=== PATIENT | male | born 1960 | race Caucasian/White ===

== ENCOUNTER 2016-10-24 11:49 | Emergency (ER) | payer BC ==
--- NOTE | 2016-10-24 12:53 | ED ---
Extremity Problem HPI - General Chief complaint: Extremity Problem,Nontraumatic Stated complaint: foot pain Time Seen by Provider: 10/24/16 12:41 Source: patient, RN notes reviewed Mode of arrival: wheelchair Limitations: no limitations - History of Present Illness Initial comments: 56-year-old male presents to the emergency Department chief complaint of bruising to the left foot. Patient states that he noticed this over the last few days. Patient states that he has pain to touch and pain with walking and mild swelling. Patient states he does have poor circulation the foot suite that was just discoloration from his circulation. Patient does not remember falling or injuring the foot but he states that he is having some discomfort. Patient denies any open wounds. Patient denies any recent fever, chills, shortness of breath, chest pain, back pain, abdominal pain, nausea vomiting, numbness or tingling, dysuria or hematuria, constipation or diarrhea, headaches or visual changes, or any other current symptoms. - Related Data Home Medications Medication Instructions Recorded Confirmed Gabapentin [Neurontin] 600 mg PO TID 04/24/14 10/24/16 Insulin Glargine [Lantus] 25 units SQ DAILY 04/24/14 10/24/16 Aspirin EC [Ecotrin Low Dose] 81 mg PO DAILY 10/24/16 10/24/16 Previous Rx's Medication Instructions Recorded Hydrocodone/Acetaminophen [[place] 1 each PO Q6HR PRN #20 tab 10/24/16 5-325] Allergies Allergy/AdvReac Type Severity Reaction Status Date / Time No Known Allergies Allergy Verified 10/24/16 12:44 Review of Systems ROS Statement: Those systems with pertinent positive or pertinent negative responses have been documented in the HPI. ROS Other: All systems not noted in ROS Statement are negative. Past Medical History Past Medical History: Diabetes Mellitus History of Any Multi-Drug Resistant Organisms: None Reported Past Surgical History: Hernia Repair Past Psychological History: No Psychological Hx Reported Smoking Status: Current every day smoker Past Alcohol Use History: Daily Past Drug Use History: None Reported General Exam - General Exam Comments Initial Comments: General: The patient is awake and alert, in no distress, and does not appear acutely ill. Neck: The neck is supple, there is no tenderness. Cardiovascular: There is a regular rate and rhythm. No murmur, rub or gallop is appreciated. Respiratory: Lungs are clear to auscultation, respirations are non-labored, breath sounds are equal. No wheezes, stridor, rales, or rhonchi. Musculoskeletal: Sensation intact with 2+ pulses. Left lower extremity. Full range of motion of left knee and left ankle left foot there is mild swelling and noted ecchymosis throughout the ankle as well as to the for foot. It is tender to touch. No open areas of drainage or infection noted. Neurological: CN II-XII intact, There are no obvious motor or sensory deficits. Coordination appears grossly intact. Speech is normal. Skin: Skin is warm and dry and no rashes or lesions are noted. Psychiatric: Normal mood and affect. Limitations: no limitations Course Vital Signs 10/24/16 11:58 Temperature 98.3 F Pulse Rate 90 Respiratory 20 Rate Blood Pressure 133/76 O2 Sat by Pulse 95 Oximetry Procedures - Orthopedic Splinting/Casting Injury #1 Side: left Lower Extremity Injury Location: ankle Lower Extremity Immobilizer: stirrup splint Medical Decision Making - Medical Decision Making 56-year-old male presents for bruising to the left foot. This time patient appears to have an ankle fracture. This time patient was placed in splint. We discussed follow-up with or so and return parameters and care. We discussed all the patient's questions. He stated he understood and is in agreement with plan. This and will be discharged home. - Radiology Data Radiology results: report reviewed, image reviewed Disposition Clinical Impression: Closed left ankle fracture Disposition: HOME SELF-CARE Condition: Stable Instructions: Ankle Fracture (ED) Additional Instructions: Please use medication as discussed. Please follow up with family doctor if symptoms have not improved over the next two days. Please return to the emergency room if your symptoms increase or worsen or for any other concerns. Prescriptions: Hydrocodone/Acetaminophen [[place] 5-325] 1 each PO Q6HR PRN #20 tab PRN Reason: Pain Referrals: Len Dutton MD [Primary Care Provider] - 1-2 days Gurmeet Sheehan DO [Doctor of Osteopathic Medicine] - 1-2 days Time of Disposition: 14:13
[2016-10-24] MEDS ORDERED: HYDROcodone/APAP 5-325MG 1 EACH TAB PO STA (14:04)
--- NOTE | 2016-10-24 14:08 | XR ---
EXAMINATION TYPE: XR ankle complete LT DATE OF EXAM: 10/24/2016 COMPARISON: NONE HISTORY: Pain swelling TECHNIQUE: 3 view left ankle FINDINGS: There is an oblique fracture of the distal metadiaphyseal fibula. Overlying soft tissue swe lling is present. Ankle mortise appears intact. No additional fractures are evident. Plantar calcanea l heel spur is present. IMPRESSION: 1. Oblique fracture distal metadiaphyseal fibula.
--- NOTE | 2016-10-24 14:09 | XR ---
EXAMINATION TYPE: XR foot complete LT DATE OF EXAM: 10/24/2016 COMPARISON: NONE HISTORY: Pain and swelling TECHNIQUE: 3 view left foot FINDINGS: No acute fractures evident. Soft tissues are normal. The patient's fibular fracture is bare ly within the [id number]. Plantar calcaneal heel spur is present. IMPRESSION: 1. No acute osseous abnormality left foot. 2. Partial visualization of the left distal fibular fracture.
[2016-10-24 14:27] VITALS: BP 176/90; PULSE 91; RESP 18; TEMP 98.6
== END 2016-10-24 14:34 | disposition home or self-care (01) ==
LOC: EC 11:49
DX: S89.302A Unspecified physeal fracture of lower end of left fibula, initial encounter for closed fracture (principal); E11.9 Type 2 diabetes mellitus without complications; F17.200 Nicotine dependence, unspecified, uncomplicated; Z79.4 Long term (current) use of insulin; Z79.82 Long term (current) use of aspirin; Z79.899 Other long term (current) drug therapy; X58.XXXA Exposure to other specified factors, initial encounter
CPT/HCPCS: 99283

== ENCOUNTER 2017-05-31 05:55 | Emergency (ER) | payer SELFPAY ==
[2017-05-31 06:11] VITALS: RESP 20
[2017-05-31] MEDS ORDERED: IPRATROPIUM-ALBUTEROL 3 ML NEB INHALATION STA ×2 (06:15→07:39)
--- NOTE | 2017-05-31 06:32 | XR ---
EXAM: XR Chest, 2 Views CLINICAL HISTORY: Reason: difficulty breathing TECHNIQUE: Frontal and lateral views of the chest. COMPARISON: No relevant prior studies available. FINDINGS: Lungs: Unremarkable. No consolidation. Pleural space: Unremarkable. No pneumothorax. Heart: Unremarkable. No cardiomegaly. Mediastinum: Unremarkable. Bones/joints: Unremarkable. Upper abdomen: Elevated left hemidiaphragm. IMPRESSION: No acute findings.
[2017-05-31] MEDS ORDERED: SODIUM CHLORIDE 0.9% 1,000 ML IV STA (07:38)
[2017-05-31] MEDS ORDERED: cefTRIAXone IN SWFI 1,000 MG/10 ML SYRINGE IVP STA (07:38)
[2017-05-31] MEDS ORDERED: methylPREDNISolone SOD SUCCI 125 MG/2 ML VIAL IV STA (07:39)
--- NOTE | 2017-05-31 07:42 | ED ---
SOB HPI - General Chief Complaint: Shortness of Breath Stated Complaint: SOB Time Seen by Provider: 05/31/17 07:20 Source: patient, RN notes reviewed Mode of arrival: wheelchair Limitations: no limitations - History of Present Illness Initial Comments: This is a 56-year-old male who states he is to be a 3 pack a day smoker and is down now to less 1 pack a day who states he's had some illness over last 1-1/2 weeks. He has had body aches cough difficulty breathing that was getting progressively worse last night he had orthopnea. He also had watery eyes runny nose some of the symptoms have improved. He came in this morning for evaluation. Short of breath. Prior to my arrival here he did receive a updraft which did help somewhat. He states he has had some sweats no recent fevers or chills. He did get a flu shot this year he states. No chest pain no abdominal pain no nausea vomiting diarrhea. He states he did see his doctor 4 days ago but apparently the prescription was "messed up" at the pharmacy and he did not receive the prescription. MD Complaint: shortness of breath - Related Data Home Medications Medication Instructions Recorded Confirmed Gabapentin [Neurontin] 600 mg PO TID 04/24/14 05/31/17 Insulin Glargine [Lantus] 20 units SQ DAILY 04/24/14 05/31/17 Albuterol Inhaler [Ventolin Hfa 1 - 2 puff INHALATION RT-Q6H PRN 05/31/17 Inhaler] Budesonide-Formot 160-4.5 Mcg 2 puff INHALATION RT-DAILY 05/31/17 05/31/17 [Symbicort 160-4.5 Mcg Inhaler] Hydrocodone/Acetaminophen [[place] 1 tab PO Q6HR PRN 05/31/17 05/31/17 5-325] Ibuprofen [Ibuprofen] 600 mg PO TID 05/31/17 05/31/17 Previous Rx's Medication Instructions Recorded Amoxicillin 500 mg PO Q8H #30 capsule 05/31/17 predniSONE 20 mg PO BID #10 tab 05/31/17 Allergies Allergy/AdvReac Type Severity Reaction Status Date / Time No Known Allergies Allergy Verified 05/31/17 07:45 Review of Systems ROS Statement: Those systems with pertinent positive or pertinent negative responses have been documented in the HPI. ROS Other: All systems not noted in ROS Statement are negative. Past Medical History Past Medical History: Diabetes Mellitus History of Any Multi-Drug Resistant Organisms: None Reported Past Surgical History: Hernia Repair Past Psychological History: No Psychological Hx Reported Smoking Status: Current every day smoker Past Alcohol Use History: Daily Past Drug Use History: None Reported General Exam - General Exam Comments Initial Comments: This is a well-developed well-nourished awake alert oriented 3 male Limitations: no limitations General appearance: alert, in no apparent distress Head exam: Present: atraumatic, normocephalic, normal inspection Eye exam: Present: normal appearance, PERRL, EOMI. Absent: scleral icterus, conjunctival injection, periorbital swelling ENT exam: Present: mucous membranes dry, TM's normal bilaterally, other (Marked hyperemia to the posterior pharynx no exudate seen. No edema.) Neck exam: Present: normal inspection, full ROM, other (No stridor JVD or bruits ). Absent: tenderness, meningismus, lymphadenopathy Respiratory exam: Present: wheezes, decreased breath sounds, other (Diffuse wheezing more so on the right than the left this is after the first nebulizer treatment). Absent: respiratory distress, rales, rhonchi, stridor Cardiovascular Exam: Present: normal rhythm, tachycardia, normal heart sounds. Absent: systolic murmur, diastolic murmur, rubs, gallop, clicks GI/Abdominal exam: Present: soft, normal bowel sounds. Absent: distended, tenderness, guarding, rebound, rigid Extremities exam: Present: normal inspection, full ROM, normal capillary refill. Absent: tenderness, pedal edema, joint swelling, calf tenderness Back exam: Present: normal inspection Neurological exam: Present: alert, oriented X3, CN II-XII intact Psychiatric exam: Present: normal affect, normal mood Skin exam: Present: warm, dry, intact, normal color. Absent: rash Course Vital Signs 05/31/17 05/31/17 05/31/17 06:06 06:10 06:31 Temperature 98.7 F Pulse Rate 109 H 105 H Respiratory 20 20 Rate Blood Pressure 190/91 O2 Sat by Pulse 94 L Oximetry 05/31/17 05/31/17 05/31/17 06:43 07:56 08:06 Temperature Pulse Rate 108 H 94 92 Respiratory Rate Blood Pressure 189/80 O2 Sat by Pulse 98 Oximetry 05/31/17 05/31/17 05/31/17 08:16 08:56 09:56 Temperature Pulse Rate 90 100 96 Respiratory Rate Blood Pressure 181/79 158/68 O2 Sat by Pulse 97 95 Oximetry - Reevaluation(s) Reevaluation #1: 05/31/17 10:17 Reevaluation patient reveals increased aeration and he is feeling much improved. Reevaluation #2: 05/31/17 10:18 I did discuss the risks of smoking and the benefits and cessation with the patient. The entire conversation lasting 3.1 minutes. Medical Decision Making - Medical Decision Making Patient showing much improved this time he has increased aeration no wheezing. We a long talk discussing smoking cessation. Patient does have an rescue inhaler at home that is up-to-date. He will be discharged on [place] medication including oral steroids. The presentation is consistent with asthmatic bronchitis. - Lab Data Result diagrams: 05/31/17 08:04 05/31/17 08:04 Lab Results 05/31/17 05/31/17 05/31/17 Range/Units 08:04 08:04 08:04 WBC 6.0 (3.8-10.6) k/uL RBC 4.37 (4.30-5.90) m/uL Hgb 14.3 (13.0-17.5) gm/dL Hct 42.4 (39.0-53.0) % MCV 97.0 (80.0-100.0) fL MCH 32.7 (25.0-35.0) pg MCHC 33.7 (31.0-37.0) g/dL RDW 15.9 H (11.5-15.5) % Plt Count 66 L (150-450) k/uL Neutrophils % 60 % Lymphocytes % 23 % Monocytes % 10 % Eosinophils % 3 % Basophils % 1 % Neutrophils # 3.6 (1.3-7.7) k/uL Lymphocytes # 1.4 (1.0-4.8) k/uL Monocytes # 0.6 (0-1.0) k/uL Eosinophils # 0.2 (0-0.7) k/uL Basophils # 0.1 (0-0.2) k/uL Manual Slide Review Performed RBC Morphology Normal PT (9.0-12.0) sec INR (<1.2) APTT (22.0-30.0) sec Sodium 142 (137-145) mmol/L Potassium 4.2 (3.5-5.1) mmol/L Chloride 104 (98-107) mmol/L Carbon Dioxide 26 (22-30) mmol/L Anion Gap 12 mmol/L BUN 7 L (9-20) mg/dL Creatinine 0.74 (0.66-1.25) mg/dL Est GFR (MDRD) Af Amer >60 (>60 ml/min/1.73 sqM) Est GFR (MDRD) Non-Af >60 (>60 ml/min/1.73 sqM) Glucose 167 H (74-99) mg/dL Calcium 9.4 (8.4-10.2) mg/dL Magnesium 1.8 (1.6-2.3) mg/dL Total Bilirubin 2.4 H (0.2-1.3) mg/dL AST 57 (17-59) U/L ALT 37 (21-72) U/L Alkaline Phosphatase 117 (38-126) U/L Total Creatine Kinase 160 (55-170) U/L CK-MB (CK-2) 3.0 H* (0.0-2.4) ng/mL CK-MB (CK-2) Rel Index 1.9 Troponin I 0.020 (0.000-0.034) ng/mL NT-Pro-B Natriuret Pep pg/mL Total Protein 8.2 (6.3-8.2) g/dL Albumin 4.1 (3.5-5.0) g/dL Influenza Type A RNA (Not Detectd) Influenza Type B (PCR) (Not Detectd) 05/31/17 05/31/17 05/31/17 Range/Units 08:04 08:04 08:04 WBC (3.8-10.6) k/uL RBC (4.30-5.90) m/uL Hgb (13.0-17.5) gm/dL Hct (39.0-53.0) % MCV (80.0-100.0) fL MCH (25.0-35.0) pg MCHC (31.0-37.0) g/dL RDW (11.5-15.5) % Plt Count (150-450) k/uL Neutrophils % % Lymphocytes % % Monocytes % % Eosinophils % % Basophils % % Neutrophils # (1.3-7.7) k/uL Lymphocytes # (1.0-4.8) k/uL Monocytes # (0-1.0) k/uL Eosinophils # (0-0.7) k/uL Basophils # (0-0.2) k/uL Manual Slide Review RBC Morphology PT 13.1 H (9.0-12.0) sec INR 1.4 H (<1.2) APTT 26.6 (22.0-30.0) sec Sodium (137-145) mmol/L Potassium (3.5-5.1) mmol/L Chloride (98-107) mmol/L Carbon Dioxide (22-30) mmol/L Anion Gap mmol/L BUN (9-20) mg/dL Creatinine (0.66-1.25) mg/dL Est GFR (MDRD) Af Amer (>60 ml/min/1.73 sqM) Est GFR (MDRD) Non-Af (>60 ml/min/1.73 sqM) Glucose (74-99) mg/dL Calcium (8.4-10.2) mg/dL Magnesium (1.6-2.3) mg/dL Total Bilirubin (0.2-1.3) mg/dL AST (17-59) U/L ALT (21-72) U/L Alkaline Phosphatase (38-126) U/L Total Creatine Kinase (55-170) U/L CK-MB (CK-2) (0.0-2.4) ng/mL CK-MB (CK-2) Rel Index Troponin I (0.000-0.034) ng/mL NT-Pro-B Natriuret Pep 88 pg/mL Total Protein (6.3-8.2) g/dL Albumin (3.5-5.0) g/dL Influenza Type A RNA Not Detected (Not Detectd) Influenza Type B (PCR) Not Detected (Not Detectd) - EKG Data -: EKG Interpreted by Ms EKG shows normal: sinus rhythm (Sinus rhythm rate of 92 WA interval 182 QRS duration 104 daily since QTC of 400/494 nonspecific septal changes seen this time. No acute ST elevation or depressions.) - Radiology Data Radiology results: report reviewed (I did review the imaging and reports no acute findings.), image reviewed Disposition Clinical Impression: Asthmatic bronchitis, Smoking Disposition: HOME SELF-CARE Condition: Good Instructions: Wheezing (ED), COPD (Chronic Obstructive Pulmonary Disease) (ED) , Bronchospasm (ED), How to Stop Smoking (ED) Prescriptions: Amoxicillin 500 mg PO Q8H #30 capsule predniSONE 20 mg PO BID #10 tab Referrals: Len Dutton MD [Primary Care Provider] - 1-2 days
[2017-05-31 08:34] LABS: ALT 37 U/L (21-72); AST 57 U/L (17-59); Albumin 4.1 g/dL (3.5-5.0); Alkaline Phosphatase 117 U/L (38-126); Anion Gap 12 mmol/L; Blood Urea Nitrogen 7 mg/dL (9-20); Calcium 9.4 mg/dL (8.4-10.2); Carbon Dioxide 26 mmol/L (22-30); Chloride 104 mmol/L (98-107); Glucose 167 mg/dL (74-99); Magnesium 1.8 mg/dL (1.6-2.3); Potassium 4.2 mmol/L (3.5-5.1); Sodium 142 mmol/L (137-145); Total Bilirubin 2.4 mg/dL (0.2-1.3); Total Protein 8.2 g/dL (6.3-8.2)
[2017-05-31 08:43] LABS: Basophils # (A) 0.1 k/uL (0-0.2); Basophils % (A) 1 %; Eosinophils # (A) 0.2 k/uL (0-0.7); Eosinophils % (A) 3 %; HCT 42.4 % (39.0-53.0); HGB 14.3 gm/dL (13.0-17.5); Lymphocytes # (A) 1.4 k/uL (1.0-4.8); Lymphocytes % (A) 23 %; MCH 32.7 pg (25.0-35.0); MCHC 33.7 g/dL (31.0-37.0); Mean Platelet Volume 9.6; Monocytes # (A) 0.6 k/uL (0-1.0); Monocytes % (A) 10 %; Neutrophils # (A) 3.6 k/uL (1.3-7.7); Neutrophils % (A) 60 %; RBC 4.37 m/uL (4.30-5.90); RDW 15.9 % (11.5-15.5)
[2017-05-31 09:00] LABS: Troponin I 0.02 ng/mL (0.000-0.034)
[2017-05-31 09:01] LABS: INR 1.4 (<1.2); Partial Thromboplastin Time 26.6 sec (22.0-30.0); Prothrombin Time 13.1 sec (9.0-12.0)
[2017-05-31 09:29] LABS: Platelet Count 66 k/uL (150-450)
[2017-05-31 10:28] VITALS: BP 162/70; PULSE 99; TEMP 99.5
== END 2017-05-31 10:28 | disposition home or self-care (01) ==
LOC: EC 05:55
DX: J45.909 Unspecified asthma, uncomplicated (principal); F17.210 Nicotine dependence, cigarettes, uncomplicated; R00.0 Tachycardia, unspecified; E11.9 Type 2 diabetes mellitus without complications; Z79.1 Long term (current) use of non-steroidal anti-inflammatories (NSAID); Z79.4 Long term (current) use of insulin; Z79.51 Long term (current) use of inhaled steroids; Z79.899 Other long term (current) drug therapy
CPT/HCPCS: 36415; 94640 ×2; 93005; 83880; 80053; 82550; 82553; 83735; 84484; 85025; 85610; 85730; 87040; 87502; 71046; 99285; 96374; 96375; 96361 ×2; J2930; J0696

== ENCOUNTER 2017-06-29 07:42 | Inpatient (IN) | payer BC, OTHER ==
[2017-06-29] MEDS ORDERED: IPRATROPIUM-ALBUTEROL 3 ML NEB INHALATION STA ×2 (08:25→10:13)
[2017-06-29] MEDS ORDERED: SODIUM CHLORIDE 0.9% 1,000 ML IV STA ×2 (08:25)
[2017-06-29] MEDS ORDERED: methylPREDNISolone SOD SUCCI 125 MG/2 ML VIAL IV STA (08:25)
--- NOTE | 2017-06-29 08:28 | ED ---
SOB HPI - General Chief Complaint: Shortness of Breath Stated Complaint: chaka Time Seen by Provider: 06/29/17 07:57 Source: patient, RN notes reviewed, old records reviewed Mode of arrival: ambulatory Limitations: no limitations - History of Present Illness Initial Comments: This patient is a 56-year-old male presents right arm and states she'll complain of worsening shortness of breath. He has a history of COPD and is a heavy smoker. He reports that since his last ER visit he has been decreasing her smoking because he is not able to catch his breath to even do so. He reports that he's had a nonproductive cough. He reports that he has had chills no specific fever. Denies any abdominal pain, nausea or vomiting. Patient reports that he otherwise has no chest pain at this time. He states that his throat is sore due to the amount of coughing that he's had. He reports his been using his Symbicort inhaler. Patient's previous visits emergency department was approximately one month ago patient was discharged with antibiotics and steroids. He has been taking them in his condition continuing them. 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 - Related Data Home Medications Medication Instructions Recorded Confirmed Gabapentin [Neurontin] 600 mg PO TID 04/24/14 06/29/17 Insulin Glargine [Lantus] 20 units SQ DAILY 04/24/14 06/29/17 Albuterol Inhaler [Ventolin Hfa 1 - 2 puff INHALATION RT-Q6H PRN 05/31/17 Inhaler] Budesonide-Formot 160-4.5 Mcg 2 puff INHALATION RT-DAILY 05/31/17 06/29/17 [Symbicort 160-4.5 Mcg Inhaler] Hydrocodone/Acetaminophen [[place] 1 tab PO Q6HR PRN 05/31/17 06/29/17 5-325] Ibuprofen [Ibuprofen] 600 mg PO TID 05/31/17 06/29/17 Allergies Allergy/AdvReac Type Severity Reaction Status Date / Time No Known Allergies Allergy Verified 06/29/17 09:19 Review of Systems ROS Statement: Those systems with pertinent positive or pertinent negative responses have been documented in the HPI. ROS Other: All systems not noted in ROS Statement are negative. Past Medical History Past Medical History: Asthma, Diabetes Mellitus Additional Past Medical History / Comment(s): fractured ankle History of Any Multi-Drug Resistant Organisms: None Reported Past Surgical History: Hernia Repair Past Psychological History: No Psychological Hx Reported Smoking Status: Current every day smoker Past Alcohol Use History: Daily Past Drug Use History: None Reported General Exam - General Exam Comments Initial Comments: This patient is a 36-year-old male. No acute distress. Patient does appear to be somewhat short of breath. Limitations: no limitations General appearance: alert, in no apparent distress Head exam: Present: atraumatic, normocephalic, normal inspection Eye exam: Present: normal appearance, PERRL, EOMI. Absent: scleral icterus, conjunctival injection, periorbital swelling ENT exam: Present: normal oropharynx (Patient has erythematous oropharynx.), mucous membranes moist. Absent: normal exam Neck exam: Present: normal inspection. Absent: tenderness, meningismus, lymphadenopathy Respiratory exam: Present: wheezes (Patient has significant wheezing and rhonchi noted in bilateral lung beatty.), rhonchi, accessory muscle use. Absent : normal lung sounds bilaterally, respiratory distress, rales, stridor Extremities exam: Present: normal inspection, full ROM, normal capillary refill , other (Clubbing noted of fingertips.). Absent: tenderness, pedal edema, joint swelling, calf tenderness Back exam: Present: normal inspection Neurological exam: Present: alert, oriented X3, CN II-XII intact Psychiatric exam: Present: normal affect, normal mood Skin exam: Present: warm, dry, intact, normal color. Absent: rash Course Vital Signs 06/29/17 06/29/17 06/29/17 07:49 08:28 08:42 Temperature 98.0 F Pulse Rate 113 H 88 96 Respiratory 18 Rate Blood Pressure 136/76 O2 Sat by Pulse 95 Oximetry 06/29/17 06/29/17 06/29/17 09:14 10:21 10:31 Temperature Pulse Rate 103 H 98 96 Respiratory 18 Rate Blood Pressure 159/87 O2 Sat by Pulse 93 L Oximetry - Reevaluation(s) Reevaluation #1: 06/29/17 10:14 is reevaluated this time continue to have some wheezing and rhonchi noted. A third DuoNeb treatment will be ordered. Medical Decision Making - Medical Decision Making This patient is 56-year-old male with history of COPD presents emergency department today with worsening shortness of breath. Patient completed a round of antibiotics and steroids approximately one month ago. He states is been worse after he was in an elevator yesterday while at work. Patient received 3 DuoNeb treatments with very little improvement at this time of his wheezing and shortness of breath. Ambulatory oxygen test was completed and patient dipped to 91% on room air after approximately 200 yards up walking. Patient reports that he feels mildly better but is still having some shortness of breath. He did receive IV Solu-Medrol. At this time I discussed case with Dr. Gomes. His chest x-rays negative for any acute process including pneumonias at this time. However is continued low oxygenation and shortness of breath and wheezing we will keep the patient for IV steroids for COPD exacerbation. I discussed everything with Dr. Gomes who discussed with patient's PCP Dr. Dutton. Request a consult to pulmonology for Dr. Suarez. - Lab Data Result diagrams: 06/29/17 08:34 06/29/17 08:30 Lab Results 06/29/17 06/29/17 06/29/17 Range/Units 08:30 08:30 08:30 WBC (3.8-10.6) k/uL RBC (4.30-5.90) m/uL Hgb (13.0-17.5) gm/dL Hct (39.0-53.0) % MCV (80.0-100.0) fL MCH (25.0-35.0) pg MCHC (31.0-37.0) g/dL RDW (11.5-15.5) % Plt Count (150-450) k/uL Neutrophils % % Lymphocytes % % Monocytes % % Eosinophils % % Basophils % % Neutrophils # (1.3-7.7) k/uL Lymphocytes # (1.0-4.8) k/uL Monocytes # (0-1.0) k/uL Eosinophils # (0-0.7) k/uL Basophils # (0-0.2) k/uL Macrocytosis PT (9.0-12.0) sec INR (<1.2) APTT (22.0-30.0) sec Sodium 142 (137-145) mmol/L Potassium 3.7 (3.5-5.1) mmol/L Chloride 105 (98-107) mmol/L Carbon Dioxide 24 (22-30) mmol/L Anion Gap 13 mmol/L BUN 6 L (9-20) mg/dL Creatinine 0.71 (0.66-1.25) mg/dL Est GFR (MDRD) Af Amer >60 (>60 ml/min/1.73 sqM) Est GFR (MDRD) Non-Af >60 (>60 ml/min/1.73 sqM) Glucose 324 H (74-99) mg/dL Calcium 8.3 L (8.4-10.2) mg/dL Magnesium 1.9 (1.6-2.3) mg/dL Total Bilirubin 2.3 H (0.2-1.3) mg/dL AST 66 H (17-59) U/L ALT 40 (21-72) U/L Alkaline Phosphatase 114 (38-126) U/L Total Creatine Kinase 220 H (55-170) U/L CK-MB (CK-2) 2.6 H* (0.0-2.4) ng/mL CK-MB (CK-2) Rel Index 1.2 Troponin I 0.017 (0.000-0.034) ng/mL Total Protein 6.8 (6.3-8.2) g/dL Albumin 3.4 L (3.5-5.0) g/dL Influenza Type A RNA Not Detected (Not Detectd) Influenza Type B (PCR) Not Detected (Not Detectd) 06/29/17 06/29/17 Range/Units 08:30 08:34 WBC 5.3 (3.8-10.6) k/uL RBC 3.82 L (4.30-5.90) m/uL Hgb 12.3 L (13.0-17.5) gm/dL Hct 38.0 L (39.0-53.0) % MCV 99.6 (80.0-100.0) fL MCH 32.3 (25.0-35.0) pg MCHC 32.5 (31.0-37.0) g/dL RDW 14.9 (11.5-15.5) % Plt Count 58 L (150-450) k/uL Neutrophils % 62 % Lymphocytes % 23 % Monocytes % 8 % Eosinophils % 4 % Basophils % 1 % Neutrophils # 3.3 (1.3-7.7) k/uL Lymphocytes # 1.3 (1.0-4.8) k/uL Monocytes # 0.4 (0-1.0) k/uL Eosinophils # 0.2 (0-0.7) k/uL Basophils # 0.0 (0-0.2) k/uL Macrocytosis Slight PT 12.5 H (9.0-12.0) sec INR 1.3 H (<1.2) APTT 25.5 (22.0-30.0) sec Sodium (137-145) mmol/L Potassium (3.5-5.1) mmol/L Chloride (98-107) mmol/L Carbon Dioxide (22-30) mmol/L Anion Gap mmol/L BUN (9-20) mg/dL Creatinine (0.66-1.25) mg/dL Est GFR (MDRD) Af Amer (>60 ml/min/1.73 sqM) Est GFR (MDRD) Non-Af (>60 ml/min/1.73 sqM) Glucose (74-99) mg/dL Calcium (8.4-10.2) mg/dL Magnesium (1.6-2.3) mg/dL Total Bilirubin (0.2-1.3) mg/dL AST (17-59) U/L ALT (21-72) U/L Alkaline Phosphatase (38-126) U/L Total Creatine Kinase (55-170) U/L CK-MB (CK-2) (0.0-2.4) ng/mL CK-MB (CK-2) Rel Index Troponin I (0.000-0.034) ng/mL Total Protein (6.3-8.2) g/dL Albumin (3.5-5.0) g/dL Influenza Type A RNA (Not Detectd) Influenza Type B (PCR) (Not Detectd) 06/29/17 10:50 EKG shows sinus tachycardia cannot rule out anterior infarct. Age- indeterminate. Ventricular rate of 102 beats were minute. MD interval was 186 most seconds. QRS duration 90 ms. QT QTc is 378/4 92 ms. - Radiology Data Radiology results: report reviewed No acute cardio [place]. No significant change from prior chest x-ray. Disposition Clinical Impression: COPD (chronic obstructive pulmonary disease), Smoking Disposition: ADMITTED IP TO THIS HOSP Condition: Good Referrals: Len Dutton MD [Primary Care Provider] - 1-2 days Time of Disposition: 11:27
[2017-06-29 08:49] LABS: Basophils % (A) 1 %; Eosinophils # (A) 0.2 k/uL (0-0.7); Eosinophils % (A) 4 %; HGB 12.3 gm/dL (13.0-17.5); Lymphocytes # (A) 1.3 k/uL (1.0-4.8); Lymphocytes % (A) 23 %; MCH 32.3 pg (25.0-35.0); MCHC 32.5 g/dL (31.0-37.0); MCV 99.6 fL (80.0-100.0); Macrocytosis Slight; Mean Platelet Volume 8.7; Monocytes # (A) 0.4 k/uL (0-1.0); Monocytes % (A) 8 %; Neutrophils # (A) 3.3 k/uL (1.3-7.7); Neutrophils % (A) 62 %; RBC 3.82 m/uL (4.30-5.90); RDW 14.9 % (11.5-15.5); WBC 5.3 k/uL (3.8-10.6)
[2017-06-29 08:50] LABS: Platelet Count 58 k/uL (150-450)
[2017-06-29 08:53] LABS: Partial Thromboplastin Time 25.5 sec (22.0-30.0)
[2017-06-29 08:55] LABS: INR 1.3 (<1.2); Prothrombin Time 12.5 sec (9.0-12.0)
[2017-06-29 08:57] LABS: ALT 40 U/L (21-72); AST 66 U/L (17-59); Albumin 3.4 g/dL (3.5-5.0); Alkaline Phosphatase 114 U/L (38-126); Anion Gap 13 mmol/L; Blood Urea Nitrogen 6 mg/dL (9-20); Calcium 8.3 mg/dL (8.4-10.2); Carbon Dioxide 24 mmol/L (22-30); Chloride 105 mmol/L (98-107); Glucose 324 mg/dL (74-99); Magnesium 1.9 mg/dL (1.6-2.3); Potassium 3.7 mmol/L (3.5-5.1); Sodium 142 mmol/L (137-145); Total Bilirubin 2.3 mg/dL (0.2-1.3); Total Protein 6.8 g/dL (6.3-8.2)
--- NOTE | 2017-06-29 09:02 | XR ---
EXAMINATION TYPE: XR chest 2V DATE OF EXAM: 06/29/2017 COMPARISON: Chest x-ray May 31, 2017. HISTORY: Shortness of breath. TECHNIQUE: Frontal and lateral views of the chest are obtained. FINDINGS: Overlying EKG wires are noted. Elevated left hemidiaphragm is redemonstrated. There is no focal air space opacity, pleural effusion, or pneumothorax seen. The cardiac silhouette size is with in normal limits. The osseous structures are intact. IMPRESSION: No acute cardiopulmonary process. No significant change from prior chest x-ray.
[2017-06-29 09:26] LABS: Troponin I 0.017 ng/mL (0.000-0.034)
[2017-06-29 09:29] LABS: Creatine Kinase MB 2.6 ng/mL (0.0-2.4)
[2017-06-29] MEDS ORDERED: ONDANSETRON 4 MG/2 ML VIAL IVP PRN (11:28)
[2017-06-29] MEDS ORDERED: ACETAMINOPHEN TAB 325 MG TAB PO PRN (11:28)
[2017-06-29] MEDS ORDERED: NALOXONE 0.4 MG/ML 1 ML VIAL IV PRN (11:28)
[2017-06-29] MEDS ORDERED: INSULIN ASPART 100 UNIT/ML 1 ML 10 ML VIAL SQ ONE ×2 (11:59→21:23)
[2017-06-29] MEDS: SODIUM CHLORIDE 0.9% 1,000 ML IV SCH ×2 (12:08→20:29)
[2017-06-29 12:09] LABS: Glucose,Whole Blood 273 mg/dL (75-99)
[2017-06-29] MEDS: INSULIN ASPART 100 UNIT/ML 1 ML 10 ML VIAL SQ SCH ×3 (12:23→22:23)
[2017-06-29] MEDS: methylPREDNISolone SOD SUCCI 125 MG/2 ML VIAL IV SCH ×3 (13:29→23:48)
[2017-06-29] MEDS ORDERED: NICOTINE 21MG/24HR PATCH TRANSDERM STA (13:35)
--- NOTE | 2017-06-29 13:39 | P.CNPUL ---
History of Present Illness Consult date: 06/29/17 Reason for consult: dyspnea, cough, asthma, COPD Chief complaint: Cough shortness of breath and wheezing started 1-2 days ago with worsening History of present illness: 56-year-old male with history of COPD he has been using his bronchodilator as were has been a very heavy smoker lately have been down smoking significantly patient had a similar episode about a month ago however improved and recovered but lately has been experiencing cough congestion shortness was started 3 or 4 days ago got worse one day prior to coming hospital presented emergency department was seen eval reexamined and admitted into the hospital He reports that since his last ER visit he has been decreasing her smoking because he is not able to catch his breath to even do so. He reports that he's had a nonproductive cough. He reports that he has had chills no specific fever. Denies any abdominal pain, nausea or vomiting. Patient reports that he otherwise has no chest pain at this time. He states that his throat is sore due to the amount of coughing that he's had. He reports his been using his Symbicort inhaler. Patient's previous visits emergency department was approximately one month ago patient was discharged with antibiotics and steroids. He has been taking them in his condition continuing them. 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 Review of Systems All systems: negative Past Medical History Past Medical History: Asthma, COPD, Diabetes Mellitus Additional Past Medical History / Comment(s): IDDM type II, neuropathy bilateral hands and feet, L fractured ankle spring 2016-placed in boot and pt states needs surgical intervention, chronic L ankle pain, occasional back pain History of Any Multi-Drug Resistant Organisms: None Reported Past Surgical History: Hernia Repair Additional Past Surgical History / Comment(s): Bilateral inguinal hernia repairs , colonoscopy-normal. Past Anesthesia/Blood Transfusion Reactions: No Reported Reaction Smoking Status: Current every day smoker - Past Family History Father Family Medical History: No Reported History Additional Family Medical History / Comment(s): Father is healthy Mother Family Medical History: No Reported History Additional Family Medical History / Comment(s): Mother is healthy. Medications and Allergies Home Medications Medication Instructions Recorded Confirmed Type Gabapentin [Neurontin] 600 mg PO TID 04/24/14 06/29/17 History Insulin Glargine [Lantus] 20 units SQ DAILY 04/24/14 06/29/17 History Albuterol Inhaler [Ventolin Hfa 1 - 2 puff INHALATION RT-Q6H PRN 05/31/17 History Inhaler] Budesonide-Formot 160-4.5 Mcg 2 puff INHALATION RT-DAILY 05/31/17 06/29/17 History [Symbicort 160-4.5 Mcg Inhaler] Hydrocodone/Acetaminophen [[place] 1 tab PO Q6HR PRN 05/31/17 06/29/17 History 5-325] Ibuprofen [Ibuprofen] 600 mg PO TID 05/31/17 06/29/17 History Allergies Allergy/AdvReac Type Severity Reaction Status Date / Time No Known Allergies Allergy Verified 06/29/17 09:19 Physical Exam Vitals: Vital Signs Temp Pulse Resp BP Pulse Ox 06/29/17 11:50 97.9 F 87 18 159/87 97 06/29/17 10:31 96 06/29/17 10:21 98 06/29/17 09:14 103 H 18 159/87 93 L 06/29/17 08:42 96 06/29/17 08:28 88 06/29/17 07:49 98.0 F 113 H 18 136/76 95 Intake and Output 06/28/17 06/29/17 06/29/17 22:59 06:59 14:59 Other: Weight 104.326 kg Patient Weight 06/30/17 06:59 Weight 104.326 kg Limitations: no limitations General appearance: alert, in no apparent distress Head exam: Present: atraumatic, normocephalic, normal inspection Eye exam: Present: normal appearance, PERRL, EOMI. Absent: scleral icterus, conjunctival injection, periorbital swelling ENT exam: Present: normal oropharynx (Patient has erythematous oropharynx.), mucous membranes moist. Absent: normal exam Neck exam: Present: normal inspection. Absent: tenderness, meningismus, lymphadenopathy Respiratory exam: Present: wheezes (Patient has significant wheezing and rhonchi noted in bilateral lung beatty.), rhonchi, accessory muscle use. Severity however has improved since earlier this morning Extremities exam: Present: normal inspection, full ROM, normal capillary refill , other (Clubbing noted of fingertips.). Absent: tenderness, pedal edema, joint swelling, calf tenderness Back exam: Present: normal inspection Neurological exam: Present: alert, oriented X3, CN II-XII intact, normal neuro exam Psychiatric exam:normal affect, normal mood Skin exam: Present: warm, dry, intact, normal color. Results - Laboratory Findings CBC and BMP: 06/29/17 08:34 06/29/17 08:30 PT/INR, D-dimer PT 12.5 sec (9.0-12.0) H 06/29/17 08:30 INR 1.3 (<1.2) H 06/29/17 08:30 Abnormal lab findings: Abnormal Labs 06/29/17 06/29/17 06/29/17 08:30 08:30 08:30 RBC Hgb Hct Plt Count PT 12.5 H INR 1.3 H BUN 6 L Glucose 324 H POC Glucose (mg/dL) Calcium 8.3 L Total Bilirubin 2.3 H AST 66 H Total Creatine Kinase 220 H CK-MB (CK-2) 2.6 H* Albumin 3.4 L 06/29/17 06/29/17 08:34 12:04 RBC 3.82 L Hgb 12.3 L Hct 38.0 L Plt Count 58 L PT INR BUN Glucose POC Glucose (mg/dL) 273 H Calcium Total Bilirubin AST Total Creatine Kinase CK-MB (CK-2) Albumin - Diagnostic Findings Chest x-ray: report reviewed, image reviewed (COPD-like changes) Assessment and Plan Assessment: Acute COPD exacerbation Tracheobronchitis Suspect baseline severe COPD and emphysema Uncontrolled hyperglycemia and possibly type 2 diabetes mellitus Chest tightness and pain nonspecific in nature we'll check a d-dimer though, if found to be elevated we'll do a computed tomography scan of the chest with IV dye to evaluate for pulmonary embolism Plan: Gentle rehydration Bronchodilators in the form of nebulizer treatment IV steroids Sliding scale insulin for hyperglycemia Antibiotics Smoking cessation advice along with the nicotine patch Check d-dimer if elevated obtain a spiral CT scan of the chest Maintain Peptic ulcer ulcer disease prophylaxis DVT prophylaxis by increasing activity as tolerated Time with Patient: Greater than 30
[2017-06-29] MEDS: KETOROLAC 30 MG/ML 1 ML VIAL IVP PRN ×2 (13:53→22:27)
[2017-06-29] MEDS: IPRATROPIUM-ALBUTEROL 3 ML NEB INHALATION PRN ×2 (15:35→19:36)
[2017-06-29] MEDS: GABAPENTIN 300 MG CAP PO SCH ×2 (16:00→22:23)
[2017-06-29 17:29] LABS: Glucose,Whole Blood 334 mg/dL (75-99)
[2017-06-29] MEDS ORDERED: RX INFO: IV CONTRAST WAS GIVEN 1 EACH MISC MISCELLANE PRN (17:46)
[2017-06-29] MEDS: HYDROcodone/APAP 5-325MG 1 EACH TAB PO PRN (18:41)
--- NOTE | 2017-06-29 19:12 | CT ---
EXAMINATION TYPE: CT angio chest DATE OF EXAM: 06/29/2017 COMPARISON: NONE HISTORY: Elevated d-dimer, shortness of breath and cough. CT DLP: 446.2 mGycm CONTRAST: CT chest with contrast and 3D reconstruction with MIP imaging is performed with IV Contrast, patient injected with 100 mL of Omnipaque 350. Contrast-enhanced CT of the chest was performed through the course of the pulmonary arteries with joey g and mediastinal window settings submitted. 3D reconstruction with MIP imaging was also performed. PULMONARY ARTERIES: The pulmonary arteries and their major tributaries are patent. I do not see milagros dence for sizable filling defect to suggest pulmonary embolic process. LUNGS: Patchy infiltrate left lower lobe and lingula. Correlate for pneumonia. MEDIASTINUM: Thoracic aorta is of normal caliber,however, evaluation is limited given timing of the contrast bolus. If there is concern for thoracic aortic pathology consider GEO. Correlate clinicall y . The heart is not enlarged. No evidence for mediastinal mass. No mediastinal lymph nodes greater than 1cm. HILAR STRUCTURES: No evidence for mass. No hilar lymph nodes greater than 1 cm. UPPER ABDOMEN: No significant abnormality is seen. IMPRESSION: 1. No evidence for Pulmonary embolism at this time. 2. Patchy infiltrate left lower lobe and lingula. Correlate for pneumonia.
[2017-06-29] MEDS ORDERED: PNEUMOCOCCAL VACC-PNEUMOVAX 23 25 MCG/0.5 ML VIAL IM ONE (19:54)
[2017-06-29 20:12] VITALS: BMI 32.1
[2017-06-29 20:45] LABS: Glucose,Whole Blood 344 mg/dL (75-99)
[2017-06-30] MEDS: HYDROcodone/APAP 5-325MG 1 EACH TAB PO PRN ×2 (03:55→10:28)
[2017-06-30] MEDS: SODIUM CHLORIDE 0.9% 1,000 ML IV SCH (05:46)
[2017-06-30] MEDS: methylPREDNISolone SOD SUCCI 125 MG/2 ML VIAL IV SCH ×4 (05:48→23:39)
[2017-06-30] MEDS: IPRATROPIUM-ALBUTEROL 3 ML NEB INHALATION PRN ×2 (07:45→11:41)
--- NOTE | 2017-06-30 07:52 | P.HPIM ---
History of Present Illness H&P Date: 06/30/17 Chief Complaint: Shortness of breath. This is a 56-year-old white male with known history of COPD and diabetes who states for the last several days she's been having worsening shortness of breath. ER evaluation tried to triage improperly below were unable to discharge him secondary to multiple breathing treatments which weren't still not helping him get back to normal baseline which is without oxygen. He is actually an elevator repairman. Over [id number] history unfortunately. He does have a history of ethanol abuse in the past also. Otherwise no significant chest pain. Dyspnea on exertion is otherwise noted. Review of Systems Constitutional: Denies chills, Denies fever Eyes: denies blurred vision, denies pain Ears, nose, mouth and throat: Denies headache, Denies sore throat Cardiovascular: Denies chest pain, Denies shortness of breath Respiratory: Reports as per HPI, Reports cough with sputum, Reports dyspnea, Reports pleurisy Gastrointestinal: Denies abdominal pain, Denies diarrhea, Denies nausea, Denies vomiting Past Medical History Past Medical History: Asthma, COPD, Diabetes Mellitus Additional Past Medical History / Comment(s): IDDM type II, neuropathy bilateral hands and feet, L fractured ankle spring 2016-placed in boot and pt states needs surgical intervention, chronic L ankle pain, occasional back pain History of Any Multi-Drug Resistant Organisms: None Reported Past Surgical History: Hernia Repair Additional Past Surgical History / Comment(s): Bilateral inguinal hernia repairs , colonoscopy-normal. Past Anesthesia/Blood Transfusion Reactions: No Reported Reaction Smoking Status: Current every day smoker - Past Family History Father Family Medical History: No Reported History Additional Family Medical History / Comment(s): Father is healthy Mother Family Medical History: No Reported History Additional Family Medical History / Comment(s): Mother is healthy. Medications and Allergies Home Medications Medication Instructions Recorded Confirmed Type Gabapentin [Neurontin] 600 mg PO TID 04/24/14 06/29/17 History Insulin Glargine [Lantus] 20 units SQ DAILY 04/24/14 06/29/17 History Albuterol Inhaler [Ventolin Hfa 1 - 2 puff INHALATION RT-Q6H PRN 05/31/17 History Inhaler] Budesonide-Formot 160-4.5 Mcg 2 puff INHALATION RT-DAILY 05/31/17 06/29/17 History [Symbicort 160-4.5 Mcg Inhaler] Hydrocodone/Acetaminophen [[place] 1 tab PO Q6HR PRN 05/31/17 06/29/17 History 5-325] Ibuprofen [Ibuprofen] 600 mg PO TID 05/31/17 06/29/17 History Allergies Allergy/AdvReac Type Severity Reaction Status Date / Time No Known Allergies Allergy Verified 06/29/17 09:19 Physical Exam Vitals: Vital Signs Temp Pulse Pulse Resp BP BP Pulse Ox 06/30/17 07:45 100 06/30/17 06:16 97.2 F L 107 H 18 188/87 94 L 06/29/17 23:00 98.4 F 111 H 18 153/92 96 06/29/17 19:49 98 06/29/17 19:36 100 06/29/17 16:00 8 L 18 06/29/17 15:48 100 06/29/17 15:35 98 95 06/29/17 15:00 97.5 F L 101 H 18 172/85 95 06/29/17 11:50 97.9 F 87 18 159/87 97 06/29/17 10:31 96 06/29/17 10:21 98 06/29/17 09:14 103 H 18 159/87 93 L 06/29/17 08:42 96 06/29/17 08:28 88 06/29/17 07:49 98.0 F 113 H 18 136/76 95 Intake and Output 06/29/17 06/30/17 06/30/17 22:59 06:59 14:59 Intake Total 800 Balance 800 Intake: Intake, IV Titration 800 Amount Sodium Chloride 0.9% 1, 800 000 ml @ 100 mls/hr IV . Q10H STA Rx#:[id number] Other: Voiding Method Toilet # Voids 1 1 - Constitutional General appearance: no acute distress - EENT Eyes: EOMI - Neck Neck: no lymphadenopathy - Respiratory Respiratory: bilateral: diminished, rhonchi - Cardiovascular Rhythm: regular Heart sounds: normal: S1, S2 Abnormal Heart Sounds: no S3 Gallop - Gastrointestinal General gastrointestinal: soft, no tenderness - Psychiatric Psychiatric: A&O x's 3 Results CBC & Chem 7: 06/29/17 08:34 06/29/17 08:30 Labs: Abnormal Lab Results - Last 24 Hours (Table) 06/29/17 06/29/17 06/29/17 Range/Units 08:30 08:30 08:30 RBC (4.30-5.90) m/uL Hgb (13.0-17.5) gm/dL Hct (39.0-53.0) % Plt Count (150-450) k/uL PT 12.5 H (9.0-12.0) sec INR 1.3 H (<1.2) D-Dimer (<0.60) mg/L FEU BUN 6 L (9-20) mg/dL Glucose 324 H (74-99) mg/dL POC Glucose (mg/dL) (75-99) mg/dL Calcium 8.3 L (8.4-10.2) mg/dL Total Bilirubin 2.3 H (0.2-1.3) mg/dL AST 66 H (17-59) U/L Total Creatine Kinase 220 H (55-170) U/L CK-MB (CK-2) 2.6 H* (0.0-2.4) ng/mL Albumin 3.4 L (3.5-5.0) g/dL 06/29/17 06/29/17 06/29/17 Range/Units 08:34 12:04 14:04 RBC 3.82 L (4.30-5.90) m/uL Hgb 12.3 L (13.0-17.5) gm/dL Hct 38.0 L (39.0-53.0) % Plt Count 58 L (150-450) k/uL PT (9.0-12.0) sec INR (<1.2) D-Dimer 3.42 H (<0.60) mg/L FEU BUN (9-20) mg/dL Glucose (74-99) mg/dL POC Glucose (mg/dL) 273 H (75-99) mg/dL Calcium (8.4-10.2) mg/dL Total Bilirubin (0.2-1.3) mg/dL AST (17-59) U/L Total Creatine Kinase (55-170) U/L CK-MB (CK-2) (0.0-2.4) ng/mL Albumin (3.5-5.0) g/dL 06/29/17 06/29/17 Range/Units 17:26 20:37 RBC (4.30-5.90) m/uL Hgb (13.0-17.5) gm/dL Hct (39.0-53.0) % Plt Count (150-450) k/uL PT (9.0-12.0) sec INR (<1.2) D-Dimer (<0.60) mg/L FEU BUN (9-20) mg/dL Glucose (74-99) mg/dL POC Glucose (mg/dL) 334 H 344 H (75-99) mg/dL Calcium (8.4-10.2) mg/dL Total Bilirubin (0.2-1.3) mg/dL AST (17-59) U/L Total Creatine Kinase (55-170) U/L CK-MB (CK-2) (0.0-2.4) ng/mL Albumin (3.5-5.0) g/dL Thrombosis Risk Factor Assmnt - Choose All That Apply Any of the Below Risk Factors Present?: Yes Each Factor Represents 1 point: Abnormal pulmonary function (COPD), Heart failure (<1month), Obesity (BMI >25) Other Risk Factors: No Other congenital or acquired thrombophilia - If yes, enter type in comment: No Thrombosis Risk Factor Assessment Total Risk Factor Score: 3 Thrombosis Risk Factor Assessment Level: Moderate Risk Assessment and Plan (1) Diabetes Current Visit: Yes Status: Acute Code(s): E11.9 - TYPE 2 DIABETES MELLITUS WITHOUT COMPLICATIONS SNOMED Code(s): 68549171 (2) COPD (chronic obstructive pulmonary disease) Current Visit: Yes Status: Acute Code(s): J44.9 - CHRONIC OBSTRUCTIVE PULMONARY DISEASE, UNSPECIFIED SNOMED Code(s): 51349346 (3) Asthmatic bronchitis Current Visit: No Status: Acute Code(s): J45.909 - UNSPECIFIED ASTHMA, UNCOMPLICATED SNOMED Code(s): 990976546 Plan: Go ahead and place on appropriate steroid protocol with mucoid pneumonia protocol and COPD element. Reconcile home medications. Place on sliding scale. The patient does not take mealtime insulin at home. But we'll go ahead and place on scale secondary to solid Medrol usage. Otherwise, hopefully we can discharge the patient within the next 24-48 hours if he continues to stabilize. Smoking cessation was again discussed with patient.
[2017-06-30] MEDS: LEVOFLOXACIN 500 MG TAB PO SCH (08:03)
[2017-06-30] MEDS: GABAPENTIN 300 MG CAP PO SCH ×3 (08:03→20:48)
[2017-06-30] MEDS: INSULIN ASPART 100 UNIT/ML 1 ML 10 ML VIAL SQ SCH ×6 (08:03→20:50)
[2017-06-30] MEDS: NICOTINE 21MG/24HR PATCH TRANSDERM SCH (08:04)
[2017-06-30 08:10] LABS: Glucose,Whole Blood 285 mg/dL (75-99)
[2017-06-30] MEDS ORDERED: PANTOPRAZOLE 40 MG/10 ML VIAL IV SCH (09:00)
[2017-06-30] MEDS: INSULIN DETEMIR 100 UNIT/ML 10 ML VIAL SQ SCH (10:23)
[2017-06-30 12:36] LABS: Glucose,Whole Blood 295 mg/dL (75-99)
[2017-06-30] MEDS: LISINOPRIL 10 MG TAB PO SCH (15:33)
[2017-06-30] MEDS: amLODIPine 5 MG TAB PO SCH (15:33)
--- NOTE | 2017-06-30 15:56 | P.PN ---
Subjective Progress Note Date: 06/30/17 Principal diagnosis: Acute COPD exacerbation, acute purulent tracheobronchitis, baseline COPD emphysema, uncontrolled hyperglycemia and type 2 diabetes mellitus, chest pain atypical in nature 06/30/2017, patient seen eval reexamined during the rounds patient seems to be responding well with breathing treatments and steroids severity or shortness of breath cough congestion is improved, vision was found to have elevated d-dimer a spiral computed tomography scan of the chest was performed which failed to reveal any sizable filling defects suggestive of pulmonary embolism patient does noted to have infiltrate in left lower lobe and the left lingular lobe suggestive of pneumonia, blood cultures no growth so far 56-year-old male with history of COPD he has been using his bronchodilator as were has been a very heavy smoker lately have been down smoking significantly patient had a similar episode about a month ago however improved and recovered but lately has been experiencing cough congestion shortness was started 3 or 4 days ago got worse one day prior to coming hospital presented emergency department was seen eval reexamined and admitted into the hospital He reports that since his last ER visit he has been decreasing her smoking because he is not able to catch his breath to even do so. He reports that he's had a nonproductive cough. He reports that he has had chills no specific fever. Denies any abdominal pain, nausea or vomiting. Patient reports that he otherwise has no chest pain at this time. He states that his throat is sore due to the amount of coughing that he's had. He reports his been using his Symbicort inhaler. Patient's previous visits emergency department was approximately one month ago patient was discharged with antibiotics and steroids. He has been taking them in his condition continuing them. 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 Objective - Vital Signs Vital signs: Vital Signs Temp 97.1 F L 06/30/17 14:04 Pulse 109 H 06/30/17 14:04 Resp 18 06/30/17 14:04 BP 174/83 06/30/17 14:04 Pulse Ox 97 06/30/17 14:04 Intake & Output 06/29/17 06/30/17 06/30/17 18:59 06:59 18:59 Intake Total 800 Balance 800 Weight 104.326 kg Intake: Intake, IV Titration 800 Amount Sodium Chloride 0.9% 1, 800 000 ml @ 100 mls/hr IV . Q10H STA Rx#:[id number] Other: Voiding Method Toilet # Voids 1 1 3 - Exam Limitations: no limitations General appearance: alert, in no apparent distress Head exam: Present: atraumatic, normocephalic, normal inspection Eye exam: Present: normal appearance, PERRL, EOMI. Absent: scleral icterus, conjunctival injection, periorbital swelling ENT exam: Present: normal oropharynx (Patient has erythematous oropharynx.), mucous membranes moist. Absent: normal exam Neck exam: Present: normal inspection. Absent: tenderness, meningismus, lymphadenopathy Respiratory exam: Present: wheezes (Patient has significant wheezing and rhonchi noted in bilateral lung beatty.), rhonchi, accessory muscle use. Severity however has improved since earlier exam yesterday Extremities exam: Present: normal inspection, full ROM, normal capillary refill , other (Clubbing noted of fingertips.). Absent: tenderness, pedal edema, joint swelling, calf tenderness Back exam: Present: normal inspection Neurological exam: Present: alert, oriented X3, CN II-XII intact, normal neuro exam Psychiatric exam:normal affect, normal mood Skin exam: Present: warm, dry, intact, normal color. - Labs CBC & Chem 7: 06/29/17 08:34 06/29/17 08:30 Labs: Abnormal Lab Results - Last 24 Hours (Table) 06/29/17 06/29/17 06/30/17 Range/Units 17:26 20:37 07:24 POC Glucose (mg/dL) 334 H 344 H 285 H (75-99) mg/dL 06/30/17 Range/Units 12:34 POC Glucose (mg/dL) 295 H (75-99) mg/dL Microbiology - Last 24 Hours (Table) 06/29/17 08:30 Blood Culture - Preliminary Blood No Growth after 24 hours Assessment and Plan Assessment: Left lower lobe and left lingular lobe community-acquired pneumonia Acute COPD exacerbation Tracheobronchitis Suspect baseline severe COPD and emphysema Uncontrolled hyperglycemia and possibly type 2 diabetes mellitus Chest tightness and pain nonspecific in nature likely related left-sided pneumonia, CT scan finding reviewed and compared, we'll continue Levaquin however we will add IV Rocephin starting today Plan: Gentle rehydration Bronchodilators in the form of nebulizer treatment IV steroids Sliding scale insulin for hyperglycemia Antibiotics Smoking cessation advice along with the nicotine patch Check d-dimer if elevated obtain a spiral CT scan of the chest Maintain Peptic ulcer ulcer disease prophylaxis DVT prophylaxis by increasing activity as tolerated Time with Patient: Greater than 30
[2017-06-30] MEDS: cefTRIAXone IN SWFI 1,000 MG/10 ML SYRINGE IVP SCH (16:39)
[2017-06-30 17:22] LABS: Glucose,Whole Blood 346 mg/dL (75-99)
[2017-06-30] MEDS: ZOLPIDEM 5 MG TAB PO SCH (20:49)
[2017-06-30 20:57] LABS: Glucose,Whole Blood 374 mg/dL (75-99)
[2017-06-30 23:27] LABS: Glucose,Whole Blood 322 mg/dL (75-99)
[2017-07-01] MEDS: methylPREDNISolone SOD SUCCI 125 MG/2 ML VIAL IV SCH ×2 (06:12→12:50)
[2017-07-01 07:24] LABS: Glucose,Whole Blood 314 mg/dL (75-99)
[2017-07-01] MEDS: IPRATROPIUM-ALBUTEROL 3 ML NEB INHALATION PRN (07:39)
--- NOTE | 2017-07-01 07:49 | P.PN ---
Subjective Progress Note Date: 07/01/17 Principal diagnosis: Exacerbation of COPD and pneumonia This is a continue progress on a 56-year-old white male essentially admitted for pneumonia and exacerbation of COPD. Significant improvement has been happening with the treatment. CT of the chest does not show pulmonary embolus. No voiding difficulties. No significant nausea, vomiting or diarrhea is noted. The patient does not describe any chills or sweats. Objective - Vital Signs Vital signs: Vital Signs Temp 98.5 F 07/01/17 07:00 Pulse 88 07/01/17 07:41 Resp 20 07/01/17 07:00 BP 152/90 07/01/17 07:00 Pulse Ox 96 07/01/17 07:00 Intake & Output 06/30/17 07/01/17 07/01/17 18:59 06:59 18:59 Intake Total 1280 Balance 1280 Intake: Oral 1280 Other: Voiding Method Toilet Toilet # Voids 3 2 - Constitutional General appearance: Present: obese - Respiratory Respiratory: bilateral: wheezing - Cardiovascular Rhythm: regular Heart sounds: normal: S1, S2 - Gastrointestinal General gastrointestinal: Present: soft. Absent: tenderness - Integumentary Integumentary: Present: normal - Musculoskeletal Musculoskeletal: Present: gait normal - Psychiatric Psychiatric: Present: A&O x's 3, appropriate affect - Labs CBC & Chem 7: 06/29/17 08:34 06/29/17 08:30 Labs: Abnormal Lab Results - Last 24 Hours (Table) 06/30/17 06/30/17 06/30/17 Range/Units 07:24 12:34 17:17 POC Glucose (mg/dL) 285 H 295 H 346 H (75-99) mg/dL 06/30/17 06/30/17 07/01/17 Range/Units 20:33 23:06 07:23 POC Glucose (mg/dL) 374 H 322 H 314 H (75-99) mg/dL Microbiology - Last 24 Hours (Table) 06/29/17 08:30 Blood Culture - Preliminary Blood No Growth after 24 hours Assessment and Plan (1) Diabetes Current Visit: Yes Status: Acute Code(s): E11.9 - TYPE 2 DIABETES MELLITUS WITHOUT COMPLICATIONS SNOMED Code(s): 97631097 (2) COPD (chronic obstructive pulmonary disease) Current Visit: Yes Status: Acute Code(s): J44.9 - CHRONIC OBSTRUCTIVE PULMONARY DISEASE, UNSPECIFIED SNOMED Code(s): 24972715 (3) Asthmatic bronchitis Current Visit: No Status: Inactive Code(s): J45.909 - UNSPECIFIED ASTHMA, UNCOMPLICATED SNOMED Code(s): 102445262 Plan: Continue current regimen of treatment. CT angiogram of the chest does not show any type of pulmonary embolus-it does show pneumonia area Anticipate discharge in next 24-48 hours. The patient has been ambulating more without difficulty. Check pulse oximetry on room air. She orders otherwise.
[2017-07-01] MEDS: INSULIN ASPART 100 UNIT/ML 1 ML 10 ML VIAL SQ SCH ×7 (08:01→21:47)
[2017-07-01] MEDS: PANTOPRAZOLE 40 MG TABLET PO SCH (08:01)
[2017-07-01] MEDS: amLODIPine 5 MG TAB PO SCH (08:02)
[2017-07-01] MEDS: GABAPENTIN 300 MG CAP PO SCH ×3 (08:02→21:47)
[2017-07-01] MEDS: NICOTINE 21MG/24HR PATCH TRANSDERM SCH (08:02)
[2017-07-01] MEDS: LISINOPRIL 10 MG TAB PO SCH (08:02)
[2017-07-01] MEDS: LEVOFLOXACIN 500 MG TAB PO SCH (08:02)
[2017-07-01 08:34] LABS: HCT 40.4 % (39.0-53.0); HGB 12.5 gm/dL (13.0-17.5); MCH 31.3 pg (25.0-35.0); Macrocytosis Slight; Mean Platelet Volume 8.8; RDW 15.2 % (11.5-15.5)
[2017-07-01 08:41] LABS: Platelet Count 76 k/uL (150-450)
[2017-07-01 08:47] LABS: ALT 34 U/L (21-72); AST 42 U/L (17-59); Albumin 3.5 g/dL (3.5-5.0); Alkaline Phosphatase 125 U/L (38-126); Anion Gap 13 mmol/L; Blood Urea Nitrogen 22 mg/dL (9-20); Calcium 9.3 mg/dL (8.4-10.2); Carbon Dioxide 25 mmol/L (22-30); Chloride 102 mmol/L (98-107); Glucose 286 mg/dL (74-99); Potassium 3.8 mmol/L (3.5-5.1); Sodium 140 mmol/L (137-145); Total Bilirubin 2.4 mg/dL (0.2-1.3); Total Protein 7.2 g/dL (6.3-8.2)
[2017-07-01] MEDS: INSULIN DETEMIR 100 UNIT/ML 10 ML VIAL SQ SCH (09:16)
[2017-07-01 12:19] LABS: Glucose,Whole Blood 307 mg/dL (75-99)
--- NOTE | 2017-07-01 15:09 | P.PN ---
Subjective Progress Note Date: 07/01/17 Principal diagnosis: Left lower lobe and left lingular lobe pneumonia, Acute COPD exacerbation, acute purulent tracheobronchitis, baseline COPD emphysema, uncontrolled hyperglycemia and type 2 diabetes mellitus, chest pain atypical in nature 07/01/2017, patient seen eval reexamined during the rounds patient is doing slightly better from [employer] standpoint remains on supplemental oxygen IV steroids antibiotics cough and congestion is improved patient does have a nebulizer machine but does not have oxygen he feels oxygen has been helping will check home O2 evaluation with oxygen saturation at rest off of oxygen and with activity and exertion, CT scan finding reviewed with the patient 06/30/2017, patient seen eval reexamined during the rounds patient seems to be responding well with breathing treatments and steroids severity or shortness of breath cough congestion is improved, vision was found to have elevated d-dimer a spiral computed tomography scan of the chest was performed which failed to reveal any sizable filling defects suggestive of pulmonary embolism patient does noted to have infiltrate in left lower lobe and the left lingular lobe suggestive of pneumonia, blood cultures no growth so far 56-year-old male with history of COPD he has been using his bronchodilator as were has been a very heavy smoker lately have been down smoking significantly patient had a similar episode about a month ago however improved and recovered but lately has been experiencing cough congestion shortness was started 3 or 4 days ago got worse one day prior to coming hospital presented emergency department was seen eval reexamined and admitted into the hospital He reports that since his last ER visit he has been decreasing her smoking because he is not able to catch his breath to even do so. He reports that he's had a nonproductive cough. He reports that he has had chills no specific fever. Denies any abdominal pain, nausea or vomiting. Patient reports that he otherwise has no chest pain at this time. He states that his throat is sore due to the amount of coughing that he's had. He reports his been using his Symbicort inhaler. Patient's previous visits emergency department was approximately one month ago patient was discharged with antibiotics and steroids. He has been taking them in his condition continuing them. 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 Objective - Vital Signs Vital signs: Vital Signs Temp 98.3 F 07/01/17 14:40 Pulse 103 H 07/01/17 14:40 Resp 18 07/01/17 14:40 BP 142/88 07/01/17 14:40 Pulse Ox 97 07/01/17 14:40 Intake & Output 06/30/17 07/01/17 07/01/17 18:59 06:59 18:59 Intake Total 1280 Balance 1280 Intake: Oral 1280 Other: Voiding Method Toilet Toilet # Voids 3 2 2 - Exam Limitations: no limitations General appearance: alert, in no apparent distress Head exam: Present: atraumatic, normocephalic, normal inspection Eye exam: Present: normal appearance, PERRL, EOMI. Absent: scleral icterus, conjunctival injection, periorbital swelling ENT exam: Present: normal oropharynx (Patient has erythematous oropharynx.), mucous membranes moist. Absent: normal exam Neck exam: Present: normal inspection. Absent: tenderness, meningismus, lymphadenopathy Respiratory exam: Present: wheezes (Patient has significant wheezing and rhonchi noted in bilateral lung beatty.), rhonchi, no more accessory muscle use. Severity however has improved since earlier exam yesterday Extremities exam: Present: normal inspection, full ROM, normal capillary refill , other (Clubbing noted of fingertips.). Absent: tenderness, pedal edema, joint swelling, calf tenderness Back exam: Present: normal inspection Neurological exam: Present: alert, oriented X3, CN II-XII intact, normal neuro exam Psychiatric exam:normal affect, normal mood Skin exam: Present: warm, dry, intact, normal color. - Labs CBC & Chem 7: 07/01/17 07:52 07/01/17 07:52 Labs: Abnormal Lab Results - Last 24 Hours (Table) 06/30/17 06/30/17 06/30/17 Range/Units 17:17 20:33 23:06 WBC (3.8-10.6) k/uL RBC (4.30-5.90) m/uL Hgb (13.0-17.5) gm/dL MCV (80.0-100.0) fL Plt Count (150-450) k/uL BUN (9-20) mg/dL Glucose (74-99) mg/dL POC Glucose (mg/dL) 346 H 374 H 322 H (75-99) mg/dL Total Bilirubin (0.2-1.3) mg/dL 07/01/17 07/01/17 07/01/17 Range/Units 07:23 07:52 07:52 WBC 11.0 H (3.8-10.6) k/uL RBC 4.00 L (4.30-5.90) m/uL Hgb 12.5 L (13.0-17.5) gm/dL MCV 101.0 H (80.0-100.0) fL Plt Count 76 L (150-450) k/uL BUN 22 H (9-20) mg/dL Glucose 286 H (74-99) mg/dL POC Glucose (mg/dL) 314 H (75-99) mg/dL Total Bilirubin 2.4 H (0.2-1.3) mg/dL 07/01/17 Range/Units 12:07 WBC (3.8-10.6) k/uL RBC (4.30-5.90) m/uL Hgb (13.0-17.5) gm/dL MCV (80.0-100.0) fL Plt Count (150-450) k/uL BUN (9-20) mg/dL Glucose (74-99) mg/dL POC Glucose (mg/dL) 307 H (75-99) mg/dL Total Bilirubin (0.2-1.3) mg/dL Microbiology - Last 24 Hours (Table) 06/29/17 08:30 Blood Culture - Preliminary Blood No Growth after 48 hours Assessment and Plan Assessment: Left lower lobe and left lingular lobe community-acquired pneumonia Acute COPD exacerbation Tracheobronchitis Suspect baseline severe COPD and emphysema Uncontrolled hyperglycemia and possibly type 2 diabetes mellitus Chest tightness and pain nonspecific in nature likely related left-sided pneumonia, CT scan finding reviewed and compared, we'll continue Levaquin and IV Rocephin for now and start tapering down the steroids Plan: Gentle rehydration Bronchodilators in the form of nebulizer treatment IV steroids Sliding scale insulin for hyperglycemia Antibiotics Smoking cessation advice along with the nicotine patch Reviewed findings on spiral CT scan of the chest with patient at length Maintain Peptic ulcer ulcer disease prophylaxis DVT prophylaxis by increasing activity as tolerated Time with Patient: Greater than 30
[2017-07-01] MEDS: cefTRIAXone IN SWFI 1,000 MG/10 ML SYRINGE IVP SCH (15:53)
[2017-07-01] MEDS: HYDROcodone/APAP 5-325MG 1 EACH TAB PO PRN (16:58)
[2017-07-01 17:26] LABS: Glucose,Whole Blood 264 mg/dL (75-99)
[2017-07-01 21:16] LABS: Glucose,Whole Blood 290 mg/dL (75-99)
[2017-07-01] MEDS: methylPREDNISolone SOD SUCCI 40 MG/ML 1 ML VIAL IV SCH (21:46)
[2017-07-01] MEDS: ZOLPIDEM 5 MG TAB PO SCH (21:47)
[2017-07-02] MEDS: HYDROcodone/APAP 5-325MG 1 EACH TAB PO PRN (02:30)
[2017-07-02] MEDS: methylPREDNISolone SOD SUCCI 40 MG/ML 1 ML VIAL IV SCH ×2 (04:35→12:26)
[2017-07-02 07:35] LABS: Glucose,Whole Blood 271 mg/dL (75-99)
[2017-07-02] MEDS: amLODIPine 5 MG TAB PO SCH (07:49)
[2017-07-02] MEDS: GABAPENTIN 300 MG CAP PO SCH ×2 (07:49→15:05)
[2017-07-02] MEDS: LISINOPRIL 10 MG TAB PO SCH (07:49)
[2017-07-02] MEDS: LEVOFLOXACIN 500 MG TAB PO SCH (07:49)
[2017-07-02] MEDS: PANTOPRAZOLE 40 MG TABLET PO SCH (07:49)
[2017-07-02] MEDS: INSULIN ASPART 100 UNIT/ML 1 ML 10 ML VIAL SQ SCH ×4 (07:49→12:29)
[2017-07-02] MEDS: NICOTINE 21MG/24HR PATCH TRANSDERM SCH (07:50)
[2017-07-02 07:55] LABS: HCT 43.3 % (39.0-53.0); HGB 13.6 gm/dL (13.0-17.5); MCH 32.2 pg (25.0-35.0); MCHC 31.5 g/dL (31.0-37.0); MCV 102.1 fL (80.0-100.0); Macrocytosis Slight; Mean Platelet Volume 8.8; RBC 4.24 m/uL (4.30-5.90); RDW 15.1 % (11.5-15.5); WBC 13.6 k/uL (3.8-10.6)
[2017-07-02] MEDS: INSULIN DETEMIR 100 UNIT/ML 10 ML VIAL SQ SCH (07:58)
[2017-07-02 08:17] LABS: Platelet Count 81 k/uL (150-450)
[2017-07-02 08:26] LABS: ALT 35 U/L (21-72); AST 41 U/L (17-59); Albumin 3.8 g/dL (3.5-5.0); Alkaline Phosphatase 137 U/L (38-126); Anion Gap 15 mmol/L; Blood Urea Nitrogen 24 mg/dL (9-20); Calcium 9.2 mg/dL (8.4-10.2); Carbon Dioxide 23 mmol/L (22-30); Chloride 100 mmol/L (98-107); Glucose 298 mg/dL (74-99); Potassium 3.9 mmol/L (3.5-5.1); Sodium 138 mmol/L (137-145); Total Bilirubin 2.9 mg/dL (0.2-1.3); Total Protein 7.8 g/dL (6.3-8.2)
[2017-07-02 11:59] LABS: Glucose,Whole Blood 329 mg/dL (75-99)
--- NOTE | 2017-07-02 14:10 | P.PN ---
Subjective Progress Note Date: 07/02/17 Principal diagnosis: Left lower lobe and left lingular lobe pneumonia, Acute COPD exacerbation, acute purulent tracheobronchitis, baseline COPD emphysema, uncontrolled hyperglycemia and type 2 diabetes mellitus, chest pain atypical in nature 07/02/2017, patient seen eval reexamined during the rounds clinically has improved able to ambulate patient has a home O2 need an evaluation done off of oxygen with activity and address sats remains over 94% patient is still have some wheezing but however feel comfortable in going home he would like to continue his oral antibiotics and steroids at home, I have offered him a nebulizer treatment as the feeling is there that the MDI may not be that much effective but he has declined would like to continue MDI, He is however agreeable for follow up on the outpatient setting his blood cultures no growth so far, labs are reviewed slight elevation in white cell count is likely related to steroids as clinically has improved 07/01/2017, patient seen eval reexamined during the rounds patient is doing slightly better from [employer] standpoint remains on supplemental oxygen IV steroids antibiotics cough and congestion is improved patient does have a nebulizer machine but does not have oxygen he feels oxygen has been helping will check home O2 evaluation with oxygen saturation at rest off of oxygen and with activity and exertion, CT scan finding reviewed with the patient 06/30/2017, patient seen eval reexamined during the rounds patient seems to be responding well with breathing treatments and steroids severity or shortness of breath cough congestion is improved, vision was found to have elevated d-dimer a spiral computed tomography scan of the chest was performed which failed to reveal any sizable filling defects suggestive of pulmonary embolism patient does noted to have infiltrate in left lower lobe and the left lingular lobe suggestive of pneumonia, blood cultures no growth so far 56-year-old male with history of COPD he has been using his bronchodilator as were has been a very heavy smoker lately have been down smoking significantly patient had a similar episode about a month ago however improved and recovered but lately has been experiencing cough congestion shortness was started 3 or 4 days ago got worse one day prior to coming hospital presented emergency department was seen eval reexamined and admitted into the hospital He reports that since his last ER visit he has been decreasing her smoking because he is not able to catch his breath to even do so. He reports that he's had a nonproductive cough. He reports that he has had chills no specific fever. Denies any abdominal pain, nausea or vomiting. Patient reports that he otherwise has no chest pain at this time. He states that his throat is sore due to the amount of coughing that he's had. He reports his been using his Symbicort inhaler. Patient's previous visits emergency department was approximately one month ago patient was discharged with antibiotics and steroids. He has been taking them in his condition continuing them. 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 Objective - Vital Signs Vital signs: Vital Signs Temp 97.4 F L 07/02/17 07:00 Pulse 91 07/02/17 07:00 Resp 18 07/02/17 07:00 BP 151/101 07/02/17 07:00 Pulse Ox 95 07/02/17 07:00 Intake & Output 07/01/17 07/02/17 07/02/17 18:59 06:59 18:59 Intake Total 200 Balance 200 Intake: Oral 200 Other: Voiding Method Toilet Toilet # Voids 2 2 - Exam Limitations: no limitations General appearance: alert, in no apparent distress Head exam: Present: atraumatic, normocephalic, normal inspection Eye exam: Present: normal appearance, PERRL, EOMI. Absent: scleral icterus, conjunctival injection, periorbital swelling ENT exam: Present: normal oropharynx (Patient has erythematous oropharynx.), mucous membranes moist. Absent: normal exam Neck exam: Present: normal inspection. Absent: tenderness, meningismus, lymphadenopathy Respiratory exam: Present: Minimal forced expiratory wheezes and, rhonchi, no more accessory muscle use. Severity however has improved since earlier exam yesterday Extremities exam: Present: normal inspection, full ROM, normal capillary refill , other (Clubbing noted of fingertips.). Absent: tenderness, pedal edema, joint swelling, calf tenderness Back exam: Present: normal inspection Neurological exam: Present: alert, oriented X3, CN II-XII intact, normal neuro exam Psychiatric exam:normal affect, normal mood Skin exam: Present: warm, dry, intact, normal color. - Labs CBC & Chem 7: 07/02/17 07:23 07/02/17 07:23 Labs: Abnormal Lab Results - Last 24 Hours (Table) 07/01/17 07/01/17 07/02/17 Range/Units 17:15 21:12 07:01 WBC (3.8-10.6) k/uL RBC (4.30-5.90) m/uL MCV (80.0-100.0) fL Plt Count (150-450) k/uL BUN (9-20) mg/dL Creatinine (0.66-1.25) mg/dL Glucose (74-99) mg/dL POC Glucose (mg/dL) 264 H 290 H 271 H (75-99) mg/dL Total Bilirubin (0.2-1.3) mg/dL Alkaline Phosphatase (38-126) U/L 07/02/17 07/02/17 07/02/17 Range/Units 07:23 07:23 11:55 WBC 13.6 H (3.8-10.6) k/uL RBC 4.24 L (4.30-5.90) m/uL MCV 102.1 H (80.0-100.0) fL Plt Count 81 L (150-450) k/uL BUN 24 H (9-20) mg/dL Creatinine 0.65 L (0.66-1.25) mg/dL Glucose 298 H (74-99) mg/dL POC Glucose (mg/dL) 329 H (75-99) mg/dL Total Bilirubin 2.9 H (0.2-1.3) mg/dL Alkaline Phosphatase 137 H (38-126) U/L Microbiology - Last 24 Hours (Table) 06/29/17 08:30 Blood Culture - Preliminary Blood No Growth after 72 hours Assessment and Plan Assessment: Left lower lobe and left lingular lobe community-acquired pneumonia Acute COPD exacerbation Tracheobronchitis Suspect baseline severe COPD and emphysema Uncontrolled hyperglycemia and possibly type 2 diabetes mellitus Chest tightness and pain nonspecific in nature likely related left-sided pneumonia, CT scan finding reviewed and compared, we'll continue Levaquin and IV Rocephin for now and start tapering down the steroids Plan: Agri with discharge planning on oral antibiotics and oral tapering prednisone with follow-up in outpatient setting, patient has been advised about smoking cessation Bronchodilators in the form of nebulizer treatment advise but patient declined would like to continue his MDIs will discuss options along with PFTs on outpatient setting Sliding scale insulin for hyperglycemia Antibiotics Smoking cessation advice along with the nicotine patch Reviewed findings on spiral CT scan of the chest with patient at length Maintain Peptic ulcer ulcer disease prophylaxis DVT prophylaxis by increasing activity as tolerated, As mentioned above can be discharged to follow up on outpatient setting as per patient's wishes Time with Patient: Greater than 30
[2017-07-02] MEDS: cefTRIAXone IN SWFI 1,000 MG/10 ML SYRINGE IVP SCH (15:05)
[2017-07-02 15:17] VITALS: BP 157/90; PULSE 96; RESP 20; TEMP 97.8
[2017-07-03] MEDS ORDERED: INSULIN DETEMIR 100 UNIT/ML 10 ML VIAL SQ SCH (09:00)
--- NOTE | 2017-08-14 18:24 | P.DS ---
Providers Date of admission: 06/29/17 11:23 Attending physician: Len Dutton Consults: 06/29/17 11:28 Consult Physician Stat Consulting Provider: Dayo Suarez Consult Reason/Comments: COPD exacerbation Do you want consulting provider notified?: Yes Primary care physician: Len Dutton Hospital Course: This is a 56-year-old white male with known history of COPD and diabetes who states for the last several days she's been having worsening shortness of breath. ER evaluation tried to triage improperly below were unable to discharge him secondary to multiple breathing treatments which weren't still not helping him get back to normal baseline which is without oxygen. He is actually an elevator repairman. Over [id number] history unfortunately. He does have a history of ethanol abuse in the past also. Otherwise no significant chest pain. Dyspnea on exertion is otherwise noted. Patient was admitted to the hospital withLeft lower lobe and left lingular lobe pneumonia, Acute COPD exacerbation, acute purulent tracheobronchitis, baseline COPD emphysema, uncontrolled hyperglycemia and type 2 diabetes mellitus, chest pain atypical in nature; patient was treated with IV antibiotics; ID consultation was done and antibiotics were adjusted; patient showed marked improvement with above treatment discharge planning on oral antibiotics and oral tapering prednisone with follow- up in outpatient setting, patient has been advised about smoking cessation Bronchodilators in the form of nebulizer treatment advise but patient declined would like to continue his MDIs will discuss options along with PFTs on outpatient setting Sliding scale insulin for hyperglycemia Antibiotics Smoking cessation advice along with the nicotine patch Reviewed findings on spiral CT scan of the chest with patient at length Maintain Peptic ulcer ulcer disease prophylaxis DVT prophylaxis by increasing activity as tolerated, As mentioned above can be discharged to follow up on outpatient setting as per patient's wishes Patient Condition at Discharge: Good Plan - Discharge Summary Discharge Rx Participant: Yes New Discharge Prescriptions: New Levofloxacin [Levaquin] 500 mg PO DAILY 7 Days #7 tab Lisinopril [Zestril] 10 mg PO DAILY #30 tab Continue Insulin Glargine [Lantus] 33 units SQ DAILY Albuterol Inhaler [Ventolin Hfa Inhaler] 1 - 2 puff INHALATION RT-Q6H PRN PRN Reason: Shortness Of Breath No Action predniSONE See Taper PO DIRECTED Ipratropium-Albuterol Nebulize [Duoneb 0.5 mg-3 mg/3 ml Soln] 3 ml INHALATION RT-QID #120 ampul.neb Nicotine 21Mg/24Hr Patch [Habitrol] 1 patch TRANSDERM DAILY #30 patch Nicotine Polacrilex [Nicorette] 2 mg BUCCAL Q4HR PRN #120 gum PRN Reason: Nicotine Cravings amLODIPine [Norvasc] 5 mg PO DAILY Budesonide/Formoterol Fumarate [Symbicort 160-4.5 Mcg Inhaler] 2 puff INHALATION RT-BID Gabapentin 600 mg PO TID Ibuprofen [Motrin] 600 mg PO TID PRN PRN Reason: Pain Pregabalin [Lyrica] 75 mg PO BID Zolpidem [Ambien] 5 mg PO HS PRN PRN Reason: Insomnia Discharge Medication List Insulin Glargine [Lantus] 33 units SQ DAILY 04/24/14 [History] Albuterol Inhaler [Ventolin Hfa Inhaler] 1 - 2 puff INHALATION RT-Q6H PRN [History] Levofloxacin [Levaquin] 500 mg PO DAILY 7 Days #7 tab 07/02/17 [Rx] Lisinopril [Zestril] 10 mg PO DAILY #30 tab 07/02/17 [Rx] predniSONE See Taper PO DIRECTED 07/04/17 [History] Ipratropium-Albuterol Nebulize [Duoneb 0.5 mg-3 mg/3 ml Soln] 3 ml INHALATION RT -QID #120 ampul.neb 07/06/17 [Rx] Nicotine 21Mg/24Hr Patch [Habitrol] 1 patch TRANSDERM DAILY #30 patch 07/06/17 [ Rx] Nicotine Polacrilex [Nicorette] 2 mg BUCCAL Q4HR PRN #120 gum 07/06/17 [Rx] Budesonide/Formoterol Fumarate [Symbicort 160-4.5 Mcg Inhaler] 2 puff INHALATION RT-BID 07/11/17 [History] Gabapentin 600 mg PO TID 07/11/17 [History] Ibuprofen [Motrin] 600 mg PO TID PRN 07/11/17 [History] Pregabalin [Lyrica] 75 mg PO BID 07/11/17 [History] Zolpidem [Ambien] 5 mg PO HS PRN 07/11/17 [History] amLODIPine [Norvasc] 5 mg PO DAILY 07/11/17 [History] Follow up Appointment(s)/Referral(s): Len Dutton MD [Primary Care Provider] - 1-2 days (client is to make own appointments) Dayo Suarez MD [STAFF PHYSICIAN] - 1 Week (client aware he needs to make own appointment) Patient Instructions/Handouts: COPD (Chronic Obstructive Pulmonary Disease) (DC ) Discharge Disposition: HOME SELF-CARE
== END 2017-07-02 15:43 | disposition home or self-care (01) | DRG 190 ==
LOC: EC 07:42 → 4MS4W 11:23
PROVIDERS: ADMIT Family Medicine; ATTEND Family Medicine
DX: J44.0 Chronic obstructive pulmonary disease with (acute) lower respiratory infection (principal); J18.9 Pneumonia, unspecified organism; J44.1 Chronic obstructive pulmonary disease with (acute) exacerbation; E11.65 Type 2 diabetes mellitus with hyperglycemia; F17.200 Nicotine dependence, unspecified, uncomplicated; R79.1 Abnormal coagulation profile; Z79.4 Long term (current) use of insulin; Z79.51 Long term (current) use of inhaled steroids; Z79.899 Other long term (current) drug therapy; Z71.6 Tobacco abuse counseling
CPT/HCPCS: 36415; 71046; 71275; 80053; 82550; 82553; 83735; 84484; 85025; 85027; 85379; 85610; 85730; 87040; 87502; 90732; 93005; 94640; 94760; 96361; 96374; 99285

== ENCOUNTER 2017-07-04 01:35 | Observation (INO) | payer BC, OTHER ==
[2017-07-04] MEDS ORDERED: IPRATROPIUM 0.5 MG/2.5 ML NEBU INHALATION STA (01:49)
[2017-07-04] MEDS ORDERED: ALBUTEROL NEBULIZED 2.5 MG/3 ML INHALATION STA (01:49)
[2017-07-04] MEDS ORDERED: methylPREDNISolone SOD SUCCI 125 MG/2 ML VIAL IV STA (01:49)
--- NOTE | 2017-07-04 01:53 | ED ---
General Adult HPI - General Chief complaint: Shortness of Breath Stated complaint: SOB Time Seen by Provider: 07/04/17 01:43 Source: patient, RN notes reviewed, old records reviewed Mode of arrival: wheelchair Limitations: no limitations - History of Present Illness Initial comments: 56-year-old male presenting with worsening cough and dyspnea. Patient has history of COPD. Recently Quit tobacco approximately one week ago. At this time he was admitted with a COPD exacerbation. According patient was also diagnosed with pneumonia at that time. He was discharged yesterday, states he had some breathing difficulties at home however he was able to rest throughout the night. He is presenting today with similar symptoms of cough and dyspnea however he has worsened. Denies any chest pain, does report some chest tightness associated with this cough. Denies abdominal pain nausea vomiting. Denies fever or chills. Patient has inhaled steroids and albuterol at home. No nebulizer. These have failed to improve his symptoms. - Related Data Home Medications Medication Instructions Recorded Confirmed Gabapentin [Neurontin] 600 mg PO TID 04/24/14 06/29/17 Insulin Glargine [Lantus] 20 units SQ DAILY 04/24/14 06/29/17 Albuterol Inhaler [Ventolin Hfa 1 - 2 puff INHALATION RT-Q6H PRN 05/31/17 Inhaler] Budesonide-Formot 160-4.5 Mcg 2 puff INHALATION RT-DAILY 05/31/17 06/29/17 [Symbicort 160-4.5 Mcg Inhaler] Hydrocodone/Acetaminophen [Petty 1 tab PO Q6HR PRN 05/31/17 06/29/17 5-325] Ibuprofen 600 mg PO TID 05/31/17 06/29/17 Previous Rx's Medication Instructions Recorded Levofloxacin [Levaquin] 500 mg PO DAILY 7 Days #7 tab 07/02/17 Lisinopril [Zestril] 10 mg PO DAILY #30 tab 07/02/17 amLODIPine [Norvasc] 5 mg PO DAILY #30 tab 07/02/17 predniSONE See Taper PO DIRECTED 9 Days 07/02/17 #30 tab Allergies Allergy/AdvReac Type Severity Reaction Status Date / Time No Known Allergies Allergy Verified 06/29/17 09:19 Review of Systems ROS Statement: Those systems with pertinent positive or pertinent negative responses have been documented in the HPI. ROS Other: All systems not noted in ROS Statement are negative. Past Medical History Past Medical History: Asthma, COPD, Diabetes Mellitus, Pneumonia Additional Past Medical History / Comment(s): IDDM type II, neuropathy bilateral hands and feet, L fractured ankle spring 2016-placed in boot and pt states needs surgical intervention, chronic L ankle pain, occasional back pain History of Any Multi-Drug Resistant Organisms: None Reported Past Surgical History: Hernia Repair Additional Past Surgical History / Comment(s): Bilateral inguinal hernia repairs , colonoscopy-normal. Past Anesthesia/Blood Transfusion Reactions: No Reported Reaction Past Psychological History: No Psychological Hx Reported Smoking Status: Former smoker Past Alcohol Use History: None Reported Past Drug Use History: None Reported - Past Family History Father Family Medical History: No Reported History Additional Family Medical History / Comment(s): Father is healthy Mother Family Medical History: No Reported History Additional Family Medical History / Comment(s): Mother is healthy. General Exam Limitations: no limitations General appearance: alert, in distress (Moderate respiratory distress) Head exam: Present: atraumatic, normocephalic ENT exam: Present: normal exam Neck exam: Present: normal inspection. Absent: tenderness, meningismus Respiratory exam: Present: respiratory distress, wheezes, rhonchi (Right midlung ) Cardiovascular Exam: Present: regular rate, normal rhythm GI/Abdominal exam: Present: soft. Absent: distended, tenderness Extremities exam: Present: normal capillary refill. Absent: pedal edema Neurological exam: Present: alert, oriented X3 Psychiatric exam: Present: normal affect, normal mood Skin exam: Present: warm, dry, intact. Absent: cyanosis, diaphoretic Course Vital Signs 07/04/17 07/04/17 07/04/17 01:37 02:19 02:35 Temperature 98.8 F Pulse Rate 69 81 75 Respiratory 18 Rate Blood Pressure 165/88 O2 Sat by Pulse 94 L Oximetry 07/04/17 07/04/17 02:36 02:56 Temperature Pulse Rate 89 89 Respiratory Rate Blood Pressure O2 Sat by Pulse Oximetry - Reevaluation(s) Reevaluation #1: 07/04/17 03:39 On reevaluation, patient remains quite dyspneic, improved air entry, persistent wheezing and rhonchi EKG Findings - EKG Comments: EKG Findings:: EKG shows sinus rhythm with marked sinus arrhythmia, ventricular rate 91, MO 152, castration 102, QTC 489, no ST segment elevation or depression Medical Decision Making - Medical Decision Making 56-year-old male history of COPD and recent hospital admission for COPD and pneumonia presenting with worsening dyspnea. On initial evaluation, patient has decreased air entry, with wheezing and rhonchi. After albuterol, Atrovent, and steroids, he remains dyspneic with only minimal improvement in air entry. Patient will be admitted for further treatment and evaluation of COPD exacerbation. Laboratory studies White blood cell count 10.7, hemoglobin 13.5, T bili is elevated although this appears to be chronic. Mild lactic acidosis 2.3. Potassium 3.4 which is replaced. Troponin and influenza negative. Chest x-ray negative for focal pneumonia. - Lab Data Result diagrams: 07/04/17 02:05 07/04/17 02:05 Lab Results 07/04/17 07/04/17 07/04/17 Range/Units 02:05 02:05 02:05 WBC 10.7 H (3.8-10.6) k/uL RBC 4.23 L (4.30-5.90) m/uL Hgb 13.5 (13.0-17.5) gm/dL Hct 42.3 (39.0-53.0) % MCV 100.1 H (80.0-100.0) fL MCH 31.9 (25.0-35.0) pg MCHC 31.9 (31.0-37.0) g/dL RDW 15.0 (11.5-15.5) % Plt Count 67 L (150-450) k/uL Neutrophils % 73 % Lymphocytes % 13 % Monocytes % 11 % Eosinophils % 1 % Basophils % 0 % Neutrophils # 7.8 H (1.3-7.7) k/uL Lymphocytes # 1.4 (1.0-4.8) k/uL Monocytes # 1.1 H (0-1.0) k/uL Eosinophils # 0.2 (0-0.7) k/uL Basophils # 0.0 (0-0.2) k/uL Manual Slide Review Performed Macrocytosis Slight PT (9.0-12.0) sec INR (<1.2) APTT (22.0-30.0) sec Sodium 135 L (137-145) mmol/L Potassium 3.4 L (3.5-5.1) mmol/L Chloride 99 (98-107) mmol/L Carbon Dioxide 26 (22-30) mmol/L Anion Gap 10 mmol/L BUN 23 H (9-20) mg/dL Creatinine 0.80 (0.66-1.25) mg/dL Est GFR (MDRD) Af Amer >60 (>60 ml/min/1.73 sqM) Est GFR (MDRD) Non-Af >60 (>60 ml/min/1.73 sqM) Glucose 351 H (74-99) mg/dL Plasma Lactic Acid [place] (0.7-2.0) mmol/L Calcium 8.7 (8.4-10.2) mg/dL Magnesium 2.5 H (1.6-2.3) mg/dL Total Bilirubin 2.2 H (0.2-1.3) mg/dL AST 40 (17-59) U/L ALT 42 (21-72) U/L Alkaline Phosphatase 104 (38-126) U/L Total Creatine Kinase 95 (55-170) U/L CK-MB (CK-2) 2.0 (0.0-2.4) ng/mL CK-MB (CK-2) Rel Index 2.1 Troponin I <0.012 (0.000-0.034) ng/mL NT-Pro-B Natriuret Pep pg/mL Total Protein 6.9 (6.3-8.2) g/dL Albumin 3.3 L (3.5-5.0) g/dL Influenza Type A RNA (Not Detectd) Influenza Type B (PCR) (Not Detectd) 07/04/17 07/04/17 07/04/17 Range/Units 02:05 02:05 02:05 WBC (3.8-10.6) k/uL RBC (4.30-5.90) m/uL Hgb (13.0-17.5) gm/dL Hct (39.0-53.0) % MCV (80.0-100.0) fL MCH (25.0-35.0) pg MCHC (31.0-37.0) g/dL RDW (11.5-15.5) % Plt Count (150-450) k/uL Neutrophils % % Lymphocytes % % Monocytes % % Eosinophils % % Basophils % % Neutrophils # (1.3-7.7) k/uL Lymphocytes # (1.0-4.8) k/uL Monocytes # (0-1.0) k/uL Eosinophils # (0-0.7) k/uL Basophils # (0-0.2) k/uL Manual Slide Review Macrocytosis PT 13.9 H (9.0-12.0) sec INR 1.5 H (<1.2) APTT 23.4 (22.0-30.0) sec Sodium (137-145) mmol/L Potassium (3.5-5.1) mmol/L Chloride (98-107) mmol/L Carbon Dioxide (22-30) mmol/L Anion Gap mmol/L BUN (9-20) mg/dL Creatinine (0.66-1.25) mg/dL Est GFR (MDRD) Af Amer (>60 ml/min/1.73 sqM) Est GFR (MDRD) Non-Af (>60 ml/min/1.73 sqM) Glucose (74-99) mg/dL Plasma Lactic Acid [place] 2.3 H* (0.7-2.0) mmol/L Calcium (8.4-10.2) mg/dL Magnesium (1.6-2.3) mg/dL Total Bilirubin (0.2-1.3) mg/dL AST (17-59) U/L ALT (21-72) U/L Alkaline Phosphatase (38-126) U/L Total Creatine Kinase (55-170) U/L CK-MB (CK-2) (0.0-2.4) ng/mL CK-MB (CK-2) Rel Index Troponin I (0.000-0.034) ng/mL NT-Pro-B Natriuret Pep 164 pg/mL Total Protein (6.3-8.2) g/dL Albumin (3.5-5.0) g/dL Influenza Type A RNA (Not Detectd) Influenza Type B (PCR) (Not Detectd) 07/04/17 Range/Units 02:15 WBC (3.8-10.6) k/uL RBC (4.30-5.90) m/uL Hgb (13.0-17.5) gm/dL Hct (39.0-53.0) % MCV (80.0-100.0) fL MCH (25.0-35.0) pg MCHC (31.0-37.0) g/dL RDW (11.5-15.5) % Plt Count (150-450) k/uL Neutrophils % % Lymphocytes % % Monocytes % % Eosinophils % % Basophils % % Neutrophils # (1.3-7.7) k/uL Lymphocytes # (1.0-4.8) k/uL Monocytes # (0-1.0) k/uL Eosinophils # (0-0.7) k/uL Basophils # (0-0.2) k/uL Manual Slide Review Macrocytosis PT (9.0-12.0) sec INR (<1.2) APTT (22.0-30.0) sec Sodium (137-145) mmol/L Potassium (3.5-5.1) mmol/L Chloride (98-107) mmol/L Carbon Dioxide (22-30) mmol/L Anion Gap mmol/L BUN (9-20) mg/dL Creatinine (0.66-1.25) mg/dL Est GFR (MDRD) Af Amer (>60 ml/min/1.73 sqM) Est GFR (MDRD) Non-Af (>60 ml/min/1.73 sqM) Glucose (74-99) mg/dL Plasma Lactic Acid [place] (0.7-2.0) mmol/L Calcium (8.4-10.2) mg/dL Magnesium (1.6-2.3) mg/dL Total Bilirubin (0.2-1.3) mg/dL AST (17-59) U/L ALT (21-72) U/L Alkaline Phosphatase (38-126) U/L Total Creatine Kinase (55-170) U/L CK-MB (CK-2) (0.0-2.4) ng/mL CK-MB (CK-2) Rel Index Troponin I (0.000-0.034) ng/mL NT-Pro-B Natriuret Pep pg/mL Total Protein (6.3-8.2) g/dL Albumin (3.5-5.0) g/dL Influenza Type A RNA Not Detected (Not Detectd) Influenza Type B (PCR) Not Detected (Not Detectd) Disposition Clinical Impression: Acute exacerbation of chronic obstructive airways disease Disposition: ADMITTED IP TO THIS HOSP Condition: Stable Referrals: Len Dutton MD [Primary Care Provider] - 1-2 days Decision to Admit Reason: Admit from EC Decision Date: 07/04/17 Decision Time: 03:40
[2017-07-04 02:15] LABS: Basophils % (A) 0 %; Eosinophils # (A) 0.2 k/uL (0-0.7); Eosinophils % (A) 1 %; HCT 42.3 % (39.0-53.0); HGB 13.5 gm/dL (13.0-17.5); Lymphocytes # (A) 1.4 k/uL (1.0-4.8); Lymphocytes % (A) 13 %; MCH 31.9 pg (25.0-35.0); MCHC 31.9 g/dL (31.0-37.0); MCV 100.1 fL (80.0-100.0); Macrocytosis Slight; Mean Platelet Volume 8.7; Monocytes # (A) 1.1 k/uL (0-1.0); Monocytes % (A) 11 %; Neutrophils # (A) 7.8 k/uL (1.3-7.7); Neutrophils % (A) 73 %; RBC 4.23 m/uL (4.30-5.90); WBC 10.7 k/uL (3.8-10.6)
[2017-07-04 02:27] LABS: ALT 42 U/L (21-72); AST 40 U/L (17-59); Albumin 3.3 g/dL (3.5-5.0); Alkaline Phosphatase 104 U/L (38-126); Anion Gap 10 mmol/L; Blood Urea Nitrogen 23 mg/dL (9-20); Calcium 8.7 mg/dL (8.4-10.2); Carbon Dioxide 26 mmol/L (22-30); Chloride 99 mmol/L (98-107); Glucose 351 mg/dL (74-99); Potassium 3.4 mmol/L (3.5-5.1); Sodium 135 mmol/L (137-145); Total Bilirubin 2.2 mg/dL (0.2-1.3); Total Protein 6.9 g/dL (6.3-8.2)
[2017-07-04 02:31] LABS: INR 1.5 (<1.2); Partial Thromboplastin Time 23.4 sec (22.0-30.0); Prothrombin Time 13.9 sec (9.0-12.0)
[2017-07-04 02:35] LABS: Platelet Count 67 k/uL (150-450)
[2017-07-04 02:44] LABS: Creatine Kinase 95 U/L (55-170)
[2017-07-04 02:56] LABS: Troponin I <0.012 ng/mL (0.000-0.034)
--- NOTE | 2017-07-04 03:13 | XR ---
EXAMINATION TYPE: XR chest 2V DATE OF EXAM: 07/04/2017 COMPARISON: 06/29/2017 HISTORY: Short of breath TECHNIQUE: Frontal and lateral views of the chest are obtained. FINDINGS: There is small linear density at the left lung base. There is slight blunting of left cost ophrenic angle. Heart size is normal. There is no heart failure. IMPRESSION: There is some pleural reaction and subsegmental atelectasis at the left lung base that a ppears worse than last exam. Normal heart.
[2017-07-04] MEDS ORDERED: POTASSIUM CHLORIDE ER 20 MEQ TAB.ER PO STA (03:19)
[2017-07-04] MEDS ORDERED: IPRATROPIUM-ALBUTEROL 3 ML NEB INHALATION PRN (03:36)
[2017-07-04] MEDS ORDERED: HYDROcodone/APAP 5-325MG 1 EACH TAB PO PRN (03:38)
[2017-07-04] MEDS ORDERED: SODIUM CHLORIDE 0.9% 500 ML IV ONE (03:41)
[2017-07-04 04:31] VITALS: BMI 32.1
[2017-07-04] MEDS: methylPREDNISolone SOD SUCCI 125 MG/2 ML VIAL IV SCH ×4 (06:25→23:26)
[2017-07-04 07:45] LABS: Glucose,Whole Blood 327 mg/dL (75-99)
[2017-07-04] MEDS ORDERED: INSULIN ASPART 100 UNIT/ML 1 ML 10 ML VIAL SQ ONE ×2 (08:05→12:04)
[2017-07-04] MEDS: INSULIN ASPART 100 UNIT/ML 1 ML 10 ML VIAL SQ SCH ×4 (08:09→21:16)
[2017-07-04] MEDS: amLODIPine 5 MG TAB PO SCH (08:11)
[2017-07-04] MEDS: LEVOFLOXACIN 500 MG TAB PO SCH (08:11)
--- NOTE | 2017-07-04 08:13 | P.HPIM ---
History of Present Illness H&P Date: 07/04/17 Chief Complaint: Orthopnea with shortness of breath. This is a history and physical on a 56-year-old white male who was recently discharged 3 days ago for exacerbation COPD. The patient states he went home slept appropriately but was unable to get his breath the next day. Significant dyspnea on exertion is noted. No nausea or vomiting. No anginal equivalent chest pain as stated. Because of his inability to catch his breath he is readmitted for said exacerbation of COPD. We'll consult pulmonology. He seems breathing on oxygen appropriately at this time. Review of Systems Constitutional: Denies chills, Denies fever Eyes: denies blurred vision, denies pain Cardiovascular: Denies chest pain, Denies shortness of breath Respiratory: Reports congestion, Reports cough, Reports dyspnea Gastrointestinal: Denies abdominal pain, Denies diarrhea, Denies nausea, Denies vomiting Musculoskeletal: Denies myalgias Integumentary: Denies pruritus, Denies rash Past Medical History Past Medical History: Asthma, COPD, Diabetes Mellitus, Pneumonia Additional Past Medical History / Comment(s): IDDM type II, neuropathy bilateral hands and feet, L fractured ankle spring 2016-placed in boot and pt states needs surgical intervention, chronic L ankle pain, occasional back pain, hernia. History of Any Multi-Drug Resistant Organisms: None Reported Past Surgical History: Hernia Repair Additional Past Surgical History / Comment(s): Bilateral inguinal hernia repairs , colonoscopy-normal. Past Anesthesia/Blood Transfusion Reactions: No Reported Reaction Past Psychological History: No Psychological Hx Reported Additional Psychological History / Comment(s): Pt resides with friends. He is independent. 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 Smoking Status: Former smoker Past Alcohol Use History: None Reported Additional Past Alcohol Use History / Comment(s): Pt started smoking in 1971 and quit 1 week ago. He states he drinks beer daily and the amount varies but he states he is not an alcoholic. Past Drug Use History: None Reported - Past Family History Father Family Medical History: No Reported History Additional Family Medical History / Comment(s): Father is healthy Mother Family Medical History: No Reported History Additional Family Medical History / Comment(s): Mother is healthy. Medications and Allergies Home Medications Medication Instructions Recorded Confirmed Type RX: Gabapentin [Neurontin] 600 mg PO TID 04/24/14 07/04/17 History RX: Insulin Glargine [Lantus] 20 units SQ DAILY 04/24/14 07/04/17 History RX: Albuterol Inhaler [Ventolin 1 - 2 puff INHALATION RT-Q6H PRN 05/31/17 History Hfa Inhaler] RX: Budesonide-Formot 160-4.5 Mcg 2 puff INHALATION RT-DAILY 05/31/17 07/04/17 History [Symbicort 160-4.5 Mcg Inhaler] RX: Hydrocodone/Acetaminophen 1 tab PO Q6HR PRN 05/31/17 07/04/17 History [K[place] 5-325] RX: Ibuprofen 600 mg PO TID 05/31/17 07/04/17 History RX: Levofloxacin [Levaquin] 500 mg PO DAILY 7 Days #7 tab 07/02/17 07/04/17 Rx RX: Lisinopril [Zestril] 10 mg PO DAILY #30 tab 07/02/17 07/04/17 Rx RX: amLODIPine [Norvasc] 5 mg PO DAILY #30 tab 07/02/17 07/04/17 Rx RX: predniSONE See Taper PO DIRECTED 9 Days 07/02/17 07/04/17 Rx #30 tab Allergies Allergy/AdvReac Type Severity Reaction Status Date / Time No Known Allergies Allergy Verified 07/04/17 07:59 Physical Exam Vitals: Vital Signs Temp Pulse Pulse Resp BP BP Pulse Ox 07/04/17 05:19 20 07/04/17 05:17 98.7 F 93 16 159/87 98 07/04/17 04:06 99 20 170/80 98 07/04/17 02:56 89 07/04/17 02:36 89 07/04/17 02:35 75 07/04/17 02:19 81 07/04/17 01:37 98.8 F 69 18 165/88 94 L Intake and Output 07/03/17 07/04/17 07/04/17 22:59 06:59 14:59 Intake Total 700 Balance 700 Intake: Amount of Fluid Infused ( 200 ml) Intake, IV Titration 500 Amount Sodium Chloride 0.9% 500 500 ml @ 999 mls/hr IV .Q31M ONE Rx#:[id number] Other: Voiding Method Toilet # Voids 1 Weight 104.326 kg - Constitutional General appearance: obese - EENT Eyes: EOMI - Neck Neck: no lymphadenopathy - Respiratory Respiratory: bilateral: diminished - Cardiovascular Rhythm: regular Heart sounds: normal: S1, S2 Abnormal Heart Sounds: no S3 Gallop - Gastrointestinal General gastrointestinal: soft, no tenderness - Psychiatric Psychiatric: A&O x's 3 Results CBC & Chem 7: 07/04/17 02:05 07/04/17 02:05 Labs: Abnormal Lab Results - Last 24 Hours (Table) 07/04/17 07/04/17 07/04/17 Range/Units 02:05 02:05 02:05 WBC 10.7 H (3.8-10.6) k/uL RBC 4.23 L (4.30-5.90) m/uL MCV 100.1 H (80.0-100.0) fL Plt Count 67 L (150-450) k/uL Neutrophils # 7.8 H (1.3-7.7) k/uL Monocytes # 1.1 H (0-1.0) k/uL PT 13.9 H (9.0-12.0) sec INR 1.5 H (<1.2) Sodium 135 L (137-145) mmol/L Potassium 3.4 L (3.5-5.1) mmol/L BUN 23 H (9-20) mg/dL Glucose 351 H (74-99) mg/dL POC Glucose (mg/dL) (75-99) mg/dL Plasma Lactic Acid [place] (0.7-2.0) mmol/L Magnesium 2.5 H (1.6-2.3) mg/dL Total Bilirubin 2.2 H (0.2-1.3) mg/dL Albumin 3.3 L (3.5-5.0) g/dL 07/04/17 07/04/17 07/04/17 Range/Units 02:05 06:21 07:43 WBC (3.8-10.6) k/uL RBC (4.30-5.90) m/uL MCV (80.0-100.0) fL Plt Count (150-450) k/uL Neutrophils # (1.3-7.7) k/uL Monocytes # (0-1.0) k/uL PT (9.0-12.0) sec INR (<1.2) Sodium (137-145) mmol/L Potassium (3.5-5.1) mmol/L BUN (9-20) mg/dL Glucose (74-99) mg/dL POC Glucose (mg/dL) 327 H (75-99) mg/dL Plasma Lactic Acid [place] 2.3 H* 2.1 H* (0.7-2.0) mmol/L Magnesium (1.6-2.3) mg/dL Total Bilirubin (0.2-1.3) mg/dL Albumin (3.5-5.0) g/dL Thrombosis Risk Factor Assmnt - Choose All That Apply Any of the Below Risk Factors Present?: Yes Each Factor Represents 1 point: Abnormal pulmonary function (COPD), Age 41-60 years Other Risk Factors: No Other congenital or acquired thrombophilia - If yes, enter type in comment: No Thrombosis Risk Factor Assessment Total Risk Factor Score: 2 Thrombosis Risk Factor Assessment Level: Low Risk Assessment and Plan (1) Alcoholism /alcohol abuse Current Visit: Yes Status: Acute Code(s): F10.20 - ALCOHOL DEPENDENCE, UNCOMPLICATED SNOMED Code(s): 7505885 (2) Acute exacerbation of chronic obstructive airways disease Current Visit: Yes Status: Acute Code(s): J44.1 - CHRONIC OBSTRUCTIVE PULMONARY DISEASE W (ACUTE) EXACERBATION SNOMED Code(s): 785243448 (3) Diabetes Current Visit: No Status: Acute Code(s): E11.9 - TYPE 2 DIABETES MELLITUS WITHOUT COMPLICATIONS SNOMED Code(s): 74856773 (4) Smoking Current Visit: No Status: Acute Code(s): F17.200 - NICOTINE DEPENDENCE, UNSPECIFIED, UNCOMPLICATED SNOMED Code(s): 63725423 (5) SIRS (systemic inflammatory response syndrome) Current Visit: Yes Status: Acute Code(s): R65.10 - SIRS OF NON-INFECTIOUS ORIGIN W/O ACUTE ORGAN DYSFUNCTION SNOMED Code(s): 695961694 Plan: Continue IV steroids with breathing treatments. Check CBC and CMP in a.m. per Pulmonology to be consulted. Anticipate discharge in next 48-72 hours. Time with Patient: Greater than 30
[2017-07-04] MEDS: IPRATROPIUM-ALBUTEROL 3 ML NEB INHALATION SCH ×4 (08:34→20:22)
[2017-07-04] MEDS ORDERED: INSULIN DETEMIR 100 UNIT/ML 10 ML VIAL SQ SCH (09:00)
[2017-07-04 11:41] LABS: Glucose,Whole Blood 379 mg/dL (75-99)
[2017-07-04 12:50] LABS: Hemoglobin A1C 8.6 % (4.0-6.0)
[2017-07-04 17:17] LABS: Glucose,Whole Blood 313 mg/dL (75-99)
[2017-07-04 21:04] LABS: Glucose,Whole Blood 356 mg/dL (75-99)
[2017-07-05] MEDS: methylPREDNISolone SOD SUCCI 125 MG/2 ML VIAL IV SCH ×2 (06:05→12:34)
[2017-07-05 07:16] LABS: Glucose,Whole Blood 368 mg/dL (75-99)
[2017-07-05] MEDS ORDERED: NICOTINE POLACRILEX 2 MG GUM BUCCAL PRN (07:42)
[2017-07-05 07:49] LABS: HCT 42.5 % (39.0-53.0); HGB 13.4 gm/dL (13.0-17.5); MCH 31.8 pg (25.0-35.0); MCHC 31.5 g/dL (31.0-37.0); MCV 100.9 fL (80.0-100.0); Macrocytosis Slight; Mean Platelet Volume 8.7; RBC 4.21 m/uL (4.30-5.90); RDW 14.9 % (11.5-15.5); WBC 12.6 k/uL (3.8-10.6)
[2017-07-05] MEDS: amLODIPine 5 MG TAB PO SCH (07:59)
[2017-07-05] MEDS: LEVOFLOXACIN 500 MG TAB PO SCH (07:59)
[2017-07-05 08:00] LABS: Platelet Count 61 k/uL (150-450)
[2017-07-05] MEDS: INSULIN ASPART 100 UNIT/ML 1 ML 10 ML VIAL SQ SCH ×4 (08:00→17:34)
[2017-07-05 08:15] LABS: ALT 37 U/L (21-72); AST 29 U/L (17-59); Albumin 3.2 g/dL (3.5-5.0); Alkaline Phosphatase 113 U/L (38-126); Anion Gap 13 mmol/L; Blood Urea Nitrogen 24 mg/dL (9-20); Calcium 8.9 mg/dL (8.4-10.2); Carbon Dioxide 23 mmol/L (22-30); Chloride 105 mmol/L (98-107); Glucose 385 mg/dL (74-99); Potassium 4.2 mmol/L (3.5-5.1); Sodium 141 mmol/L (137-145); Total Bilirubin 1.9 mg/dL (0.2-1.3); Total Protein 6.5 g/dL (6.3-8.2)
[2017-07-05] MEDS: NICOTINE 21MG/24HR PATCH TRANSDERM SCH (08:39)
[2017-07-05] MEDS: IPRATROPIUM-ALBUTEROL 3 ML NEB INHALATION SCH ×4 (08:48→19:56)
[2017-07-05] MEDS ORDERED: INSULIN DETEMIR 100 UNIT/ML 10 ML VIAL SQ SCH (09:00)
[2017-07-05 11:27] LABS: Glucose,Whole Blood 351 mg/dL (75-99)
--- NOTE | 2017-07-05 12:54 | P.PN ---
Subjective Progress Note Date: 07/05/17 Principal diagnosis: This is a continuing progress 56-year-old white male essentially admitted for exacerbation of COPD. Significant improvement is noted. We will decrease his appropriate steroid treatment however, blood sugar has been stabilizing at times but also elevated at times. We'll titrate his basal with his mealtime insulin plus sliding scale. Objective - Vital Signs Vital signs: Vital Signs Temp 98.0 F 07/05/17 07:00 Pulse 100 07/05/17 11:52 Resp 16 07/05/17 08:54 BP 171/81 07/05/17 07:00 Pulse Ox 95 07/05/17 07:00 Intake & Output 07/04/17 07/05/17 07/05/17 18:59 06:59 18:59 Intake Total 240 Balance 240 Intake: Oral 240 Other: Voiding Method Toilet Toilet Toilet # Voids 3 1 - Constitutional General appearance: Present: obese - EENT Eyes: Absent: abnormal pupil - Neck Thyroid: bilateral: normal size - Respiratory Respiratory: bilateral: CTA - Cardiovascular Rhythm: regular Heart sounds: normal: S1, S2 Abnormal Heart Sounds: Absent: S3 Gallop - Gastrointestinal General gastrointestinal: Present: soft. Absent: tenderness - Integumentary Integumentary: Absent: rash - Labs CBC & Chem 7: 07/05/17 07:09 07/05/17 07:09 Labs: Abnormal Lab Results - Last 24 Hours (Table) 07/04/17 07/04/17 07/04/17 Range/Units 06:21 17:06 21:03 WBC (3.8-10.6) k/uL RBC (4.30-5.90) m/uL MCV (80.0-100.0) fL Plt Count (150-450) k/uL BUN (9-20) mg/dL Glucose (74-99) mg/dL POC Glucose (mg/dL) 313 H 356 H (75-99) mg/dL Hemoglobin A1c 8.6 H (4.0-6.0) % Total Bilirubin (0.2-1.3) mg/dL Albumin (3.5-5.0) g/dL 07/05/17 07/05/17 07/05/17 Range/Units 07:07 07:09 07:09 WBC 12.6 H (3.8-10.6) k/uL RBC 4.21 L (4.30-5.90) m/uL MCV 100.9 H (80.0-100.0) fL Plt Count 61 L (150-450) k/uL BUN 24 H (9-20) mg/dL Glucose 385 H (74-99) mg/dL POC Glucose (mg/dL) 368 H (75-99) mg/dL Hemoglobin A1c (4.0-6.0) % Total Bilirubin 1.9 H (0.2-1.3) mg/dL Albumin 3.2 L (3.5-5.0) g/dL 07/05/17 Range/Units 11:20 WBC (3.8-10.6) k/uL RBC (4.30-5.90) m/uL MCV (80.0-100.0) fL Plt Count (150-450) k/uL BUN (9-20) mg/dL Glucose (74-99) mg/dL POC Glucose (mg/dL) 351 H (75-99) mg/dL Hemoglobin A1c (4.0-6.0) % Total Bilirubin (0.2-1.3) mg/dL Albumin (3.5-5.0) g/dL Microbiology - Last 24 Hours (Table) 07/04/17 02:05 Blood Culture - Preliminary Blood No Growth after 24 hours Assessment and Plan (1) Alcoholism /alcohol abuse Current Visit: Yes Status: Acute Code(s): F10.20 - ALCOHOL DEPENDENCE, UNCOMPLICATED SNOMED Code(s): 2329833 (2) Acute exacerbation of chronic obstructive airways disease Current Visit: Yes Status: Acute Code(s): J44.1 - CHRONIC OBSTRUCTIVE PULMONARY DISEASE W (ACUTE) EXACERBATION SNOMED Code(s): 167567205 (3) Diabetes Current Visit: No Status: Acute Code(s): E11.9 - TYPE 2 DIABETES MELLITUS WITHOUT COMPLICATIONS SNOMED Code(s): 67171942 (4) Smoking Current Visit: No Status: Acute Code(s): F17.200 - NICOTINE DEPENDENCE, UNSPECIFIED, UNCOMPLICATED SNOMED Code(s): 60263662 (5) SIRS (systemic inflammatory response syndrome) Current Visit: Yes Status: Acute Code(s): R65.10 - SIRS OF NON-INFECTIOUS ORIGIN W/O ACUTE ORGAN DYSFUNCTION SNOMED Code(s): 854732632 Plan: Titration of steroid treatment to be done today. The patient is significantly improved since his admission. Anticipate discharge in a.m.
[2017-07-05] MEDS: methylPREDNISolone SOD SUCCI 40 MG/ML 1 ML VIAL IV SCH (15:36)
[2017-07-05 17:31] LABS: Glucose,Whole Blood 330 mg/dL (75-99)
[2017-07-05 20:48] LABS: Glucose,Whole Blood 359 mg/dL (75-99)
[2017-07-05] MEDS ORDERED: amLODIPine 5 MG TAB PO STA (22:38)
--- NOTE | 2017-07-05 22:44 | CONS ---
CONSULTATION DATE OF SERVICE: 07/05/2017 REASON FOR CONSULT: Cough, shortness of breath and wheezing. HISTORY OF PRESENTING ILLNESS: Mr. Rodolfo Hollis is a 56-year-old male who was recently hospitalized with left-sided pneumonia. The patient was clinically improved, was discharged; however, one day after discharge home, he developed increased respiratory distress with cough, congestion and wheezing. He came into the hospital, was re-evaluated in Emergency Department, underwent a chest x-ray as well as an EKG. Chest x-ray shows some pleural reaction and resolving left lower lobe pneumonia. He continues to have wheezing and was admitted to the hospital. His EKG was sinus rhythm with sinus arrhythmia. His labs was significant for hyperglycemia and some leukocytosis. Some thrombocytopenia was noted as well. The patient was evaluated on the 5th floor. He is somewhat anxious. Still has cough that is dry, nonproductive. Denies any sputum production. He feels better with nebulizer therapy. Of note that previously patient has declined nebulizer treatment. PAST MEDICAL HISTORY: 1. Chronic persistent asthma. 2. COPD. 3. Diabetes mellitus. 4. Recent left-sided pneumonia. ALLERGIES: NO KNOWN DRUG ALLERGIES. HOME MEDICATIONS: 1. Neurontin 600 mg p.o. 3 times a day. 2. Lantus 20 units daily. 3. Ventolin HFA 4 times a day. 4. Symbicort 160/4.5 two puffs 2 times a day. 5. Tylenol. 6. [place] 5/325 as needed. 7. Levaquin 500 mg daily. 8. Zestril 10 mg daily. 9. Patient is also on tapering steroids. 10.Norvasc 5 mg daily. CURRENT MEDICATIONS WHILE IN THE HOSPITAL: 1. Above. 2. DuoNeb unit dose 4 times a day. 3. Sliding scale insulin. 4. Levaquin. 5. Solu-Medrol 40 q.8. 6. Habitrol patch. REVIEW OF SYSTEMS: Otherwise unremarkable and noncontributory. Past surgical history, family history and social history are otherwise unremarkable and noncontributory. PHYSICAL EXAMINATION: Blood pressure is 156/74, respiratory rate 18, pulse 95, temperature 98. Saturation 95% on room air. HEENT: Atraumatic, normocephalic. Pharynx is clear. Narrow pharyngeal opening is present. NECK: Supple. No lymphadenopathy, jugular venous distention or carotid bruit. LUNGS: Bilateral good air entry is present with fine expiratory wheezing and rhonchi present. HEART: Regular rate and rhythm. S1, S2 audible. Abdomen is soft. No rebound or rigidity. EXTREMITIES: Plus one peripheral pulses. NEUROLOGICAL EXAMINATION: Otherwise awake and alert. IMPRESSION: 1. Acute chronic obstructive pulmonary disease exacerbation. 2. Tracheobronchitis. 3. Resolving left lower lobe pneumonia. 4. Chronic persistent asthma. 5. Leukocytosis. 6. Thrombocytopenia. PLAN AND RECOMMENDATION: Continue breathing treatments, steroids and antibiotics. Continue supportive care. Patient is agreeable for nebulizer treatment at home. Will arrange updraft machine and medications. Will follow closely. Further recommendations pending. MMODL / IJN: [id number] /
[2017-07-06] MEDS: methylPREDNISolone SOD SUCCI 40 MG/ML 1 ML VIAL IV SCH (00:16)
[2017-07-06 06:56] LABS: Glucose,Whole Blood 323 mg/dL (75-99)
[2017-07-06 07:34] VITALS: BP 179/87; PULSE 102; RESP 15; TEMP 98.2
--- NOTE | 2017-07-06 07:49 | P.DS ---
Providers Date of admission: 07/04/17 03:36 Expected date of discharge: 07/06/17 Attending physician: Len Dutton Consults: 07/05/17 07:41 Consult Physician Routine Consulting Provider: Dayo Suarez Consult Reason/Comments: COPD Do you want consulting provider notified?: Yes Primary care physician: Len Dutton - Discharge Diagnosis(es) (1) Alcoholism /alcohol abuse Current Visit: Yes Status: Acute (2) Acute exacerbation of chronic obstructive airways disease Current Visit: Yes Status: Acute (3) Diabetes Current Visit: No Status: Acute (4) Smoking Current Visit: No Status: Acute (5) SIRS (systemic inflammatory response syndrome) Current Visit: Yes Status: Acute Hospital Course: This discharge summary 56-year-old white male was readmitted for exacerbation COPD. The patient was now stabilized with appropriate treatment with antibiotics and steroid treatment. The patient is ambulating without difficulty and will be placed on a steroid taper. Tobacco cessation was again discussed at length. The patient will follow-up with me in about 5-7 days. Patient Condition at Discharge: Stable Plan - Discharge Summary Discharge Rx Participant: No New Discharge Prescriptions: New amLODIPine [Norvasc] 10 mg PO DAILY #30 tab Ipratropium-Albuterol Nebulize [Duoneb 0.5 mg-3 mg/3 ml Soln] 3 ml INHALATION RT-QID #120 ampul.neb Nicotine 21Mg/24Hr Patch [Habitrol] 1 patch TRANSDERM DAILY #30 patch Nicotine Polacrilex [Nicorette] 2 mg BUCCAL Q4HR PRN #120 gum PRN Reason: Nicotine Cravings Continue Insulin Glargine [Lantus] 20 units SQ DAILY Gabapentin [Neurontin] 600 mg PO TID Albuterol Inhaler [Ventolin Hfa Inhaler] 1 - 2 puff INHALATION RT-Q6H PRN PRN Reason: Shortness Of Breath Levofloxacin [Levaquin] 500 mg PO DAILY 7 Days #7 tab Lisinopril [Zestril] 10 mg PO DAILY #30 tab predniSONE See Taper PO DIRECTED Discontinued amLODIPine [Norvasc] 5 mg PO DAILY #30 tab Discharge Medication List Gabapentin [Neurontin] 600 mg PO TID 04/24/14 [History] Insulin Glargine [Lantus] 20 units SQ DAILY 04/24/14 [History] Albuterol Inhaler [Ventolin Hfa Inhaler] 1 - 2 puff INHALATION RT-Q6H PRN [History] Levofloxacin [Levaquin] 500 mg PO DAILY 7 Days #7 tab 07/02/17 [Rx] Lisinopril [Zestril] 10 mg PO DAILY #30 tab 07/02/17 [Rx] predniSONE See Taper PO DIRECTED 07/04/17 [History] Ipratropium-Albuterol Nebulize [Duoneb 0.5 mg-3 mg/3 ml Soln] 3 ml INHALATION RT -QID #120 ampul.neb 07/06/17 [Rx] Nicotine 21Mg/24Hr Patch [Habitrol] 1 patch TRANSDERM DAILY #30 patch 07/06/17 [ Rx] Nicotine Polacrilex [Nicorette] 2 mg BUCCAL Q4HR PRN #120 gum 07/06/17 [Rx] amLODIPine [Norvasc] 10 mg PO DAILY #30 tab 07/06/17 [Rx] Follow up Appointment(s)/Referral(s): Dayo Suarez MD [STAFF PHYSICIAN] - 1 Week Len Dutton MD [Primary Care Provider] - 1 Week Activity/Diet/Wound Care/Special Instructions: Nebulizer ordered through [facility]: #[phone]
[2017-07-06] MEDS: LEVOFLOXACIN 500 MG TAB PO SCH (07:51)
[2017-07-06] MEDS: NICOTINE 21MG/24HR PATCH TRANSDERM SCH (07:51)
[2017-07-06] MEDS: INSULIN ASPART 100 UNIT/ML 1 ML 10 ML VIAL SQ SCH (07:52)
[2017-07-06] MEDS: IPRATROPIUM-ALBUTEROL 3 ML NEB INHALATION SCH (08:03)
[2017-07-06] MEDS ORDERED: amLODIPine 5 MG TAB PO SCH (09:00)
== END 2017-07-06 08:30 | disposition home or self-care (01) ==
LOC: EC 01:35 → 5MS5E 03:36
PROVIDERS: ADMIT Family Medicine; ATTEND Family Medicine
DX: J44.1 Chronic obstructive pulmonary disease with (acute) exacerbation (principal); J44.0 Chronic obstructive pulmonary disease with (acute) lower respiratory infection; J18.9 Pneumonia, unspecified organism; F10.20 Alcohol dependence, uncomplicated; E11.40 Type 2 diabetes mellitus with diabetic neuropathy, unspecified; E11.65 Type 2 diabetes mellitus with hyperglycemia; R65.10 Systemic inflammatory response syndrome (SIRS) of non-infectious origin without acute organ dysfunction; J45.30 Mild persistent asthma, uncomplicated; D69.6 Thrombocytopenia, unspecified; R06.03 Acute respiratory distress; E87.2 Acidosis; M54.9 Dorsalgia, unspecified; M25.572 Pain in left ankle and joints of left foot; Z87.01 Personal history of pneumonia (recurrent); Z87.891 Personal history of nicotine dependence; Z79.4 Long term (current) use of insulin; Z79.899 Other long term (current) drug therapy; Z79.51 Long term (current) use of inhaled steroids; Z79.1 Long term (current) use of non-steroidal anti-inflammatories (NSAID); E66.9 Obesity, unspecified; Z68.32 Body mass index [BMI] 32.0-32.9, adult; R79.89 Other specified abnormal findings of blood chemistry
CPT/HCPCS: 99285; 96374; 96376 ×3; 36415; 94640 ×4; 94760; 93005; 83880; 80053 ×2; 82550; 82553; 83605; 83735; 84484; 85025; 85027; 85610; 85730; 87040; 87502; 83036; 71046; G0378 ×3; S4990 ×2; J2920 ×2; J2930 ×2

== ENCOUNTER 2017-07-11 00:50 | Inpatient (IN) | payer BC ==
[2017-07-11] MEDS ORDERED: ALBUTEROL NEBULIZED 2.5 MG/3 ML INHALATION STA (00:53)
[2017-07-11] MEDS ORDERED: methylPREDNISolone SOD SUCCI 125 MG/2 ML VIAL IV STA (00:53)
--- NOTE | 2017-07-11 00:56 | ED ---
General Adult HPI - General Stated complaint: chest pain Time Seen by Provider: 07/11/17 00:50 Source: RN notes reviewed - History of Present Illness Initial comments: This a 56-year-old male who presents emergency department with past medical history significant for COPD. Patient states he just released from the hospital a few days ago for syncope. Patient started having difficulty breathing this evening at Rest it worse. Patient states he coughed hard and thinks she broke a rib in the right anterior chest wall because it is hurting now when he palpates that area. Patient states that is the pain he is talking about what he says he has chest pain. Patient denies any fever. Patient denies any chills. Patient denies coughing any sputum up. Patient denies abdominal pain patient denies nausea vomiting or diarrhea. Patient states he got a breathing treatments in the ambulance and that didn't seem to help a little bit. EMS agreed that after the treatment he seemed to be a little more calm. Patient denies headache patient denies numbness or weakness. - Related Data Home Medications Medication Instructions Recorded Confirmed Gabapentin [Neurontin] 600 mg PO TID 04/24/14 07/04/17 Insulin Glargine [Lantus] 20 units SQ DAILY 04/24/14 07/04/17 Albuterol Inhaler [Ventolin Hfa 1 - 2 puff INHALATION RT-Q6H PRN 05/31/17 Inhaler] predniSONE See Taper PO DIRECTED 07/04/17 07/04/17 Previous Rx's Medication Instructions Recorded Levofloxacin [Levaquin] 500 mg PO DAILY 7 Days #7 tab 07/02/17 Lisinopril [Zestril] 10 mg PO DAILY #30 tab 07/02/17 Ipratropium-Albuterol Nebulize 3 ml INHALATION RT-QID #120 07/06/17 [Duoneb 0.5 mg-3 mg/3 ml Soln] ampul.neb Nicotine 21Mg/24Hr Patch [Habitrol] 1 patch TRANSDERM DAILY #30 patch 07/06/17 Nicotine Polacrilex [Nicorette] 2 mg BUCCAL Q4HR PRN #120 gum 07/06/17 amLODIPine [Norvasc] 10 mg PO DAILY #30 tab 07/06/17 Allergies Allergy/AdvReac Type Severity Reaction Status Date / Time No Known Allergies Allergy Verified 07/11/17 00:54 Review of Systems ROS Statement: Those systems with pertinent positive or pertinent negative responses have been documented in the HPI. ROS Other: All systems not noted in ROS Statement are negative. Past Medical History Past Medical History: Asthma, COPD, Diabetes Mellitus, Pneumonia Additional Past Medical History / Comment(s): IDDM type II, neuropathy bilateral hands and feet, L fractured ankle spring 2016-placed in boot and pt states needs surgical intervention, chronic L ankle pain, occasional back pain, hernia. History of Any Multi-Drug Resistant Organisms: None Reported Past Surgical History: Hernia Repair Additional Past Surgical History / Comment(s): Bilateral inguinal hernia repairs , colonoscopy-normal. Past Anesthesia/Blood Transfusion Reactions: No Reported Reaction Past Psychological History: No Psychological Hx Reported Additional Psychological History / Comment(s): Pt resides with friends. He is independent. 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 Smoking Status: Former smoker Past Alcohol Use History: None Reported Additional Past Alcohol Use History / Comment(s): Pt started smoking in 1971 and quit 1 week ago. He states he drinks beer daily and the amount varies but he states he is not an alcoholic. Past Drug Use History: None Reported - Past Family History Father Family Medical History: No Reported History Additional Family Medical History / Comment(s): Father is healthy Mother Family Medical History: No Reported History Additional Family Medical History / Comment(s): Mother is healthy. General Exam - General Exam Comments Initial Comments: GENERAL: Patient is well-developed and well-nourished. Patient is nontoxic and well- hydrated and is in moderate distress. ENT: Neck is soft and supple. No significant lymphadenopathy is noted. Oropharynx is clear. Moist mucous membranes. Neck has full range of motion without eliciting any pain. EYES: The sclera were anicteric and conjunctiva were pink and moist. Extraocular movements were intact and pupils were equal round and reactive to light. Eyelids were unremarkable. PULMONARY: Patient has some expiratory wheezing with some decreased air movement in the right base CARDIOVASCULAR: There is a regular rate and rhythm without any murmurs gallops or rubs. ABDOMEN: Soft and nontender with normal bowel sounds. No palpable organomegaly was noted. There is no palpable pulsatile mass. SKIN: Skin is clear with no lesions or rashes and otherwise unremarkable. NEUROLOGIC: Patient is alert and oriented x3. Cranial nerves II through XII are grossly intact. Motor and sensory are also intact. Normal speech, volume and content. Symmetrical smile. MUSCULOSKELETAL: Normal extremities with adequate strength and full range of motion. No lower extremity swelling or edema. No calf tenderness. LYMPHATICS: No significant lymphadenopathy is noted PSYCHIATRIC: Normal psychiatric evaluation. Normal interpersonal interactions appears functionally intact in deals appropriately with others. No signs of depression. No signs of anxiety. Course Vital Signs 07/11/17 07/11/17 07/11/17 00:51 01:05 01:13 Temperature 98.6 F Pulse Rate 119 H 110 H Pulse Rate [ 105 H Efficiency Engineer ] Respiratory 30 H 24 Rate Blood Pressure 165/89 O2 Sat by Pulse 90 L Oximetry 07/11/17 07/11/17 07/11/17 01:23 01:33 01:40 Temperature Pulse Rate 111 H 112 H 112 H Pulse Rate [ Efficiency Engineer ] Respiratory 24 Rate Blood Pressure O2 Sat by Pulse Oximetry 07/11/17 07/11/17 07/11/17 01:54 03:00 04:00 Temperature Pulse Rate 125 H 123 H 129 H Pulse Rate [ Efficiency Engineer ] Respiratory 22 22 20 Rate Blood Pressure 163/77 169/79 179/94 O2 Sat by Pulse 100 99 99 Oximetry 07/11/17 07/11/17 07/11/17 05:49 06:00 06:27 Temperature Pulse Rate 114 H 111 H 115 H Pulse Rate [ Efficiency Engineer ] Respiratory 20 20 18 Rate Blood Pressure 169/88 150/82 158/90 O2 Sat by Pulse 99 99 97 Oximetry 07/11/17 07:54 Temperature Pulse Rate 115 H Pulse Rate [ Efficiency Engineer ] Respiratory 20 Rate Blood Pressure 137/66 O2 Sat by Pulse 98 Oximetry Procedures - Intubation Time Out Performed: Yes Sedative: Versed Paralytic: Succinylcholine Laryngoscope: Hernandez Size: 3 ET Tube Size: 8 ET Tube Uncuffed: Yes Tube Secured Location: teeth Tube Placement Confirmation: visualized tube passing through cords, equal breath sounds bilaterally, no breath sounds over epigastrium, confirmation by capnometry Patient Tolerated Procedure: well Intubation Complications: none - Sepsis Sepsis Focused Exam #1 Time Sepsis Criteria Met: 01:45 Sepsis Focused Exam Date: 07/11/17 Sepsis Focused Exam Time: 06:00 Capillary Refill: < 2 Seconds: Fingers Peripheral Pulses: Normal: Radial (R), Radial (L) Skin Color: Normal for Patient Respiratory Exam: decreased breath sounds (Crease breath sounds on the right base) Cardiovascular Exam: tachycardia Medical Decision Making - Medical Decision Making EKG shows sinus tachycardia 118 bpm with occasional PACs CA interval is 140 QRS is 98 QT interval 362 QTC is 507. EKG is of poor quality secondary to the patient's movement however no obvious ST segment elevation or depressions noted. Patient's chest x-ray shows right lower lobe and right middle lobe pneumonia. New. Patient's lactic acid is 8.8. Patient's sugar is over 800. I started an insulin drip on the patient as well as gave the patient insulin bolus. I placed the patient on BiPAP and though he was satting 100% he looked uncomfortable. I told the patient that we might need to intubate him he stated at this time he refuses. I started the patient on antibiotics. Initially the patient did not want to be intubated and stated that he only wanted to be intubated if it was absolutely necessary. At the end of my shift I will back into reevaluate the patient he was much more altered was not able to answer questions about intubation was at that time I thought he needed to be intubated so I intubated the patient. - Lab Data Result diagrams: 07/11/17 01:00 07/11/17 01:53 Lab Results 07/11/17 07/11/17 07/11/17 Range/Units 01:00 01:00 01:53 WBC 39.9 H* (3.8-10.6) k/uL RBC 4.12 L (4.30-5.90) m/uL Hgb 13.3 (13.0-17.5) gm/dL Hct 43.0 (39.0-53.0) % MCV 104.6 H (80.0-100.0) fL MCH 32.4 (25.0-35.0) pg MCHC 31.0 (31.0-37.0) g/dL RDW 14.8 (11.5-15.5) % Plt Count 149 L D (150-450) k/uL Neutrophils % (Manual) 91 % Band Neutrophils % 1 % Lymphocytes % (Manual) 1 % Monocytes % (Manual) 7 % Neutrophils # (Manual) 36.70 H (1.3-7.7) k/uL Lymphocytes # (Manual) 0.40 L (1.0-4.8) k/uL Monocytes # (Manual) 2.79 H (0-1.0) k/uL Nucleated RBCs 0 (0-0) /100 WBC Manual Slide Review Performed Hypochromasia Marked Macrocytosis Moderate PT 13.9 H (9.0-12.0) sec INR 1.5 H (<1.2) APTT 26.3 (22.0-30.0) sec Sample Site ABG pH (7.35-7.45) ABG pCO2 (35-45) mmHg ABG pO2 (83-108) mmHg ABG HCO3 (21-25) mmol/L ABG Total CO2 (19-24) mmol/L ABG O2 Saturation (94-97) % ABG Base Excess mmol/L Deuce Test FiO2 % Sodium (137-145) mmol/L Potassium (3.5-5.1) mmol/L Chloride (98-107) mmol/L Carbon Dioxide (22-30) mmol/L Anion Gap mmol/L BUN (9-20) mg/dL Creatinine (0.66-1.25) mg/dL Est GFR (MDRD) Af Amer (>60 ml/min/1.73 sqM) Est GFR (MDRD) Non-Af (>60 ml/min/1.73 sqM) Glucose (74-99) mg/dL POC Glucose (mg/dL) (75-99) mg/dL POC Glu Pipefitter Welder ID Lactic Ac Sepsis Rflx Plasma Lactic Acid Getachew 8.8 H* (0.7-2.0) mmol/L Calcium (8.4-10.2) mg/dL Total Bilirubin (0.2-1.3) mg/dL AST (17-59) U/L ALT (21-72) U/L Alkaline Phosphatase (38-126) U/L Total Creatine Kinase (55-170) U/L CK-MB (CK-2) (0.0-2.4) ng/mL CK-MB (CK-2) Rel Index Troponin I (0.000-0.034) ng/mL Total Protein (6.3-8.2) g/dL Albumin (3.5-5.0) g/dL 07/11/17 07/11/1707/11/18 Range/Units 01:53 01:53 02:01 WBC (3.8-10.6) k/uL RBC (4.30-5.90) m/uL Hgb (13.0-17.5) gm/dL Hct (39.0-53.0) % MCV (80.0-100.0) fL MCH (25.0-35.0) pg MCHC (31.0-37.0) g/dL RDW (11.5-15.5) % Plt Count (150-450) k/uL Neutrophils % (Manual) % Band Neutrophils % % Lymphocytes % (Manual) % Monocytes % (Manual) % Neutrophils # (Manual) (1.3-7.7) k/uL Lymphocytes # (Manual) (1.0-4.8) k/uL Monocytes # (Manual) (0-1.0) k/uL Nucleated RBCs (0-0) /100 WBC Manual Slide Review Hypochromasia Macrocytosis PT (9.0-12.0) sec INR (<1.2) APTT (22.0-30.0) sec Sample Site rrad ABG pH 7.30 L (7.35-7.45) ABG pCO2 43 (35-45) mmHg ABG pO2 79 L (83-108) mmHg ABG HCO3 21 (21-25) mmol/L ABG Total CO2 23 (19-24) mmol/L ABG O2 Saturation 93.9 L (94-97) % ABG Base Excess -5.1 mmol/L Deuce Test Yes FiO2 100 % Sodium 126 L (137-145) mmol/L Potassium 5.3 H (3.5-5.1) mmol/L Chloride 87 L (98-107) mmol/L Carbon Dioxide 21 L (22-30) mmol/L Anion Gap 18 mmol/L BUN 25 H (9-20) mg/dL Creatinine 1.30 H (0.66-1.25) mg/dL Est GFR (MDRD) Af Amer >60 (>60 ml/min/1.73 sqM) Est GFR (MDRD) Non-Af 57 (>60 ml/min/1.73 sqM) Glucose 813 H* (74-99) mg/dL POC Glucose (mg/dL) (75-99) mg/dL POC Glu Pipefitter Welder ID Lactic Ac Sepsis Rflx Plasma Lactic Acid Getachew (0.7-2.0) mmol/L Calcium 9.1 (8.4-10.2) mg/dL Total Bilirubin 3.8 H (0.2-1.3) mg/dL AST 39 (17-59) U/L ALT 24 (21-72) U/L Alkaline Phosphatase 199 H (38-126) U/L Total Creatine Kinase 71 (55-170) U/L CK-MB (CK-2) 1.6 (0.0-2.4) ng/mL CK-MB (CK-2) Rel Index 2.3 Troponin I <0.012 (0.000-0.034) ng/mL Total Protein 7.9 (6.3-8.2) g/dL Albumin 3.4 L (3.5-5.0) g/dL 07/11/17 07/11/17 Range/Units 02:30 02:52 WBC (3.8-10.6) k/uL RBC (4.30-5.90) m/uL Hgb (13.0-17.5) gm/dL Hct (39.0-53.0) % MCV (80.0-100.0) fL MCH (25.0-35.0) pg MCHC (31.0-37.0) g/dL RDW (11.5-15.5) % Plt Count (150-450) k/uL Neutrophils % (Manual) % Band Neutrophils % % Lymphocytes % (Manual) % Monocytes % (Manual) % Neutrophils # (Manual) (1.3-7.7) k/uL Lymphocytes # (Manual) (1.0-4.8) k/uL Monocytes # (Manual) (0-1.0) k/uL Nucleated RBCs (0-0) /100 WBC Manual Slide Review Hypochromasia Macrocytosis PT (9.0-12.0) sec INR (<1.2) APTT (22.0-30.0) sec Sample Site ABG pH (7.35-7.45) ABG pCO2 (35-45) mmHg ABG pO2 (83-108) mmHg ABG HCO3 (21-25) mmol/L ABG Total CO2 (19-24) mmol/L ABG O2 Saturation (94-97) % ABG Base Excess mmol/L Deuce Test FiO2 % Sodium (137-145) mmol/L Potassium (3.5-5.1) mmol/L Chloride (98-107) mmol/L Carbon Dioxide (22-30) mmol/L Anion Gap mmol/L BUN (9-20) mg/dL Creatinine (0.66-1.25) mg/dL Est GFR (MDRD) Af Amer (>60 ml/min/1.73 sqM) Est GFR (MDRD) Non-Af (>60 ml/min/1.73 sqM) Glucose (74-99) mg/dL POC Glucose (mg/dL) >600 H (75-99) mg/dL POC Glu Pipefitter Welder ID Jesus Broussard Lactic Ac Sepsis Rflx Y Plasma Lactic Acid Getachew (0.7-2.0) mmol/L Calcium (8.4-10.2) mg/dL Total Bilirubin (0.2-1.3) mg/dL AST (17-59) U/L ALT (21-72) U/L Alkaline Phosphatase (38-126) U/L Total Creatine Kinase (55-170) U/L CK-MB (CK-2) (0.0-2.4) ng/mL CK-MB (CK-2) Rel Index Troponin I (0.000-0.034) ng/mL Total Protein (6.3-8.2) g/dL Albumin (3.5-5.0) g/dL Critical Care Time Critical Care Time: Yes Total Critical Care Time: 45 Disposition Clinical Impression: Pneumonia, Hyperglycemia, Sepsis, Respiratory distress Disposition: ADMITTED IP TO THIS HOSP Time of Disposition: 03:38
[2017-07-11 01:16] LABS: HGB 13.3 gm/dL (13.0-17.5); Hypochromasia Marked; MCH 32.4 pg (25.0-35.0); MCV 104.6 fL (80.0-100.0); Macrocytosis Moderate; Mean Platelet Volume 10.1; RBC 4.12 m/uL (4.30-5.90); RDW 14.8 % (11.5-15.5)
[2017-07-11 01:20] LABS: WBC 39.9 k/uL (3.8-10.6)
[2017-07-11 01:21] LABS: Platelet Count 149 k/uL (150-450)
[2017-07-11 01:32] LABS: Band Neutrophils % 1 %; Monocytes # (M) 2.79 k/uL (0-1.0); Neutrophils % (M) 91 %; Nucleated Red Blood Cells 0 /100 WBC (0-0); Total Cells Counted 100
[2017-07-11] MEDS ORDERED: SODIUM CHLORIDE 0.9% 1,000 ML IV ONE ×2 (01:39→10:08)
[2017-07-11] MEDS ORDERED: SODIUM CHLORIDE 0.9% 500 ML IV ONE (01:39)
[2017-07-11] MEDS ORDERED: PIPERACILLIN-TAZOBACTAM 3.375 GM in DEXTROSE/WATER 1 50ML.BAG IVPB STA (01:40)
[2017-07-11] MEDS ORDERED: LEVOFLOXACIN 750MG-D5W PMX 750 MG in DEXTROSE/WATER 1 150ML.BAG IVPB STA (01:40)
--- NOTE | 2017-07-11 01:47 | XR ---
EXAMINATION TYPE: XR chest 2V DATE OF EXAM: 07/11/2017 COMPARISON: 07/04/2017 HISTORY: Difficulty breathing TECHNIQUE: Frontal and lateral views of the chest are obtained. FINDINGS: There are bilateral patchy areas of airspace consolidation and worse in the right lower lo be. There is no heart failure. Heart size is normal. There are chest leads. I see no definite pleural effusion. IMPRESSION: New bilateral pneumonia compared to last exam. No heart failure. New small right pleural reaction.
[2017-07-11 02:07] LABS: ABG Base Excess -5.1 mmol/L; ABG HCO3 21 mmol/L (21-25); ABG Oxygen Saturation 93.9 % (94-97); ABG PCO2 43 mmHg (35-45); ABG PO2 79 mmHg (83-108); ABG TCO2 23 mmol/L (19-24)
[2017-07-11 02:16] LABS: Albumin 3.4 g/dL (3.5-5.0); Anion Gap 18 mmol/L; Calcium 9.1 mg/dL (8.4-10.2); Carbon Dioxide 21 mmol/L (22-30); Chloride 87 mmol/L (98-107); Sodium 126 mmol/L (137-145); Total Bilirubin 3.8 mg/dL (0.2-1.3); Total Protein 7.9 g/dL (6.3-8.2)
[2017-07-11 02:20] LABS: INR 1.5 (<1.2); Partial Thromboplastin Time 26.3 sec (22.0-30.0); Prothrombin Time 13.9 sec (9.0-12.0)
[2017-07-11 02:22] LABS: Creatine Kinase 71 U/L (55-170)
[2017-07-11 02:29] LABS: ALT 24 U/L (21-72); AST 39 U/L (17-59); Alkaline Phosphatase 199 U/L (38-126); Blood Urea Nitrogen 25 mg/dL (9-20); Glucose 813 mg/dL (74-99); Potassium 5.3 mmol/L (3.5-5.1)
[2017-07-11 02:36] LABS: Creatine Kinase MB 1.6 ng/mL (0.0-2.4); Troponin I <0.012 ng/mL (0.000-0.034)
[2017-07-11] MEDS ORDERED: SODIUM CHLORIDE 0.9% 2,000 ML IV ONE (02:39)
[2017-07-11] MEDS ORDERED: INSULIN REGULAR 100 UNIT/ML VIAL IV ONE (02:46)
[2017-07-11 02:54] LABS: Glucose,Whole Blood >600 mg/dL (75-99)
[2017-07-11] MEDS: LORazepam 2 MG/ML INJ IV STA ×2 (02:55→04:44)
[2017-07-11] MEDS: INSULIN REGULAR 100 UNIT in SODIUM CHLORIDE 0.9% 100 ML IV ONE ×2 (03:00→13:05)
[2017-07-11 04:27] LABS: Glucose,Whole Blood 580 mg/dL (75-99)
[2017-07-11 06:26] LABS: Glucose,Whole Blood 422 mg/dL (75-99)
--- NOTE | 2017-07-11 07:53 | XR ---
EXAMINATION TYPE: XR chest 1V portable DATE OF EXAM: 07/11/2017 CLINICAL HISTORY: Difficulty breathing progress study. TECHNIQUE: Single AP portable upright view of the chest is obtained. COMPARISON: Chest x-ray from earlier today and older studies. CTA chest June 29, 2017 FINDINGS: There are new endotracheal and orogastric tubes. The endotracheal tube tip is 4 to 5 cm ab ove marcelo inferior clavicular level. The orogastric tube projects below left hemidiaphragm. There is persistent elevated left hemidiaphragm. There is new right lower lobe opacity. Patient is sl ightly rotated to the right. Left lung remains clear. Cardiac silhouette size is stable and within no rmal limits. IMPRESSION: 1. New ET and OGT are satisfactory in position. 2. Persistent new suspicious right lower lobe infiltrate.
[2017-07-11 08:15] LABS: Glucose,Whole Blood 305 mg/dL (75-99)
[2017-07-11 08:22] LABS: ABG Base Excess -6.7 mmol/L; ABG HCO3 21 mmol/L (21-25); ABG PCO2 55 mmHg (35-45); ABG PO2 166 mmHg (83-108); ABG TCO2 23 mmol/L (19-24)
[2017-07-11] MEDS ORDERED: IPRATROPIUM-ALBUTEROL 3 ML NEB INHALATION PRN (08:39)
[2017-07-11 08:40] LABS: Glucose,Whole Blood 314 mg/dL (75-99)
[2017-07-11] MEDS ORDERED: ENOXAPARIN 30 MG/0.3 ML SYRINGE SQ SCH (09:00)
--- NOTE | 2017-07-11 09:02 | P.HPIM ---
History of Present Illness H&P Date: 07/11/17 Chief Complaint: Dyspnea on exertion/respiratory failure. This is a history and physical on a 56-year-old white male who was recently discharged 3 days ago from the hospital for exacerbation of COPD. He was doing fine but was found walking and disoriented. He was sent back to the hospital and was actually doing quite well and ended up having an acute decline, now he has ventilated mechanically for supportive care. He has a long time history of intermittent alcoholism, but no history of delirium tremens during the last 2 hospitalizations in the last month. Review of Systems ROS unobtainable: due to endotracheal tube Past Medical History Past Medical History: Asthma, COPD, Diabetes Mellitus, Pneumonia Additional Past Medical History / Comment(s): 07/04/17 PT admitted to [facility] with ETOH, acute exacerbation of COPD. Other hx: IDDM type II, neuropathy bilateral hands and feet, L fractured ankle spring 2016-placed in boot and pt states needs surgical intervention, chronic L ankle pain, occasional back pain, hernia. History of Any Multi-Drug Resistant Organisms: None Reported Past Surgical History: Hernia Repair Additional Past Surgical History / Comment(s): Bilateral inguinal hernia repairs , colonoscopy-normal. Past Anesthesia/Blood Transfusion Reactions: No Reported Reaction Smoking Status: Former smoker - Past Family History Father Family Medical History: No Reported History Additional Family Medical History / Comment(s): Father is healthy Mother Family Medical History: No Reported History Additional Family Medical History / Comment(s): Mother is healthy. Medications and Allergies Home Medications Medication Instructions Recorded Confirmed Type Gabapentin [Neurontin] 600 mg PO TID 04/24/14 07/04/17 History Insulin Glargine [Lantus] 20 units SQ DAILY 04/24/14 07/04/17 History Albuterol Inhaler [Ventolin Hfa 1 - 2 puff INHALATION RT-Q6H PRN 05/31/17 History Inhaler] Levofloxacin [Levaquin] 500 mg PO DAILY 7 Days #7 tab 07/02/17 07/04/17 Rx Lisinopril [Zestril] 10 mg PO DAILY #30 tab 07/02/17 07/04/17 Rx predniSONE See Taper PO DIRECTED 07/04/17 07/04/17 History Ipratropium-Albuterol Nebulize 3 ml INHALATION RT-QID #120 07/06/17 Rx [Duoneb 0.5 mg-3 mg/3 ml Soln] ampul.neb Nicotine 21Mg/24Hr Patch [Habitrol] 1 patch TRANSDERM DAILY #30 patch 07/06/17 Rx Nicotine Polacrilex [Nicorette] 2 mg BUCCAL Q4HR PRN #120 gum 07/06/17 Rx amLODIPine [Norvasc] 10 mg PO DAILY #30 tab 07/06/17 Rx Allergies Allergy/AdvReac Type Severity Reaction Status Date / Time No Known Allergies Allergy Verified 07/11/17 00:54 Physical Exam Vitals: Vital Signs Temp Pulse Pulse Resp BP Pulse Ox 07/11/17 08:26 113 H 20 107/61 100 07/11/17 07:54 115 H 20 137/66 98 07/11/17 06:27 115 H 18 158/90 97 07/11/17 06:00 111 H 20 150/82 99 07/11/17 05:49 114 H 20 169/88 99 07/11/17 04:00 129 H 20 179/94 99 07/11/17 03:00 123 H 22 169/79 99 07/11/17 01:54 125 H 22 163/77 100 07/11/17 01:40 112 H 24 07/11/17 01:33 112 H 07/11/17 01:23 111 H 07/11/17 01:13 110 H 24 07/11/17 01:05 105 H 07/11/17 00:51 98.6 F 119 H 30 H 165/89 90 L Intake and Output 07/10/17 07/11/17 07/11/17 22:59 06:59 14:59 Intake Total 35.569 29.217 Balance 35.569 29.217 Intake: Intake, IV Titration 35.569 29.217 Amount Insulin Regular 100 unit 35.569 29.217 In Sodium Chloride 0.9% 100 ml @ 10 UNIT/HR 10.1 mls/hr IV .Q10H ONE Rx#: [id number] Other: Weight 104.326 kg - Constitutional General appearance: obese - EENT Eyes: EOMI - Neck Neck: no lymphadenopathy - Respiratory Respiratory: bilateral: diminished - Cardiovascular Rhythm: regular Heart sounds: normal: S1, S2 - Gastrointestinal General gastrointestinal: no tenderness - Integumentary Integumentary: no cyanotic, no jaundiced - Psychiatric Psychiatric: no A&O x's 3 Results CBC & Chem 7: 07/11/17 01:00 07/11/17 01:53 Labs: Abnormal Lab Results - Last 24 Hours (Table) 07/11/17 07/11/17 07/11/17 Range/Units 01:00 01:00 01:53 WBC 39.9 H* (3.8-10.6) k/uL RBC 4.12 L (4.30-5.90) m/uL MCV 104.6 H (80.0-100.0) fL Plt Count 149 L D (150-450) k/uL Neutrophils # (Manual) 36.70 H (1.3-7.7) k/uL Lymphocytes # (Manual) 0.40 L (1.0-4.8) k/uL Monocytes # (Manual) 2.79 H (0-1.0) k/uL PT 13.9 H (9.0-12.0) sec INR 1.5 H (<1.2) ABG pH (7.35-7.45) ABG pCO2 (35-45) mmHg ABG pO2 (83-108) mmHg ABG O2 Saturation (94-97) % Sodium (137-145) mmol/L Potassium (3.5-5.1) mmol/L Chloride (98-107) mmol/L Carbon Dioxide (22-30) mmol/L BUN (9-20) mg/dL Creatinine (0.66-1.25) mg/dL Glucose (74-99) mg/dL POC Glucose (mg/dL) (75-99) mg/dL Plasma Lactic Acid Getachew 8.8 H* (0.7-2.0) mmol/L Total Bilirubin (0.2-1.3) mg/dL Alkaline Phosphatase (38-126) U/L Albumin (3.5-5.0) g/dL 07/11/17 07/11/17 07/11/17 Range/Units 01:53 02:01 02:52 WBC (3.8-10.6) k/uL RBC (4.30-5.90) m/uL MCV (80.0-100.0) fL Plt Count (150-450) k/uL Neutrophils # (Manual) (1.3-7.7) k/uL Lymphocytes # (Manual) (1.0-4.8) k/uL Monocytes # (Manual) (0-1.0) k/uL PT (9.0-12.0) sec INR (<1.2) ABG pH 7.30 L (7.35-7.45) ABG pCO2 (35-45) mmHg ABG pO2 79 L (83-108) mmHg ABG O2 Saturation 93.9 L (94-97) % Sodium 126 L (137-145) mmol/L Potassium 5.3 H (3.5-5.1) mmol/L Chloride 87 L (98-107) mmol/L Carbon Dioxide 21 L (22-30) mmol/L BUN 25 H (9-20) mg/dL Creatinine 1.30 H (0.66-1.25) mg/dL Glucose 813 H* (74-99) mg/dL POC Glucose (mg/dL) >600 H (75-99) mg/dL Plasma Lactic Acid Getachew (0.7-2.0) mmol/L Total Bilirubin 3.8 H (0.2-1.3) mg/dL Alkaline Phosphatase 199 H (38-126) U/L Albumin 3.4 L (3.5-5.0) g/dL 07/11/17 07/11/17 07/11/17 Range/Units 04:13 05:32 06:18 WBC (3.8-10.6) k/uL RBC (4.30-5.90) m/uL MCV (80.0-100.0) fL Plt Count (150-450) k/uL Neutrophils # (Manual) (1.3-7.7) k/uL Lymphocytes # (Manual) (1.0-4.8) k/uL Monocytes # (Manual) (0-1.0) k/uL PT (9.0-12.0) sec INR (<1.2) ABG pH (7.35-7.45) ABG pCO2 (35-45) mmHg ABG pO2 (83-108) mmHg ABG O2 Saturation (94-97) % Sodium (137-145) mmol/L Potassium (3.5-5.1) mmol/L Chloride (98-107) mmol/L Carbon Dioxide (22-30) mmol/L BUN (9-20) mg/dL Creatinine (0.66-1.25) mg/dL Glucose (74-99) mg/dL POC Glucose (mg/dL) 580 H 422 H (75-99) mg/dL Plasma Lactic Acid Getachew 9.1 H* (0.7-2.0) mmol/L Total Bilirubin (0.2-1.3) mg/dL Alkaline Phosphatase (38-126) U/L Albumin (3.5-5.0) g/dL 07/11/17 07/11/17 07/11/17 Range/Units 07:49 08:18 08:39 WBC (3.8-10.6) k/uL RBC (4.30-5.90) m/uL MCV (80.0-100.0) fL Plt Count (150-450) k/uL Neutrophils # (Manual) (1.3-7.7) k/uL Lymphocytes # (Manual) (1.0-4.8) k/uL Monocytes # (Manual) (0-1.0) k/uL PT (9.0-12.0) sec INR (<1.2) ABG pH 7.20 L* (7.35-7.45) ABG pCO2 55 H (35-45) mmHg ABG pO2 166 H (83-108) mmHg ABG O2 Saturation 100.0 H (94-97) % Sodium (137-145) mmol/L Potassium (3.5-5.1) mmol/L Chloride (98-107) mmol/L Carbon Dioxide (22-30) mmol/L BUN (9-20) mg/dL Creatinine (0.66-1.25) mg/dL Glucose (74-99) mg/dL POC Glucose (mg/dL) 305 H 314 H (75-99) mg/dL Plasma Lactic Acid Getachew (0.7-2.0) mmol/L Total Bilirubin (0.2-1.3) mg/dL Alkaline Phosphatase (38-126) U/L Albumin (3.5-5.0) g/dL Assessment and Plan (1) Hyperglycemia Current Visit: Yes Status: Acute Code(s): R73.9 - HYPERGLYCEMIA, UNSPECIFIED SNOMED Code(s): 39778172 (2) Pneumonia Current Visit: Yes Status: Acute Code(s): J18.9 - PNEUMONIA, UNSPECIFIED ORGANISM SNOMED Code(s): 442201946 (3) Respiratory distress Current Visit: Yes Status: Acute Code(s): R06.03 - ACUTE RESPIRATORY DISTRESS SNOMED Code(s): 912594259 (4) Sepsis Current Visit: Yes Status: Acute Code(s): A41.9 - SEPSIS, UNSPECIFIED ORGANISM SNOMED Code(s): 91789842 (5) Alcoholism /alcohol abuse Current Visit: No Status: Acute Code(s): F10.20 - ALCOHOL DEPENDENCE, UNCOMPLICATED SNOMED Code(s): 9129167 (6) Diabetes Current Visit: No Status: Acute Code(s): E11.9 - TYPE 2 DIABETES MELLITUS WITHOUT COMPLICATIONS SNOMED Code(s): 68003454 (7) Smoking Current Visit: No Status: Acute Code(s): F17.200 - NICOTINE DEPENDENCE, UNSPECIFIED, UNCOMPLICATED SNOMED Code(s): 07332058 Plan: ContinueEmpiric antibiotics with sepsis workup. Otherwise, critical care for appropriate ICU placement. Prognosis is guarded secondary to multiple comorbidities including alcoholism, COPD. Check CBC and CMP in a.m. Time with Patient: Greater than 30
[2017-07-11] MEDS: PROPOFOL 1,000 MG in EMPTY BAG 1 BAG IV SCH ×2 (09:05→19:12)
[2017-07-11] MEDS ORDERED: PROPOFOL 1,000 MG in EMPTY BAG 1 BAG IV SCH (09:15)
[2017-07-11 09:33] LABS: INR 1.3 (<1.2); Prothrombin Time 12.6 sec (9.0-12.0)
[2017-07-11 09:45] LABS: Albumin 2.6 g/dL (3.5-5.0); Magnesium 2.1 mg/dL (1.6-2.3); Potassium 3.7 mmol/L (3.5-5.1); Total Bilirubin 2.7 mg/dL (0.2-1.3); Total Protein 6.4 g/dL (6.3-8.2)
[2017-07-11 09:46] LABS: Glucose,Whole Blood 200 mg/dL (75-99)
[2017-07-11 10:13] LABS: HCT 44.3 % (39.0-53.0); HGB 13.1 gm/dL (13.0-17.5); Hypochromasia Marked; MCH 32.3 pg (25.0-35.0); MCHC 29.5 g/dL (31.0-37.0); Macrocytosis Marked; Mean Platelet Volume 8.7; Platelet Count 114 k/uL (150-450); RBC 4.05 m/uL (4.30-5.90); RDW 14.8 % (11.5-15.5)
[2017-07-11] MEDS: D5-0.45% NACL WITH KCL 20MEQ/L 1,000 ML IV SCH ×2 (10:13→17:18)
[2017-07-11 10:15] LABS: WBC 44.9 k/uL (3.8-10.6)
[2017-07-11] MEDS ORDERED: SODIUM CHLORIDE 0.9% 1,000 ML IV SCH (10:15)
[2017-07-11 10:16] LABS: MCV 109.6 fL (80.0-100.0)
[2017-07-11] MEDS ORDERED: VANCOMYCIN IV PER PHARMACY 1 EACH MISC MISCELLANE PRN (11:02)
[2017-07-11] MEDS ORDERED: VANCOMYCIN 1,000 MG in SODIUM CHLORIDE 0.9% 250 ML IVPB STA (11:03)
[2017-07-11] MEDS ORDERED: VANCOMYCIN 2,000 MG in SODIUM CHLORIDE 0.9% 500 ML IVPB STA (11:15)
[2017-07-11] MEDS ORDERED: CISATRACURIUM 2 MG/ML 5 ML VIAL IV ONE (11:27)
[2017-07-11 11:47] LABS: Band Neutrophils % 7 %; Metamyelocytes # (M) 0.45 k/uL (0); Metamyelocytes % 1 %; Monocytes # (M) 2.25 k/uL (0-1.0); Neutrophils % (M) 86 %; Nucleated Red Blood Cells 0 /100 WBC (0-0); Poikilocytosis (M) Present; Total Cells Counted 200; Toxic Granulation Present; Toxic Vacuolation Present
[2017-07-11] MEDS: IPRATROPIUM-ALBUTEROL 3 ML NEB INHALATION SCH ×3 (11:52→19:46)
[2017-07-11 11:56] LABS: Glucose,Whole Blood 144 mg/dL (75-99)
--- NOTE | 2017-07-11 12:50 | CT ---
EXAMINATION TYPE: CT brain wo con DATE OF EXAM: 07/11/2017 COMPARISON: NONE HISTORY: Mental status change CT DLP: 1174 mGycm. Automated Exposure Control for Dose Reduction was Utilized. TECHNIQUE: CT scan of the head is performed without contrast. FINDINGS: There is no acute intracranial hemorrhage, mass effect, or midline shift identified. The ventricles and sulci are symmetrically prominent and compatible with age-related volume loss. Single frontal hypoattenuated subcortical focus likely relates to sequela of microangiopathy.. No suspiciou s extra-axial fluid collection. Chris cisterna magna is incidentally noted. Chronic right maxillary si nusitis is seen with mucoperiosteal thickening and inspissated moderate debris. Old fracture deformit y is also seen of the posterior wall. Remaining paranasal sinuses and mastoid air cells are otherwise unremarkable. Orbits are intact. IMPRESSION: 1. No acute intracranial process. 2. Left frontal subcortical white matter change, likely on the basis of chronic microangiopathy. 3. Acute on chronic right maxillary sinusitis.
[2017-07-11] MEDS: PANTOPRAZOLE 40 MG/10 ML VIAL IVP SCH (12:59)
[2017-07-11 13:24] LABS: Glucose,Whole Blood 131 mg/dL (75-99)
[2017-07-11 14:08] LABS: Glucose,Whole Blood 112 mg/dL (75-99)
[2017-07-11 14:56] LABS: Glucose,Whole Blood 152 mg/dL (75-99)
[2017-07-11 14:57] LABS: Amorphous Sediment,Urine Few /hpf; Appearance,Urine Cloudy (Clear); Bacteria,Urine Occasional /hpf; Bilirubin,Urine 1+ (Negative); Blood,Urine Negative (Negative); Color,Urine Dark Yellow; Glucose,Urine (UA) Trace (Negative); Granular Casts,Urine 45 /lpf (0); Hyaline Casts,Urine 2 /lpf (0-2); Ketones,Urine Trace (Negative); Leukocyte Esterase,Urine Negative (Negative); Mucus,Urine Occasional /hpf; Nitrite,Urine Negative (Negative); Protein,Urine 1+ (Negative); RBC,Urine 5 /hpf (0-5); Specific Gravity,Urine 1.018 (1.001-1.035); Squamous Epithelial Cell,Urine 1 /hpf (0-4); WBC,Urine 5 /hpf (0-5)
[2017-07-11] MEDS: PIPERACILLIN-TAZOBACTAM 3.375 GM in DEXTROSE/WATER 1 50ML.BAG IVPB SCH (15:15)
[2017-07-11 16:28] LABS: Glucose,Whole Blood 134 mg/dL (75-99)
[2017-07-11 17:30] LABS: Glucose,Whole Blood 147 mg/dL (75-99)
--- NOTE | 2017-07-11 17:56 | P.CNPUL ---
History of Present Illness Consult date: 07/11/17 Reason for consult: dyspnea, cough, asthma, COPD, hypoxemia, pneumonia Chief complaint: Shortness of breath pneumonia acute hypoxic respiratory failure History of present illness: Mr. Rodolfo Hollis is a 56-year-old male with history of chronic persistent asthma and severe COPD this patient was recently hospitalized for acute COPD exacerbation and he was treated with breathing treatments steroids he improved significantly and subsequently was discharged to follow-up in outpatient setting homologue it has been noted that patient was somewhat reluctant to more aggressive intervention and has expressed his desire to be discharged earlier and to avoid nebulizer therapy and continue MDIs but later on he felt that nebulizer were helpful in last admission he prefers to use the nebulizer and expresses desire to use at home. Patient presented into the emergency department with chest wall pain related to rib fracture also increasing shortness of breath cough and wheezing patient also has a history of uncontrolled diabetes he has been on tapering doses of steroids as well as antibiotics, patient was in the emergency department awaiting ICU placement progressively developed altered mental status and increased lethargy noted to have acute hypercapnic hypoxic respiratory failure was intubated for airway protection, in addition to that patient was noted to have severe hyperglycemia sugar over 800 marked lactic acidosis Ammann patient was hypoxic to Make tachycardic and hypertensive on arrival, chest x-ray showed a new right lower lobe and right middle lobe pneumonia patient was treated with fluid resuscitation along with insulin drip and BiPAP eventually intubated. His white cell count was 39,000 he had severe hyponatremia and acute his stage III renal failure on my evaluation patient was hypertensive with blood pressure which was in the low 100 range drop down into 80s was on assist control rate of 20 breathing 25, 80% oxygen, 5 of PEEP, 500 tidal volume with insulin drip of 14 units an hour along with IV fluids 150 mL an hour with potassium patient was also started on 10 mics of propofol due to drop in blood pressure a liter of crystalloids were given as a bolus with that blood pressure came up into 100 range I recommended to give another 500 mL an hour for 2 hours and monitor urine output patient is being treated with Levaquin and Zosyn and vancomycin Review of Systems ROS unobtainable: due to endotracheal tube, due to mental status All systems: negative Past Medical History Past Medical History: Asthma, COPD, Diabetes Mellitus, Pneumonia Additional Past Medical History / Comment(s): 07/04/17 PT admitted to [facility] with ETOH, acute exacerbation of COPD. Other hx: IDDM type II, neuropathy bilateral hands and feet, L fractured ankle spring 2016-placed in boot and pt states needs surgical intervention, chronic L ankle pain, occasional back pain, hernia. History of Any Multi-Drug Resistant Organisms: None Reported Past Surgical History: Hernia Repair Additional Past Surgical History / Comment(s): Bilateral inguinal hernia repairs , colonoscopy-normal. Past Anesthesia/Blood Transfusion Reactions: No Reported Reaction Smoking Status: Former smoker - Past Family History Father Family Medical History: No Reported History Additional Family Medical History / Comment(s): Father is healthy Mother Family Medical History: No Reported History Additional Family Medical History / Comment(s): Mother is healthy. Medications and Allergies Home Medications Medication Instructions Recorded Confirmed Type Insulin Glargine [Lantus] 33 units SQ DAILY 04/24/14 07/11/17 History Albuterol Inhaler [Ventolin Hfa 1 - 2 puff INHALATION RT-Q6H PRN 05/31/17 History Inhaler] Levofloxacin [Levaquin] 500 mg PO DAILY 7 Days #7 tab 07/02/17 07/11/17 Rx Lisinopril [Zestril] 10 mg PO DAILY #30 tab 07/02/17 07/11/17 Rx predniSONE See Taper PO DIRECTED 07/04/17 07/11/17 History Ipratropium-Albuterol Nebulize 3 ml INHALATION RT-QID #120 07/06/17 07/11/17 Rx [Duoneb 0.5 mg-3 mg/3 ml Soln] ampul.neb Nicotine 21Mg/24Hr Patch [Habitrol] 1 patch TRANSDERM DAILY #30 patch 07/06/17 07/11/17 Rx Nicotine Polacrilex [Nicorette] 2 mg BUCCAL Q4HR PRN #120 gum 07/06/17 07/11/17 Rx Budesonide/Formoterol Fumarate 2 puff INHALATION RT-BID 07/11/17 07/11/17 History [Symbicort 160-4.5 Mcg Inhaler] Gabapentin 600 mg PO TID 07/11/17 07/11/17 History Ibuprofen [Motrin] 600 mg PO TID PRN 07/11/17 07/11/17 History Pregabalin [Lyrica] 75 mg PO BID 07/11/17 07/11/17 History Zolpidem [Ambien] 5 mg PO HS PRN 07/11/17 07/11/17 History amLODIPine [Norvasc] 5 mg PO DAILY 07/11/17 07/11/17 History Allergies Allergy/AdvReac Type Severity Reaction Status Date / Time No Known Allergies Allergy Verified 07/11/17 09:47 Physical Exam Vitals: Vital Signs Temp Pulse Pulse Resp BP Pulse Ox 07/11/17 17:36 95 20 110/51 97 07/11/17 17:17 97 18 132/62 07/11/17 16:30 93 20 103/52 99 07/11/17 15:55 97 07/11/17 15:02 96 07/11/17 14:59 98.7 F 97 20 110/53 99 07/11/17 14:28 93 18 103/54 100 07/11/17 13:18 98 20 91/53 99 07/11/17 12:11 106 H 20 99/51 97 07/11/17 12:07 107 H 07/11/17 11:55 109 H 07/11/17 11:16 100 20 100/57 99 07/11/17 10:21 105 H 20 103/54 100 07/11/17 10:00 104 H 18 82/52 100 07/11/17 09:23 113 H 16 98/57 97 07/11/17 09:05 116 H 18 149/81 97 07/11/17 08:26 113 H 20 107/61 100 07/11/17 07:54 115 H 20 137/66 98 07/11/17 06:27 115 H 18 158/90 97 07/11/17 06:00 111 H 20 150/82 99 07/11/17 05:49 114 H 20 169/88 99 07/11/17 04:00 129 H 20 179/94 99 07/11/17 03:00 123 H 22 169/79 99 07/11/17 01:54 125 H 22 163/77 100 07/11/17 01:40 112 H 24 07/11/17 01:33 112 H 07/11/17 01:23 111 H 07/11/17 01:13 110 H 24 07/11/17 01:05 105 H 07/11/17 00:51 98.6 F 119 H 30 H 165/89 90 L Intake and Output 07/11/17 07/11/17 07/11/17 06:59 14:59 22:59 Intake Total 35.569 93.180 380.807 Output Total 975 Balance 35.569 93.180 -594.193 Intake: IV 346.4 D5-0.45% NaCl with KCl 300 20Meq/l 1,000 ml @ 150 mls/hr IV .Q6H40M [facility] Rx# :[id number] Insulin Regular 100 unit 2.5 In Sodium Chloride 0.9% 100 ml @ 10 UNIT/HR 10.1 mls/hr IV .Q10H [facility] Rx#: [id number] Piperacillin-Tazobactam 3 25.0 .375 gm In Dextrose/Water 1 50ml.bag @ 12.5 mls/hr IVPB Q8H [facility] Rx#: [id number] Propofol 1,000 mg In 18.9 Empty Bag 1 bag @ Titrate IV .Q0M [facility] Rx#: [id number] Intake, IV Titration 35.569 93.180 34.407 Amount Insulin Regular 100 unit 35.569 69.223 4.691 In Sodium Chloride 0.9% 100 ml @ 10 UNIT/HR 10.1 mls/hr IV .Q10H [facility] Rx#: [id number] Propofol 1,000 mg In 23.957 29.716 Empty Bag 1 bag @ Titrate IV .Q0M [facility] Rx#: [id number] Output: Gastric Drainage 450 Urine 525 Other: Weight 104.326 kg GENERAL: Patient is well-developed and well-nourished. Patient is intubated sedated on ventilator ENT: Neck is soft and supple. No significant lymphadenopathy is noted. Oropharynx is clear. Moist mucous membranes. Neck has full range of motion without eliciting any pain. EYES: The sclera were anicteric and conjunctiva were pink and moist. Extraocular movements were intact and pupils were equal round and reactive to light. Eyelids were unremarkable. PULMONARY: Patient has some expiratory wheezing with some decreased air movement in the right base with right basal bronchial breath sound CARDIOVASCULAR: There is a regular rate and rhythm without any murmurs gallops or rubs. ABDOMEN: Soft and nontender with normal bowel sounds. No palpable organomegaly was noted. There is no palpable pulsatile mass. SKIN: Skin is clear with no lesions or rashes and otherwise unremarkable. NEUROLOGIC: Patient sedated on ventilator unable to assess. MUSCULOSKELETAL: Normal extremities with adequate strength and full range of motion. No lower extremity swelling or edema. No calf tenderness. LYMPHATICS: No significant lymphadenopathy is noted PSYCHIATRIC: Unable to assess however patient is more calm and comfortable with propofol on ventilator Results - Laboratory Findings CBC and BMP: 07/11/17 09:10 07/11/17 09:10 ABG ABG pH 7.20 (7.35-7.45) L* 07/11/17 08:18 ABG pCO2 55 mmHg (35-45) H 07/11/17 08:18 ABG pO2 166 mmHg (83-108) H 07/11/17 08:18 ABG O2 Saturation 100.0 % (94-97) H 07/11/17 08:18 PT/INR, D-dimer PT 12.6 sec (9.0-12.0) H 07/11/17 09:10 INR 1.3 (<1.2) H 07/11/17 09:10 Abnormal lab findings: Abnormal Labs 07/11/17 07/11/17 07/11/17 01:00 01:00 01:53 WBC 39.9 H* RBC 4.12 L MCV 104.6 H MCHC Plt Count 149 L D Neutrophils # (Manual) 36.70 H Lymphocytes # (Manual) 0.40 L Monocytes # (Manual) 2.79 H Metamyelocytes # (Man) PT 13.9 H INR 1.5 H ABG pH ABG pCO2 ABG pO2 ABG O2 Saturation Sodium Potassium Chloride Carbon Dioxide BUN Creatinine Glucose POC Glucose (mg/dL) Plasma Lactic Acid Getachew 8.8 H* Calcium Total Bilirubin Alkaline Phosphatase Albumin Urine Protein Urine Glucose (UA) Urine Ketones Urine Bilirubin Amorphous Sediment Urine Bacteria Urine Mucus 07/11/17 07/11/17 07/11/17 01:53 02:01 02:52 WBC RBC MCV MCHC Plt Count Neutrophils # (Manual) Lymphocytes # (Manual) Monocytes # (Manual) Metamyelocytes # (Man) PT INR ABG pH 7.30 L ABG pCO2 ABG pO2 79 L ABG O2 Saturation 93.9 L Sodium 126 L Potassium 5.3 H Chloride 87 L Carbon Dioxide 21 L BUN 25 H Creatinine 1.30 H Glucose 813 H* POC Glucose (mg/dL) >600 H Plasma Lactic Acid Get[place]w Calcium Total Bilirubin 3.8 H Alkaline Phosphatase 199 H Albumin 3.4 L Urine Protein Urine Glucose (UA) Urine Ketones Urine Bilirubin Amorphous Sediment Urine Bacteria Urine Mucus 07/11/17 07/11/17 07/11/17 04:13 05:32 06:18 WBC RBC MCV MCHC Plt Count Neutrophils # (Manual) Lymphocytes # (Manual) Monocytes # (Manual) Metamyelocytes # (Man) PT INR ABG pH ABG pCO2 ABG pO2 ABG O2 Saturation Sodium Potassium Chloride Carbon Dioxide BUN Creatinine Glucose POC Glucose (mg/dL) 580 H 422 H Plasma Lactic Acid Get[place]w 9.1 H* Calcium Total Bilirubin Alkaline Phosphatase Albumin Urine Protein Urine Glucose (UA) Urine Ketones Urine Bilirubin Amorphous Sediment Urine Bacteria Urine Mucus 07/11/17 07/11/17 07/11/17 07:49 08:18 08:39 WBC RBC MCV MCHC Plt Count Neutrophils # (Manual) Lymphocytes # (Manual) Monocytes # (Manual) Metamyelocytes # (Man) PT INR ABG pH 7.20 L* ABG pCO2 55 H ABG pO2 166 H ABG O2 Saturation 100.0 H Sodium Potassium Chloride Carbon Dioxide BUN Creatinine Glucose POC Glucose (mg/dL) 305 H 314 H Plasma Lactic Acid Get[place]w Calcium Total Bilirubin Alkaline Phosphatase Albumin Urine Protein Urine Glucose (UA) Urine Ketones Urine Bilirubin Amorphous Sediment Urine Bacteria Urine Mucus 07/11/17 07/11/17 07/11/17 09:10 09:10 09:10 WBC 44.9 H* RBC 4.05 L MCV 109.6 H D MCHC 29.5 L Plt Count 114 L Neutrophils # (Manual) 41.70 H Lymphocytes # (Manual) 0.90 L Monocytes # (Manual) 2.25 H Metamyelocytes # (Man) 0.45 H PT 12.6 H INR 1.3 H ABG pH ABG pCO2 ABG pO2 ABG O2 Saturation Sodium Potassium Chloride Carbon Dioxide 18 L BUN 26 H Creatinine 1.58 H Glucose 263 H POC Glucose (mg/dL) Plasma Lactic Acid Get[place]w Calcium 8.0 L Total Bilirubin 2.7 H Alkaline Phosphatase 160 H Albumin 2.6 L Urine Protein Urine Glucose (UA) Urine Ketones Urine Bilirubin Amorphous Sediment Urine Bacteria Urine Mucus 07/11/17 07/11/17 07/11/17 09:44 11:54 13:04 WBC RBC MCV MCHC Plt Count Neutrophils # (Manual) Lymphocytes # (Manual) Monocytes # (Manual) Metamyelocytes # (Man) PT INR ABG pH ABG pCO2 ABG pO2 ABG O2 Saturation Sodium Potassium Chloride Carbon Dioxide BUN Creatinine Glucose POC Glucose (mg/dL) 200 H 144 H 131 H Plasma Lactic Acid Get[place]w Calcium Total Bilirubin Alkaline Phosphatase Albumin Urine Protein Urine Glucose (UA) Urine Ketones Urine Bilirubin Amorphous Sediment Urine Bacteria Urine Mucus 07/11/17 07/11/17 07/11/17 13:39 14:06 14:55 WBC RBC MCV MCHC Plt Count Neutrophils # (Manual) Lymphocytes # (Manual) Monocytes # (Manual) Metamyelocytes # (Man) PT INR ABG pH ABG pCO2 ABG pO2 ABG O2 Saturation Sodium Potassium Chloride Carbon Dioxide BUN Creatinine Glucose POC Glucose (mg/dL) 112 H 152 H Plasma Lactic Acid Get[place]w Calcium Total Bilirubin Alkaline Phosphatase Albumin Urine Protein 1+ H Urine Glucose (UA) Trace H Urine Ketones Trace H Urine Bilirubin 1+ H Amorphous Sediment Few H Urine Bacteria Occasional H Urine Mucus Occasional H 07/11/17 07/11/17 07/11/17 15:38 16:25 17:26 WBC RBC MCV MCHC Plt Count Neutrophils # (Manual) Lymphocytes # (Manual) Monocytes # (Manual) Metamyelocytes # (Man) PT INR ABG pH ABG pCO2 ABG pO2 ABG O2 Saturation Sodium Potassium Chloride Carbon Dioxide BUN Creatinine Glucose POC Glucose (mg/dL) 134 H 147 H Plasma Lactic Acid Getachew 3.6 H* Calcium Total Bilirubin Alkaline Phosphatase Albumin Urine Protein Urine Glucose (UA) Urine Ketones Urine Bilirubin Amorphous Sediment Urine Bacteria Urine Mucus - Diagnostic Findings Chest x-ray: report reviewed, image reviewed Assessment and Plan Assessment: Acute hypoxic and hypercapnic respiratory failure Severe sepsis and septic shock Right middle lobe and right lower lobe pneumonia likely mixed bacterial and/or or gram-negative may very well be aspiration related Uncontrolled hyperglycemia and diabetes Chronic persistent asthma with severe COPD and recent exacerbation of COPD Stage III acute renal failure Plan: Fluid resuscitation Broad-spectrum antibiotics Maintain patient on DVT and peptic ulcer disease prophylaxis Ventilator support with repeat x-ray and labs tomorrow titrate oxygen down as tolerated we'll repeat ABG tomorrow as well Given acute worsening of mental status appears to be likely related to hypercapnia and severe COPD and pneumonia with severe profound metabolic acidosis however occult intracranial process cannot be excluded a computed tomography scan of the head was obtained with findings as noted above, however overall doubt acute intracranial process Insulin drip Further recommendations pending plan of care as per clinical response of the patient Patient appears to be volume depleted we'll continue to give fluid boluses as needed as per hemodynamic assessment and response Time with Patient: Greater than 30
[2017-07-11 18:39] LABS: Glucose,Whole Blood 191 mg/dL (75-99)
[2017-07-11 19:46] LABS: Glucose,Whole Blood 209 mg/dL (75-99)
[2017-07-11] MEDS: BUDESONIDE 1 MG/2 ML NEBU INHALATION SCH (19:46)
[2017-07-11 20:54] LABS: Glucose,Whole Blood 211 mg/dL (75-99)
[2017-07-11 22:00] LABS: Glucose,Whole Blood 244 mg/dL (75-99)
[2017-07-11 22:59] LABS: Glucose,Whole Blood 277 mg/dL (75-99)
[2017-07-12] MEDS ORDERED: VANCOMYCIN 1,750 MG in SODIUM CHLORIDE 0.9% 250 ML IVPB SCH ×2
[2017-07-12 00:14] LABS: Glucose,Whole Blood 293 mg/dL (75-99)
[2017-07-12] MEDS: PIPERACILLIN-TAZOBACTAM 3.375 GM in DEXTROSE/WATER 1 50ML.BAG IVPB SCH ×5 (00:21→21:37)
[2017-07-12] MEDS: D5-0.45% NACL WITH KCL 20MEQ/L 1,000 ML IV SCH ×2 (00:55→09:55)
[2017-07-12 01:21] LABS: Glucose,Whole Blood 315 mg/dL (75-99)
[2017-07-12 02:03] LABS: Glucose,Whole Blood 323 mg/dL (75-99)
[2017-07-12] MEDS: PROPOFOL 1,000 MG in EMPTY BAG 1 BAG IV SCH ×4 (02:24→23:02)
[2017-07-12 03:00] LABS: Glucose,Whole Blood 360 mg/dL (75-99)
[2017-07-12 04:11] LABS: Glucose,Whole Blood 340 mg/dL (75-99)
[2017-07-12 05:21] LABS: Glucose,Whole Blood 291 mg/dL (75-99)
[2017-07-12] MEDS ORDERED: LEVOFLOXACIN 750MG-D5W PMX 750 MG in DEXTROSE/WATER 1 150ML.BAG IVPB SCH (06:00)
[2017-07-12 06:08] LABS: Glucose,Whole Blood 273 mg/dL (75-99)
[2017-07-12 06:13] LABS: ABG Base Excess -5.6 mmol/L; ABG HCO3 21 mmol/L (21-25); ABG Oxygen Saturation 94.4 % (94-97); ABG PCO2 47 mmHg (35-45); ABG PH 7.27 (7.35-7.45); ABG PO2 75 mmHg (83-108); ABG TCO2 23 mmol/L (19-24)
[2017-07-12 06:25] LABS: HCT 34.7 % (39.0-53.0); HGB 11.1 gm/dL (13.0-17.5); Hypochromasia Slight; MCH 32.9 pg (25.0-35.0); MCHC 31.9 g/dL (31.0-37.0); Macrocytosis Slight; Mean Platelet Volume 8.8; RBC 3.37 m/uL (4.30-5.90); RDW 14.9 % (11.5-15.5)
[2017-07-12 06:26] LABS: Albumin 1.8 g/dL (3.5-5.0); Calcium 6.6 mg/dL (8.4-10.2); Potassium 4.8 mmol/L (3.5-5.1); Total Bilirubin 1.5 mg/dL (0.2-1.3); Total Protein 4.8 g/dL (6.3-8.2)
[2017-07-12 06:27] LABS: MCV 103.1 fL (80.0-100.0)
[2017-07-12 06:56] LABS: Band Neutrophils % 2 %; Neutrophils % (M) 88 %; Nucleated Red Blood Cells 0 /100 WBC (0-0); Platelet Count 66 k/uL (150-450); Total Cells Counted 100
[2017-07-12 07:13] LABS: Glucose,Whole Blood 250 mg/dL (75-99)
[2017-07-12] MEDS: IPRATROPIUM-ALBUTEROL 3 ML NEB INHALATION SCH ×4 (08:01→19:27)
[2017-07-12] MEDS: BUDESONIDE 1 MG/2 ML NEBU INHALATION SCH ×2 (08:03→19:27)
[2017-07-12 08:07] LABS: Glucose,Whole Blood 214 mg/dL (75-99)
[2017-07-12] MEDS ORDERED: INSULIN REGULAR 100 UNIT in SODIUM CHLORIDE 0.9% 100 ML IV ONE (08:23)
[2017-07-12 09:15] LABS: Glucose,Whole Blood 229 mg/dL (75-99)
[2017-07-12] MEDS: PANTOPRAZOLE 40 MG/10 ML VIAL IVP SCH (10:06)
[2017-07-12] MEDS: CHLORHEXIDINE GLUCONATE 15 ML CUP MUCOUS MEM SCH ×2 (10:06→21:37)
[2017-07-12 10:09] LABS: Glucose,Whole Blood 210 mg/dL (75-99)
[2017-07-12] MEDS ORDERED: SODIUM CHLORIDE 0.9% 1,000 ML IV ONE ×2 (10:49→14:08)
[2017-07-12] MEDS: INSULIN REGULAR 100 UNIT in SODIUM CHLORIDE 0.9% 100 ML IV SCH (10:56)
[2017-07-12] MEDS: SODIUM CHLORIDE 0.9% 1,000 ML IV SCH ×2 (10:58→17:14)
[2017-07-12 11:55] LABS: Glucose,Whole Blood 186 mg/dL (75-99)
[2017-07-12 14:00] LABS: Glucose,Whole Blood 129 mg/dL (75-99)
[2017-07-12] MEDS: NOREPINEPHRIN 4 MG-0.9% NS PMX 4 MG/250 ML ML IV SCH (14:13)
[2017-07-12 15:02] LABS: Glucose,Whole Blood 138 mg/dL (75-99)
--- NOTE | 2017-07-12 16:01 | P.PN ---
Subjective Progress Note Date: 07/12/17 Principal diagnosis: Sepsis with pneumonia. The patient is here essentially because of significant problems with recurrent COPD and now pneumonia with sepsis element. The patient is not intubated. Central access is pending. Objective - Vital Signs Vital signs: Vital Signs Temp 98.0 F 07/12/17 09:30 Pulse 80 07/12/17 15:30 Resp 20 07/12/17 15:30 BP 97/53 07/12/17 15:30 Pulse Ox 91 L 07/12/17 15:30 Intake & Output 07/11/17 07/12/17 07/12/17 18:59 06:59 18:59 Intake Total 292.109 6867.394 2414.984 Output Total 1035 560 210 Balance -442.114 2535.394 2204.984 Weight 104.326 kg Intake: IV 522.2 1633.1 350 D5-0.45% NaCl with KCl 450 1500 300 20Meq/l 1,000 ml @ 150 mls/hr IV .Q6H40M [facility] Rx# :[id number] Insulin Regular 100 unit 3.3 1.6 In Sodium Chloride 0.9% 100 ml @ 10 UNIT/HR 10.1 mls/hr IV .Q10H [facility] Rx#: [id number] Piperacillin-Tazobactam 3 37.5 37.5 50 .375 gm In Dextrose/Water 1 50ml.bag @ 12.5 mls/hr IVPB Q8H [facility] Rx#: [id number] Propofol 1,000 mg In 31.4 94.0 Empty Bag 1 bag @ Titrate IV .Q0M [facility] Rx#: [id number] Intake, IV Titration 127.587 766.558 4460.984 Amount Insulin Regular 100 unit 73.914 4.449 In Sodium Chloride 0.9% 100 ml @ 10 UNIT/HR 10.1 mls/hr IV .Q10H [facility] Rx#: [id number] Insulin Regular 100 unit 12.187 In Sodium Chloride 0.9% 100 ml @ Per Protocol IV .Q0M [facility] Rx#:[id number] Propofol 1,000 mg In 53.673 114.375 52.797 Empty Bag 1 bag @ Titrate IV .Q0M [facility] Rx#: [id number] Sodium Chloride 0.9% 1, 2000 000 ml @ 500 mls/hr IV . Q2H [facility] Rx#:[id number] Vancomycin 1,750 mg In 250 Sodium Chloride 0.9% 250 ml @ 125 mls/hr IVPB Q16H [facility] Rx#:[id number] Output: Gastric Drainage 450 Urine 585 560 210 - Constitutional General appearance: Present: obese - EENT Eyes: Absent: abnormal pupil - Neck Neck: Absent: lymphadenopathy - Respiratory Respiratory: bilateral: diminished, rhonchi - Cardiovascular Rhythm: regular Heart sounds: normal: S1, S2 Abnormal Heart Sounds: Absent: S3 Gallop - Gastrointestinal General gastrointestinal: Present: soft. Absent: tenderness - Integumentary Integumentary: Absent: rash - Neurologic Neurologic: Present: CNII-XII intact, focal deficits - Labs CBC & Chem 7: 07/12/17 05:19 07/12/17 05:18 Labs: Abnormal Lab Results - Last 24 Hours (Table) 07/11/17 07/11/17 07/11/17 Range/Units 15:38 16:25 17:26 WBC (3.8-10.6) k/uL RBC (4.30-5.90) m/uL Hgb (13.0-17.5) gm/dL Hct (39.0-53.0) % MCV (80.0-100.0) fL Plt Count (150-450) k/uL Neutrophils # (Manual) (1.3-7.7) k/uL Lymphocytes # (Manual) (1.0-4.8) k/uL ABG pH (7.35-7.45) ABG pCO2 (35-45) mmHg ABG pO2 (83-108) mmHg Sodium (137-145) mmol/L Carbon Dioxide (22-30) mmol/L BUN (9-20) mg/dL Creatinine (0.66-1.25) mg/dL Glucose (74-99) mg/dL POC Glucose (mg/dL) 134 H 147 H (75-99) mg/dL Plasma Lactic Acid Get[place]w 3.6 H* (0.7-2.0) mmol/L Calcium (8.4-10.2) mg/dL Total Bilirubin (0.2-1.3) mg/dL Total Protein (6.3-8.2) g/dL Albumin (3.5-5.0) g/dL 07/11/17 07/11/17 07/11/17 Range/Units 18:34 19:40 19:43 WBC (3.8-10.6) k/uL RBC (4.30-5.90) m/uL Hgb (13.0-17.5) gm/dL Hct (39.0-53.0) % MCV (80.0-100.0) fL Plt Count (150-450) k/uL Neutrophils # (Manual) (1.3-7.7) k/uL Lymphocytes # (Manual) (1.0-4.8) k/uL ABG pH (7.35-7.45) ABG pCO2 (35-45) mmHg ABG pO2 (83-108) mmHg Sodium (137-145) mmol/L Carbon Dioxide (22-30) mmol/L BUN (9-20) mg/dL Creatinine (0.66-1.25) mg/dL Glucose (74-99) mg/dL POC Glucose (mg/dL) 191 H 209 H (75-99) mg/dL Plasma Lactic Acid Get[place]w 3.3 H* (0.7-2.0) mmol/L Calcium (8.4-10.2) mg/dL Total Bilirubin (0.2-1.3) mg/dL Total Protein (6.3-8.2) g/dL Albumin (3.5-5.0) g/dL 07/11/17 07/11/17 07/11/17 Range/Units 20:52 21:58 22:55 WBC (3.8-10.6) k/uL RBC (4.30-5.90) m/uL Hgb (13.0-17.5) gm/dL Hct (39.0-53.0) % MCV (80.0-100.0) fL Plt Count (150-450) k/uL Neutrophils # (Manual) (1.3-7.7) k/uL Lymphocytes # (Manual) (1.0-4.8) k/uL ABG pH (7.35-7.45) ABG pCO2 (35-45) mmHg ABG pO2 (83-108) mmHg Sodium (137-145) mmol/L Carbon Dioxide (22-30) mmol/L BUN (9-20) mg/dL Creatinine (0.66-1.25) mg/dL Glucose (74-99) mg/dL POC Glucose (mg/dL) 211 H 244 H 277 H (75-99) mg/dL Plasma Lactic Acid Get[place]w (0.7-2.0) mmol/L Calcium (8.4-10.2) mg/dL Total Bilirubin (0.2-1.3) mg/dL Total Protein (6.3-8.2) g/dL Albumin (3.5-5.0) g/dL 07/12/17 07/12/17 07/12/17 Range/Units 00:12 01:19 02:01 WBC (3.8-10.6) k/uL RBC (4.30-5.90) m/uL Hgb (13.0-17.5) gm/dL Hct (39.0-53.0) % MCV (80.0-100.0) fL Plt Count (150-450) k/uL Neutrophils # (Manual) (1.3-7.7) k/uL Lymphocytes # (Manual) (1.0-4.8) k/uL ABG pH (7.35-7.45) ABG pCO2 (35-45) mmHg ABG pO2 (83-108) mmHg Sodium (137-145) mmol/L Carbon Dioxide (22-30) mmol/L BUN (9-20) mg/dL Creatinine (0.66-1.25) mg/dL Glucose (74-99) mg/dL POC Glucose (mg/dL) 293 H 315 H 323 H (75-99) mg/dL Plasma Lactic Acid Get[place]w (0.7-2.0) mmol/L Calcium (8.4-10.2) mg/dL Total Bilirubin (0.2-1.3) mg/dL Total Protein (6.3-8.2) g/dL Albumin (3.5-5.0) g/dL 07/12/17 07/12/17 07/12/17 Range/Units 02:58 04:09 05:18 WBC (3.8-10.6) k/uL RBC (4.30-5.90) m/uL Hgb (13.0-17.5) gm/dL Hct (39.0-53.0) % MCV (80.0-100.0) fL Plt Count (150-450) k/uL Neutrophils # (Manual) (1.3-7.7) k/uL Lymphocytes # (Manual) (1.0-4.8) k/uL ABG pH (7.35-7.45) ABG pCO2 (35-45) mmHg ABG pO2 (83-108) mmHg Sodium 132 L (137-145) mmol/L Carbon Dioxide 18 L (22-30) mmol/L BUN 39 H (9-20) mg/dL Creatinine 1.86 H (0.66-1.25) mg/dL Glucose 314 H (74-99) mg/dL POC Glucose (mg/dL) 360 H 340 H (75-99) mg/dL Plasma Lactic Acid Get[place]w (0.7-2.0) mmol/L Calcium 6.6 L (8.4-10.2) mg/dL Total Bilirubin 1.5 H (0.2-1.3) mg/dL Total Protein 4.8 L (6.3-8.2) g/dL Albumin 1.8 L (3.5-5.0) g/dL 07/12/17 07/12/17 07/12/17 Range/Units 05:18 05:19 05:55 WBC 18.0 H (3.8-10.6) k/uL RBC 3.37 L (4.30-5.90) m/uL Hgb 11.1 L (13.0-17.5) gm/dL Hct 34.7 L (39.0-53.0) % MCV 103.1 H D (80.0-100.0) fL Plt Count 66 L (150-450) k/uL Neutrophils # (Manual) 16.20 H (1.3-7.7) k/uL Lymphocytes # (Manual) 0.90 L (1.0-4.8) k/uL ABG pH (7.35-7.45) ABG pCO2 (35-45) mmHg ABG pO2 (83-108) mmHg Sodium (137-145) mmol/L Carbon Dioxide (22-30) mmol/L BUN (9-20) mg/dL Creatinine (0.66-1.25) mg/dL Glucose (74-99) mg/dL POC Glucose (mg/dL) 291 H 273 H (75-99) mg/dL Plasma Lactic Acid Get[place]w (0.7-2.0) mmol/L Calcium (8.4-10.2) mg/dL Total Bilirubin (0.2-1.3) mg/dL Total Protein (6.3-8.2) g/dL Albumin (3.5-5.0) g/dL 07/12/17 07/12/17 07/12/17 Range/Units 06:12 07:09 07:57 WBC (3.8-10.6) k/uL RBC (4.30-5.90) m/uL Hgb (13.0-17.5) gm/dL Hct (39.0-53.0) % MCV (80.0-100.0) fL Plt Count (150-450) k/uL Neutrophils # (Manual) (1.3-7.7) k/uL Lymphocytes # (Manual) (1.0-4.8) k/uL ABG pH 7.27 L (7.35-7.45) ABG pCO2 47 H (35-45) mmHg ABG pO2 75 L (83-108) mmHg Sodium (137-145) mmol/L Carbon Dioxide (22-30) mmol/L BUN (9-20) mg/dL Creatinine (0.66-1.25) mg/dL Glucose (74-99) mg/dL POC Glucose (mg/dL) 250 H 214 H (75-99) mg/dL Plasma Lactic Acid Get[place]w (0.7-2.0) mmol/L Calcium (8.4-10.2) mg/dL Total Bilirubin (0.2-1.3) mg/dL Total Protein (6.3-8.2) g/dL Albumin (3.5-5.0) g/dL 07/12/17 07/12/17 07/12/17 Range/Units 09:08 10:08 11:52 WBC (3.8-10.6) k/uL RBC (4.30-5.90) m/uL Hgb (13.0-17.5) gm/dL Hct (39.0-53.0) % MCV (80.0-100.0) fL Plt Count (150-450) k/uL Neutrophils # (Manual) (1.3-7.7) k/uL Lymphocytes # (Manual) (1.0-4.8) k/uL ABG pH (7.35-7.45) ABG pCO2 (35-45) mmHg ABG pO2 (83-108) mmHg Sodium (137-145) mmol/L Carbon Dioxide (22-30) mmol/L BUN (9-20) mg/dL Creatinine (0.66-1.25) mg/dL Glucose (74-99) mg/dL POC Glucose (mg/dL) 229 H 210 H 186 H (75-99) mg/dL Plasma Lactic Acid Get[place]w (0.7-2.0) mmol/L Calcium (8.4-10.2) mg/dL Total Bilirubin (0.2-1.3) mg/dL Total Protein (6.3-8.2) g/dL Albumin (3.5-5.0) g/dL 07/12/17 07/12/17 Range/Units 13:59 15:00 WBC (3.8-10.6) k/uL RBC (4.30-5.90) m/uL Hgb (13.0-17.5) gm/dL Hct (39.0-53.0) % MCV (80.0-100.0) fL Plt Count (150-450) k/uL Neutrophils # (Manual) (1.3-7.7) k/uL Lymphocytes # (Manual) (1.0-4.8) k/uL ABG pH (7.35-7.45) ABG pCO2 (35-45) mmHg ABG pO2 (83-108) mmHg Sodium (137-145) mmol/L Carbon Dioxide (22-30) mmol/L BUN (9-20) mg/dL Creatinine (0.66-1.25) mg/dL Glucose (74-99) mg/dL POC Glucose (mg/dL) 129 H 138 H (75-99) mg/dL Plasma Lactic Acid [place] (0.7-2.0) mmol/L Calcium (8.4-10.2) mg/dL Total Bilirubin (0.2-1.3) mg/dL Total Protein (6.3-8.2) g/dL Albumin (3.5-5.0) g/dL Microbiology - Last 24 Hours (Table) 07/11/17 07:56 Gram Stain - Preliminary Sputum Sputum Culture - Preliminary Presumptive Staph aureus 07/11/17 01:00 Blood Culture Gram Stain - Preliminary Blood Blood Culture - Preliminary Presumptive MRSA 07/11/17 01:00 Blood Culture - Final Blood Assessment and Plan (1) Hyperglycemia Current Visit: Yes Status: Acute Code(s): R73.9 - HYPERGLYCEMIA, UNSPECIFIED SNOMED Code(s): 61034299 (2) Pneumonia Current Visit: Yes Status: Acute Code(s): J18.9 - PNEUMONIA, UNSPECIFIED ORGANISM SNOMED Code(s): 252878077 (3) Respiratory distress Current Visit: Yes Status: Acute Code(s): R06.03 - ACUTE RESPIRATORY DISTRESS SNOMED Code(s): 995936961 (4) Sepsis Current Visit: Yes Status: Acute Code(s): A41.9 - SEPSIS, UNSPECIFIED ORGANISM SNOMED Code(s): 78471121 (5) Alcoholism /alcohol abuse Current Visit: No Status: Acute Code(s): F10.20 - ALCOHOL DEPENDENCE, UNCOMPLICATED SNOMED Code(s): 8245563 (6) Diabetes Current Visit: No Status: Acute Code(s): E11.9 - TYPE 2 DIABETES MELLITUS WITHOUT COMPLICATIONS SNOMED Code(s): 81940910 (7) Smoking Current Visit: No Status: Acute Code(s): F17.200 - NICOTINE DEPENDENCE, UNSPECIFIED, UNCOMPLICATED SNOMED Code(s): 77210391 Plan: Continue supportive access. Watch for appropriate vital signs and urinary output. Check CBC and CMP in a.m. Methicillin-resistant pneumonia is noted. Time with Patient: Greater than 30
[2017-07-12 16:30] LABS: Glucose,Whole Blood 139 mg/dL (75-99)
[2017-07-12 17:06] LABS: Glucose,Whole Blood 139 mg/dL (75-99)
[2017-07-12] MEDS: METOCLOPRAMIDE 5 MG/ML 2 ML VIAL IVP SCH (18:12)
[2017-07-12 18:18] LABS: Glucose,Whole Blood 150 mg/dL (75-99)
--- NOTE | 2017-07-12 19:09 | P.PN ---
Subjective Progress Note Date: 07/12/17 Principal diagnosis: Acute hypoxic respiratory failure, bilateral aspiration pneumonia, MRSA bacteremia, uncontrolled diabetes and hyperglycemia, severe sepsis and septic shock, a stage III renal failure, profound metabolic acidosis with lactic acidosis 07/12/2017, patient seen eval reexamined in the ICU patient now has been more for emergency department hold to the ICU patient continued to be intermittently agitated requiring propofol drip, noted patient has gram-positive cocci in the blood likely MRSA patient already has been started on IV vancomycin, been setting remains stable on assist control rate of 20 breathing 23, tidal volume of 500, with 5 of PEEP and FiO2 is gradually date titrated down, labs reviewed x -ray reviewed patient has not been taken off of insulin drip as per DKA protocol and being started ICU protocol would continue antibiotics breathing treatments steroids, we'll start patient on tube feed nutrition has been consulted, patient is not ready for weaning at this point of time, patient noted to have intermittent episodes of hypertension but never did respond well with aggressive fluid resuscitation with crystalloid, for details please refer to the flowsheet, sputum is also positive for staph aureus so as the blood finally white cell count is down to 18,000 with stable hemoglobin RT blood gas continued to manifest severe and profound metabolic and respiratory acidosis but appears to have improved though hyponatremia and renal failure noted stage 3 -4 clearly related to acute tubular necrosis and the hypo-tension and hypoperfusion Mr. Rodolfo Hollis is a 56-year-old male with history of chronic persistent asthma and severe COPD this patient was recently hospitalized for acute COPD exacerbation and he was treated with breathing treatments steroids he improved significantly and subsequently was discharged to follow-up in outpatient setting homologue it has been noted that patient was somewhat reluctant to more aggressive intervention and has expressed his desire to be discharged earlier and to avoid nebulizer therapy and continue MDIs but later on he felt that nebulizer were helpful in last admission he prefers to use the nebulizer and expresses desire to use at home. Patient presented into the emergency department with chest wall pain related to rib fracture also increasing shortness of breath cough and wheezing patient also has a history of uncontrolled diabetes he has been on tapering doses of steroids as well as antibiotics, patient was in the emergency department awaiting ICU placement progressively developed altered mental status and increased lethargy noted to have acute hypercapnic hypoxic respiratory failure was intubated for airway protection, in addition to that patient was noted to have severe hyperglycemia sugar over 800 marked lactic acidosis Ammann patient was hypoxic to Make tachycardic and hypertensive on arrival, chest x-ray showed a new right lower lobe and right middle lobe pneumonia patient was treated with fluid resuscitation along with insulin drip and BiPAP eventually intubated. His white cell count was 39,000 he had severe hyponatremia and acute his stage III renal failure on my evaluation patient was hypertensive with blood pressure which was in the low 100 range drop down into 80s was on assist control rate of 20 breathing 25, 80% oxygen, 5 of PEEP, 500 tidal volume with insulin drip of 14 units an hour along with IV fluids 150 mL an hour with potassium patient was also started on 10 mics of propofol due to drop in blood pressure a liter of crystalloids were given as a bolus with that blood pressure came up into 100 range I recommended to give another 500 mL an hour for 2 hours and monitor urine output patient is being treated with Levaquin and Zosyn and vancomycin Objective - Vital Signs Vital signs: Vital Signs Temp 98.0 F 07/12/17 09:30 Pulse 80 07/12/17 18:00 Resp 21 07/12/17 18:00 BP 91/49 07/12/17 18:00 Pulse Ox 93 L 07/12/17 18:00 Intake & Output 07/11/17 07/12/17 07/12/17 18:59 06:59 18:59 Intake Total 580.459 1040.394 3203.421 Output Total 1035 560 445 Balance -114.232 8151.394 2758.421 Weight 104.326 kg Intake: IV 522.2 1633.1 350 D5-0.45% NaCl with KCl 450 1500 300 20Meq/l 1,000 ml @ 150 mls/hr IV .Q6H40M [facility] Rx# :[id number] Insulin Regular 100 unit 3.3 1.6 In Sodium Chloride 0.9% 100 ml @ 10 UNIT/HR 10.1 mls/hr IV .Q10H [facility] Rx#: [id number] Piperacillin-Tazobactam 3 37.5 37.5 50 .375 gm In Dextrose/Water 1 50ml.bag @ 12.5 mls/hr IVPB Q8H [facility] Rx#: [id number] Propofol 1,000 mg In 31.4 94.0 Empty Bag 1 bag @ Titrate IV .Q0M [facility] Rx#: [id number] Intake, IV Titration 127.587 396.124 7270.421 Amount Insulin Regular 100 unit 73.914 4.449 In Sodium Chloride 0.9% 100 ml @ 10 UNIT/HR 10.1 mls/hr IV .Q10H [facility] Rx#: [id number] Insulin Regular 100 unit 12.187 In Sodium Chloride 0.9% 100 ml @ Per Protocol IV .Q0M [facility] Rx#:[id number] Norepinephrin 4 mg-0.9% 78.437 Ns Pmx 4 mg In 250 ml @ Titrate IV .Q0M [facility] Rx#: [id number] Propofol 1,000 mg In 53.673 114.375 52.797 Empty Bag 1 bag @ Titrate IV .Q0M [facility] Rx#: [id number] Propofol 1,000 mg In 100 Empty Bag 1 bag @ Titrate IV .Q0M [facility] Rx#: [id number] Sodium Chloride 0.9% 1, 150 000 ml @ 150 mls/hr IV . Q6H40M [facility] Rx#:[id number] Sodium Chloride 0.9% 1, 2450 000 ml @ 500 mls/hr IV . Q2H [facility] Rx#:[id number] Vancomycin 1,750 mg In 250 Sodium Chloride 0.9% 250 ml @ 125 mls/hr IVPB Q16H [facility] Rx#:[id number] Tube Feeding 10 Output: Gastric Drainage 450 Urine 585 560 445 Other: Voiding Method Indwelling Catheter - Exam Patient is well-developed and well-nourished. Patient is intubated sedated on ventilator ENT: Neck is soft and supple. No significant lymphadenopathy is noted. Oropharynx is clear. Moist mucous membranes. Neck has full range of motion without eliciting any pain. EYES: The sclera were anicteric and conjunctiva were pink and moist. Extraocular movements were intact and pupils were equal round and reactive to light. Eyelids were unremarkable. PULMONARY: Patient has some expiratory wheezing with some decreased air movement in the right base with right basal bronchial breath sound CARDIOVASCULAR: There is a regular rate and rhythm without any murmurs gallops or rubs. ABDOMEN: Soft and nontender with normal bowel sounds. No palpable organomegaly was noted. There is no palpable pulsatile mass. SKIN: Skin is clear with no lesions or rashes and otherwise unremarkable. NEUROLOGIC: Patient sedated on ventilator unable to assess. MUSCULOSKELETAL: Normal extremities with adequate strength and full range of motion. No lower extremity swelling or edema. No calf tenderness. LYMPHATICS: No significant lymphadenopathy is noted PSYCHIATRIC: Unable to assess however patient is more calm and comfortable with propofol on ventilator - Labs CBC & Chem 7: 07/12/17 05:19 07/12/17 05:18 Labs: Abnormal Lab Results - Last 24 Hours (Table) 07/11/17 07/11/17 07/11/17 Range/Units 19:40 19:43 20:52 WBC (3.8-10.6) k/uL RBC (4.30-5.90) m/uL Hgb (13.0-17.5) gm/dL Hct (39.0-53.0) % MCV (80.0-100.0) fL Plt Count (150-450) k/uL Neutrophils # (Manual) (1.3-7.7) k/uL Lymphocytes # (Manual) (1.0-4.8) k/uL ABG pH (7.35-7.45) ABG pCO2 (35-45) mmHg ABG pO2 (83-108) mmHg Sodium (137-145) mmol/L Carbon Dioxide (22-30) mmol/L BUN (9-20) mg/dL Creatinine (0.66-1.25) mg/dL Glucose (74-99) mg/dL POC Glucose (mg/dL) 209 H 211 H (75-99) mg/dL Plasma Lactic Acid [place] 3.3 H* (0.7-2.0) mmol/L Calcium (8.4-10.2) mg/dL Total Bilirubin (0.2-1.3) mg/dL Total Protein (6.3-8.2) g/dL Albumin (3.5-5.0) g/dL 07/11/17 07/11/17 07/12/17 Range/Units 21:58 22:55 00:12 WBC (3.8-10.6) k/uL RBC (4.30-5.90) m/uL Hgb (13.0-17.5) gm/dL Hct (39.0-53.0) % MCV (80.0-100.0) fL Plt Count (150-450) k/uL Neutrophils # (Manual) (1.3-7.7) k/uL Lymphocytes # (Manual) (1.0-4.8) k/uL ABG pH (7.35-7.45) ABG pCO2 (35-45) mmHg ABG pO2 (83-108) mmHg Sodium (137-145) mmol/L Carbon Dioxide (22-30) mmol/L BUN (9-20) mg/dL Creatinine (0.66-1.25) mg/dL Glucose (74-99) mg/dL POC Glucose (mg/dL) 244 H 277 H 293 H (75-99) mg/dL Plasma Lactic Acid [place] (0.7-2.0) mmol/L Calcium (8.4-10.2) mg/dL Total Bilirubin (0.2-1.3) mg/dL Total Protein (6.3-8.2) g/dL Albumin (3.5-5.0) g/dL 07/12/17 07/12/17 07/12/17 Range/Units 01:19 02:01 02:58 WBC (3.8-10.6) k/uL RBC (4.30-5.90) m/uL Hgb (13.0-17.5) gm/dL Hct (39.0-53.0) % MCV (80.0-100.0) fL Plt Count (150-450) k/uL Neutrophils # (Manual) (1.3-7.7) k/uL Lymphocytes # (Manual) (1.0-4.8) k/uL ABG pH (7.35-7.45) ABG pCO2 (35-45) mmHg ABG pO2 (83-108) mmHg Sodium (137-145) mmol/L Carbon Dioxide (22-30) mmol/L BUN (9-20) mg/dL Creatinine (0.66-1.25) mg/dL Glucose (74-99) mg/dL POC Glucose (mg/dL) 315 H 323 H 360 H (75-99) mg/dL Plasma Lactic Acid [place] (0.7-2.0) mmol/L Calcium (8.4-10.2) mg/dL Total Bilirubin (0.2-1.3) mg/dL Total Protein (6.3-8.2) g/dL Albumin (3.5-5.0) g/dL 07/12/17 07/12/17 07/12/17 Range/Units 04:09 05:18 05:18 WBC (3.8-10.6) k/uL RBC (4.30-5.90) m/uL Hgb (13.0-17.5) gm/dL Hct (39.0-53.0) % MCV (80.0-100.0) fL Plt Count (150-450) k/uL Neutrophils # (Manual) (1.3-7.7) k/uL Lymphocytes # (Manual) (1.0-4.8) k/uL ABG pH (7.35-7.45) ABG pCO2 (35-45) mmHg ABG pO2 (83-108) mmHg Sodium 132 L (137-145) mmol/L Carbon Dioxide 18 L (22-30) mmol/L BUN 39 H (9-20) mg/dL Creatinine 1.86 H (0.66-1.25) mg/dL Glucose 314 H (74-99) mg/dL POC Glucose (mg/dL) 340 H 291 H (75-99) mg/dL Plasma Lactic Acid [place] (0.7-2.0) mmol/L Calcium 6.6 L (8.4-10.2) mg/dL Total Bilirubin 1.5 H (0.2-1.3) mg/dL Total Protein 4.8 L (6.3-8.2) g/dL Albumin 1.8 L (3.5-5.0) g/dL 07/12/17 07/12/17 07/12/17 Range/Units 05:19 05:55 06:12 WBC 18.0 H (3.8-10.6) k/uL RBC 3.37 L (4.30-5.90) m/uL Hgb 11.1 L (13.0-17.5) gm/dL Hct 34.7 L (39.0-53.0) % MCV 103.1 H D (80.0-100.0) fL Plt Count 66 L (150-450) k/uL Neutrophils # (Manual) 16.20 H (1.3-7.7) k/uL Lymphocytes # (Manual) 0.90 L (1.0-4.8) k/uL ABG pH 7.27 L (7.35-7.45) ABG pCO2 47 H (35-45) mmHg ABG pO2 75 L (83-108) mmHg Sodium (137-145) mmol/L Carbon Dioxide (22-30) mmol/L BUN (9-20) mg/dL Creatinine (0.66-1.25) mg/dL Glucose (74-99) mg/dL POC Glucose (mg/dL) 273 H (75-99) mg/dL Plasma Lactic Acid [place] (0.7-2.0) mmol/L Calcium (8.4-10.2) mg/dL Total Bilirubin (0.2-1.3) mg/dL Total Protein (6.3-8.2) g/dL Albumin (3.5-5.0) g/dL 07/12/17 07/12/17 07/12/17 Range/Units 07:09 07:57 09:08 WBC (3.8-10.6) k/uL RBC (4.30-5.90) m/uL Hgb (13.0-17.5) gm/dL Hct (39.0-53.0) % MCV (80.0-100.0) fL Plt Count (150-450) k/uL Neutrophils # (Manual) (1.3-7.7) k/uL Lymphocytes # (Manual) (1.0-4.8) k/uL ABG pH (7.35-7.45) ABG pCO2 (35-45) mmHg ABG pO2 (83-108) mmHg Sodium (137-145) mmol/L Carbon Dioxide (22-30) mmol/L BUN (9-20) mg/dL Creatinine (0.66-1.25) mg/dL Glucose (74-99) mg/dL POC Glucose (mg/dL) 250 H 214 H 229 H (75-99) mg/dL Plasma Lactic Acid [place] (0.7-2.0) mmol/L Calcium (8.4-10.2) mg/dL Total Bilirubin (0.2-1.3) mg/dL Total Protein (6.3-8.2) g/dL Albumin (3.5-5.0) g/dL 07/12/17 07/12/17 07/12/17 Range/Units 10:08 11:52 13:59 WBC (3.8-10.6) k/uL RBC (4.30-5.90) m/uL Hgb (13.0-17.5) gm/dL Hct (39.0-53.0) % MCV (80.0-100.0) fL Plt Count (150-450) k/uL Neutrophils # (Manual) (1.3-7.7) k/uL Lymphocytes # (Manual) (1.0-4.8) k/uL ABG pH (7.35-7.45) ABG pCO2 (35-45) mmHg ABG pO2 (83-108) mmHg Sodium (137-145) mmol/L Carbon Dioxide (22-30) mmol/L BUN (9-20) mg/dL Creatinine (0.66-1.25) mg/dL Glucose (74-99) mg/dL POC Glucose (mg/dL) 210 H 186 H 129 H (75-99) mg/dL Plasma Lactic Acid [place] (0.7-2.0) mmol/L Calcium (8.4-10.2) mg/dL Total Bilirubin (0.2-1.3) mg/dL Total Protein (6.3-8.2) g/dL Albumin (3.5-5.0) g/dL 07/12/17 07/12/17 07/12/17 Range/Units 15:00 16:28 17:04 WBC (3.8-10.6) k/uL RBC (4.30-5.90) m/uL Hgb (13.0-17.5) gm/dL Hct (39.0-53.0) % MCV (80.0-100.0) fL Plt Count (150-450) k/uL Neutrophils # (Manual) (1.3-7.7) k/uL Lymphocytes # (Manual) (1.0-4.8) k/uL ABG pH (7.35-7.45) ABG pCO2 (35-45) mmHg ABG pO2 (83-108) mmHg Sodium (137-145) mmol/L Carbon Dioxide (22-30) mmol/L BUN (9-20) mg/dL Creatinine (0.66-1.25) mg/dL Glucose (74-99) mg/dL POC Glucose (mg/dL) 138 H 139 H 139 H (75-99) mg/dL Plasma Lactic Acid [place] (0.7-2.0) mmol/L Calcium (8.4-10.2) mg/dL Total Bilirubin (0.2-1.3) mg/dL Total Protein (6.3-8.2) g/dL Albumin (3.5-5.0) g/dL 07/12/17 Range/Units 18:15 WBC (3.8-10.6) k/uL RBC (4.30-5.90) m/uL Hgb (13.0-17.5) gm/dL Hct (39.0-53.0) % MCV (80.0-100.0) fL Plt Count (150-450) k/uL Neutrophils # (Manual) (1.3-7.7) k/uL Lymphocytes # (Manual) (1.0-4.8) k/uL ABG pH (7.35-7.45) ABG pCO2 (35-45) mmHg ABG pO2 (83-108) mmHg Sodium (137-145) mmol/L Carbon Dioxide (22-30) mmol/L BUN (9-20) mg/dL Creatinine (0.66-1.25) mg/dL Glucose (74-99) mg/dL POC Glucose (mg/dL) 150 H (75-99) mg/dL Plasma Lactic Acid [place] (0.7-2.0) mmol/L Calcium (8.4-10.2) mg/dL Total Bilirubin (0.2-1.3) mg/dL Total Protein (6.3-8.2) g/dL Albumin (3.5-5.0) g/dL Microbiology - Last 24 Hours (Table) 07/11/17 07:56 Gram Stain - Preliminary Sputum Sputum Culture - Preliminary Presumptive Staph aureus 07/11/17 01:00 Blood Culture Gram Stain - Preliminary Blood Blood Culture - Preliminary Presumptive MRSA 07/11/17 01:00 Blood Culture - Final Blood Assessment and Plan Assessment: MRSA pneumonia as well as bacteremia Acute hypoxic and hypercapnic respiratory failure Severe sepsis and septic shock Right middle lobe and right lower lobe pneumonia likely mixed bacterial and/or or gram-negative may very well be aspiration related Uncontrolled hyperglycemia and diabetes Chronic persistent asthma with severe COPD and recent exacerbation of COPD Stage III acute renal failure Plan: Fluid resuscitation Broad-spectrum antibiotics Maintain patient on DVT and peptic ulcer disease prophylaxis Ventilator support with repeat x-ray and labs tomorrow titrate oxygen down as tolerated we'll repeat ABG tomorrow as well Given acute worsening of mental status appears to be likely related to hypercapnia and severe COPD and pneumonia with severe profound metabolic acidosis Insulin drip as per ICU protocol Further recommendations pending plan of care as per clinical response of the patient Patient appears to be volume depleted we'll continue to give fluid boluses as needed as per hemodynamic assessment and response Tube feed Infectious disease consultation as per choice of the family care provider Critical care time spent 40 minutes Time with Patient: Greater than 30
[2017-07-12] MEDS: VANCOMYCIN 1,750 MG in SODIUM CHLORIDE 0.9% 250 ML IVPB SCH (20:12)
[2017-07-12 20:22] LABS: Glucose,Whole Blood 166 mg/dL (75-99)
--- NOTE | 2017-07-12 22:44 | P.CONS ---
History of Present Illness - Reason for Consult Consult date: 07/12/17 - Chief Complaint Respiratory failure - History of Present Illness 56-year-old male with history of COPD and alcoholism is had 2 recent visits to hospital. It is noted from the records that he did not have significant delirium tremens but was having difficulties with his COPD. The patient apparently had a rapid deterioration after his recent hospitalization reviewed became very confused and likely had hypoxic hypercapnic respiratory failure and required transport to hospital. He was given some breathing treatments and had some slight improvement but then had a marked worsening and required intubation with sedation and mechanical ventilation. The patient remains in intensive care unit in the infectious diseases consultation is requested given his Possible culture for MRSA and likely same pathogen in his sputum. The patient is intubated sedated and mechanically ventilated and all information comes from the chart and nursing staff. The patient is comfortable. A low dose of vasopressor only. Urine output is marginal but has improved. He had significant hyperglycemia at admission of 813 which is now improved with the insulin drip. Has done well with fluid resuscitation. With current sedation the patient is comfortable. Nursing relates no concerns to delirium tremens at this time. Review of Systems ROS unobtainable: due to endotracheal tube Past Medical History Past Medical History: Asthma, COPD, Diabetes Mellitus, Pneumonia Additional Past Medical History / Comment(s): 07/04/17 PT admitted to [facility] with ETOH, acute exacerbation of COPD. Other hx: IDDM type II, neuropathy bilateral hands and feet, L fractured ankle spring 2016-placed in boot and pt states needs surgical intervention, chronic L ankle pain, occasional back pain, hernia. History of Any Multi-Drug Resistant Organisms: None Reported Past Surgical History: Hernia Repair Additional Past Surgical History / Comment(s): Bilateral inguinal hernia repairs , colonoscopy-normal. Past Anesthesia/Blood Transfusion Reactions: No Reported Reaction Smoking Status: Former smoker - Past Family History Father Family Medical History: No Reported History Additional Family Medical History / Comment(s): Father is healthy Mother Family Medical History: No Reported History Additional Family Medical History / Comment(s): Mother is healthy. Medications and Allergies Home Medications and Allergies Comment(s): Current Medications Albuterol/Ipratropium (Duoneb 0.5 Mg-3 Mg/3 Ml Soln) 3 ml INHALATION RT-QID [facility] Last Admin: 07/12/17 19:27 Dose: 3 ml Albuterol/Ipratropium (Duoneb 0.5 Mg-3 Mg/3 Ml Soln) 3 ml INHALATION RT-Q2H PRN PRN Reason: Shortness Of Breath Or Wheezing Budesonide (Pulmicort) 1 mg INHALATION RT-BID [facility] Last Admin: 07/12/17 19:27 Dose: 1 mg Chlorhexidine Gluconate (Peridex) 15 ml MUCOUS MEM BID [facility] Last Admin: 07/12/17 21:37 Dose: 15 ml Enoxaparin Sodium (Lovenox) 40 mg SQ DAILY [facility] Vancomycin HCl 1,750 mg/ (Sodium Chloride) 250 mls @ 125 mls/hr IVPB Q16H [facility] Last Admin: 07/12/17 20:12 Dose: 125 mls/hr Propofol 1,000 mg/ IV Solution 100 mls @ 0 mls/hr IV .Q0M [facility]; Titrate PRN Reason: Protocol Last Admin: 07/12/17 18:13 Dose: 49.84 mcg/kg/min, 31.2 mls/hr Insulin Human Regular 100 unit (/ Sodium Chloride) 101 mls @ 0 mls/hr IV .Q0M [facility]; Per Protocol PRN Reason: Protocol Last Titration: 07/12/17 20:13 Dose: 2.5 units/hr, 2.52 mls/hr Norepinephrine Bitartrate (Levophed-0.9% Nacl 4 Mg/250ml Pmx) 4 mg in 250 mls @ 0 mls/hr IV .Q0M [facility]; Titrate PRN Reason: Protocol Last Titration: 07/12/17 18:24 Dose: 7 mcg/min, 26.25 mls/hr Sodium Chloride (Saline 0.9%) 1,000 mls @ 150 mls/hr IV .Q6H40M [facility] Last Admin: 07/12/17 17:14 Dose: 150 mls/hr Levofloxacin 750 mg/ IV (Solution) 150 mls @ 100 mls/hr IVPB Q48H [facility] Piperacillin/Tazobactam/ (Dextrose 3.375 gm/ IV Solution) 50 mls @ 12.5 mls/hr IVPB Q12HR [facility] Last Admin: 07/12/17 21:37 Dose: 12.5 mls/hr Metoclopramide HCl (Reglan) 10 mg IVP Q6HR [facility] Last Admin: 07/12/17 18:12 Dose: 10 mg Pantoprazole Sodium (Protonix) 40 mg IVP DAILY [facility] Last Admin: 07/12/17 10:06 Dose: 40 mg Home Medications Medication Instructions Recorded Confirmed Type Insulin Glargine [Lantus] 33 units SQ DAILY 04/24/14 07/11/17 History Albuterol Inhaler [Ventolin Hfa 1 - 2 puff INHALATION RT-Q6H PRN 05/31/17 History Inhaler] Levofloxacin [Levaquin] 500 mg PO DAILY 7 Days #7 tab 07/02/17 07/11/17 Rx Lisinopril [Zestril] 10 mg PO DAILY #30 tab 07/02/17 07/11/17 Rx predniSONE See Taper PO DIRECTED 07/04/17 07/11/17 History Ipratropium-Albuterol Nebulize 3 ml INHALATION RT-QID #120 07/06/17 07/11/17 Rx [Duoneb 0.5 mg-3 mg/3 ml Soln] ampul.neb Nicotine 21Mg/24Hr Patch [Habitrol] 1 patch TRANSDERM DAILY #30 patch 07/06/17 07/11/17 Rx Nicotine Polacrilex [Nicorette] 2 mg BUCCAL Q4HR PRN #120 gum 07/06/17 07/11/17 Rx Budesonide/Formoterol Fumarate 2 puff INHALATION RT-BID 07/11/17 07/11/17 History [Symbicort 160-4.5 Mcg Inhaler] Gabapentin 600 mg PO TID 07/11/17 07/11/17 History Ibuprofen [Motrin] 600 mg PO TID PRN 07/11/17 07/11/17 History Pregabalin [Lyrica] 75 mg PO BID 07/11/17 07/11/17 History Zolpidem [Ambien] 5 mg PO HS PRN 07/11/17 07/11/17 History amLODIPine [Norvasc] 5 mg PO DAILY 07/11/17 07/11/17 History Allergies Allergy/AdvReac Type Severity Reaction Status Date / Time No Known Allergies Allergy Verified 07/11/17 09:47 Physical Exam Vitals: Vital Signs Temp Pulse Resp BP Pulse Ox 07/12/17 20:00 98.6 F 82 20 97/54 93 L 18 19:52 81 18 19:33 81 18 19:30 82 20 96/52 94 L 18 19:00 82 20 118/59 95 18 18:00 80 21 91/49 93 L 18 17:30 79 24 90/52 92 L 18 17:00 81 22 89/53 93 L 18 16:43 80 18 16:30 81 20 99/57 93 L 18 16:15 82 07/12/17 16:00 81 22 103/55 96 07/12/17 15:30 80 20 97/53 91 L 07/12/17 15:00 79 22 97/57 93 L 07/12/17 14:30 82 27 H 101/72 94 L 07/12/17 14:00 83 21 77/47 96 07/12/17 13:30 82 22 87/52 97 07/12/17 13:00 85 22 76/48 95 18 12:30 85 20 83/49 95 18 12:25 82 18 12:00 85 36 H 92/54 93 L 18 11:54 84 18 11:30 85 20 80/43 95 18 11:00 83 19 75/43 95 18 10:30 87 22 81/48 94 L 18 10:00 92 21 80/44 92 L 18 09:30 98.0 F 98 27 H 133/63 94 L 0618 08:35 102 H 26 H 121/61 94 L 0618 08:10 92 0618 07:55 92 0618 07:49 97.8 F 91 26 H 103/57 96 06/18 06:16 88 27 H 92/51 94 L 03/06/18 05:16 88 27 H 104/58 95 0618 04:15 86 26 H 102/51 96 0618 03:16 97 27 H 115/56 93 L 18 02:16 87 27 H 114/59 94 L 18 01:16 91 27 H 103/56 97 07/12/17 00:15 86 28 H 111/55 94 L 07/11/17 22:55 93 28 H 115/59 94 L 07/11/17 22:15 96 27 H 95/52 94 L Intake and Output 07/12/17 07/12/17 07/12/17 06:59 14:59 22:59 Intake Total 8424.247 0828.984 1152.304 Output Total 410 210 310 Balance 4170.472 0224.984 842.304 Intake: IV 1153.7 350 300 D5-0.45% NaCl with KCl 1050 300 20Meq/l 1,000 ml @ 150 mls/hr IV .Q6H40M [facility] Rx# :[id number] Insulin Regular 100 unit 0.4 In Sodium Chloride 0.9% 100 ml @ 10 UNIT/HR 10.1 mls/hr IV .Q10H [facility] Rx#: [id number] Piperacillin-Tazobactam 3 37.5 50 .375 gm In Dextrose/Water 1 50ml.bag @ 12.5 mls/hr IVPB Q8H [facility] Rx#: [id number] Propofol 1,000 mg In 65.8 Empty Bag 1 bag @ Titrate IV .Q0M [facility] Rx#: [id number] Sodium Chloride 0.9% 1, 300 000 ml @ 150 mls/hr IV . Q6H40M [facility] Rx#:[id number] Intake, IV Titration 286.452 3166.984 782.304 Amount Insulin Regular 100 unit 4.449 In Sodium Chloride 0.9% 100 ml @ 10 UNIT/HR 10.1 mls/hr IV .Q10H [facility] Rx#: [id number] Insulin Regular 100 unit 12.187 3.867 In Sodium Chloride 0.9% 100 ml @ Per Protocol IV .Q0M [facility] Rx#:[id number] Norepinephrin 4 mg-0.9% 78.437 Ns Pmx 4 mg In 250 ml @ Titrate IV .Q0M [facility] Rx#: [id number] Propofol 1,000 mg In 90 52.797 Empty Bag 1 bag @ Titrate IV .Q0M [facility] Rx#: [id number] Propofol 1,000 mg In 100 Empty Bag 1 bag @ Titrate IV .Q0M [facility] Rx#: [id number] Sodium Chloride 0.9% 1, 150 000 ml @ 150 mls/hr IV . Q6H40M [facility] Rx#:[id number] Sodium Chloride 0.9% 1, 2000 450 000 ml @ 500 mls/hr IV . Q2H [facility] Rx#:[id number] Vancomycin 1,750 mg In 250 Sodium Chloride 0.9% 250 ml @ 125 mls/hr IVPB Q16H [facility] Rx#:[id number] Tube Feeding 40 Other 30 Output: Urine 410 210 310 Other: Voiding Method Indwelling Catheter Indwelling Catheter Weight 104.326 kg 104.326 kg Patient Weight 07/13/17 06:59 Weight 104.326 kg Intubated sedated and mechanically ventilated HEENT: Anicteric conjunctiva with some thin exudate, no bleeding around the nasogastric tube oroendotracheal tube no thrush was noted Neck: The neck is supple without significant lymphadenopathy or thyromegaly. Lungs: Symmetrical air entry with coarse crackles to the bases bronchial sounds to the right base is noted Heart: Regular rate and rhythm with an audible S1-S2, no S3 positive S4 There is no significant murmur click or rub, PMI was nondisplaced. Abdomen: Positive bowel sounds soft nondistended without palpable masses or organomegaly. There was no rigidity Extremities: Upper and lower extremities have some generalized edema. More edema in the lower extremities. Peripheral pulses are palpable extremities are cool but not cold. No open ulcers are seen. Neuro: Patient is heavily sedated intubated and mechanically ventilated. Results CBC & Chem 7: 07/12/17 05:19 07/12/17 05:18 Labs: Abnormal Lab Results - Last 24 Hours (Table) 07/11/17 07/12/17 07/12/17 Range/Units 22:55 00:12 01:19 WBC (3.8-10.6) k/uL RBC (4.30-5.90) m/uL Hgb (13.0-17.5) gm/dL Hct (39.0-53.0) % MCV (80.0-100.0) fL Plt Count (150-450) k/uL Neutrophils # (Manual) (1.3-7.7) k/uL Lymphocytes # (Manual) (1.0-4.8) k/uL ABG pH (7.35-7.45) ABG pCO2 (35-45) mmHg ABG pO2 (83-108) mmHg Sodium (137-145) mmol/L Carbon Dioxide (22-30) mmol/L BUN (9-20) mg/dL Creatinine (0.66-1.25) mg/dL Glucose (74-99) mg/dL POC Glucose (mg/dL) 277 H 293 H 315 H (75-99) mg/dL Calcium (8.4-10.2) mg/dL Total Bilirubin (0.2-1.3) mg/dL Total Protein (6.3-8.2) g/dL Albumin (3.5-5.0) g/dL 07/12/17 07/12/17 07/12/17 Range/Units 02:01 02:58 04:09 WBC (3.8-10.6) k/uL RBC (4.30-5.90) m/uL Hgb (13.0-17.5) gm/dL Hct (39.0-53.0) % MCV (80.0-100.0) fL Plt Count (150-450) k/uL Neutrophils # (Manual) (1.3-7.7) k/uL Lymphocytes # (Manual) (1.0-4.8) k/uL ABG pH (7.35-7.45) ABG pCO2 (35-45) mmHg ABG pO2 (83-108) mmHg Sodium (137-145) mmol/L Carbon Dioxide (22-30) mmol/L BUN (9-20) mg/dL Creatinine (0.66-1.25) mg/dL Glucose (74-99) mg/dL POC Glucose (mg/dL) 323 H 360 H 340 H (75-99) mg/dL Calcium (8.4-10.2) mg/dL Total Bilirubin (0.2-1.3) mg/dL Total Protein (6.3-8.2) g/dL Albumin (3.5-5.0) g/dL 07/12/17 07/12/17 07/12/17 Range/Units 05:18 05:18 05:19 WBC 18.0 H (3.8-10.6) k/uL RBC 3.37 L (4.30-5.90) m/uL Hgb 11.1 L (13.0-17.5) gm/dL Hct 34.7 L (39.0-53.0) % MCV 103.1 H D (80.0-100.0) fL Plt Count 66 L (150-450) k/uL Neutrophils # (Manual) 16.20 H (1.3-7.7) k/uL Lymphocytes # (Manual) 0.90 L (1.0-4.8) k/uL ABG pH (7.35-7.45) ABG pCO2 (35-45) mmHg ABG pO2 (83-108) mmHg Sodium 132 L (137-145) mmol/L Carbon Dioxide 18 L (22-30) mmol/L BUN 39 H (9-20) mg/dL Creatinine 1.86 H (0.66-1.25) mg/dL Glucose 314 H (74-99) mg/dL POC Glucose (mg/dL) 291 H (75-99) mg/dL Calcium 6.6 L (8.4-10.2) mg/dL Total Bilirubin 1.5 H (0.2-1.3) mg/dL Total Protein 4.8 L (6.3-8.2) g/dL Albumin 1.8 L (3.5-5.0) g/dL 07/12/17 07/12/17 07/12/17 Range/Units 05:55 06:12 07:09 WBC (3.8-10.6) k/uL RBC (4.30-5.90) m/uL Hgb (13.0-17.5) gm/dL Hct (39.0-53.0) % MCV (80.0-100.0) fL Plt Count (150-450) k/uL Neutrophils # (Manual) (1.3-7.7) k/uL Lymphocytes # (Manual) (1.0-4.8) k/uL ABG pH 7.27 L (7.35-7.45) ABG pCO2 47 H (35-45) mmHg ABG pO2 75 L (83-108) mmHg Sodium (137-145) mmol/L Carbon Dioxide (22-30) mmol/L BUN (9-20) mg/dL Creatinine (0.66-1.25) mg/dL Glucose (74-99) mg/dL POC Glucose (mg/dL) 273 H 250 H (75-99) mg/dL Calcium (8.4-10.2) mg/dL Total Bilirubin (0.2-1.3) mg/dL Total Protein (6.3-8.2) g/dL Albumin (3.5-5.0) g/dL 07/12/17 07/12/17 07/12/17 Range/Units 07:57 09:08 10:08 WBC (3.8-10.6) k/uL RBC (4.30-5.90) m/uL Hgb (13.0-17.5) gm/dL Hct (39.0-53.0) % MCV (80.0-100.0) fL Plt Count (150-450) k/uL Neutrophils # (Manual) (1.3-7.7) k/uL Lymphocytes # (Manual) (1.0-4.8) k/uL ABG pH (7.35-7.45) ABG pCO2 (35-45) mmHg ABG pO2 (83-108) mmHg Sodium (137-145) mmol/L Carbon Dioxide (22-30) mmol/L BUN (9-20) mg/dL Creatinine (0.66-1.25) mg/dL Glucose (74-99) mg/dL POC Glucose (mg/dL) 214 H 229 H 210 H (75-99) mg/dL Calcium (8.4-10.2) mg/dL Total Bilirubin (0.2-1.3) mg/dL Total Protein (6.3-8.2) g/dL Albumin (3.5-5.0) g/dL 07/12/17 07/12/17 07/12/17 Range/Units 11:52 13:59 15:00 WBC (3.8-10.6) k/uL RBC (4.30-5.90) m/uL Hgb (13.0-17.5) gm/dL Hct (39.0-53.0) % MCV (80.0-100.0) fL Plt Count (150-450) k/uL Neutrophils # (Manual) (1.3-7.7) k/uL Lymphocytes # (Manual) (1.0-4.8) k/uL ABG pH (7.35-7.45) ABG pCO2 (35-45) mmHg ABG pO2 (83-108) mmHg Sodium (137-145) mmol/L Carbon Dioxide (22-30) mmol/L BUN (9-20) mg/dL Creatinine (0.66-1.25) mg/dL Glucose (74-99) mg/dL POC Glucose (mg/dL) 186 H 129 H 138 H (75-99) mg/dL Calcium (8.4-10.2) mg/dL Total Bilirubin (0.2-1.3) mg/dL Total Protein (6.3-8.2) g/dL Albumin (3.5-5.0) g/dL 07/12/17 07/12/17 07/12/17 Range/Units 16:28 17:04 18:15 WBC (3.8-10.6) k/uL RBC (4.30-5.90) m/uL Hgb (13.0-17.5) gm/dL Hct (39.0-53.0) % MCV (80.0-100.0) fL Plt Count (150-450) k/uL Neutrophils # (Manual) (1.3-7.7) k/uL Lymphocytes # (Manual) (1.0-4.8) k/uL ABG pH (7.35-7.45) ABG pCO2 (35-45) mmHg ABG pO2 (83-108) mmHg Sodium (137-145) mmol/L Carbon Dioxide (22-30) mmol/L BUN (9-20) mg/dL Creatinine (0.66-1.25) mg/dL Glucose (74-99) mg/dL POC Glucose (mg/dL) 139 H 139 H 150 H (75-99) mg/dL Calcium (8.4-10.2) mg/dL Total Bilirubin (0.2-1.3) mg/dL Total Protein (6.3-8.2) g/dL Albumin (3.5-5.0) g/dL 07/12/17 Range/Units 20:11 WBC (3.8-10.6) k/uL RBC (4.30-5.90) m/uL Hgb (13.0-17.5) gm/dL Hct (39.0-53.0) % MCV (80.0-100.0) fL Plt Count (150-450) k/uL Neutrophils # (Manual) (1.3-7.7) k/uL Lymphocytes # (Manual) (1.0-4.8) k/uL ABG pH (7.35-7.45) ABG pCO2 (35-45) mmHg ABG pO2 (83-108) mmHg Sodium (137-145) mmol/L Carbon Dioxide (22-30) mmol/L BUN (9-20) mg/dL Creatinine (0.66-1.25) mg/dL Glucose (74-99) mg/dL POC Glucose (mg/dL) 166 H (75-99) mg/dL Calcium (8.4-10.2) mg/dL Total Bilirubin (0.2-1.3) mg/dL Total Protein (6.3-8.2) g/dL Albumin (3.5-5.0) g/dL Microbiology - Last 24 Hours (Table) 07/11/17 01:00 Blood Culture Gram Stain - Final Blood Blood Culture - Final Methicillin resist S. aureus 07/11/17 07:56 Gram Stain - Preliminary Sputum Sputum Culture - Preliminary Presumptive Staph aureus 07/11/17 01:00 Blood Culture - Final Blood Laboratory Results WBC 18.0 k/uL (3.8-10.6) H 07/12/17 05:19 RBC 3.37 m/uL (4.30-5.90) L 07/12/17 05:19 Hgb 11.1 gm/dL (13.0-17.5) L 07/12/17 05:19 Hct 34.7 % (39.0-53.0) L 07/12/17 05:19 MCV 103.1 fL (80.0-100.0) H D 07/12/17 05:19 MCH 32.9 pg (25.0-35.0) 07/12/17 05:19 MCHC 31.9 g/dL (31.0-37.0) 07/12/17 05:19 RDW 14.9 % (11.5-15.5) 07/12/17 05:19 Plt Count 66 k/uL (150-450) L 07/12/17 05:19 Neutrophils % (Manual) 88 % 07/12/17 05:19 Band Neutrophils % 2 % 07/12/17 05:19 Lymphocytes % (Manual) 5 % 07/12/17 05:19 Monocytes % (Manual) 5 % 07/12/17 05:19 Metamyelocytes % 1 % 07/11/17 09:10 Neutrophils # (Manual) 16.20 k/uL (1.3-7.7) H 07/12/17 05:19 Lymphocytes # (Manual) 0.90 k/uL (1.0-4.8) L 07/12/17 05:19 Monocytes # (Manual) 0.90 k/uL (0-1.0) 07/12/17 05:19 Metamyelocytes # (Man) 0.45 k/uL (0) H 07/11/17 09:10 Nucleated RBCs 0 /100 WBC (0-0) 07/12/17 05:19 Manual Slide Review Performed 07/12/17 05:19 Toxic Granulation Present 07/11/17 09:10 Toxic Vacuolation Present 07/11/17 09:10 Hypochromasia Slight 07/12/17 05:19 Poikilocytosis (manual Present 07/11/17 09:10 Macrocytosis Slight 07/12/17 05:19 PT 12.6 sec (9.0-12.0) H 07/11/17 09:10 INR 1.3 (<1.2) H 07/11/17 09:10 APTT 26.3 sec (22.0-30.0) 07/11/17 01:53 Sample Site lbrac 07/12/17 06:12 ABG pH 7.27 (7.35-7.45) L 07/12/17 06:12 ABG pCO2 47 mmHg (35-45) H 07/12/17 06:12 ABG pO2 75 mmHg (83-108) L 07/12/17 06:12 ABG HCO3 21 mmol/L (21-25) 07/12/17 06:12 ABG Total CO2 23 mmol/L (19-24) 07/12/17 06:12 ABG O2 Saturation 94.4 % (94-97) 07/12/17 06:12 ABG Base Excess -5.6 mmol/L 07/12/17 06:12 Deuce Test Yes 07/12/17 06:12 FiO2 50 % 07/12/17 06:12 Sodium 132 mmol/L (137-145) L 07/12/17 05:18 Potassium 4.8 mmol/L (3.5-5.1) 07/12/17 05:18 Chloride 103 mmol/L (98-107) 07/12/17 05:18 Carbon Dioxide 18 mmol/L (22-30) L 07/12/17 05:18 Anion Gap 11 mmol/L 07/12/17 05:18 BUN 39 mg/dL (9-20) H 07/12/17 05:18 Creatinine 1.86 mg/dL (0.66-1.25) H 07/12/17 05:18 Est GFR (MDRD) Af Amer 46 (>60 ml/min/1.73 sqM) 07/12/17 05:18 Est GFR (MDRD) Non-Af 38 (>60 ml/min/1.73 sqM) 07/12/17 05:18 Glucose 314 mg/dL (74-99) H 07/12/17 05:18 POC Glucose (mg/dL) 166 mg/dL (75-99) H 07/12/17 20:11 POC Glu Senior Environmental Consultant ID Juan Diego Alejandro 07/12/17 20:11 Lactic Ac Sepsis Rflx Y 07/11/17 16:24 Plasma Lactic Acid [place] 3.3 mmol/L (0.7-2.0) H* 07/11/17 19:40 Calcium 6.6 mg/dL (8.4-10.2) L 07/12/17 05:18 Magnesium 2.1 mg/dL (1.6-2.3) 07/11/17 09:10 Total Bilirubin 1.5 mg/dL (0.2-1.3) H 07/12/17 05:18 AST 26 U/L (17-59) 07/12/17 05:18 ALT 29 U/L (21-72) 07/12/17 05:18 Alkaline Phosphatase 112 U/L (38-126) 07/12/17 05:18 Total Creatine Kinase 71 U/L (55-170) 07/11/17 01:53 CK-MB (CK-2) 1.6 ng/mL (0.0-2.4) 07/11/17 01:53 CK-MB (CK-2) Rel Index 2.3 07/11/17 01:53 Troponin I <0.012 ng/mL (0.000-0.034) 07/11/17 01:53 Total Protein 4.8 g/dL (6.3-8.2) L 07/12/17 05:18 Albumin 1.8 g/dL (3.5-5.0) L 07/12/17 05:18 Urine Color Dark Yellow 07/11/17 13:39 Urine Appearance Cloudy (Clear) 07/11/17 13:39 Urine pH 5.0 (5.0-8.0) 07/11/17 13:39 Ur Specific [place] 1.018 (1.001-1.035) 07/11/17 13:39 Urine Protein 1+ (Negative) H 07/11/17 13:39 Urine Glucose (UA) Trace (Negative) H 07/11/17 13:39 Urine Ketones Trace (Negative) H 07/11/17 13:39 Urine Blood Negative (Negative) 07/11/17 13:39 Urine Nitrite Negative (Negative) 07/11/17 13:39 Urine Bilirubin 1+ (Negative) H 07/11/17 13:39 Urine Urobilinogen 8.0 mg/dL (<2.0) 07/11/17 13:39 Ur Leukocyte Esterase Negative (Negative) 07/11/17 13:39 Urine RBC 5 /hpf (0-5) 07/11/17 13:39 Urine WBC 5 /hpf (0-5) 07/11/17 13:39 Ur Squamous Epith Cells 1 /hpf (0-4) 07/11/17 13:39 Amorphous Sediment Few /hpf (None) H 07/11/17 13:39 Urine Bacteria Occasional /hpf (None) H 07/11/17 13:39 Hyaline Casts 2 /lpf (0-2) 07/11/17 13:39 Granular Casts 45 /lpf (0) 07/11/17 13:39 Urine Mucus Occasional /hpf (None) H 07/11/17 13:39 Microbiology 07/11/17 01:00 Blood Blood Culture Gram Stain - Final 07/11/17 01:00 Blood Blood Culture - Final Methicillin resist S. aureus 07/11/17 07:56 Sputum Gram Stain - Preliminary 07/11/17 07:56 Sputum Sputum Culture - Preliminary Presumptive Staph aureus 07/11/17 01:00 Blood Blood Culture - Final Assessment and Plan (1) Acute and chronic respiratory failure with hypercapnia Current Visit: Yes Status: Acute Code(s): J96.22 - ACUTE AND CHRONIC RESPIRATORY FAILURE WITH HYPERCAPNIA SNOMED Code(s): 4906095787710 (2) MRSA pneumonia Narrative/Plan: 56-year-old male presents to the emergency center after 2 recent hospital stays with marked worsening of his status. He became more short of breath and confused. In the emergency center he developed respiratory failure and required intubation and sedation and mechanical ventilation. He was moved to intensive care unit. With evidence of bacteremia the infectious diseases consultation was requested. Patient appears to have evidence of MRSA bacteremia and pneumonia. Vancomycin will be continued at this point in time. Zosyn will be dose adjusted for his acute renal failure and will de-escalate antibiotic therapy pending further culture results. Patient is being closely monitored for delirium tremens however did not have evidence of that during his recent hospital stay. The patient has profound leukocytosis which appears to be in the basis of his current pneumonia and sepsis and recent steroid use. Patient also has evidence of acute renal failure and consequently vancomycin is being dosed by pharmacy and Zosyn was dose adjusted for his current creatinine clearance. Follow blood cultures requested to evaluate for clearance. If persistent blood cultures are noted would also benefit from echocardiogram. Current Visit: Yes Status: Acute Code(s): J15.212 - PNEUMONIA DUE TO METHICILLIN RESISTANT STAPHYLOCOCCUS AUREUS SNOMED Code(s): 788300670464465 (3) MRSA bacteremia Current Visit: Yes Status: Acute Code(s): R78.81 - BACTEREMIA SNOMED Code( s): 52252771484463169 (4) Leukocytosis Current Visit: Yes Status: Acute Code(s): D72.829 - ELEVATED WHITE BLOOD CELL COUNT, UNSPECIFIED SNOMED Code(s): 915674025
[2017-07-12 23:01] LABS: Glucose,Whole Blood 152 mg/dL (75-99)
[2017-07-13] MEDS: NOREPINEPHRIN 4 MG-0.9% NS PMX 4 MG/250 ML ML IV SCH ×2 (00:27→17:48)
[2017-07-13] MEDS: METOCLOPRAMIDE 5 MG/ML 2 ML VIAL IVP SCH ×4 (00:27→18:43)
[2017-07-13] MEDS: SODIUM CHLORIDE 0.9% 1,000 ML IV SCH ×6 (00:28→20:32)
[2017-07-13 01:17] LABS: Glucose,Whole Blood 211 mg/dL (75-99)
[2017-07-13] MEDS: PROPOFOL 1,000 MG in EMPTY BAG 1 BAG IV SCH ×4 (01:58→18:39)
[2017-07-13 02:21] LABS: Glucose,Whole Blood 234 mg/dL (75-99)
[2017-07-13 03:16] LABS: Glucose,Whole Blood 145 mg/dL (75-99)
[2017-07-13 04:38] LABS: Glucose,Whole Blood 142 mg/dL (75-99)
[2017-07-13 05:39] LABS: Glucose,Whole Blood 148 mg/dL (75-99)
[2017-07-13 05:48] LABS: ABG Base Excess -5.8 mmol/L; ABG HCO3 19 mmol/L (21-25); ABG PCO2 33 mmHg (35-45); ABG PH 7.38 (7.35-7.45); ABG PO2 133 mmHg (83-108); ABG TCO2 20 mmol/L (19-24)
[2017-07-13 06:08] LABS: Albumin 1.9 g/dL (3.5-5.0); Calcium 6.6 mg/dL (8.4-10.2); Phosphorus 3.2 mg/dL (2.5-4.5); Potassium 4.6 mmol/L (3.5-5.1); Total Protein 5.3 g/dL (6.3-8.2)
[2017-07-13 06:57] LABS: Glucose,Whole Blood 168 mg/dL (75-99)
[2017-07-13 06:59] LABS: HGB 11.8 gm/dL (13.0-17.5); Hypochromasia Slight; MCH 32.6 pg (25.0-35.0); MCHC 31.9 g/dL (31.0-37.0); MCV 102.2 fL (80.0-100.0); Macrocytosis Slight; Mean Platelet Volume 8.6; RBC 3.62 m/uL (4.30-5.90); RDW 15.1 % (11.5-15.5)
[2017-07-13 07:07] LABS: WBC 27.3 k/uL (3.8-10.6)
[2017-07-13 07:08] LABS: Platelet Count 80 k/uL (150-450)
[2017-07-13 08:04] LABS: Glucose,Whole Blood 141 mg/dL (75-99)
[2017-07-13] MEDS: IPRATROPIUM-ALBUTEROL 3 ML NEB INHALATION SCH ×4 (08:18→19:41)
[2017-07-13] MEDS: BUDESONIDE 1 MG/2 ML NEBU INHALATION SCH ×2 (08:18→19:41)
--- NOTE | 2017-07-13 08:30 | XR ---
EXAMINATION TYPE: XR chest 1V portable DATE OF EXAM: 07/13/2017 COMPARISON: 07/11/2017 INDICATION: Tube placement TECHNIQUE: Single frontal view of the chest is obtained. FINDINGS: The heart size is normal. The pulmonary vasculature is normal. There is a consolidation in the right lower lobe. Correlate for worsening pneumonia. Endotracheal tube tip is 7 cm above the marcelo. Nasogastric tube transverses the thorax tip in left u pper quadrant of the abdomen. IMPRESSION: 1. Worsening right lower lobe infiltrate. 2. Lines and catheters from previous exam.
[2017-07-13] MEDS: INSULIN REGULAR 100 UNIT in SODIUM CHLORIDE 0.9% 100 ML IV SCH (08:39)
[2017-07-13] MEDS: ENOXAPARIN 40 MG/0.4 ML SYRINGE SQ SCH (08:41)
[2017-07-13] MEDS: PANTOPRAZOLE 40 MG/10 ML VIAL IVP SCH (08:42)
[2017-07-13] MEDS: CHLORHEXIDINE GLUCONATE 15 ML CUP MUCOUS MEM SCH ×2 (08:42→20:33)
[2017-07-13] MEDS: PIPERACILLIN-TAZOBACTAM 3.375 GM in DEXTROSE/WATER 1 50ML.BAG IVPB SCH ×2 (08:45→17:10)
[2017-07-13 09:03] LABS: Band Neutrophils % 6 %; Lymphocytes # (M) 2.18 k/uL (1.0-4.8); Metamyelocytes # (M) 0.27 k/uL (0); Metamyelocytes % 1 %; Monocytes # (M) 1.37 k/uL (0-1.0); Neutrophils % (M) 81 %; Nucleated Red Blood Cells 0 /100 WBC (0-0); Total Cells Counted 200
[2017-07-13 09:04] LABS: Poikilocytosis (M) Present; Toxic Granulation Present
[2017-07-13 09:18] LABS: Glucose,Whole Blood 118 mg/dL (75-99)
[2017-07-13 10:15] LABS: Glucose,Whole Blood 123 mg/dL (75-99)
[2017-07-13 10:57] LABS: Glucose,Whole Blood 146 mg/dL (75-99)
[2017-07-13 12:21] LABS: Glucose,Whole Blood 150 mg/dL (75-99)
[2017-07-13 13:03] LABS: Glucose,Whole Blood 159 mg/dL (75-99)
[2017-07-13] MEDS: VANCOMYCIN 1,750 MG in SODIUM CHLORIDE 0.9% 250 ML IVPB SCH (13:07)
[2017-07-13 14:10] LABS: Glucose,Whole Blood 171 mg/dL (75-99)
[2017-07-13 15:04] LABS: Glucose,Whole Blood 157 mg/dL (75-99)
[2017-07-13 16:38] LABS: Glucose,Whole Blood 148 mg/dL (75-99)
[2017-07-13 17:18] LABS: Hemoglobin A1C 9.6 % (4.0-6.0)
[2017-07-13 18:17] LABS: Glucose,Whole Blood 155 mg/dL (75-99)
[2017-07-13] MEDS: methylPREDNISolone SOD SUCCI 125 MG/2 ML VIAL IV SCH (18:50)
[2017-07-13 19:00] LABS: Glucose,Whole Blood 146 mg/dL (75-99)
--- NOTE | 2017-07-13 19:00 | XR ---
EXAMINATION TYPE: XR chest 1V portable DATE OF EXAM: 07/13/2017 CLINICAL HISTORY: Difficulty breathing progress study. TECHNIQUE: Single AP portable semiupright view of the chest is obtained. COMPARISON: Chest x-ray from earlier today and older studies FINDINGS: Endotracheal tube and orogastric tube are stable in appearance. Cardiac silhouette size is stable and felt within normal limits. There is persistent right basilar op acity consistent with infiltrate and/or atelectasis and likely small right pleural effusion. Left joey g is predominantly clear. Osseous structures are intact. IMPRESSION: Overall stable findings, persistent right lower lung infiltrate and probable small righ t pleural effusion all redemonstrated.
--- NOTE | 2017-07-13 19:40 | P.PN ---
Subjective Progress Note Date: 07/13/17 (Critical care time spent 40+15 minutes) Principal diagnosis: Acute hypoxic respiratory failure, bilateral aspiration pneumonia, MRSA bacteremia, uncontrolled diabetes and hyperglycemia, severe sepsis and septic shock, a stage III renal failure, profound metabolic acidosis with lactic acidosis acute bronchospasm and acute asthma exacerbation 07/13/2017, patient seen and evaluated examined during the rounds patient remains sedated with propofol drip currently patient is on 20 mics he has been started on tube feed which she is tolerating well he has been found to have MRSA in both his sputum as well as blood patient has been on IV vancomycin ID service is following and adjusting antibiotics, patient remains on assist control with a rate of 28 tidal volume of 500, PEEP of 5, 50% oxygen. Peak airway pressures on in low 20s, off note that patient gets agitated when propofol taper down, labs reviewed x-ray reviewed, patient continued to manifest leukocytosis, arterial blood gases are more stable with current vent setting renal functions remain stable, patient does have a history of significant alcohol consumption will keep him on respirator for another 24 hours start weaning tomorrow, on heavy sedation patient does require a small dose of levo fed, critical care time 40 minutes 7 PM spine nurse to evaluate this patient as he has more respiratory distress copious amount of secretions are present through the ET tube noted peak airway pressure on low 30s a stat chest x-rays performed, overall findings are stable no pneumothorax is seen it appears that patient is developing auto PEEP Will lower down the rate on ventilator, we will add IV steroids as well if patient remains stable consider doing CPAP and pressure support trial tomorrow 07/12/2017, patient seen eval reexamined in the ICU patient now has been more for emergency department hold to the ICU patient continued to be intermittently agitated requiring propofol drip, noted patient has gram-positive cocci in the blood likely MRSA patient already has been started on IV vancomycin, been setting remains stable on assist control rate of 20 breathing 23, tidal volume of 500, with 5 of PEEP and FiO2 is gradually date titrated down, labs reviewed x -ray reviewed patient has not been taken off of insulin drip as per DKA protocol and being started ICU protocol would continue antibiotics breathing treatments steroids, we'll start patient on tube feed nutrition has been consulted, patient is not ready for weaning at this point of time, patient noted to have intermittent episodes of hypertension but never did respond well with aggressive fluid resuscitation with crystalloid, for details please refer to the flowsheet, sputum is also positive for staph aureus so as the blood finally white cell count is down to 18,000 with stable hemoglobin RT blood gas continued to manifest severe and profound metabolic and respiratory acidosis but appears to have improved though hyponatremia and renal failure noted stage 3 -4 clearly related to acute tubular necrosis and the hypo-tension and hypoperfusion Mr. Rodolfo Hollis is a 56-year-old male with history of chronic persistent asthma and severe COPD this patient was recently hospitalized for acute COPD exacerbation and he was treated with breathing treatments steroids he improved significantly and subsequently was discharged to follow-up in outpatient setting homologue it has been noted that patient was somewhat reluctant to more aggressive intervention and has expressed his desire to be discharged earlier and to avoid nebulizer therapy and continue MDIs but later on he felt that nebulizer were helpful in last admission he prefers to use the nebulizer and expresses desire to use at home. Patient presented into the emergency department with chest wall pain related to rib fracture also increasing shortness of breath cough and wheezing patient also has a history of uncontrolled diabetes he has been on tapering doses of steroids as well as antibiotics, patient was in the emergency department awaiting ICU placement progressively developed altered mental status and increased lethargy noted to have acute hypercapnic hypoxic respiratory failure was intubated for airway protection, in addition to that patient was noted to have severe hyperglycemia sugar over 800 marked lactic acidosis Ammann patient was hypoxic to Make tachycardic and hypertensive on arrival, chest x-ray showed a new right lower lobe and right middle lobe pneumonia patient was treated with fluid resuscitation along with insulin drip and BiPAP eventually intubated. His white cell count was 39,000 he had severe hyponatremia and acute his stage III renal failure on my evaluation patient was hypertensive with blood pressure which was in the low 100 range drop down into 80s was on assist control rate of 20 breathing 25, 80% oxygen, 5 of PEEP, 500 tidal volume with insulin drip of 14 units an hour along with IV fluids 150 mL an hour with potassium patient was also started on 10 mics of propofol due to drop in blood pressure a liter of crystalloids were given as a bolus with that blood pressure came up into 100 range I recommended to give another 500 mL an hour for 2 hours and monitor urine output patient is being treated with Levaquin and Zosyn and vancomycin Objective - Vital Signs Vital signs: Vital Signs Temp 99.1 F 07/13/17 16:00 Pulse 95 07/13/17 19:00 Resp 25 H 07/13/17 19:00 BP 92/49 07/13/17 19:00 Pulse Ox 92 L 07/13/17 19:00 Intake & Output 07/13/17 07/13/17 07/14/17 06:59 18:59 06:59 Intake Total 2709.388 2397.611 176 Output Total 605 700 40 Balance 2104.388 1697.611 136 Weight 105.3 kg Intake: IV 1787.5 1800 150 Piperacillin-Tazobactam 3 37.5 .375 gm In Dextrose/Water 1 50ml.bag @ 12.5 mls/hr IVPB Q8H [facility] Rx#: [id number] Sodium Chloride 0.9% 1, 1500 1800 150 000 ml @ 150 mls/hr IV . Q6H40M [facility] Rx#:[id number] Vancomycin 1,750 mg In 250 Sodium Chloride 0.9% 250 ml @ 125 mls/hr IVPB Q16H [facility] Rx#:[id number] Intake, IV Titration 601.888 363.611 Amount Insulin Regular 100 unit 43.242 27.174 In Sodium Chloride 0.9% 100 ml @ Per Protocol IV .Q0M [facility] Rx#:[id number] Norepinephrin 4 mg-0.9% 267.126 136.437 Ns Pmx 4 mg In 250 ml @ Titrate IV .Q0M [facility] Rx#: [id number] Propofol 1,000 mg In 291.52 200.000 Empty Bag 1 bag @ Titrate IV .Q0M [facility] Rx#: [id number] Tube Feeding 230 234 26 Other 90 Output: Urine 605 700 40 Other: Voiding Method Indwelling Catheter Indwelling Catheter - Exam Patient is well-developed and well-nourished. Patient is intubated sedated on ventilator ENT: Neck is soft and supple. No significant lymphadenopathy is noted. Oropharynx is clear. Moist mucous membranes. Neck has full range of motion without eliciting any pain. EYES: The sclera were anicteric and conjunctiva were pink and moist. Extraocular movements were intact and pupils were equal round and reactive to light. Eyelids were unremarkable. PULMONARY: Patient has inspiratory and expiratory wheezing with some decreased air movement in the right base with right basal bronchial breath sound CARDIOVASCULAR: There is a regular rate and rhythm without any murmurs gallops or rubs. ABDOMEN: Soft and nontender with normal bowel sounds. No palpable organomegaly was noted. There is no palpable pulsatile mass. SKIN: Skin is clear with no lesions or rashes and otherwise unremarkable. NEUROLOGIC: Patient sedated on ventilator unable to assess. MUSCULOSKELETAL: Normal extremities with adequate strength and full range of motion. No lower extremity swelling or edema. No calf tenderness. LYMPHATICS: No significant lymphadenopathy is noted PSYCHIATRIC: Unable to assess however patient is more calm and comfortable with propofol on ventilator - Labs CBC & Chem 7: 07/13/17 05:20 07/13/17 05:20 Labs: Abnormal Lab Results - Last 24 Hours (Table) 07/12/17 07/12/17 07/13/17 Range/Units 20:11 22:59 01:05 WBC (3.8-10.6) k/uL RBC (4.30-5.90) m/uL Hgb (13.0-17.5) gm/dL Hct (39.0-53.0) % MCV (80.0-100.0) fL Plt Count (150-450) k/uL Neutrophils # (Manual) (1.3-7.7) k/uL Monocytes # (Manual) (0-1.0) k/uL Metamyelocytes # (Man) (0) k/uL ABG pCO2 (35-45) mmHg ABG pO2 (83-108) mmHg ABG HCO3 (21-25) mmol/L ABG O2 Saturation (94-97) % Sodium (137-145) mmol/L Carbon Dioxide (22-30) mmol/L BUN (9-20) mg/dL Creatinine (0.66-1.25) mg/dL Glucose (74-99) mg/dL POC Glucose (mg/dL) 166 H 152 H 211 H (75-99) mg/dL Calcium (8.4-10.2) mg/dL Total Bilirubin (0.2-1.3) mg/dL Alkaline Phosphatase (38-126) U/L Total Protein (6.3-8.2) g/dL Albumin (3.5-5.0) g/dL 07/13/17 07/13/17 07/13/17 Range/Units 02:20 03:14 03:58 WBC (3.8-10.6) k/uL RBC (4.30-5.90) m/uL Hgb (13.0-17.5) gm/dL Hct (39.0-53.0) % MCV (80.0-100.0) fL Plt Count (150-450) k/uL Neutrophils # (Manual) (1.3-7.7) k/uL Monocytes # (Manual) (0-1.0) k/uL Metamyelocytes # (Man) (0) k/uL ABG pCO2 (35-45) mmHg ABG pO2 (83-108) mmHg ABG HCO3 (21-25) mmol/L ABG O2 Saturation (94-97) % Sodium (137-145) mmol/L Carbon Dioxide (22-30) mmol/L BUN (9-20) mg/dL Creatinine (0.66-1.25) mg/dL Glucose (74-99) mg/dL POC Glucose (mg/dL) 234 H 145 H 142 H (75-99) mg/dL Calcium (8.4-10.2) mg/dL Total Bilirubin (0.2-1.3) mg/dL Alkaline Phosphatase (38-126) U/L Total Protein (6.3-8.2) g/dL Albumin (3.5-5.0) g/dL 07/13/17 07/13/17 07/13/17 Range/Units 05:16 05:20 05:20 WBC 27.3 H* (3.8-10.6) k/uL RBC 3.62 L (4.30-5.90) m/uL Hgb 11.8 L (13.0-17.5) gm/dL Hct 37.0 L (39.0-53.0) % MCV 102.2 H (80.0-100.0) fL Plt Count 80 L (150-450) k/uL Neutrophils # (Manual) 23.70 H (1.3-7.7) k/uL Monocytes # (Manual) 1.37 H (0-1.0) k/uL Metamyelocytes # (Man) 0.27 H (0) k/uL ABG pCO2 (35-45) mmHg ABG pO2 (83-108) mmHg ABG HCO3 (21-25) mmol/L ABG O2 Saturation (94-97) % Sodium 134 L (137-145) mmol/L Carbon Dioxide 21 L (22-30) mmol/L BUN 52 H (9-20) mg/dL Creatinine 1.70 H (0.66-1.25) mg/dL Glucose 135 H (74-99) mg/dL POC Glucose (mg/dL) 148 H (75-99) mg/dL Calcium 6.6 L (8.4-10.2) mg/dL Total Bilirubin 2.0 H (0.2-1.3) mg/dL Alkaline Phosphatase 131 H (38-126) U/L Total Protein 5.3 L (6.3-8.2) g/dL Albumin 1.9 L (3.5-5.0) g/dL 07/13/17 07/13/17 07/13/17 Range/Units 05:45 06:55 08:01 WBC (3.8-10.6) k/uL RBC (4.30-5.90) m/uL Hgb (13.0-17.5) gm/dL Hct (39.0-53.0) % MCV (80.0-100.0) fL Plt Count (150-450) k/uL Neutrophils # (Manual) (1.3-7.7) k/uL Monocytes # (Manual) (0-1.0) k/uL Metamyelocytes # (Man) (0) k/uL ABG pCO2 33 L (35-45) mmHg ABG pO2 133 H (83-108) mmHg ABG HCO3 19 L (21-25) mmol/L ABG O2 Saturation 99.0 H (94-97) % Sodium (137-145) mmol/L Carbon Dioxide (22-30) mmol/L BUN (9-20) mg/dL Creatinine (0.66-1.25) mg/dL Glucose (74-99) mg/dL POC Glucose (mg/dL) 168 H 141 H (75-99) mg/dL Calcium (8.4-10.2) mg/dL Total Bilirubin (0.2-1.3) mg/dL Alkaline Phosphatase (38-126) U/L Total Protein (6.3-8.2) g/dL Albumin (3.5-5.0) g/dL 07/13/17 07/13/17 07/13/17 Range/Units 09:16 10:14 10:56 WBC (3.8-10.6) k/uL RBC (4.30-5.90) m/uL Hgb (13.0-17.5) gm/dL Hct (39.0-53.0) % MCV (80.0-100.0) fL Plt Count (150-450) k/uL Neutrophils # (Manual) (1.3-7.7) k/uL Monocytes # (Manual) (0-1.0) k/uL Metamyelocytes # (Man) (0) k/uL ABG pCO2 (35-45) mmHg ABG pO2 (83-108) mmHg ABG HCO3 (21-25) mmol/L ABG O2 Saturation (94-97) % Sodium (137-145) mmol/L Carbon Dioxide (22-30) mmol/L BUN (9-20) mg/dL Creatinine (0.66-1.25) mg/dL Glucose (74-99) mg/dL POC Glucose (mg/dL) 118 H 123 H 146 H (75-99) mg/dL Calcium (8.4-10.2) mg/dL Total Bilirubin (0.2-1.3) mg/dL Alkaline Phosphatase (38-126) U/L Total Protein (6.3-8.2) g/dL Albumin (3.5-5.0) g/dL 07/13/17 07/13/17 07/13/17 Range/Units 12:18 13:02 14:08 WBC (3.8-10.6) k/uL RBC (4.30-5.90) m/uL Hgb (13.0-17.5) gm/dL Hct (39.0-53.0) % MCV (80.0-100.0) fL Plt Count (150-450) k/uL Neutrophils # (Manual) (1.3-7.7) k/uL Monocytes # (Manual) (0-1.0) k/uL Metamyelocytes # (Man) (0) k/uL ABG pCO2 (35-45) mmHg ABG pO2 (83-108) mmHg ABG HCO3 (21-25) mmol/L ABG O2 Saturation (94-97) % Sodium (137-145) mmol/L Carbon Dioxide (22-30) mmol/L BUN (9-20) mg/dL Creatinine (0.66-1.25) mg/dL Glucose (74-99) mg/dL POC Glucose (mg/dL) 150 H 159 H 171 H (75-99) mg/dL Calcium (8.4-10.2) mg/dL Total Bilirubin (0.2-1.3) mg/dL Alkaline Phosphatase (38-126) U/L Total Protein (6.3-8.2) g/dL Albumin (3.5-5.0) g/dL 07/13/17 07/13/17 07/13/17 Range/Units 15:03 16:36 18:15 WBC (3.8-10.6) k/uL RBC (4.30-5.90) m/uL Hgb (13.0-17.5) gm/dL Hct (39.0-53.0) % MCV (80.0-100.0) fL Plt Count (150-450) k/uL Neutrophils # (Manual) (1.3-7.7) k/uL Monocytes # (Manual) (0-1.0) k/uL Metamyelocytes # (Man) (0) k/uL ABG pCO2 (35-45) mmHg ABG pO2 (83-108) mmHg ABG HCO3 (21-25) mmol/L ABG O2 Saturation (94-97) % Sodium (137-145) mmol/L Carbon Dioxide (22-30) mmol/L BUN (9-20) mg/dL Creatinine (0.66-1.25) mg/dL Glucose (74-99) mg/dL POC Glucose (mg/dL) 157 H 148 H 155 H (75-99) mg/dL Calcium (8.4-10.2) mg/dL Total Bilirubin (0.2-1.3) mg/dL Alkaline Phosphatase (38-126) U/L Total Protein (6.3-8.2) g/dL Albumin (3.5-5.0) g/dL 07/13/17 Range/Units 18:57 WBC (3.8-10.6) k/uL RBC (4.30-5.90) m/uL Hgb (13.0-17.5) gm/dL Hct (39.0-53.0) % MCV (80.0-100.0) fL Plt Count (150-450) k/uL Neutrophils # (Manual) (1.3-7.7) k/uL Monocytes # (Manual) (0-1.0) k/uL Metamyelocytes # (Man) (0) k/uL ABG pCO2 (35-45) mmHg ABG pO2 (83-108) mmHg ABG HCO3 (21-25) mmol/L ABG O2 Saturation (94-97) % Sodium (137-145) mmol/L Carbon Dioxide (22-30) mmol/L BUN (9-20) mg/dL Creatinine (0.66-1.25) mg/dL Glucose (74-99) mg/dL POC Glucose (mg/dL) 146 H (75-99) mg/dL Calcium (8.4-10.2) mg/dL Total Bilirubin (0.2-1.3) mg/dL Alkaline Phosphatase (38-126) U/L Total Protein (6.3-8.2) g/dL Albumin (3.5-5.0) g/dL Microbiology - Last 24 Hours (Table) 07/11/17 07:56 Gram Stain - Final Sputum Sputum Culture - Final Methicillin resist S. aureus 07/12/17 18:20 Urine Culture - Preliminary Urine,Catheterized 07/11/17 01:00 Blood Culture Gram Stain - Final Blood Blood Culture - Final Methicillin resist S. aureus Assessment and Plan Assessment: MRSA pneumonia as well as bacteremia Acute hypoxic and hypercapnic respiratory failure Severe sepsis and septic shock Right middle lobe and right lower lobe pneumonia likely mixed bacterial and/or or gram-negative may very well be aspiration related Uncontrolled hyperglycemia and diabetes Chronic persistent asthma with severe COPD and recent exacerbation of COPD Stage III acute renal failure History of the binge drinking Plan: Fluid resuscitation, weaning as noted above Broad-spectrum antibiotics Maintain patient on DVT and peptic ulcer disease prophylaxis Ventilator support with repeat x-ray and labs tomorrow titrate oxygen down as tolerated we'll repeat ABG tomorrow as well Given acute worsening of mental status appears to be likely related to hypercapnia and severe COPD and pneumonia with severe profound metabolic acidosis Insulin drip as per ICU protocol Further recommendations pending plan of care as per clinical response of the patient Patient appears to be volume depleted we'll continue to give fluid boluses as needed as per hemodynamic assessment and response Tube feed Infectious disease consultation as per choice of the family care provider Critical care time spent 40 minutes Time with Patient: Greater than 30
[2017-07-13 20:08] LABS: Glucose,Whole Blood 145 mg/dL (75-99)
[2017-07-13 21:09] LABS: Glucose,Whole Blood 129 mg/dL (75-99)
[2017-07-13 22:14] LABS: Glucose,Whole Blood 156 mg/dL (75-99)
[2017-07-13 23:06] LABS: Glucose,Whole Blood 158 mg/dL (75-99)
--- NOTE | 2017-07-13 23:29 | P.PN ---
Subjective Progress Note Date: 07/13/17 Principal diagnosis: Respiratory failure 56-year-old male with history of COPD and alcoholism is had 2 recent visits to hospital. It is noted from the records that he did not have significant delirium tremens but was having difficulties with his COPD. The patient apparently had a rapid deterioration after his recent hospitalization reviewed became very confused and likely had hypoxic hypercapnic respiratory failure and required transport to hospital. He was given some breathing treatments and had some slight improvement but then had a marked worsening and required intubation with sedation and mechanical ventilation. The patient remains in intensive care unit in the infectious diseases consultation is requested given his Possible culture for MRSA and likely same pathogen in his sputum. The patient is intubated sedated and mechanically ventilated and all information comes from the chart and nursing staff. The patient is comfortable. A low dose of vasopressor only. Urine output is marginal but has improved. He had significant hyperglycemia at admission of 813 which is now improved with the insulin drip. Has done well with fluid resuscitation. With current sedation the patient is comfortable. Nursing relates no concerns to delirium tremens at this time. On 07/13/2017 the patient has little change of his status. He remains intubated sedated and mechanically ventilated and remains on vasopressor therapy fortunately low dose with adequate response. The patient is sedated. He's had significant amounts of copious secretions from his endotracheal tube required multiple bouts of suctioning has had difficulty with some mucous plugging also. He is currently very comfortable with current level of sedation Objective - Vital Signs Vital signs: Vital Signs Temp 98.5 F 07/13/17 20:00 Pulse 82 07/13/17 23:00 Resp 20 07/13/17 23:00 BP 113/58 07/13/17 23:00 Pulse Ox 92 L 07/13/17 23:00 Intake & Output 07/13/17 07/13/17 07/14/17 06:59 18:59 06:59 Intake Total 2709.388 2397.611 923.764 Output Total 605 700 200 Balance 2104.388 1697.611 723.764 Weight 105.3 kg Intake: IV 1787.5 1800 750 Piperacillin-Tazobactam 3 37.5 .375 gm In Dextrose/Water 1 50ml.bag @ 12.5 mls/hr IVPB Q8H [facility] Rx#: [id number] Sodium Chloride 0.9% 1, 1500 1800 750 000 ml @ 150 mls/hr IV . Q6H40M [facility] Rx#:[id number] Vancomycin 1,750 mg In 250 Sodium Chloride 0.9% 250 ml @ 125 mls/hr IVPB Q16H [facility] Rx#:[id number] Intake, IV Titration 601.888 363.611 13.764 Amount Insulin Regular 100 unit 43.242 27.174 13.764 In Sodium Chloride 0.9% 100 ml @ Per Protocol IV .Q0M [facility] Rx#:[id number] Norepinephrin 4 mg-0.9% 267.126 136.437 Ns Pmx 4 mg In 250 ml @ Titrate IV .Q0M [facility] Rx#: [id number] Propofol 1,000 mg In 291.52 200.000 Empty Bag 1 bag @ Titrate IV .Q0M [facility] Rx#: [id number] Tube Feeding 230 234 130 Other 90 30 Output: Urine 605 700 200 Other: Voiding Method Indwelling Catheter Indwelling Catheter - Exam Intubated sedated and mechanically ventilated HEENT: Anicteric conjunctiva with some thin exudate, no bleeding around the nasogastric tube oroendotracheal tube no thrush was noted Neck: The neck is supple without significant lymphadenopathy or thyromegaly. Lungs: Symmetrical air entry with coarse crackles to the bases bronchial sounds to the right base is noted Heart: Regular rate and rhythm with an audible S1-S2, no S3 positive S4 There is no significant murmur click or rub, PMI was nondisplaced. Abdomen: Positive bowel sounds soft nondistended without palpable masses or organomegaly. There was no rigidity Extremities: Upper and lower extremities have some generalized edema. More edema in the lower extremities. Peripheral pulses are palpable extremities are cool but not cold. No open ulcers are seen. Neuro: Patient is heavily sedated intubated and mechanically ventilated. - Labs CBC & Chem 7: 07/13/17 05:20 07/13/17 05:20 Labs: Abnormal Lab Results - Last 24 Hours (Table) 07/13/17 07/13/17 07/13/17 Range/Units 01:05 02:20 03:14 WBC (3.8-10.6) k/uL RBC (4.30-5.90) m/uL Hgb (13.0-17.5) gm/dL Hct (39.0-53.0) % MCV (80.0-100.0) fL Plt Count (150-450) k/uL Neutrophils # (Manual) (1.3-7.7) k/uL Monocytes # (Manual) (0-1.0) k/uL Metamyelocytes # (Man) (0) k/uL ABG pCO2 (35-45) mmHg ABG pO2 (83-108) mmHg ABG HCO3 (21-25) mmol/L ABG O2 Saturation (94-97) % Sodium (137-145) mmol/L Carbon Dioxide (22-30) mmol/L BUN (9-20) mg/dL Creatinine (0.66-1.25) mg/dL Glucose (74-99) mg/dL POC Glucose (mg/dL) 211 H 234 H 145 H (75-99) mg/dL Calcium (8.4-10.2) mg/dL Total Bilirubin (0.2-1.3) mg/dL Alkaline Phosphatase (38-126) U/L Total Protein (6.3-8.2) g/dL Albumin (3.5-5.0) g/dL 07/13/17 07/13/17 07/13/17 Range/Units 03:58 05:16 05:20 WBC (3.8-10.6) k/uL RBC (4.30-5.90) m/uL Hgb (13.0-17.5) gm/dL Hct (39.0-53.0) % MCV (80.0-100.0) fL Plt Count (150-450) k/uL Neutrophils # (Manual) (1.3-7.7) k/uL Monocytes # (Manual) (0-1.0) k/uL Metamyelocytes # (Man) (0) k/uL ABG pCO2 (35-45) mmHg ABG pO2 (83-108) mmHg ABG HCO3 (21-25) mmol/L ABG O2 Saturation (94-97) % Sodium 134 L (137-145) mmol/L Carbon Dioxide 21 L (22-30) mmol/L BUN 52 H (9-20) mg/dL Creatinine 1.70 H (0.66-1.25) mg/dL Glucose 135 H (74-99) mg/dL POC Glucose (mg/dL) 142 H 148 H (75-99) mg/dL Calcium 6.6 L (8.4-10.2) mg/dL Total Bilirubin 2.0 H (0.2-1.3) mg/dL Alkaline Phosphatase 131 H (38-126) U/L Total Protein 5.3 L (6.3-8.2) g/dL Albumin 1.9 L (3.5-5.0) g/dL 07/13/17 07/13/17 07/13/17 Range/Units 05:20 05:45 06:55 WBC 27.3 H* (3.8-10.6) k/uL RBC 3.62 L (4.30-5.90) m/uL Hgb 11.8 L (13.0-17.5) gm/dL Hct 37.0 L (39.0-53.0) % MCV 102.2 H (80.0-100.0) fL Plt Count 80 L (150-450) k/uL Neutrophils # (Manual) 23.70 H (1.3-7.7) k/uL Monocytes # (Manual) 1.37 H (0-1.0) k/uL Metamyelocytes # (Man) 0.27 H (0) k/uL ABG pCO2 33 L (35-45) mmHg ABG pO2 133 H (83-108) mmHg ABG HCO3 19 L (21-25) mmol/L ABG O2 Saturation 99.0 H (94-97) % Sodium (137-145) mmol/L Carbon Dioxide (22-30) mmol/L BUN (9-20) mg/dL Creatinine (0.66-1.25) mg/dL Glucose (74-99) mg/dL POC Glucose (mg/dL) 168 H (75-99) mg/dL Calcium (8.4-10.2) mg/dL Total Bilirubin (0.2-1.3) mg/dL Alkaline Phosphatase (38-126) U/L Total Protein (6.3-8.2) g/dL Albumin (3.5-5.0) g/dL 07/13/17 07/13/17 07/13/17 Range/Units 08:01 09:16 10:14 WBC (3.8-10.6) k/uL RBC (4.30-5.90) m/uL Hgb (13.0-17.5) gm/dL Hct (39.0-53.0) % MCV (80.0-100.0) fL Plt Count (150-450) k/uL Neutrophils # (Manual) (1.3-7.7) k/uL Monocytes # (Manual) (0-1.0) k/uL Metamyelocytes # (Man) (0) k/uL ABG pCO2 (35-45) mmHg ABG pO2 (83-108) mmHg ABG HCO3 (21-25) mmol/L ABG O2 Saturation (94-97) % Sodium (137-145) mmol/L Carbon Dioxide (22-30) mmol/L BUN (9-20) mg/dL Creatinine (0.66-1.25) mg/dL Glucose (74-99) mg/dL POC Glucose (mg/dL) 141 H 118 H 123 H (75-99) mg/dL Calcium (8.4-10.2) mg/dL Total Bilirubin (0.2-1.3) mg/dL Alkaline Phosphatase (38-126) U/L Total Protein (6.3-8.2) g/dL Albumin (3.5-5.0) g/dL 07/13/17 07/13/17 07/13/17 Range/Units 10:56 12:18 13:02 WBC (3.8-10.6) k/uL RBC (4.30-5.90) m/uL Hgb (13.0-17.5) gm/dL Hct (39.0-53.0) % MCV (80.0-100.0) fL Plt Count (150-450) k/uL Neutrophils # (Manual) (1.3-7.7) k/uL Monocytes # (Manual) (0-1.0) k/uL Metamyelocytes # (Man) (0) k/uL ABG pCO2 (35-45) mmHg ABG pO2 (83-108) mmHg ABG HCO3 (21-25) mmol/L ABG O2 Saturation (94-97) % Sodium (137-145) mmol/L Carbon Dioxide (22-30) mmol/L BUN (9-20) mg/dL Creatinine (0.66-1.25) mg/dL Glucose (74-99) mg/dL POC Glucose (mg/dL) 146 H 150 H 159 H (75-99) mg/dL Calcium (8.4-10.2) mg/dL Total Bilirubin (0.2-1.3) mg/dL Alkaline Phosphatase (38-126) U/L Total Protein (6.3-8.2) g/dL Albumin (3.5-5.0) g/dL 07/13/17 07/13/17 07/13/17 Range/Units 14:08 15:03 16:36 WBC (3.8-10.6) k/uL RBC (4.30-5.90) m/uL Hgb (13.0-17.5) gm/dL Hct (39.0-53.0) % MCV (80.0-100.0) fL Plt Count (150-450) k/uL Neutrophils # (Manual) (1.3-7.7) k/uL Monocytes # (Manual) (0-1.0) k/uL Metamyelocytes # (Man) (0) k/uL ABG pCO2 (35-45) mmHg ABG pO2 (83-108) mmHg ABG HCO3 (21-25) mmol/L ABG O2 Saturation (94-97) % Sodium (137-145) mmol/L Carbon Dioxide (22-30) mmol/L BUN (9-20) mg/dL Creatinine (0.66-1.25) mg/dL Glucose (74-99) mg/dL POC Glucose (mg/dL) 171 H 157 H 148 H (75-99) mg/dL Calcium (8.4-10.2) mg/dL Total Bilirubin (0.2-1.3) mg/dL Alkaline Phosphatase (38-126) U/L Total Protein (6.3-8.2) g/dL Albumin (3.5-5.0) g/dL 07/13/17 07/13/17 07/13/17 Range/Units 18:15 18:57 20:06 WBC (3.8-10.6) k/uL RBC (4.30-5.90) m/uL Hgb (13.0-17.5) gm/dL Hct (39.0-53.0) % MCV (80.0-100.0) fL Plt Count (150-450) k/uL Neutrophils # (Manual) (1.3-7.7) k/uL Monocytes # (Manual) (0-1.0) k/uL Metamyelocytes # (Man) (0) k/uL ABG pCO2 (35-45) mmHg ABG pO2 (83-108) mmHg ABG HCO3 (21-25) mmol/L ABG O2 Saturation (94-97) % Sodium (137-145) mmol/L Carbon Dioxide (22-30) mmol/L BUN (9-20) mg/dL Creatinine (0.66-1.25) mg/dL Glucose (74-99) mg/dL POC Glucose (mg/dL) 155 H 146 H 145 H (75-99) mg/dL Calcium (8.4-10.2) mg/dL Total Bilirubin (0.2-1.3) mg/dL Alkaline Phosphatase (38-126) U/L Total Protein (6.3-8.2) g/dL Albumin (3.5-5.0) g/dL 07/13/17 07/13/17 07/13/17 Range/Units 21:06 22:12 23:04 WBC (3.8-10.6) k/uL RBC (4.30-5.90) m/uL Hgb (13.0-17.5) gm/dL Hct (39.0-53.0) % MCV (80.0-100.0) fL Plt Count (150-450) k/uL Neutrophils # (Manual) (1.3-7.7) k/uL Monocytes # (Manual) (0-1.0) k/uL Metamyelocytes # (Man) (0) k/uL ABG pCO2 (35-45) mmHg ABG pO2 (83-108) mmHg ABG HCO3 (21-25) mmol/L ABG O2 Saturation (94-97) % Sodium (137-145) mmol/L Carbon Dioxide (22-30) mmol/L BUN (9-20) mg/dL Creatinine (0.66-1.25) mg/dL Glucose (74-99) mg/dL POC Glucose (mg/dL) 129 H 156 H 158 H (75-99) mg/dL Calcium (8.4-10.2) mg/dL Total Bilirubin (0.2-1.3) mg/dL Alkaline Phosphatase (38-126) U/L Total Protein (6.3-8.2) g/dL Albumin (3.5-5.0) g/dL Microbiology - Last 24 Hours (Table) 07/12/17 18:20 Urine Culture - Final Urine,Catheterized 07/11/17 07:56 Gram Stain - Final Sputum Sputum Culture - Final Methicillin resist S. aureus 07/11/17 01:00 Blood Culture Gram Stain - Final Blood Blood Culture - Final Methicillin resist S. aureus Laboratory Results WBC 27.3 k/uL (3.8-10.6) H* 07/13/17 05:20 RBC 3.62 m/uL (4.30-5.90) L 07/13/17 05:20 Hgb 11.8 gm/dL (13.0-17.5) L 07/13/17 05:20 Hct 37.0 % (39.0-53.0) L 07/13/17 05:20 MCV 102.2 fL (80.0-100.0) H 07/13/17 05:20 MCH 32.6 pg (25.0-35.0) 07/13/17 05:20 MCHC 31.9 g/dL (31.0-37.0) 07/13/17 05:20 RDW 15.1 % (11.5-15.5) 07/13/17 05:20 Plt Count 80 k/uL (150-450) L 07/13/17 05:20 Neutrophils % Not Reportable 07/13/17 05:20 Neutrophils % (Manual) 81 % 07/13/17 05:20 Band Neutrophils % 6 % 07/13/17 05:20 Lymphocytes % Not Reportable 07/13/17 05:20 Lymphocytes % (Manual) 8 % 07/13/17 05:20 Monocytes % Not Reportable 07/13/17 05:20 Monocytes % (Manual) 5 % 07/13/17 05:20 Eosinophils % Not Reportable 07/13/17 05:20 Basophils % Not Reportable 07/13/17 05:20 Metamyelocytes % 1 % 07/13/17 05:20 Neutrophils # Not Reportable 07/13/17 05:20 Neutrophils # (Manual) 23.70 k/uL (1.3-7.7) H 07/13/17 05:20 Lymphocytes # Not Reportable 07/13/17 05:20 Lymphocytes # (Manual) 2.18 k/uL (1.0-4.8) 07/13/17 05:20 Monocytes # Not Reportable 07/13/17 05:20 Monocytes # (Manual) 1.37 k/uL (0-1.0) H 07/13/17 05:20 Eosinophils # Not Reportable 07/13/17 05:20 Basophils # Not Reportable 07/13/17 05:20 Metamyelocytes # (Man) 0.27 k/uL (0) H 07/13/17 05:20 Nucleated RBCs 0 /100 WBC (0-0) 07/13/17 05:20 Manual Slide Review Performed 07/13/17 05:20 Toxic Granulation Present 07/13/17 05:20 Toxic Vacuolation Present 07/11/17 09:10 Hypochromasia Slight 07/13/17 05:20 Poikilocytosis (manual Present 07/13/17 05:20 Macrocytosis Slight 07/13/17 05:20 PT 12.6 sec (9.0-12.0) H 07/11/17 09:10 INR 1.3 (<1.2) H 07/11/17 09:10 APTT 26.3 sec (22.0-30.0) 07/11/17 01:53 Sample Site [facility] 07/13/17 05:45 ABG pH 7.38 (7.35-7.45) 07/13/17 05:45 ABG pCO2 33 mmHg (35-45) L 07/13/17 05:45 ABG pO2 133 mmHg (83-108) H 07/13/17 05:45 ABG HCO3 19 mmol/L (21-25) L 07/13/17 05:45 ABG Total CO2 20 mmol/L (19-24) 07/13/17 05:45 ABG O2 Saturation 99.0 % (94-97) H 07/13/17 05:45 ABG Base Excess -5.8 mmol/L 07/13/17 05:45 Deuce Test Yes 07/13/17 05:45 FiO2 50 % 07/13/17 05:45 Sodium 134 mmol/L (137-145) L 07/13/17 05:20 Potassium 4.6 mmol/L (3.5-5.1) 07/13/17 05:20 Chloride 105 mmol/L (98-107) 07/13/17 05:20 Carbon Dioxide 21 mmol/L (22-30) L 07/13/17 05:20 Anion Gap 8 mmol/L 07/13/17 05:20 BUN 52 mg/dL (9-20) H 07/13/17 05:20 Creatinine 1.70 mg/dL (0.66-1.25) H 07/13/17 05:20 Est GFR (MDRD) Af Amer 46 (>60 ml/min/1.73 sqM) 07/12/17 05:18 Est GFR (MDRD) Non-Af 38 (>60 ml/min/1.73 sqM) 07/12/17 05:18 Est GFR (CKD-EPI)AfAm 52 (>60 ml/min/1.73 sqM) 07/13/17 05:20 Est GFR (CKD-EPI)NonAf 45 (>60 ml/min/1.73 sqM) 07/13/17 05:20 Glucose 135 mg/dL (74-99) H 07/13/17 05:20 POC Glucose (mg/dL) 158 mg/dL (75-99) H 07/13/17 23:04 POC Glu Bookkeeping Assistant ID Jeremie Meek 07/13/17 23:04 Lactic Ac Sepsis Rflx Y 07/11/17 16:24 Plasma Lactic Acid [place] 1.9 mmol/L (0.7-2.0) 07/13/17 05:20 Calcium 6.6 mg/dL (8.4-10.2) L 07/13/17 05:20 Phosphorus 3.2 mg/dL (2.5-4.5) 07/13/17 05:20 Magnesium 2.0 mg/dL (1.6-2.3) 07/13/17 05:20 Total Bilirubin 2.0 mg/dL (0.2-1.3) H 07/13/17 05:20 AST 31 U/L (17-59) 07/13/17 05:20 ALT 23 U/L (21-72) 07/13/17 05:20 Alkaline Phosphatase 131 U/L (38-126) H 07/13/17 05:20 Total Creatine Kinase 71 U/L (55-170) 07/11/17 01:53 CK-MB (CK-2) 1.6 ng/mL (0.0-2.4) 07/11/17 01:53 CK-MB (CK-2) Rel Index 2.3 07/11/17 01:53 Troponin I <0.012 ng/mL (0.000-0.034) 07/11/17 01:53 Total Protein 5.3 g/dL (6.3-8.2) L 07/13/17 05:20 Albumin 1.9 g/dL (3.5-5.0) L 07/13/17 05:20 Urine Color Dark Yellow 07/11/17 13:39 Urine Appearance Cloudy (Clear) 07/11/17 13:39 Urine pH 5.0 (5.0-8.0) 07/11/17 13:39 Ur Specific [place] 1.018 (1.001-1.035) 07/11/17 13:39 Urine Protein 1+ (Negative) H 07/11/17 13:39 Urine Glucose (UA) Trace (Negative) H 07/11/17 13:39 Urine Ketones Trace (Negative) H 07/11/17 13:39 Urine Blood Negative (Negative) 07/11/17 13:39 Urine Nitrite Negative (Negative) 07/11/17 13:39 Urine Bilirubin 1+ (Negative) H 07/11/17 13:39 Urine Urobilinogen 8.0 mg/dL (<2.0) 07/11/17 13:39 Ur Leukocyte Esterase Negative (Negative) 07/11/17 13:39 Urine RBC 5 /hpf (0-5) 07/11/17 13:39 Urine WBC 5 /hpf (0-5) 07/11/17 13:39 Ur Squamous Epith Cells 1 /hpf (0-4) 07/11/17 13:39 Amorphous Sediment Few /hpf (None) H 07/11/17 13:39 Urine Bacteria Occasional /hpf (None) H 07/11/17 13:39 Hyaline Casts 2 /lpf (0-2) 07/11/17 13:39 Granular Casts 45 /lpf (0) 07/11/17 13:39 Urine Mucus Occasional /hpf (None) H 07/11/17 13:39 Influenza Type A RNA Not Detected (Not Detectd) 07/13/17 13:30 Influenza Type B (PCR) Not Detected (Not Detectd) 07/13/17 13:30 Microbiology 07/12/17 18:20 Urine,Catheterized Urine Culture - Final 07/11/17 07:56 Sputum Gram Stain - Final 07/11/17 07:56 Sputum Sputum Culture - Final Methicillin resist S. aureus 07/11/17 01:00 Blood Blood Culture Gram Stain - Final 07/11/17 01:00 Blood Blood Culture - Final Methicillin resist S. aureus 07/11/17 01:00 Blood Blood Culture - Final Assessment and Plan (1) Acute and chronic respiratory failure with hypercapnia Current Visit: Yes Status: Acute Code(s): J96.22 - ACUTE AND CHRONIC RESPIRATORY FAILURE WITH HYPERCAPNIA SNOMED Code(s): 0244773172108 (2) MRSA pneumonia Narrative/Plan: 56-year-old male presents to the emergency center after 2 recent hospital stays with marked worsening of his status. He became more short of breath and confused. In the emergency center he developed respiratory failure and required intubation and sedation and mechanical ventilation. He was moved to intensive care unit. With evidence of bacteremia the infectious diseases consultation was requested. Patient appears to have evidence of MRSA bacteremia and pneumonia. Vancomycin will be continued at this point in time. Zosyn will be dose adjusted for his acute renal failure and will de-escalate antibiotic therapy pending further culture results. Patient is being closely monitored for delirium tremens however did not have evidence of that during his recent hospital stay. The patient has profound leukocytosis which appears to be in the basis of his current pneumonia and sepsis and recent steroid use. Patient also has evidence of acute renal failure and consequently vancomycin is being dosed by pharmacy and Zosyn was dose adjusted for his current creatinine clearance. Follow blood cultures requested to evaluate for clearance. If persistent blood cultures are noted would also benefit from echocardiogram. 07/23/2017 patient remains intubated sedated and mechanically ventilated but is showing at least some stability was status. There hasbeen no worsening. If no other positive cultures tomorrow we'll then be able to de-escalate vancomycin monotherapy for his MRSA pneumonia and bacteremia the profound leukocytosis is now showing some improvement. They're related to urinary output is adequate. Acute renal failure is improving patient's prognosis remains guarded. Current Visit: Yes Status: Acute Code(s): J15.212 - PNEUMONIA DUE TO METHICILLIN RESISTANT STAPHYLOCOCCUS AUREUS SNOMED Code(s): 356902850721647 (3) MRSA bacteremia Current Visit: Yes Status: Acute Code(s): R78.81 - BACTEREMIA SNOMED Code( s): 06538534978672540 (4) Leukocytosis Current Visit: Yes Status: Acute Code(s): D72.829 - ELEVATED WHITE BLOOD CELL COUNT, UNSPECIFIED SNOMED Code(s): 801299512
[2017-07-14 00:03] LABS: Glucose,Whole Blood 168 mg/dL (75-99)
[2017-07-14] MEDS: methylPREDNISolone SOD SUCCI 125 MG/2 ML VIAL IV SCH ×5 (00:56→23:11)
[2017-07-14] MEDS: PIPERACILLIN-TAZOBACTAM 3.375 GM in DEXTROSE/WATER 1 50ML.BAG IVPB SCH ×3 (00:56→16:02)
[2017-07-14] MEDS: PROPOFOL 1,000 MG in EMPTY BAG 1 BAG IV SCH ×7 (00:57→20:45)
[2017-07-14] MEDS: METOCLOPRAMIDE 5 MG/ML 2 ML VIAL IVP SCH ×5 (00:57→23:11)
[2017-07-14 01:14] LABS: Glucose,Whole Blood 177 mg/dL (75-99)
[2017-07-14] MEDS ORDERED: FUROSEMIDE 10 MG/ML 4 ML VIAL IV STA (01:59)
[2017-07-14 02:15] LABS: Glucose,Whole Blood 180 mg/dL (75-99)
[2017-07-14] MEDS: SODIUM CHLORIDE 0.9% 1,000 ML IV SCH ×3 (02:16→18:57)
[2017-07-14] MEDS ORDERED: VANCOMYCIN TROUGH DUE 1 EACH MISC MISCELLANE ONE (03:00)
[2017-07-14 03:02] LABS: Glucose,Whole Blood 191 mg/dL (75-99)
[2017-07-14 03:50] LABS: Basophils # (A) 0.1 k/uL (0-0.2); Basophils % (A) 0 %; Eosinophils % (A) 0 %; HCT 39.5 % (39.0-53.0); HGB 12.2 gm/dL (13.0-17.5); Hypochromasia Moderate; Lymphocytes % (A) 3 %; MCH 32.2 pg (25.0-35.0); MCHC 30.8 g/dL (31.0-37.0); MCV 104.5 fL (80.0-100.0); Macrocytosis Moderate; Mean Platelet Volume 8.2; Monocytes # (A) 0.7 k/uL (0-1.0); Monocytes % (A) 3 %; Neutrophils # (A) 26.5 k/uL (1.3-7.7); Neutrophils % (A) 93 %; RBC 3.78 m/uL (4.30-5.90); RDW 15.3 % (11.5-15.5)
[2017-07-14 03:55] LABS: WBC 28.5 k/uL (3.8-10.6)
[2017-07-14 03:59] LABS: Calcium 6.7 mg/dL (8.4-10.2); Magnesium 1.9 mg/dL (1.6-2.3); Phosphorus 5.2 mg/dL (2.5-4.5); Potassium 5.5 mmol/L (3.5-5.1); Total Bilirubin 2.1 mg/dL (0.2-1.3); Total Protein 5.5 g/dL (6.3-8.2)
[2017-07-14 04:19] LABS: Platelet Count 70 k/uL (150-450); Toxic Granulation Present
[2017-07-14] MEDS: VANCOMYCIN 1,750 MG in SODIUM CHLORIDE 0.9% 250 ML IVPB SCH ×2 (04:34→23:00)
[2017-07-14 04:52] LABS: Glucose,Whole Blood 193 mg/dL (75-99)
[2017-07-14 05:04] LABS: ABG Base Excess -9.4 mmol/L; ABG HCO3 19 mmol/L (21-25); ABG Oxygen Saturation 92.5 % (94-97); ABG PCO2 46 mmHg (35-45); ABG PH 7.21 (7.35-7.45); ABG PO2 75 mmHg (83-108); ABG TCO2 20 mmol/L (19-24)
[2017-07-14 06:11] LABS: Glucose,Whole Blood 225 mg/dL (75-99)
[2017-07-14] MEDS: LEVOFLOXACIN 750MG-D5W PMX 750 MG in DEXTROSE/WATER 1 150ML.BAG IVPB SCH (06:19)
[2017-07-14 06:38] LABS: Glucose,Whole Blood 181 mg/dL (75-99)
--- NOTE | 2017-07-14 07:05 | P.PN ---
Subjective Principal diagnosis: Continuing care. This is a continue present 56-year-old white male essentially admitted for exacerbation of COPD but ended up having significant bilateral pneumonia with sepsis element. He has an underlying history of previous alcoholism. He is now ventilated and stabilizing. However, yesterday they try to wean him off the vent and had significant tachycardia. No fever or chills are noted otherwise. Objective - Vital Signs Vital signs: Vital Signs Temp 98 F 07/14/17 00:00 Pulse 73 07/14/17 06:00 Resp 17 07/14/17 06:00 BP 101/55 07/14/17 06:00 Pulse Ox 94 L 07/14/17 06:00 Intake & Output 07/13/17 07/14/17 07/14/17 18:59 06:59 18:59 Intake Total 2397.611 1526.546 Output Total 700 580 Balance 1697.611 946.546 Weight 108 kg Intake: IV 1800 960 Sodium Chloride 0.9% 1, 1800 960 000 ml @ 10 mls/hr IV . Q24H [facility] Rx#:[id number] Intake, IV Titration 363.611 246.546 Amount Insulin Regular 100 unit 27.174 43.426 In Sodium Chloride 0.9% 100 ml @ Per Protocol IV .Q0M [facility] Rx#:[id number] Norepinephrin 4 mg-0.9% 136.437 Ns Pmx 4 mg In 250 ml @ Titrate IV .Q0M [facility] Rx#: [id number] Propofol 1,000 mg In 200.000 203.12 Empty Bag 1 bag @ Titrate IV .Q0M [facility] Rx#: [id number] Tube Feeding 234 260 Other 60 Output: Urine 700 580 Other: Voiding Method Indwelling Catheter Indwelling Catheter - Constitutional General appearance: Present: average body habitus - EENT Eyes: Absent: abnormal pupil - Respiratory Respiratory: bilateral: diminished - Cardiovascular Rhythm: regular Heart sounds: normal: S1, S2 Abnormal Heart Sounds: Absent: S3 Gallop - Gastrointestinal General gastrointestinal: Present: soft. Absent: tenderness - Psychiatric Psychiatric: Absent: intact judgment & insight - Labs CBC & Chem 7: 07/14/17 03:28 07/14/17 03:28 Labs: Abnormal Lab Results - Last 24 Hours (Table) 07/13/17 07/13/17 07/13/17 Range/Units 05:20 05:20 08:01 WBC 27.3 H* (3.8-10.6) k/uL RBC 3.62 L (4.30-5.90) m/uL Hgb 11.8 L (13.0-17.5) gm/dL Hct 37.0 L (39.0-53.0) % MCV 102.2 H (80.0-100.0) fL MCHC (31.0-37.0) g/dL Plt Count 80 L (150-450) k/uL Neutrophils # (1.3-7.7) k/uL Neutrophils # (Manual) 23.70 H (1.3-7.7) k/uL Monocytes # (Manual) 1.37 H (0-1.0) k/uL Metamyelocytes # (Man) 0.27 H (0) k/uL ABG pH (7.35-7.45) ABG pCO2 (35-45) mmHg ABG pO2 (83-108) mmHg ABG HCO3 (21-25) mmol/L ABG O2 Saturation (94-97) % Sodium (137-145) mmol/L Potassium (3.5-5.1) mmol/L Chloride (98-107) mmol/L Carbon Dioxide (22-30) mmol/L BUN (9-20) mg/dL Creatinine (0.66-1.25) mg/dL Glucose (74-99) mg/dL POC Glucose (mg/dL) 141 H (75-99) mg/dL Hemoglobin A1c 9.6 H (4.0-6.0) % Calcium (8.4-10.2) mg/dL Phosphorus (2.5-4.5) mg/dL Total Bilirubin (0.2-1.3) mg/dL Alkaline Phosphatase (38-126) U/L Total Protein (6.3-8.2) g/dL Albumin (3.5-5.0) g/dL 07/13/1718 07/13/17 Range/Units 09:16 10:14 10:56 WBC (3.8-10.6) k/uL RBC (4.30-5.90) m/uL Hgb (13.0-17.5) gm/dL Hct (39.0-53.0) % MCV (80.0-100.0) fL MCHC (31.0-37.0) g/dL Plt Count (150-450) k/uL Neutrophils # (1.3-7.7) k/uL Neutrophils # (Manual) (1.3-7.7) k/uL Monocytes # (Manual) (0-1.0) k/uL Metamyelocytes # (Man) (0) k/uL ABG pH (7.35-7.45) ABG pCO2 (35-45) mmHg ABG pO2 (83-108) mmHg ABG HCO3 (21-25) mmol/L ABG O2 Saturation (94-97) % Sodium (137-145) mmol/L Potassium (3.5-5.1) mmol/L Chloride (98-107) mmol/L Carbon Dioxide (22-30) mmol/L BUN (9-20) mg/dL Creatinine (0.66-1.25) mg/dL Glucose (74-99) mg/dL POC Glucose (mg/dL) 118 H 123 H 146 H (75-99) mg/dL Hemoglobin A1c (4.0-6.0) % Calcium (8.4-10.2) mg/dL Phosphorus (2.5-4.5) mg/dL Total Bilirubin (0.2-1.3) mg/dL Alkaline Phosphatase (38-126) U/L Total Protein (6.3-8.2) g/dL Albumin (3.5-5.0) g/dL 07/13/17 07/13/17 07/13/17 Range/Units 12:18 13:02 14:08 WBC (3.8-10.6) k/uL RBC (4.30-5.90) m/uL Hgb (13.0-17.5) gm/dL Hct (39.0-53.0) % MCV (80.0-100.0) fL MCHC (31.0-37.0) g/dL Plt Count (150-450) k/uL Neutrophils # (1.3-7.7) k/uL Neutrophils # (Manual) (1.3-7.7) k/uL Monocytes # (Manual) (0-1.0) k/uL Metamyelocytes # (Man) (0) k/uL ABG pH (7.35-7.45) ABG pCO2 (35-45) mmHg ABG pO2 (83-108) mmHg ABG HCO3 (21-25) mmol/L ABG O2 Saturation (94-97) % Sodium (137-145) mmol/L Potassium (3.5-5.1) mmol/L Chloride (98-107) mmol/L Carbon Dioxide (22-30) mmol/L BUN (9-20) mg/dL Creatinine (0.66-1.25) mg/dL Glucose (74-99) mg/dL POC Glucose (mg/dL) 150 H 159 H 171 H (75-99) mg/dL Hemoglobin A1c (4.0-6.0) % Calcium (8.4-10.2) mg/dL Phosphorus (2.5-4.5) mg/dL Total Bilirubin (0.2-1.3) mg/dL Alkaline Phosphatase (38-126) U/L Total Protein (6.3-8.2) g/dL Albumin (3.5-5.0) g/dL 07/13/17 07/13/17 07/13/17 Range/Units 15:03 16:36 18:15 WBC (3.8-10.6) k/uL RBC (4.30-5.90) m/uL Hgb (13.0-17.5) gm/dL Hct (39.0-53.0) % MCV (80.0-100.0) fL MCHC (31.0-37.0) g/dL Plt Count (150-450) k/uL Neutrophils # (1.3-7.7) k/uL Neutrophils # (Manual) (1.3-7.7) k/uL Monocytes # (Manual) (0-1.0) k/uL Metamyelocytes # (Man) (0) k/uL ABG pH (7.35-7.45) ABG pCO2 (35-45) mmHg ABG pO2 (83-108) mmHg ABG HCO3 (21-25) mmol/L ABG O2 Saturation (94-97) % Sodium (137-145) mmol/L Potassium (3.5-5.1) mmol/L Chloride (98-107) mmol/L Carbon Dioxide (22-30) mmol/L BUN (9-20) mg/dL Creatinine (0.66-1.25) mg/dL Glucose (74-99) mg/dL POC Glucose (mg/dL) 157 H 148 H 155 H (75-99) mg/dL Hemoglobin A1c (4.0-6.0) % Calcium (8.4-10.2) mg/dL Phosphorus (2.5-4.5) mg/dL Total Bilirubin (0.2-1.3) mg/dL Alkaline Phosphatase (38-126) U/L Total Protein (6.3-8.2) g/dL Albumin (3.5-5.0) g/dL 07/13/17 07/13/17 07/13/17 Range/Units 18:57 20:06 21:06 WBC (3.8-10.6) k/uL RBC (4.30-5.90) m/uL Hgb (13.0-17.5) gm/dL Hct (39.0-53.0) % MCV (80.0-100.0) fL MCHC (31.0-37.0) g/dL Plt Count (150-450) k/uL Neutrophils # (1.3-7.7) k/uL Neutrophils # (Manual) (1.3-7.7) k/uL Monocytes # (Manual) (0-1.0) k/uL Metamyelocytes # (Man) (0) k/uL ABG pH (7.35-7.45) ABG pCO2 (35-45) mmHg ABG pO2 (83-108) mmHg ABG HCO3 (21-25) mmol/L ABG O2 Saturation (94-97) % Sodium (137-145) mmol/L Potassium (3.5-5.1) mmol/L Chloride (98-107) mmol/L Carbon Dioxide (22-30) mmol/L BUN (9-20) mg/dL Creatinine (0.66-1.25) mg/dL Glucose (74-99) mg/dL POC Glucose (mg/dL) 146 H 145 H 129 H (75-99) mg/dL Hemoglobin A1c (4.0-6.0) % Calcium (8.4-10.2) mg/dL Phosphorus (2.5-4.5) mg/dL Total Bilirubin (0.2-1.3) mg/dL Alkaline Phosphatase (38-126) U/L Total Protein (6.3-8.2) g/dL Albumin (3.5-5.0) g/dL 07/13/17 07/13/17 07/14/17 Range/Units 22:12 23:04 00:01 WBC (3.8-10.6) k/uL RBC (4.30-5.90) m/uL Hgb (13.0-17.5) gm/dL Hct (39.0-53.0) % MCV (80.0-100.0) fL MCHC (31.0-37.0) g/dL Plt Count (150-450) k/uL Neutrophils # (1.3-7.7) k/uL Neutrophils # (Manual) (1.3-7.7) k/uL Monocytes # (Manual) (0-1.0) k/uL Metamyelocytes # (Man) (0) k/uL ABG pH (7.35-7.45) ABG pCO2 (35-45) mmHg ABG pO2 (83-108) mmHg ABG HCO3 (21-25) mmol/L ABG O2 Saturation (94-97) % Sodium (137-145) mmol/L Potassium (3.5-5.1) mmol/L Chloride (98-107) mmol/L Carbon Dioxide (22-30) mmol/L BUN (9-20) mg/dL Creatinine (0.66-1.25) mg/dL Glucose (74-99) mg/dL POC Glucose (mg/dL) 156 H 158 H 168 H (75-99) mg/dL Hemoglobin A1c (4.0-6.0) % Calcium (8.4-10.2) mg/dL Phosphorus (2.5-4.5) mg/dL Total Bilirubin (0.2-1.3) mg/dL Alkaline Phosphatase (38-126) U/L Total Protein (6.3-8.2) g/dL Albumin (3.5-5.0) g/dL 07/14/17 07/14/17 07/14/17 Range/Units 01:13 02:14 03:00 WBC (3.8-10.6) k/uL RBC (4.30-5.90) m/uL Hgb (13.0-17.5) gm/dL Hct (39.0-53.0) % MCV (80.0-100.0) fL MCHC (31.0-37.0) g/dL Plt Count (150-450) k/uL Neutrophils # (1.3-7.7) k/uL Neutrophils # (Manual) (1.3-7.7) k/uL Monocytes # (Manual) (0-1.0) k/uL Metamyelocytes # (Man) (0) k/uL ABG pH (7.35-7.45) ABG pCO2 (35-45) mmHg ABG pO2 (83-108) mmHg ABG HCO3 (21-25) mmol/L ABG O2 Saturation (94-97) % Sodium (137-145) mmol/L Potassium (3.5-5.1) mmol/L Chloride (98-107) mmol/L Carbon Dioxide (22-30) mmol/L BUN (9-20) mg/dL Creatinine (0.66-1.25) mg/dL Glucose (74-99) mg/dL POC Glucose (mg/dL) 177 H 180 H 191 H (75-99) mg/dL Hemoglobin A1c (4.0-6.0) % Calcium (8.4-10.2) mg/dL Phosphorus (2.5-4.5) mg/dL Total Bilirubin (0.2-1.3) mg/dL Alkaline Phosphatase (38-126) U/L Total Protein (6.3-8.2) g/dL Albumin (3.5-5.0) g/dL 07/14/17 07/14/17 07/14/17 Range/Units 03:28 03:28 04:51 WBC 28.5 H* (3.8-10.6) k/uL RBC 3.78 L (4.30-5.90) m/uL Hgb 12.2 L (13.0-17.5) gm/dL Hct (39.0-53.0) % MCV 104.5 H (80.0-100.0) fL MCHC 30.8 L (31.0-37.0) g/dL Plt Count 70 L (150-450) k/uL Neutrophils # 26.5 H (1.3-7.7) k/uL Neutrophils # (Manual) (1.3-7.7) k/uL Monocytes # (Manual) (0-1.0) k/uL Metamyelocytes # (Man) (0) k/uL ABG pH (7.35-7.45) ABG pCO2 (35-45) mmHg ABG pO2 (83-108) mmHg ABG HCO3 (21-25) mmol/L ABG O2 Saturation (94-97) % Sodium 135 L (137-145) mmol/L Potassium 5.5 H (3.5-5.1) mmol/L Chloride 109 H (98-107) mmol/L Carbon Dioxide 16 L (22-30) mmol/L BUN 67 H (9-20) mg/dL Creatinine 1.90 H (0.66-1.25) mg/dL Glucose 205 H (74-99) mg/dL POC Glucose (mg/dL) 193 H (75-99) mg/dL Hemoglobin A1c (4.0-6.0) % Calcium 6.7 L (8.4-10.2) mg/dL Phosphorus 5.2 H (2.5-4.5) mg/dL Total Bilirubin 2.1 H (0.2-1.3) mg/dL Alkaline Phosphatase 157 H (38-126) U/L Total Protein 5.5 L (6.3-8.2) g/dL Albumin 2.0 L (3.5-5.0) g/dL 07/14/17 07/14/17 07/14/17 Range/Units 04:57 06:09 06:36 WBC (3.8-10.6) k/uL RBC (4.30-5.90) m/uL Hgb (13.0-17.5) gm/dL Hct (39.0-53.0) % MCV (80.0-100.0) fL MCHC (31.0-37.0) g/dL Plt Count (150-450) k/uL Neutrophils # (1.3-7.7) k/uL Neutrophils # (Manual) (1.3-7.7) k/uL Monocytes # (Manual) (0-1.0) k/uL Metamyelocytes # (Man) (0) k/uL ABG pH 7.21 L (7.35-7.45) ABG pCO2 46 H (35-45) mmHg ABG pO2 75 L (83-108) mmHg ABG HCO3 19 L (21-25) mmol/L ABG O2 Saturation 92.5 L (94-97) % Sodium (137-145) mmol/L Potassium (3.5-5.1) mmol/L Chloride (98-107) mmol/L Carbon Dioxide (22-30) mmol/L BUN (9-20) mg/dL Creatinine (0.66-1.25) mg/dL Glucose (74-99) mg/dL POC Glucose (mg/dL) 225 H 181 H (75-99) mg/dL Hemoglobin A1c (4.0-6.0) % Calcium (8.4-10.2) mg/dL Phosphorus (2.5-4.5) mg/dL Total Bilirubin (0.2-1.3) mg/dL Alkaline Phosphatase (38-126) U/L Total Protein (6.3-8.2) g/dL Albumin (3.5-5.0) g/dL Microbiology - Last 24 Hours (Table) 07/13/17 05:30 Blood Culture - Final Blood 07/12/17 18:20 Urine Culture - Final Urine,Catheterized 07/11/17 07:56 Gram Stain - Final Sputum Sputum Culture - Final Methicillin resist S. aureus Assessment and Plan (1) Hyperglycemia Current Visit: Yes Status: Acute Code(s): R73.9 - HYPERGLYCEMIA, UNSPECIFIED SNOMED Code(s): 77206370 (2) Pneumonia Current Visit: Yes Status: Acute Code(s): J18.9 - PNEUMONIA, UNSPECIFIED ORGANISM SNOMED Code(s): 325550862 (3) Respiratory distress Current Visit: Yes Status: Acute Code(s): R06.03 - ACUTE RESPIRATORY DISTRESS SNOMED Code(s): 494623104 (4) Sepsis Current Visit: Yes Status: Acute Code(s): A41.9 - SEPSIS, UNSPECIFIED ORGANISM SNOMED Code(s): 91220695 (5) Alcoholism /alcohol abuse Current Visit: No Status: Acute Code(s): F10.20 - ALCOHOL DEPENDENCE, UNCOMPLICATED SNOMED Code(s): 6436576 (6) Diabetes Current Visit: No Status: Acute Code(s): E11.9 - TYPE 2 DIABETES MELLITUS WITHOUT COMPLICATIONS SNOMED Code(s): 37835367 (7) Smoking Current Visit: No Status: Acute Code(s): F17.200 - NICOTINE DEPENDENCE, UNSPECIFIED, UNCOMPLICATED SNOMED Code(s): 80547050 Plan: Continue supportive care. Hopefully we can wean ET tube today. Check CBC and CMP with magnesium in a.m. Prognosis is guarded secondary to his overall comorbidities. Time with Patient: Less than 30
[2017-07-14] MEDS: BUDESONIDE 1 MG/2 ML NEBU INHALATION SCH ×2 (07:29→19:22)
[2017-07-14] MEDS: IPRATROPIUM-ALBUTEROL 3 ML NEB INHALATION SCH ×4 (07:29→19:22)
--- NOTE | 2017-07-14 07:36 | XR ---
EXAMINATION TYPE: XR chest 1V portable DATE OF EXAM: 07/14/2017 COMPARISON: Prior chest x-ray 07/13/2017 HISTORY: Intubated TECHNIQUE: Single frontal view of the chest is obtained. FINDINGS: Findings are similar. Endotracheal tube and NG tube are overlying appropriate positions. N o sizable pneumothorax. Increased density obscuring the right heart border and hemidiaphragm again no dana in the right hemithorax. Lung volumes are low. Patient is rotated. Patchy basilar density also no dana in the retrocardiac location. Heart is obscured but likely stable. There are overlying cardiac le ads. IMPRESSION: Correlate for pneumonia, possible parapneumonic effusion. Follow-up recommended.
[2017-07-14] MEDS ORDERED: FUROSEMIDE 10 MG/ML 4 ML VIAL IV ONE (08:00)
[2017-07-14] MEDS: DEXTROSE 5% IN WATER 1,000 ML with SODIUM BICARB (1 MEQ/ML) 150 ML IV SCH (08:30)
[2017-07-14] MEDS: ENOXAPARIN 40 MG/0.4 ML SYRINGE SQ SCH (08:34)
[2017-07-14] MEDS: CHLORHEXIDINE GLUCONATE 15 ML CUP MUCOUS MEM SCH ×2 (08:34→20:41)
[2017-07-14] MEDS: PANTOPRAZOLE 40 MG/10 ML VIAL IVP SCH (08:34)
[2017-07-14 09:05] LABS: Glucose,Whole Blood 184 mg/dL (75-99)
--- NOTE | 2017-07-14 09:55 | P.PN ---
Subjective Progress Note Date: 07/14/17 (Critical care time spent 45 minutes) Principal diagnosis: Acute hypoxic respiratory failure, bilateral aspiration pneumonia, MRSA bacteremia, uncontrolled diabetes and hyperglycemia, severe sepsis and septic shock, a stage III renal failure, profound metabolic acidosis with lactic acidosis acute bronchospasm and acute asthma exacerbation 07/14/2017, patient seen eval reexamined during the rounds and ICU he continued to require propofol drip unable to wean him from respirator patient has issues associated with oxygenation and extensive amount of secretions patient will likely require a bronchoscopy in addition to above also noted to have abdominal distention, patient has been tolerating tube feed fairly well however patient has noted to have developing leukocytosis lactic acid level has been stable the arterial blood gas and chemistry suggestive developing acidosis of unclear source would plan to do bronchoscopy for pulmonary toilet and getting good sample, we'll obtain a computed tomography scan of the chest abdominal and pelvis patient would need a central line to, labs reviewed medications reviewed , steroids has been initiated and continue vasopressors as needed, bicarb drip is been started further recommendations pending critical care time spent 45 minutes 07/13/2017, patient seen and evaluated examined during the rounds patient remains sedated with propofol drip currently patient is on 20 mics he has been started on tube feed which she is tolerating well he has been found to have MRSA in both his sputum as well as blood patient has been on IV vancomycin ID service is following and adjusting antibiotics, patient remains on assist control with a rate of 28 tidal volume of 500, PEEP of 5, 50% oxygen. Peak airway pressures on in low 20s, off note that patient gets agitated when propofol taper down, labs reviewed x-ray reviewed, patient continued to manifest leukocytosis, arterial blood gases are more stable with current vent setting renal functions remain stable, patient does have a history of significant alcohol consumption will keep him on respirator for another 24 hours start weaning tomorrow, on heavy sedation patient does require a small dose of levo fed, critical care time 40 minutes 7 PM spine nurse to evaluate this patient as he has more respiratory distress copious amount of secretions are present through the ET tube noted peak airway pressure on low 30s a stat chest x-rays performed, overall findings are stable no pneumothorax is seen it appears that patient is developing auto PEEP Will lower down the rate on ventilator, we will add IV steroids as well if patient remains stable consider doing CPAP and pressure support trial tomorrow 07/12/2017, patient seen eval reexamined in the ICU patient now has been more for emergency department hold to the ICU patient continued to be intermittently agitated requiring propofol drip, noted patient has gram-positive cocci in the blood likely MRSA patient already has been started on IV vancomycin, been setting remains stable on assist control rate of 20 breathing 23, tidal volume of 500, with 5 of PEEP and FiO2 is gradually date titrated down, labs reviewed x -ray reviewed patient has not been taken off of insulin drip as per DKA protocol and being started ICU protocol would continue antibiotics breathing treatments steroids, we'll start patient on tube feed nutrition has been consulted, patient is not ready for weaning at this point of time, patient noted to have intermittent episodes of hypertension but never did respond well with aggressive fluid resuscitation with crystalloid, for details please refer to the flowsheet, sputum is also positive for staph aureus so as the blood finally white cell count is down to 18,000 with stable hemoglobin RT blood gas continued to manifest severe and profound metabolic and respiratory acidosis but appears to have improved though hyponatremia and renal failure noted stage 3 -4 clearly related to acute tubular necrosis and the hypo-tension and hypoperfusion Mr. Rodolfo Hollis is a 56-year-old male with history of chronic persistent asthma and severe COPD this patient was recently hospitalized for acute COPD exacerbation and he was treated with breathing treatments steroids he improved significantly and subsequently was discharged to follow-up in outpatient setting homologue it has been noted that patient was somewhat reluctant to more aggressive intervention and has expressed his desire to be discharged earlier and to avoid nebulizer therapy and continue MDIs but later on he felt that nebulizer were helpful in last admission he prefers to use the nebulizer and expresses desire to use at home. Patient presented into the emergency department with chest wall pain related to rib fracture also increasing shortness of breath cough and wheezing patient also has a history of uncontrolled diabetes he has been on tapering doses of steroids as well as antibiotics, patient was in the emergency department awaiting ICU placement progressively developed altered mental status and increased lethargy noted to have acute hypercapnic hypoxic respiratory failure was intubated for airway protection, in addition to that patient was noted to have severe hyperglycemia sugar over 800 marked lactic acidosis Ammann patient was hypoxic to Make tachycardic and hypertensive on arrival, chest x-ray showed a new right lower lobe and right middle lobe pneumonia patient was treated with fluid resuscitation along with insulin drip and BiPAP eventually intubated. His white cell count was 39,000 he had severe hyponatremia and acute his stage III renal failure on my evaluation patient was hypertensive with blood pressure which was in the low 100 range drop down into 80s was on assist control rate of 20 breathing 25, 80% oxygen, 5 of PEEP, 500 tidal volume with insulin drip of 14 units an hour along with IV fluids 150 mL an hour with potassium patient was also started on 10 mics of propofol due to drop in blood pressure a liter of crystalloids were given as a bolus with that blood pressure came up into 100 range I recommended to give another 500 mL an hour for 2 hours and monitor urine output patient is being treated with Levaquin and Zosyn and vancomycin Objective - Vital Signs Vital signs: Vital Signs Temp 97.5 F L 07/14/17 08:00 Pulse 73 07/14/17 09:00 Resp 16 07/14/17 09:00 BP 110/61 07/14/17 09:00 Pulse Ox 93 L 07/14/17 09:00 Intake & Output 07/13/17 07/14/17 07/14/17 18:59 06:59 18:59 Intake Total 2397.611 1526.546 23.781 Output Total 700 580 45 Balance 1697.611 946.546 -21.219 Weight 108 kg Intake: IV 1800 960 10 Sodium Chloride 0.9% 1, 1800 960 10 000 ml @ 10 mls/hr IV . Q24H [facility] Rx#:[id number] Intake, IV Titration 363.611 246.546 13.781 Amount Insulin Regular 100 unit 27.174 43.426 13.781 In Sodium Chloride 0.9% 100 ml @ Per Protocol IV .Q0M [facility] Rx#:[id number] Norepinephrin 4 mg-0.9% 136.437 Ns Pmx 4 mg In 250 ml @ Titrate IV .Q0M [facility] Rx#: [id number] Propofol 1,000 mg In 200.000 203.12 Empty Bag 1 bag @ Titrate IV .Q0M [facility] Rx#: [id number] Tube Feeding 234 260 Other 60 Output: Urine 700 580 45 Other: Voiding Method Indwelling Catheter Indwelling Catheter - Exam Patient is well-developed and well-nourished. Patient is intubated sedated on ventilator ENT: Neck is soft and supple. No significant lymphadenopathy is noted. Oropharynx is clear. Moist mucous membranes. Neck has full range of motion without eliciting any pain. EYES: The sclera were anicteric and conjunctiva were pink and moist. Extraocular movements were intact and pupils were equal round and reactive to light. Eyelids were unremarkable. PULMONARY: Patient has inspiratory and expiratory wheezing with some decreased air movement in the right base with right basal bronchial breath sound CARDIOVASCULAR: There is a regular rate and rhythm without any murmurs gallops or rubs. ABDOMEN: Distended Soft and nontender with a proactive bowel sounds. No palpable organomegaly was noted. There is no palpable pulsatile mass. SKIN: Skin is clear with no lesions or rashes and otherwise unremarkable. NEUROLOGIC: Patient sedated on ventilator unable to assess. MUSCULOSKELETAL: Normal extremities with adequate strength and full range of motion. No lower extremity swelling or edema. No calf tenderness. LYMPHATICS: No significant lymphadenopathy is noted PSYCHIATRIC: Unable to assess however patient is anxious intermittently agitated requiring significant amount of propofol on ventilator - Labs CBC & Chem 7: 07/14/17 03:28 07/14/17 03:28 Labs: Abnormal Lab Results - Last 24 Hours (Table) 07/13/17 07/13/17 07/13/17 Range/Units 05:20 10:14 10:56 WBC (3.8-10.6) k/uL RBC (4.30-5.90) m/uL Hgb (13.0-17.5) gm/dL MCV (80.0-100.0) fL MCHC (31.0-37.0) g/dL Plt Count (150-450) k/uL Neutrophils # (1.3-7.7) k/uL ABG pH (7.35-7.45) ABG pCO2 (35-45) mmHg ABG pO2 (83-108) mmHg ABG HCO3 (21-25) mmol/L ABG O2 Saturation (94-97) % Sodium (137-145) mmol/L Potassium (3.5-5.1) mmol/L Chloride (98-107) mmol/L Carbon Dioxide (22-30) mmol/L BUN (9-20) mg/dL Creatinine (0.66-1.25) mg/dL Glucose (74-99) mg/dL POC Glucose (mg/dL) 123 H 146 H (75-99) mg/dL Hemoglobin A1c 9.6 H (4.0-6.0) % Calcium (8.4-10.2) mg/dL Phosphorus (2.5-4.5) mg/dL Total Bilirubin (0.2-1.3) mg/dL Alkaline Phosphatase (38-126) U/L Total Protein (6.3-8.2) g/dL Albumin (3.5-5.0) g/dL 07/13/17 07/13/17 07/13/17 Range/Units 12:18 13:02 14:08 WBC (3.8-10.6) k/uL RBC (4.30-5.90) m/uL Hgb (13.0-17.5) gm/dL MCV (80.0-100.0) fL MCHC (31.0-37.0) g/dL Plt Count (150-450) k/uL Neutrophils # (1.3-7.7) k/uL ABG pH (7.35-7.45) ABG pCO2 (35-45) mmHg ABG pO2 (83-108) mmHg ABG HCO3 (21-25) mmol/L ABG O2 Saturation (94-97) % Sodium (137-145) mmol/L Potassium (3.5-5.1) mmol/L Chloride (98-107) mmol/L Carbon Dioxide (22-30) mmol/L BUN (9-20) mg/dL Creatinine (0.66-1.25) mg/dL Glucose (74-99) mg/dL POC Glucose (mg/dL) 150 H 159 H 171 H (75-99) mg/dL Hemoglobin A1c (4.0-6.0) % Calcium (8.4-10.2) mg/dL Phosphorus (2.5-4.5) mg/dL Total Bilirubin (0.2-1.3) mg/dL Alkaline Phosphatase (38-126) U/L Total Protein (6.3-8.2) g/dL Albumin (3.5-5.0) g/dL 07/13/17 07/13/17 07/13/17 Range/Units 15:03 16:36 18:15 WBC (3.8-10.6) k/uL RBC (4.30-5.90) m/uL Hgb (13.0-17.5) gm/dL MCV (80.0-100.0) fL MCHC (31.0-37.0) g/dL Plt Count (150-450) k/uL Neutrophils # (1.3-7.7) k/uL ABG pH (7.35-7.45) ABG pCO2 (35-45) mmHg ABG pO2 (83-108) mmHg ABG HCO3 (21-25) mmol/L ABG O2 Saturation (94-97) % Sodium (137-145) mmol/L Potassium (3.5-5.1) mmol/L Chloride (98-107) mmol/L Carbon Dioxide (22-30) mmol/L BUN (9-20) mg/dL Creatinine (0.66-1.25) mg/dL Glucose (74-99) mg/dL POC Glucose (mg/dL) 157 H 148 H 155 H (75-99) mg/dL Hemoglobin A1c (4.0-6.0) % Calcium (8.4-10.2) mg/dL Phosphorus (2.5-4.5) mg/dL Total Bilirubin (0.2-1.3) mg/dL Alkaline Phosphatase (38-126) U/L Total Protein (6.3-8.2) g/dL Albumin (3.5-5.0) g/dL 07/13/17 07/13/17 07/13/17 Range/Units 18:57 20:06 21:06 WBC (3.8-10.6) k/uL RBC (4.30-5.90) m/uL Hgb (13.0-17.5) gm/dL MCV (80.0-100.0) fL MCHC (31.0-37.0) g/dL Plt Count (150-450) k/uL Neutrophils # (1.3-7.7) k/uL ABG pH (7.35-7.45) ABG pCO2 (35-45) mmHg ABG pO2 (83-108) mmHg ABG HCO3 (21-25) mmol/L ABG O2 Saturation (94-97) % Sodium (137-145) mmol/L Potassium (3.5-5.1) mmol/L Chloride (98-107) mmol/L Carbon Dioxide (22-30) mmol/L BUN (9-20) mg/dL Creatinine (0.66-1.25) mg/dL Glucose (74-99) mg/dL POC Glucose (mg/dL) 146 H 145 H 129 H (75-99) mg/dL Hemoglobin A1c (4.0-6.0) % Calcium (8.4-10.2) mg/dL Phosphorus (2.5-4.5) mg/dL Total Bilirubin (0.2-1.3) mg/dL Alkaline Phosphatase (38-126) U/L Total Protein (6.3-8.2) g/dL Albumin (3.5-5.0) g/dL 07/13/17 07/13/17 07/14/17 Range/Units 22:12 23:04 00:01 WBC (3.8-10.6) k/uL RBC (4.30-5.90) m/uL Hgb (13.0-17.5) gm/dL MCV (80.0-100.0) fL MCHC (31.0-37.0) g/dL Plt Count (150-450) k/uL Neutrophils # (1.3-7.7) k/uL ABG pH (7.35-7.45) ABG pCO2 (35-45) mmHg ABG pO2 (83-108) mmHg ABG HCO3 (21-25) mmol/L ABG O2 Saturation (94-97) % Sodium (137-145) mmol/L Potassium (3.5-5.1) mmol/L Chloride (98-107) mmol/L Carbon Dioxide (22-30) mmol/L BUN (9-20) mg/dL Creatinine (0.66-1.25) mg/dL Glucose (74-99) mg/dL POC Glucose (mg/dL) 156 H 158 H 168 H (75-99) mg/dL Hemoglobin A1c (4.0-6.0) % Calcium (8.4-10.2) mg/dL Phosphorus (2.5-4.5) mg/dL Total Bilirubin (0.2-1.3) mg/dL Alkaline Phosphatase (38-126) U/L Total Protein (6.3-8.2) g/dL Albumin (3.5-5.0) g/dL 07/14/17 07/14/17 07/14/17 Range/Units 01:13 02:14 03:00 WBC (3.8-10.6) k/uL RBC (4.30-5.90) m/uL Hgb (13.0-17.5) gm/dL MCV (80.0-100.0) fL MCHC (31.0-37.0) g/dL Plt Count (150-450) k/uL Neutrophils # (1.3-7.7) k/uL ABG pH (7.35-7.45) ABG pCO2 (35-45) mmHg ABG pO2 (83-108) mmHg ABG HCO3 (21-25) mmol/L ABG O2 Saturation (94-97) % Sodium (137-145) mmol/L Potassium (3.5-5.1) mmol/L Chloride (98-107) mmol/L Carbon Dioxide (22-30) mmol/L BUN (9-20) mg/dL Creatinine (0.66-1.25) mg/dL Glucose (74-99) mg/dL POC Glucose (mg/dL) 177 H 180 H 191 H (75-99) mg/dL Hemoglobin A1c (4.0-6.0) % Calcium (8.4-10.2) mg/dL Phosphorus (2.5-4.5) mg/dL Total Bilirubin (0.2-1.3) mg/dL Alkaline Phosphatase (38-126) U/L Total Protein (6.3-8.2) g/dL Albumin (3.5-5.0) g/dL 07/14/17 07/14/17 07/14/17 Range/Units 03:28 03:28 04:51 WBC 28.5 H* (3.8-10.6) k/uL RBC 3.78 L (4.30-5.90) m/uL Hgb 12.2 L (13.0-17.5) gm/dL MCV 104.5 H (80.0-100.0) fL MCHC 30.8 L (31.0-37.0) g/dL Plt Count 70 L (150-450) k/uL Neutrophils # 26.5 H (1.3-7.7) k/uL ABG pH (7.35-7.45) ABG pCO2 (35-45) mmHg ABG pO2 (83-108) mmHg ABG HCO3 (21-25) mmol/L ABG O2 Saturation (94-97) % Sodium 135 L (137-145) mmol/L Potassium 5.5 H (3.5-5.1) mmol/L Chloride 109 H (98-107) mmol/L Carbon Dioxide 16 L (22-30) mmol/L BUN 67 H (9-20) mg/dL Creatinine 1.90 H (0.66-1.25) mg/dL Glucose 205 H (74-99) mg/dL POC Glucose (mg/dL) 193 H (75-99) mg/dL Hemoglobin A1c (4.0-6.0) % Calcium 6.7 L (8.4-10.2) mg/dL Phosphorus 5.2 H (2.5-4.5) mg/dL Total Bilirubin 2.1 H (0.2-1.3) mg/dL Alkaline Phosphatase 157 H (38-126) U/L Total Protein 5.5 L (6.3-8.2) g/dL Albumin 2.0 L (3.5-5.0) g/dL 07/14/17 07/14/17 07/14/17 Range/Units 04:57 06:09 06:36 WBC (3.8-10.6) k/uL RBC (4.30-5.90) m/uL Hgb (13.0-17.5) gm/dL MCV (80.0-100.0) fL MCHC (31.0-37.0) g/dL Plt Count (150-450) k/uL Neutrophils # (1.3-7.7) k/uL ABG pH 7.21 L (7.35-7.45) ABG pCO2 46 H (35-45) mmHg ABG pO2 75 L (83-108) mmHg ABG HCO3 19 L (21-25) mmol/L ABG O2 Saturation 92.5 L (94-97) % Sodium (137-145) mmol/L Potassium (3.5-5.1) mmol/L Chloride (98-107) mmol/L Carbon Dioxide (22-30) mmol/L BUN (9-20) mg/dL Creatinine (0.66-1.25) mg/dL Glucose (74-99) mg/dL POC Glucose (mg/dL) 225 H 181 H (75-99) mg/dL Hemoglobin A1c (4.0-6.0) % Calcium (8.4-10.2) mg/dL Phosphorus (2.5-4.5) mg/dL Total Bilirubin (0.2-1.3) mg/dL Alkaline Phosphatase (38-126) U/L Total Protein (6.3-8.2) g/dL Albumin (3.5-5.0) g/dL 07/14/17 Range/Units 09:04 WBC (3.8-10.6) k/uL RBC (4.30-5.90) m/uL Hgb (13.0-17.5) gm/dL MCV (80.0-100.0) fL MCHC (31.0-37.0) g/dL Plt Count (150-450) k/uL Neutrophils # (1.3-7.7) k/uL ABG pH (7.35-7.45) ABG pCO2 (35-45) mmHg ABG pO2 (83-108) mmHg ABG HCO3 (21-25) mmol/L ABG O2 Saturation (94-97) % Sodium (137-145) mmol/L Potassium (3.5-5.1) mmol/L Chloride (98-107) mmol/L Carbon Dioxide (22-30) mmol/L BUN (9-20) mg/dL Creatinine (0.66-1.25) mg/dL Glucose (74-99) mg/dL POC Glucose (mg/dL) 184 H (75-99) mg/dL Hemoglobin A1c (4.0-6.0) % Calcium (8.4-10.2) mg/dL Phosphorus (2.5-4.5) mg/dL Total Bilirubin (0.2-1.3) mg/dL Alkaline Phosphatase (38-126) U/L Total Protein (6.3-8.2) g/dL Albumin (3.5-5.0) g/dL Microbiology - Last 24 Hours (Table) 07/13/17 05:20 Blood Culture - Preliminary Blood No Growth after 24 hours 07/13/17 05:30 Blood Culture - Final Blood 07/12/17 18:20 Urine Culture - Final Urine,Catheterized 07/11/17 07:56 Gram Stain - Final Sputum Sputum Culture - Final Methicillin resist S. aureus Assessment and Plan Assessment: MRSA pneumonia as well as bacteremia Acute hypoxic and hypercapnic respiratory failure Severe metabolic acidosis Severe sepsis and septic shock Right middle lobe and right lower lobe pneumonia likely mixed bacterial and/or or gram-negative may very well be aspiration related Uncontrolled hyperglycemia and diabetes Chronic persistent asthma with severe COPD and recent exacerbation of COPD Stage III acute renal failure History of the binge drinking Plan: Fluid resuscitation, not ready for weaning as noted above Broad-spectrum antibiotics Maintain patient on DVT and peptic ulcer disease prophylaxis Ventilator support with repeat x-ray and labs tomorrow titrate oxygen down as tolerated we'll repeat ABG tomorrow as well Given acute worsening of mental status appears to be likely related to hypercapnia and severe COPD and pneumonia with severe profound metabolic acidosis Insulin drip as per ICU protocol Further recommendations pending plan of care as per clinical response of the patient Patient appears to be volume depleted we'll continue to give fluid boluses as needed as per hemodynamic assessment and response Tube feed Infectious disease consultation as per choice of the family care provider Bronchoscopy Central line/arterial line Bicarb drip And later adjustment or tingling Critical care time spent 45 minutes Time with Patient: Greater than 30
[2017-07-14 10:06] LABS: Glucose,Whole Blood 197 mg/dL (75-99)
[2017-07-14] MEDS ORDERED: CISATRACURIUM 2 MG/ML 5 ML VIAL IV ONE (10:07)
--- NOTE | 2017-07-14 10:31 | P.PCN ---
Date of Procedure: 07/14/17 Preoperative Diagnosis: MRSA pneumonia, extensive mucus plugging Postoperative Diagnosis: Same as above Procedure(s) Performed: #1 bronchoscopy, #2 bronchoalveolar lavage right lower lobe and left lower lobe by 3 pulmonary toilet and complaining of airways Anesthesia: other Surgeon: Dayo Ali Condition: critical Disposition: ICU Indications for Procedure: Acute hypoxic respiratory failure with worsening hypoxia, extensive mucus plugging and pulmonary toilet, MRSA pneumonia and acute respiratory failure Operative Findings: As above and as below Description of Procedure: Ambu disposable bronched was utilized, patient already intubated with #8 endotracheal tube has been on full ventilator support ventilator adjusted to bring up the oxygen 100%, propofol is 50 mics bronchoscope was introduced through the #8 endotracheal tube was passed into the trachea tip of the endotracheal tube in stable position above the marcelo carinal margins were sharp extensive mucosal edema and erythema bilaterally has been noted along with extensive amount of mucus plugging and respiratory secretions BAL was performed from the right lower lobe as well as left lower lobe pulmonary toilet suctioning and cleaning was performed from the upper lobes as well inspection was done from right upper lobe middle lobe lower lobe along with subsegment followed by left upper lobe left lingula lobe and left lower lobe along with subsegment, patient tolerated the procedure well no complication noted except transient desaturation for which the scope was withdrawn for about 30 seconds and was reintroduced 1 saturation came up to 94% rest of the cleaning and suctioning was performed overall patient tolerated the procedure well no complication noted
[2017-07-14 12:17] LABS: Glucose,Whole Blood 181 mg/dL (75-99)
[2017-07-14 13:15] LABS: Glucose,Whole Blood 178 mg/dL (75-99)
[2017-07-14 13:40] LABS: Calcium 6.9 mg/dL (8.4-10.2)
[2017-07-14 13:46] LABS: Potassium 5.8 mmol/L (3.5-5.1)
[2017-07-14 14:18] LABS: Glucose,Whole Blood 207 mg/dL (75-99)
[2017-07-14] MEDS: INSULIN REGULAR 100 UNIT in SODIUM CHLORIDE 0.9% 100 ML IV SCH (14:22)
[2017-07-14] MEDS: LACTULOSE 20 GM/30 ML CUP PO SCH (14:26)
[2017-07-14 14:57] LABS: Glucose,Whole Blood 195 mg/dL (75-99)
[2017-07-14 16:11] LABS: Glucose,Whole Blood 168 mg/dL (75-99)
--- NOTE | 2017-07-14 17:00 | CT ---
EXAMINATION TYPE: CT ChestAbdPelvis wo con DATE OF EXAM: 07/14/2017 INDICATION: Abn CXR, abd distention COMPARISON: CT chest 06/29/2017 CT DLP: 2551 mGycm CONTRAST: Performed without Oral Contrast. No IV contrast. TECHNIQUE: Axial images at 5 mm thick sections. Reconstructed images in the coronal plane. Delayed images through the kidneys. FINDINGS: CT CHEST: Portion of the thyroid visualized is normal. There is a patchy infiltrate within the right middle lobe. Some cavitary lesions may be present. Cristino on artifact is present causing some limitation. There is some thickening through the left apex. Moder ate right pleural effusion is present. Findings a developing from 06/29/2017 No enlarged mediastinal or hilar adenopathy is evident. The ascending aorta diameter at the level of the main pulmonary artery is 3.3 cm. The main pulmonary artery diameter at the bifurcation is 2.[address] ABDOMEN: Ascites is present. Nasogastric tube tip is within the stomach. Liver: Normal Spleen: Normal Pancreas: Normal Adrenal glands: The adrenal glands are normal. Gallbladder: Distended. Kidneys: No masses are evident. No hydronephrosis is present. No cysts are present. Aorta: Mild Vascular calcification is within the aorta. Inferior vena cava: Normal. CT PELVIS: Large fecal bolus present at the rectum. Loops of bowel within the abdomen and pelvis are normal. Study is performed without oral contrast limiting evaluation of bowel loops. There are some mild diverticular change without acute diverticul itis of the descending colon and sigmoid colon. Appendix: Not identified. No suspicious inflammatory changes are evident. Urinary bladder: Decompressed the Smith catheter. Genitourinary structures: Prostate appears normal. Osseous structures: No suspicious lytic or sclerotic lesions. IMPRESSIONS: 1. Ascites. 2. Large right pleural effusion. 3. Patchy infiltrate within right middle lobe. Correlate for pneumonia. Some early cavitation may be present. Findings have developed from 06/29/2017 4. Large fecal bolus at the level the rectum.
[2017-07-14 17:25] LABS: Glucose,Whole Blood 170 mg/dL (75-99)
--- NOTE | 2017-07-14 18:48 | P.PCN ---
Date of Procedure: 07/14/17 Preoperative Diagnosis: Severe sepsis, septic shock, MRSA pneumonia and bacteremia Postoperative Diagnosis: As above Procedure(s) Performed: Right radial arterial line placement single-lumen Anesthesia: local Surgeon: Dayo Suarez Estimated Blood Loss (ml): 3 Condition: critical Disposition: ICU Indications for Procedure: As above Operative Findings: As below Description of Procedure: Patient prepared and draped in a usual fashion right wrist was prepared Deuce's procedure was performed using a modified Seldinger technique single-lumen catheter inserted into right radial artery without any difficulty single-lumen catheter was inserted secured with #3 silk connected with monitor good waveform obtained patient tolerated procedure well no complication noted
--- NOTE | 2017-07-14 18:50 | P.PCN ---
Date of Procedure: 07/14/17 Preoperative Diagnosis: Severe sepsis, septic shock, MRSA bacteremia and pneumonia Postoperative Diagnosis: As above Procedure(s) Performed: Central line placement Surgeon: Dayo Suarez Estimated Blood Loss (ml): 3 Disposition: ICU Indications for Procedure: Severe sepsis, septic shock, MRSA bacteremia and pneumonia Operative Findings: As below Description of Procedure: Patient prepared and draped in usual fashion using a modified Seldinger technique triple-lumen catheter inserted into the left internal jugular vein via anterior approach patient tolerated procedure well no complication noted all 3 ports are flushed and secured
--- NOTE | 2017-07-14 18:51 | XR ---
EXAMINATION TYPE: XR chest 1V portable DATE OF EXAM: 07/14/2017 COMPARISON: Prior chest x-ray same date earlier time HISTORY: Abnormal chest x-ray, intubated TECHNIQUE: Single frontal view of the chest is obtained. FINDINGS: Similar to prior exam there are extensive pleural parenchymal changes especially in the ri ght chest as compared to left. Endotracheal tube, NG tube, left jugular central venous catheter are a gain noted. Patchy basilar retrocardiac density also noted. Heart is stable. IMPRESSION: Correlate for pneumonia, right greater than left pleural effusion.
[2017-07-14 18:53] LABS: Glucose,Whole Blood 154 mg/dL (75-99)
--- NOTE | 2017-07-14 19:56 | CONS ---
CONSULTATION DATE OF CONSULTATION: 07/14/2017. REASON FOR CONSULTATION: Renal failure. HISTORY OF PRESENT ILLNESS: The patient is a 56-year-old male who was admitted to the hospital on 07/11/2017 with complaints of chest pain, not feeling well. He was found to have pneumonia and he developed worsening respiratory failure and was eventually intubated. His sputum was positive for MRSA. The patient is currently maintained on vancomycin. He remains on the vent. Serum creatinine is at 2.13, it was 1.3 mg/dL on initial admission and previously on 07/05/2017, it was at 0.68 mg/dL. The patient did have a CT of the abdomen, but it was without IV contrast. The patient has also been hypotensive and is maintained on Levophed. He currently has good urine output at about 60 to 30 mL an hour. PAST MEDICAL HISTORY: Asthma, COPD, type 2 diabetes, peripheral neuropathy, history of EtOH abuse and previous history of pneumonia. PAST SURGICAL HISTORY: Hernia repair, colonoscopy. MEDICATIONS: Prior to admission included Zestril, prednisone, amlodipine, insulin, Neurontin, Ventolin. ALLERGIES: None. REVIEW OF SYSTEMS: Cannot be obtained. EXAMINATION: Currently patient is sedated. He is on the vent, maintained on IV bicarb and Levophed IV antibiotics and Propofol. Blood pressure is 105/53, heart rate 71 per minute. He is afebrile. Heart, S1, S2. Examination lungs bilateral breath sounds are heard. Abdomen soft, distended. No bowel sounds are heard. Exam of lower extremities shows no significant edema. PRODUCT [employer]AF[employer]Y PROFESSIONAL exam cannot be performed. LABS: Sodium 136, potassium 5.8, chloride 110, CO2 of 16, BUN 75, serum creatinine 2.13, calcium was 6.9. ASSESSMENT: 1. Acute kidney injury secondary to hypotension and hypoperfusion, currently nonoliguric. No nephrotoxic agents on board. The patient is maintained on IV bicarb at 50 mL/hour, which we can continue. 2. Methicillin resistant Staph aureus pneumonia maintained on vancomycin. 3. Recent chronic obstructive pulmonary disease exacerbation and hospitalization, maintained on steroids. 4. Ventilator-dependent respiratory failure from pneumonia. 5. Hyperkalemia associated with acute kidney injury, possible underlying gastrointestinal bleed, however, hemoglobin is stable. We will continue to monitor for now. The patient had stayed on AGA inhibitors prior to admission, which are now discontinued. PLAN: 1. Continue the bicarb drip and can Lasix if urine output drops. This will also have help with the hyperkalemia. Repeat labs this evening and in the a.m., try to wean off pressors as tolerated. 2. Abdominal distention, status post CT, results of which are pending. 3. Status post bronchoscopy and bronchoalveolar lavage. The patient had extensive mucus plugging. Thank you for this consultation. We will continue to follow the patient with you during the hospitalization. MMODL / IJN: [id number] /
[2017-07-14 20:17] LABS: Glucose,Whole Blood 144 mg/dL (75-99)
[2017-07-14 21:20] LABS: Glucose,Whole Blood 179 mg/dL (75-99)
[2017-07-14 22:53] LABS: Glucose,Whole Blood 179 mg/dL (75-99)
[2017-07-15 00:03] LABS: Glucose,Whole Blood 178 mg/dL (75-99)
[2017-07-15 00:53] LABS: Glucose,Whole Blood 184 mg/dL (75-99)
[2017-07-15 02:10] LABS: Glucose,Whole Blood 182 mg/dL (75-99)
[2017-07-15 03:15] LABS: Glucose,Whole Blood 160 mg/dL (75-99)
[2017-07-15 04:21] LABS: Glucose,Whole Blood 148 mg/dL (75-99)
[2017-07-15] MEDS: NOREPINEPHRIN 4 MG-0.9% NS PMX 4 MG/250 ML ML IV SCH (04:21)
[2017-07-15] MEDS: INSULIN REGULAR 100 UNIT in SODIUM CHLORIDE 0.9% 100 ML IV SCH ×2 (04:21→21:03)
[2017-07-15 04:37] LABS: HCT 39.4 % (39.0-53.0); HGB 12.4 gm/dL (13.0-17.5); Hypochromasia Slight; MCH 32.3 pg (25.0-35.0); MCHC 31.5 g/dL (31.0-37.0); MCV 102.5 fL (80.0-100.0); Macrocytosis Slight; Mean Platelet Volume 8.1; RBC 3.84 m/uL (4.30-5.90); RDW 15.5 % (11.5-15.5)
[2017-07-15 04:41] LABS: Platelet Count 74 k/uL (150-450)
[2017-07-15 04:42] LABS: Calcium 7.1 mg/dL (8.4-10.2); Magnesium 2.1 mg/dL (1.6-2.3); Phosphorus 6.8 mg/dL (2.5-4.5); WBC 41.8 k/uL (3.8-10.6)
[2017-07-15 05:09] LABS: Glucose,Whole Blood 182 mg/dL (75-99)
[2017-07-15 05:30] LABS: ABG Base Excess -8.6 mmol/L; ABG HCO3 20 mmol/L (21-25); ABG Oxygen Saturation 94.6 % (94-97); ABG PCO2 52 mmHg (35-45); ABG PO2 81 mmHg (83-108); ABG TCO2 21 mmol/L (19-24)
[2017-07-15 05:40] LABS: ABG PH 7.19 (7.35-7.45)
[2017-07-15] MEDS: SODIUM CHLORIDE 0.9% 1,000 ML IV SCH (06:16)
[2017-07-15] MEDS: methylPREDNISolone SOD SUCCI 125 MG/2 ML VIAL IV SCH ×3 (06:17→17:07)
[2017-07-15] MEDS: METOCLOPRAMIDE 5 MG/ML 2 ML VIAL IVP SCH ×3 (06:19→17:07)
[2017-07-15 06:28] LABS: Band Neutrophils % 14 %; Lymphocytes # (M) 1.67 k/uL (1.0-4.8); Metamyelocytes # (M) 1.25 k/uL (0); Metamyelocytes % 3 %; Monocytes # (M) 1.67 k/uL (0-1.0); Myelocytes # (M) 0.42 k/uL (0); Myelocytes % 1 %; Neutrophils % (M) 76 %; Nucleated Red Blood Cells 0 /100 WBC (0-0); Polychromasia Present; Total Cells Counted 200
[2017-07-15 06:29] LABS: Poikilocytosis (M) Present
[2017-07-15 06:31] LABS: Anisocytosis (M) Present
[2017-07-15 06:57] LABS: Glucose,Whole Blood 142 mg/dL (75-99)
[2017-07-15] MEDS: DEXTROSE 5% IN WATER 1,000 ML with SODIUM BICARB (1 MEQ/ML) 150 ML IV SCH (06:58)
[2017-07-15] MEDS: BUDESONIDE 1 MG/2 ML NEBU INHALATION SCH ×2 (07:23→20:35)
[2017-07-15] MEDS: IPRATROPIUM-ALBUTEROL 3 ML NEB INHALATION SCH ×4 (07:23→20:35)
--- NOTE | 2017-07-15 08:40 | XR ---
EXAMINATION TYPE: XR chest 1V portable DATE OF EXAM: 07/15/2017 COMPARISON: 07/14/2017 HISTORY: Ventilatory dependent respiratory failure. TECHNIQUE: Single frontal view of the chest is obtained. FINDINGS: Endotracheal tube, enteric tube and left-sided central venous catheter are unchanged in po sition. Multifocal right-sided opacities and moderate right pleural effusion are redemonstrated simil ar to the prior exam. There is hypoventilatory change of the left lung with no focal consolidation or pleural effusion. No pneumothorax. Osseous structures are grossly intact. Cardiac silhouette is stab le and within normal limits. IMPRESSION: Stable exam from the prior of 07/14/2017 with moderate right pleural effusion and multifoc al right-sided opacities suspicious for multifocal pneumonia. Stable lines and tubes.
[2017-07-15 08:45] LABS: Glucose,Whole Blood 142 mg/dL (75-99)
--- NOTE | 2017-07-15 08:45 | P.PN ---
Subjective Progress Note Date: 07/14/17 Principal diagnosis: Respiratory failure 56-year-old male with history of COPD and alcoholism is had 2 recent visits to hospital. It is noted from the records that he did not have significant delirium tremens but was having difficulties with his COPD. The patient apparently had a rapid deterioration after his recent hospitalization reviewed became very confused and likely had hypoxic hypercapnic respiratory failure and required transport to hospital. He was given some breathing treatments and had some slight improvement but then had a marked worsening and required intubation with sedation and mechanical ventilation. The patient remains in intensive care unit in the infectious diseases consultation is requested given his Possible culture for MRSA and likely same pathogen in his sputum. The patient is intubated sedated and mechanically ventilated and all information comes from the chart and nursing staff. The patient is comfortable. A low dose of vasopressor only. Urine output is marginal but has improved. He had significant hyperglycemia at admission of 813 which is now improved with the insulin drip. Has done well with fluid resuscitation. With current sedation the patient is comfortable. Nursing relates no concerns to delirium tremens at this time. On 07/13/2017 the patient has little change of his status. He remains intubated sedated and mechanically ventilated and remains on vasopressor therapy fortunately low dose with adequate response. The patient is sedated. He's had significant amounts of copious secretions from his endotracheal tube required multiple bouts of suctioning has had difficulty with some mucous plugging also. He is currently very comfortable with current level of sedation 07/14/2017 patient underwent bronchoscopy today with suctioning of large amounts of mucus material and has had some improvement since. He however had a bout of hypothermia and concerns to worsening sepsis possibly in the basis of abdominal sepsis CT scan was performed and is having a disimpaction. His white blood cell count is improved but is having some thrombocytopenia. Patient remains intubated sedated and appears comfortable. Objective - Vital Signs Vital signs: Vital Signs Temp 96.4 F L 07/15/17 04:00 Pulse 86 07/15/17 08:00 Resp 24 07/15/17 07:00 BP 114/57 07/14/17 20:30 Pulse Ox 93 L 07/15/17 07:00 Intake & Output 07/14/17 07/15/17 07/15/17 18:59 06:59 18:59 Intake Total 8869.887 3721.692 240.125 Output Total 900 445 55 Balance 189.379 5108.692 185.125 Weight 108 kg 111.8 kg Intake: IV 120 1470 150 Dextrose 5% in Water 1, 550 50 000 ml @ 50 mls/hr IV . Q23H [facility] with Sodium Bicarb (1 Meq/ml) 150 ml Rx#:[id number] Sodium Chloride 0.9% 1, 120 920 100 000 ml @ 10 mls/hr IV . Q24H [facility] Rx#:[id number] Intake, IV Titration 887.569 590.692 64.125 Amount Dextrose 5% in Water 1, 500 50 000 ml @ 50 mls/hr IV . Q23H [facility] with Sodium Bicarb (1 Meq/ml) 150 ml Rx#:[id number] Insulin Regular 100 unit 67.769 90.692 In Sodium Chloride 0.9% 100 ml @ Per Protocol IV .Q0M [facility] Rx#:[id number] Norepinephrin 4 mg-0.9% 250 64.125 Ns Pmx 4 mg In 250 ml @ Titrate IV .Q0M [facility] Rx#: [id number] Piperacillin-Tazobactam 3 95.0 .375 gm In Dextrose/Water 1 50ml.bag @ 12.5 mls/hr IVPB Q8HR [facility] Rx#: [id number] Propofol 1,000 mg In 224.80 100 Empty Bag 1 bag @ Titrate IV .Q0M [facility] Rx#: [id number] Sodium Chloride 0.9% 1, 100 000 ml @ 100 mls/hr IV . Q10H [facility] Rx#:[id number] Tube Feeding 130 286 26 Other 90 Output: Gastric Drainage 400 Urine 500 445 55 Other: Voiding Method Indwelling Catheter Indwelling Catheter ABP, PAP, CO, CI - Last Documented Arterial Blood Pressure 101/45 - Exam Intubated sedated and mechanically ventilated HEENT: Anicteric conjunctiva with some thin exudate, no bleeding around the nasogastric tube oroendotracheal tube no thrush was noted Neck: The neck is supple without significant lymphadenopathy or thyromegaly. Lungs: Symmetrical air entry with coarse crackles to the bases bronchial sounds to the right base is noted Heart: Regular rate and rhythm with an audible S1-S2, no S3 positive S4 There is no significant murmur click or rub, PMI was nondisplaced. Abdomen: Positive bowel sounds soft nondistended without palpable masses or organomegaly. There was no rigidity Extremities: Upper and lower extremities have some generalized edema. More edema in the lower extremities. Peripheral pulses are palpable extremities are cool but not cold. No open ulcers are seen. Neuro: Patient is heavily sedated intubated and mechanically ventilated. - Labs CBC & Chem 7: 07/15/17 04:10 07/15/17 04:10 Labs: Abnormal Lab Results - Last 24 Hours (Table) 07/14/17 07/14/17 07/14/17 Range/Units 09:04 10:04 11:40 WBC (3.8-10.6) k/uL RBC (4.30-5.90) m/uL Hgb (13.0-17.5) gm/dL MCV (80.0-100.0) fL Plt Count (150-450) k/uL Neutrophils # (Manual) (1.3-7.7) k/uL Monocytes # (Manual) (0-1.0) k/uL Metamyelocytes # (Man) (0) k/uL Myelocytes # (Manual) (0) k/uL ABG pH (7.35-7.45) ABG pCO2 (35-45) mmHg ABG pO2 (83-108) mmHg ABG HCO3 (21-25) mmol/L ABG Lactic Acid (0.5-1.6) mmol/L Sodium 136 L (137-145) mmol/L Potassium 5.8 H (3.5-5.1) mmol/L Chloride 110 H (98-107) mmol/L Carbon Dioxide 16 L (22-30) mmol/L BUN 75 H (9-20) mg/dL Creatinine 2.13 H (0.66-1.25) mg/dL Glucose 180 H (74-99) mg/dL POC Glucose (mg/dL) 184 H 197 H (75-99) mg/dL Calcium 6.9 L (8.4-10.2) mg/dL Phosphorus (2.5-4.5) mg/dL 07/14/17 07/14/17 07/14/17 Range/Units 12:15 13:14 14:16 WBC (3.8-10.6) k/uL RBC (4.30-5.90) m/uL Hgb (13.0-17.5) gm/dL MCV (80.0-100.0) fL Plt Count (150-450) k/uL Neutrophils # (Manual) (1.3-7.7) k/uL Monocytes # (Manual) (0-1.0) k/uL Metamyelocytes # (Man) (0) k/uL Myelocytes # (Manual) (0) k/uL ABG pH (7.35-7.45) ABG pCO2 (35-45) mmHg ABG pO2 (83-108) mmHg ABG HCO3 (21-25) mmol/L ABG Lactic Acid (0.5-1.6) mmol/L Sodium (137-145) mmol/L Potassium (3.5-5.1) mmol/L Chloride (98-107) mmol/L Carbon Dioxide (22-30) mmol/L BUN (9-20) mg/dL Creatinine (0.66-1.25) mg/dL Glucose (74-99) mg/dL POC Glucose (mg/dL) 181 H 178 H 207 H (75-99) mg/dL Calcium (8.4-10.2) mg/dL Phosphorus (2.5-4.5) mg/dL 07/14/17 07/14/17 07/14/17 Range/Units 14:55 16:10 17:23 WBC (3.8-10.6) k/uL RBC (4.30-5.90) m/uL Hgb (13.0-17.5) gm/dL MCV (80.0-100.0) fL Plt Count (150-450) k/uL Neutrophils # (Manual) (1.3-7.7) k/uL Monocytes # (Manual) (0-1.0) k/uL Metamyelocytes # (Man) (0) k/uL Myelocytes # (Manual) (0) k/uL ABG pH (7.35-7.45) ABG pCO2 (35-45) mmHg ABG pO2 (83-108) mmHg ABG HCO3 (21-25) mmol/L ABG Lactic Acid (0.5-1.6) mmol/L Sodium (137-145) mmol/L Potassium (3.5-5.1) mmol/L Chloride (98-107) mmol/L Carbon Dioxide (22-30) mmol/L BUN (9-20) mg/dL Creatinine (0.66-1.25) mg/dL Glucose (74-99) mg/dL POC Glucose (mg/dL) 195 H 168 H 170 H (75-99) mg/dL Calcium (8.4-10.2) mg/dL Phosphorus (2.5-4.5) mg/dL 07/14/17 07/14/17 07/14/17 Range/Units 18:50 20:16 21:18 WBC (3.8-10.6) k/uL RBC (4.30-5.90) m/uL Hgb (13.0-17.5) gm/dL MCV (80.0-100.0) fL Plt Count (150-450) k/uL Neutrophils # (Manual) (1.3-7.7) k/uL Monocytes # (Manual) (0-1.0) k/uL Metamyelocytes # (Man) (0) k/uL Myelocytes # (Manual) (0) k/uL ABG pH (7.35-7.45) ABG pCO2 (35-45) mmHg ABG pO2 (83-108) mmHg ABG HCO3 (21-25) mmol/L ABG Lactic Acid (0.5-1.6) mmol/L Sodium (137-145) mmol/L Potassium (3.5-5.1) mmol/L Chloride (98-107) mmol/L Carbon Dioxide (22-30) mmol/L BUN (9-20) mg/dL Creatinine (0.66-1.25) mg/dL Glucose (74-99) mg/dL POC Glucose (mg/dL) 154 H 144 H 179 H (75-99) mg/dL Calcium (8.4-10.2) mg/dL Phosphorus (2.5-4.5) mg/dL 07/14/17 07/15/17 07/15/17 Range/Units 22:51 00:01 00:52 WBC (3.8-10.6) k/uL RBC (4.30-5.90) m/uL Hgb (13.0-17.5) gm/dL MCV (80.0-100.0) fL Plt Count (150-450) k/uL Neutrophils # (Manual) (1.3-7.7) k/uL Monocytes # (Manual) (0-1.0) k/uL Metamyelocytes # (Man) (0) k/uL Myelocytes # (Manual) (0) k/uL ABG pH (7.35-7.45) ABG pCO2 (35-45) mmHg ABG pO2 (83-108) mmHg ABG HCO3 (21-25) mmol/L ABG Lactic Acid (0.5-1.6) mmol/L Sodium (137-145) mmol/L Potassium (3.5-5.1) mmol/L Chloride (98-107) mmol/L Carbon Dioxide (22-30) mmol/L BUN (9-20) mg/dL Creatinine (0.66-1.25) mg/dL Glucose (74-99) mg/dL POC Glucose (mg/dL) 179 H 178 H 184 H (75-99) mg/dL Calcium (8.4-10.2) mg/dL Phosphorus (2.5-4.5) mg/dL 07/15/17 07/15/17 07/15/17 Range/Units 02:08 03:14 04:10 WBC (3.8-10.6) k/uL RBC (4.30-5.90) m/uL Hgb (13.0-17.5) gm/dL MCV (80.0-100.0) fL Plt Count (150-450) k/uL Neutrophils # (Manual) (1.3-7.7) k/uL Monocytes # (Manual) (0-1.0) k/uL Metamyelocytes # (Man) (0) k/uL Myelocytes # (Manual) (0) k/uL ABG pH (7.35-7.45) ABG pCO2 (35-45) mmHg ABG pO2 (83-108) mmHg ABG HCO3 (21-25) mmol/L ABG Lactic Acid (0.5-1.6) mmol/L Sodium (137-145) mmol/L Potassium (3.5-5.1) mmol/L Chloride (98-107) mmol/L Carbon Dioxide 18 L (22-30) mmol/L BUN 81 H* (9-20) mg/dL Creatinine 2.50 H (0.66-1.25) mg/dL Glucose 174 H (74-99) mg/dL POC Glucose (mg/dL) 182 H 160 H (75-99) mg/dL Calcium 7.1 L (8.4-10.2) mg/dL Phosphorus 6.8 H (2.5-4.5) mg/dL 18 07/15/17 07/15/17 Range/Units 04:10 04:10 04:19 WBC 41.8 H* (3.8-10.6) k/uL RBC 3.84 L (4.30-5.90) m/uL Hgb 12.4 L (13.0-17.5) gm/dL MCV 102.5 H (80.0-100.0) fL Plt Count 74 L (150-450) k/uL Neutrophils # (Manual) 37.60 H (1.3-7.7) k/uL Monocytes # (Manual) 1.67 H (0-1.0) k/uL Metamyelocytes # (Man) 1.25 H (0) k/uL Myelocytes # (Manual) 0.42 H (0) k/uL ABG pH (7.35-7.45) ABG pCO2 (35-45) mmHg ABG pO2 (83-108) mmHg ABG HCO3 (21-25) mmol/L ABG Lactic Acid 2.5 H* (0.5-1.6) mmol/L Sodium (137-145) mmol/L Potassium (3.5-5.1) mmol/L Chloride (98-107) mmol/L Carbon Dioxide (22-30) mmol/L BUN (9-20) mg/dL Creatinine (0.66-1.25) mg/dL Glucose (74-99) mg/dL POC Glucose (mg/dL) 148 H (75-99) mg/dL Calcium (8.4-10.2) mg/dL Phosphorus (2.5-4.5) mg/dL 07/15/17 07/15/17 07/15/17 Range/Units 05:08 05:27 06:56 WBC (3.8-10.6) k/uL RBC (4.30-5.90) m/uL Hgb (13.0-17.5) gm/dL MCV (80.0-100.0) fL Plt Count (150-450) k/uL Neutrophils # (Manual) (1.3-7.7) k/uL Monocytes # (Manual) (0-1.0) k/uL Metamyelocytes # (Man) (0) k/uL Myelocytes # (Manual) (0) k/uL ABG pH 7.19 L* (7.35-7.45) ABG pCO2 52 H (35-45) mmHg ABG pO2 81 L (83-108) mmHg ABG HCO3 20 L (21-25) mmol/L ABG Lactic Acid (0.5-1.6) mmol/L Sodium (137-145) mmol/L Potassium (3.5-5.1) mmol/L Chloride (98-107) mmol/L Carbon Dioxide (22-30) mmol/L BUN (9-20) mg/dL Creatinine (0.66-1.25) mg/dL Glucose (74-99) mg/dL POC Glucose (mg/dL) 182 H 142 H (75-99) mg/dL Calcium (8.4-10.2) mg/dL Phosphorus (2.5-4.5) mg/dL Microbiology - Last 24 Hours (Table) 07/13/17 05:20 Blood Culture - Preliminary Blood No Growth after 48 hours 07/13/17 05:30 Blood Culture Gram Stain - Preliminary Blood Blood Culture - Preliminary Presumptive MRSA 07/14/17 10:30 Acid Fast Bacilli Smear - Final Bronchoalviolar Lavage - Right Acid Fast Bacilli Culture - Preliminary 07/14/17 10:30 Gram Stain - Preliminary Bronchoalviolar Lavage - Right Bronchial Washings Culture - Preliminary 07/14/17 10:30 Fungal Culture - Preliminary Bronchoalviolar Lavage - Right Microbiology 07/13/17 05:20 Blood Blood Culture - Preliminary No Growth after 48 hours 07/13/17 05:30 Blood Blood Culture Gram Stain - Preliminary 07/13/17 05:30 Blood Blood Culture - Preliminary Presumptive MRSA 07/14/17 10:30 Bronchoalviolar Lavage - Right Acid Fast Bacilli Smear - Final 07/14/17 10:30 Bronchoalviolar Lavage - Right Acid Fast Bacilli Culture - Preliminary 07/14/17 10:30 Bronchoalviolar Lavage - Right Gram Stain - Preliminary 07/14/17 10:30 Bronchoalviolar Lavage - Right Bronchial Washings Culture - Preliminary 07/14/17 10:30 Bronchoalviolar Lavage - Right Fungal Culture - Preliminary 07/13/17 05:30 Blood Blood Culture - Final 07/12/17 18:20 Urine,Catheterized Urine Culture - Final 07/11/17 07:56 Sputum Gram Stain - Final 07/11/17 07:56 Sputum Sputum Culture - Final Methicillin resist S. aureus 07/11/17 01:00 Blood Blood Culture Gram Stain - Final 07/11/17 01:00 Blood Blood Culture - Final Methicillin resist S. aureus 07/11/17 01:00 Blood Blood Culture - Final Assessment and Plan (1) Acute and chronic respiratory failure with hypercapnia Current Visit: Yes Status: Acute Code(s): J96.22 - ACUTE AND CHRONIC RESPIRATORY FAILURE WITH HYPERCAPNIA SNOMED Code(s): 5083470900182 (2) MRSA pneumonia Narrative/Plan: 56-year-old male presents to the emergency center after 2 recent hospital stays with marked worsening of his status. He became more short of breath and confused. In the emergency center he developed respiratory failure and required intubation and sedation and mechanical ventilation. He was moved to intensive care unit. With evidence of bacteremia the infectious diseases consultation was requested. Patient appears to have evidence of MRSA bacteremia and pneumonia. Vancomycin will be continued at this point in time. Zosyn will be dose adjusted for his acute renal failure and will de-escalate antibiotic therapy pending further culture results. Patient is being closely monitored for delirium tremens however did not have evidence of that during his recent hospital stay. The patient has profound leukocytosis which appears to be in the basis of his current pneumonia and sepsis and recent steroid use. Patient also has evidence of acute renal failure and consequently vancomycin is being dosed by pharmacy and Zosyn was dose adjusted for his current creatinine clearance. Follow blood cultures requested to evaluate for clearance. If persistent blood cultures are noted would also benefit from echocardiogram. 07/13/2017 patient remains intubated sedated and mechanically ventilated but is showing at least some stability was status. There has been no worsening. If no other positive cultures tomorrow we'll then be able to de-escalate vancomycin monotherapy for his MRSA pneumonia and bacteremia the profound leukocytosis is now showing some improvement. They're related to urinary output is adequate. Acute renal failure is improving patient's prognosis remains guarded. July 14, 2017 patient remains intubated sedated and mechanically ventilated. He underwent bronchoscopy today with suctioning of large amounts material. The patient is medically stable. He's having ongoing leukocytosis with evidence of this extensive pneumonia. Only MRSA has been isolated from his sputum in his blood. Follow blood cultures are now negative at this point in time. He is developed osteopenia in the pursuing tazobactam is discontinued and we'll monitor his response of his platelets. No other gram negatives infections found at this point in time. Current Visit: Yes Status: Acute Code(s): J15.212 - PNEUMONIA DUE TO METHICILLIN RESISTANT STAPHYLOCOCCUS AUREUS SNOMED Code(s): 808558961472032 (3) MRSA bacteremia Current Visit: Yes Status: Acute Code(s): R78.81 - BACTEREMIA SNOMED Code( s): 78559012440383643 (4) Leukocytosis Current Visit: Yes Status: Acute Code(s): D72.829 - ELEVATED WHITE BLOOD CELL COUNT, UNSPECIFIED SNOMED Code(s): 726608723
[2017-07-15] MEDS: LACTULOSE 20 GM/30 ML CUP PO SCH (08:46)
[2017-07-15] MEDS: CHLORHEXIDINE GLUCONATE 15 ML CUP MUCOUS MEM SCH ×2 (08:46→21:03)
[2017-07-15] MEDS: PANTOPRAZOLE 40 MG/10 ML VIAL IVP SCH (08:46)
[2017-07-15] MEDS: NOREPINEPHRIN 16 MG-0.9%NS PMX 16 MG/250 ML ML IV SCH (08:47)
[2017-07-15] MEDS ORDERED: LACTULOSE 20 GM/30 ML CUP PO SCH (09:00)
[2017-07-15] MEDS ORDERED: FUROSEMIDE 10 MG/ML 4 ML VIAL IV SCH (09:00)
[2017-07-15] MEDS: ENOXAPARIN 40 MG/0.4 ML SYRINGE SQ SCH (09:45)
[2017-07-15] MEDS: SODIUM CHLORIDE 0.45% 1,000 ML with SODIUM BICARB (1 MEQ/ML) 100 ML IV SCH ×2 (10:38)
[2017-07-15 10:50] LABS: Glucose,Whole Blood 161 mg/dL (75-99)
--- NOTE | 2017-07-15 11:35 | P.PN ---
Subjective Progress Note Date: 07/15/17 [facility] is covering for Dr. Suarze Patient is being seen examined and evaluated today in the intensive care unit. Patient did undergo a bronchoscopy, central line placement and a line placement yesterday. Patient did have some ABGs this morning of pH of 7.19 pCO2 52 pO2 81 HCO3 was 20. Vent settings were changed. Currently the patient is on assist control mode with a respiratory rate of 20, tidal volume of 500, FiO2 60 % and PEEP of 5. He is in seek with mechanical ventilation. He continues on propofol, insulin, levophed @ 3 mics, D5 with 3 Amps of bicarb at 50ml/hr, as well as 0.9 NS @ 100/hr. Patient's x-ray from this morning was reviewed and shows a stable exam with a moderate right pleural effusion and multifocal pneumonia. Lines and tubes are also stable. Nursing staff will be doing a sedation holiday in assessing the patient's ability to follow directions and mentation. No weaning from the vent today. Infectious disease and nephrology also on consult. Objective - Vital Signs Vital signs: Vital Signs Temp 98.0 F 07/15/17 08:00 Pulse 90 07/15/17 11:16 Resp 17 07/15/17 10:00 BP 114/57 07/14/17 20:30 Pulse Ox 94 L 07/15/17 10:00 Intake & Output 07/14/17 07/15/17 07/15/17 18:59 06:59 18:59 Intake Total 3891.856 8432.692 892.658 Output Total 900 445 135 Balance 280.482 7877.692 757.658 Weight 108 kg 111.8 kg Intake: IV 120 1470 450 Dextrose 5% in Water 1, 550 150 000 ml @ 50 mls/hr IV . Q23H [facility] with Sodium Bicarb (1 Meq/ml) 150 ml Rx#:[id number] Sodium Chloride 0.9% 1, 120 920 300 000 ml @ 10 mls/hr IV . Q24H [facility] Rx#:[id number] Intake, IV Titration 887.569 590.692 187.658 Amount Dextrose 5% in Water 1, 500 50 000 ml @ 50 mls/hr IV . Q23H [facility] with Sodium Bicarb (1 Meq/ml) 150 ml Rx#:[id number] Insulin Regular 100 unit 67.769 90.692 23.533 In Sodium Chloride 0.9% 100 ml @ Per Protocol IV .Q0M [facility] Rx#:[id number] Norepinephrin 4 mg-0.9% 250 64.125 Ns Pmx 4 mg In 250 ml @ Titrate IV .Q0M [facility] Rx#: [id number] Piperacillin-Tazobactam 3 95.0 .375 gm In Dextrose/Water 1 50ml.bag @ 12.5 mls/hr IVPB Q8HR [facility] Rx#: [id number] Propofol 1,000 mg In 224.80 100 100 Empty Bag 1 bag @ Titrate IV .Q0M [facility] Rx#: [id number] Sodium Chloride 0.9% 1, 100 000 ml @ 100 mls/hr IV . Q10H [facility] Rx#:[id number] Oral 95 Tube Feeding 130 286 130 Other 90 30 Output: Gastric Drainage 400 Urine 500 445 135 Other: Voiding Method Indwelling Catheter Indwelling Catheter Indwelling Catheter ABP, PAP, CO, CI - Last Documented Arterial Blood Pressure 115/50 - Exam GENERAL EXAM: Currently sedated on propofol, on mechanical ventilation HEAD: Normocephalic. EYES: Normal reaction of pupils, equal size. NECK: No masses, no JVD. CHEST: No chest wall deformity. LUNGS: Patient noted to be coarse throughout with inspiratory and expiratory wheezes, bilateral decreased bases. CVS: S1 and S2 normal with no audible mumurs, regular rhythm. ABDOMEN: No hepatosplenomegaly, normal bowel sounds, no guarding or rigidity. EXTREMITIES: No edema noted, pedal pulses palpable. CENTRAL NERVOUS SYSTEM: Currently sedated on mechanical ventilation - Labs CBC & Chem 7: 07/15/17 04:10 07/15/17 04:10 Labs: Abnormal Lab Results - Last 24 Hours (Table) 07/14/17 07/14/17 07/14/17 Range/Units 11:40 12:15 13:14 WBC (3.8-10.6) k/uL RBC (4.30-5.90) m/uL Hgb (13.0-17.5) gm/dL MCV (80.0-100.0) fL Plt Count (150-450) k/uL Neutrophils # (Manual) (1.3-7.7) k/uL Monocytes # (Manual) (0-1.0) k/uL Metamyelocytes # (Man) (0) k/uL Myelocytes # (Manual) (0) k/uL ABG pH (7.35-7.45) ABG pCO2 (35-45) mmHg ABG pO2 (83-108) mmHg ABG HCO3 (21-25) mmol/L ABG Lactic Acid (0.5-1.6) mmol/L Sodium 136 L (137-145) mmol/L Potassium 5.8 H (3.5-5.1) mmol/L Chloride 110 H (98-107) mmol/L Carbon Dioxide 16 L (22-30) mmol/L BUN 75 H (9-20) mg/dL Creatinine 2.13 H (0.66-1.25) mg/dL Glucose 180 H (74-99) mg/dL POC Glucose (mg/dL) 181 H 178 H (75-99) mg/dL Calcium 6.9 L (8.4-10.2) mg/dL Phosphorus (2.5-4.5) mg/dL 07/14/17 07/14/17 07/14/17 Range/Units 14:16 14:55 16:10 WBC (3.8-10.6) k/uL RBC (4.30-5.90) m/uL Hgb (13.0-17.5) gm/dL MCV (80.0-100.0) fL Plt Count (150-450) k/uL Neutrophils # (Manual) (1.3-7.7) k/uL Monocytes # (Manual) (0-1.0) k/uL Metamyelocytes # (Man) (0) k/uL Myelocytes # (Manual) (0) k/uL ABG pH (7.35-7.45) ABG pCO2 (35-45) mmHg ABG pO2 (83-108) mmHg ABG HCO3 (21-25) mmol/L ABG Lactic Acid (0.5-1.6) mmol/L Sodium (137-145) mmol/L Potassium (3.5-5.1) mmol/L Chloride (98-107) mmol/L Carbon Dioxide (22-30) mmol/L BUN (9-20) mg/dL Creatinine (0.66-1.25) mg/dL Glucose (74-99) mg/dL POC Glucose (mg/dL) 207 H 195 H 168 H (75-99) mg/dL Calcium (8.4-10.2) mg/dL Phosphorus (2.5-4.5) mg/dL 07/14/17 07/14/17 07/14/17 Range/Units 17:23 18:50 20:16 WBC (3.8-10.6) k/uL RBC (4.30-5.90) m/uL Hgb (13.0-17.5) gm/dL MCV (80.0-100.0) fL Plt Count (150-450) k/uL Neutrophils # (Manual) (1.3-7.7) k/uL Monocytes # (Manual) (0-1.0) k/uL Metamyelocytes # (Man) (0) k/uL Myelocytes # (Manual) (0) k/uL ABG pH (7.35-7.45) ABG pCO2 (35-45) mmHg ABG pO2 (83-108) mmHg ABG HCO3 (21-25) mmol/L ABG Lactic Acid (0.5-1.6) mmol/L Sodium (137-145) mmol/L Potassium (3.5-5.1) mmol/L Chloride (98-107) mmol/L Carbon Dioxide (22-30) mmol/L BUN (9-20) mg/dL Creatinine (0.66-1.25) mg/dL Glucose (74-99) mg/dL POC Glucose (mg/dL) 170 H 154 H 144 H (75-99) mg/dL Calcium (8.4-10.2) mg/dL Phosphorus (2.5-4.5) mg/dL 07/14/17 07/14/17 07/15/17 Range/Units 21:18 22:51 00:01 WBC (3.8-10.6) k/uL RBC (4.30-5.90) m/uL Hgb (13.0-17.5) gm/dL MCV (80.0-100.0) fL Plt Count (150-450) k/uL Neutrophils # (Manual) (1.3-7.7) k/uL Monocytes # (Manual) (0-1.0) k/uL Metamyelocytes # (Man) (0) k/uL Myelocytes # (Manual) (0) k/uL ABG pH (7.35-7.45) ABG pCO2 (35-45) mmHg ABG pO2 (83-108) mmHg ABG HCO3 (21-25) mmol/L ABG Lactic Acid (0.5-1.6) mmol/L Sodium (137-145) mmol/L Potassium (3.5-5.1) mmol/L Chloride (98-107) mmol/L Carbon Dioxide (22-30) mmol/L BUN (9-20) mg/dL Creatinine (0.66-1.25) mg/dL Glucose (74-99) mg/dL POC Glucose (mg/dL) 179 H 179 H 178 H (75-99) mg/dL Calcium (8.4-10.2) mg/dL Phosphorus (2.5-4.5) mg/dL 07/15/17 07/15/17 07/15/17 Range/Units 00:52 02:08 03:14 WBC (3.8-10.6) k/uL RBC (4.30-5.90) m/uL Hgb (13.0-17.5) gm/dL MCV (80.0-100.0) fL Plt Count (150-450) k/uL Neutrophils # (Manual) (1.3-7.7) k/uL Monocytes # (Manual) (0-1.0) k/uL Metamyelocytes # (Man) (0) k/uL Myelocytes # (Manual) (0) k/uL ABG pH (7.35-7.45) ABG pCO2 (35-45) mmHg ABG pO2 (83-108) mmHg ABG HCO3 (21-25) mmol/L ABG Lactic Acid (0.5-1.6) mmol/L Sodium (137-145) mmol/L Potassium (3.5-5.1) mmol/L Chloride (98-107) mmol/L Carbon Dioxide (22-30) mmol/L BUN (9-20) mg/dL Creatinine (0.66-1.25) mg/dL Glucose (74-99) mg/dL POC Glucose (mg/dL) 184 H 182 H 160 H (75-99) mg/dL Calcium (8.4-10.2) mg/dL Phosphorus (2.5-4.5) mg/dL 07/15/17 07/15/17 07/15/17 Range/Units 04:10 04:10 04:10 WBC 41.8 H* (3.8-10.6) k/uL RBC 3.84 L (4.30-5.90) m/uL Hgb 12.4 L (13.0-17.5) gm/dL MCV 102.5 H (80.0-100.0) fL Plt Count 74 L (150-450) k/uL Neutrophils # (Manual) 37.60 H (1.3-7.7) k/uL Monocytes # (Manual) 1.67 H (0-1.0) k/uL Metamyelocytes # (Man) 1.25 H (0) k/uL Myelocytes # (Manual) 0.42 H (0) k/uL ABG pH (7.35-7.45) ABG pCO2 (35-45) mmHg ABG pO2 (83-108) mmHg ABG HCO3 (21-25) mmol/L ABG Lactic Acid 2.5 H* (0.5-1.6) mmol/L Sodium (137-145) mmol/L Potassium (3.5-5.1) mmol/L Chloride (98-107) mmol/L Carbon Dioxide 18 L (22-30) mmol/L BUN 81 H* (9-20) mg/dL Creatinine 2.50 H (0.66-1.25) mg/dL Glucose 174 H (74-99) mg/dL POC Glucose (mg/dL) (75-99) mg/dL Calcium 7.1 L (8.4-10.2) mg/dL Phosphorus 6.8 H (2.5-4.5) mg/dL 07/15/17 07/15/17 07/15/17 Range/Units 04:19 05:08 05:27 WBC (3.8-10.6) k/uL RBC (4.30-5.90) m/uL Hgb (13.0-17.5) gm/dL MCV (80.0-100.0) fL Plt Count (150-450) k/uL Neutrophils # (Manual) (1.3-7.7) k/uL Monocytes # (Manual) (0-1.0) k/uL Metamyelocytes # (Man) (0) k/uL Myelocytes # (Manual) (0) k/uL ABG pH 7.19 L* (7.35-7.45) ABG pCO2 52 H (35-45) mmHg ABG pO2 81 L (83-108) mmHg ABG HCO3 20 L (21-25) mmol/L ABG Lactic Acid (0.5-1.6) mmol/L Sodium (137-145) mmol/L Potassium (3.5-5.1) mmol/L Chloride (98-107) mmol/L Carbon Dioxide (22-30) mmol/L BUN (9-20) mg/dL Creatinine (0.66-1.25) mg/dL Glucose (74-99) mg/dL POC Glucose (mg/dL) 148 H 182 H (75-99) mg/dL Calcium (8.4-10.2) mg/dL Phosphorus (2.5-4.5) mg/dL 07/15/17 07/15/17 07/15/17 Range/Units 06:56 08:43 10:49 WBC (3.8-10.6) k/uL RBC (4.30-5.90) m/uL Hgb (13.0-17.5) gm/dL MCV (80.0-100.0) fL Plt Count (150-450) k/uL Neutrophils # (Manual) (1.3-7.7) k/uL Monocytes # (Manual) (0-1.0) k/uL Metamyelocytes # (Man) (0) k/uL Myelocytes # (Manual) (0) k/uL ABG pH (7.35-7.45) ABG pCO2 (35-45) mmHg ABG pO2 (83-108) mmHg ABG HCO3 (21-25) mmol/L ABG Lactic Acid (0.5-1.6) mmol/L Sodium (137-145) mmol/L Potassium (3.5-5.1) mmol/L Chloride (98-107) mmol/L Carbon Dioxide (22-30) mmol/L BUN (9-20) mg/dL Creatinine (0.66-1.25) mg/dL Glucose (74-99) mg/dL POC Glucose (mg/dL) 142 H 142 H 161 H (75-99) mg/dL Calcium (8.4-10.2) mg/dL Phosphorus (2.5-4.5) mg/dL Microbiology - Last 24 Hours (Table) 07/13/17 05:20 Blood Culture - Preliminary Blood No Growth after 48 hours 07/13/17 05:30 Blood Culture Gram Stain - Preliminary Blood Blood Culture - Preliminary Presumptive MRSA 07/14/17 10:30 Acid Fast Bacilli Smear - Final Bronchoalviolar Lavage - Right Acid Fast Bacilli Culture - Preliminary 07/14/17 10:30 Gram Stain - Preliminary Bronchoalviolar Lavage - Right Bronchial Washings Culture - Preliminary 07/14/17 10:30 Fungal Culture - Preliminary Bronchoalviolar Lavage - Right Assessment and Plan Assessment: Assessment MRSA pneumonia as well as bacteremia Acute hypoxic and hypercapnic respiratory failure Severe sepsis and septic shock Right middle lobe and right lower lobe pneumonia likely mixed bacterial and/or or gram-negative may very well be aspiration related Uncontrolled hyperglycemia and diabetes Chronic persistent asthma with severe COPD and recent exacerbation of COPD Stage III acute renal failure History of the binge drinking Plan Patient remained in the intensive care unit Sedation holiday to assess patient's mentation Fluid resuscitation, Broad-spectrum antibiotics Maintain patient on DVT and peptic ulcer disease prophylaxis Ventilator support with repeat x-ray and labs tomorrow titrate oxygen down as tolerated we'll repeat ABG tomorrow as well Given acute worsening of mental status appears to be likely related to hypercapnia and severe COPD and pneumonia with severe profound metabolic acidosis Insulin drip as per ICU protocol Further recommendations pending plan of care as per clinical response of the patient Patient appears to be volume depleted we'll continue to give fluid boluses as needed as per hemodynamic assessment and response Tube feed Infectious disease consultation We are covering for Dr. Suarez I performed an examination of the patient and discussed their management with the nurse practitioner. I have reviewed the nurse practitioner's note and agree with the documented findings and plan of care.
[2017-07-15] MEDS: PROPOFOL 1,000 MG in EMPTY BAG 1 BAG IV SCH ×2 (12:51→18:22)
[2017-07-15 12:56] LABS: Glucose,Whole Blood 130 mg/dL (75-99)
[2017-07-15 13:54] LABS: Glucose,Whole Blood 142 mg/dL (75-99)
[2017-07-15 14:34] LABS: Glucose,Whole Blood 143 mg/dL (75-99)
--- NOTE | 2017-07-15 14:51 | PN ---
PROGRESS NOTE Patient is seen for followup for acute kidney injury secondary to hypotension, hypoperfusion and sepsis. Patient has MRSA pneumonia and he is currently on the vent. He is maintained on IV fluids with saline at 100 mL/hour and D5W with at 50 mL/hour. His urine output has been at about 30 to 60 mL/hour. Yesterday patient had bronchoscopy, and a lot of thick secretions were suctioned. Following the procedure, FiO2 was increased to 60%. On examination today, patient remains sedated. He is on the vent. FiO2 is at 60%. Blood pressure is 114/51, heart rate 88 per minute. He remains on Levophed at about 3 mcg. EXAMINATION OF THE HEART: S1, S2. EXAMINATION OF LUNGS: Bilateral breath sounds are heard. ABDOMEN: Soft, non-tender, distended. Examination of lower extremities shows no significant edema. [employer] exam cannot be performed. Labs show sodium 138, potassium 5.0. CO2 was 18, BUN 81, serum creatinine 2.5, hemoglobin at 12.4 g/dL, white cell count 41.8. ASSESSMENT: 1. Acute kidney injury, acute tubular necrosis, non-oliguric, secondary to sepsis, hypotension, hypoperfusion. I will decrease the IV fluids, as patient is in positive fluid balance with increased oxygen requirement. There are no nephrotoxic agents on board. 2. Non-gap metabolic acidosis secondary to renal failure, maintained on IV bicarb. 3. Hyperphosphatemia from renal failure. Will add Tums down the feeding tube and switch feeding to Nepro. 4. Lactic acidosis from sepsis. 5. Methicillin-resistant Staphylococcus aeruginosa pneumonia, currently on the vent, currently with vent-dependent respiratory failure. PLAN: Change IV fluids to half-normal saline with 100 mEq of bicarb at 70 mL/hour. Discontinue normal saline and discontinue the other bicarb drip. Repeat labs in a.m. Also monitor vancomycin levels closely. MMODL / IJN: [id number] /
[2017-07-15 15:23] LABS: Glucose,Whole Blood 151 mg/dL (75-99)
[2017-07-15 16:18] LABS: Glucose,Whole Blood 133 mg/dL (75-99)
[2017-07-15] MEDS: VANCOMYCIN 1,750 MG in SODIUM CHLORIDE 0.9% 250 ML IVPB SCH (17:07)
[2017-07-15 17:09] LABS: Glucose,Whole Blood 173 mg/dL (75-99)
[2017-07-15 17:32] LABS: Glucose,Whole Blood 160 mg/dL (75-99)
[2017-07-15 18:18] LABS: Glucose,Whole Blood 191 mg/dL (75-99)
[2017-07-15 19:28] LABS: Glucose,Whole Blood 163 mg/dL (75-99)
[2017-07-15] MEDS: DOCUSATE ORAL SOLN 100 MG/10 ML CUP PO SCH (21:03)
[2017-07-15 22:09] LABS: Glucose,Whole Blood 154 mg/dL (75-99)
[2017-07-15 22:22] LABS: HCT 35.8 % (39.0-53.0); HGB 11.9 gm/dL (13.0-17.5); MCH 33.5 pg (25.0-35.0); MCHC 33.2 g/dL (31.0-37.0); MCV 100.8 fL (80.0-100.0); Macrocytosis Slight; Mean Platelet Volume 8.3; RBC 3.56 m/uL (4.30-5.90); RDW 15.4 % (11.5-15.5)
[2017-07-15 22:24] LABS: Platelet Count 52 k/uL (150-450)
[2017-07-15 22:25] LABS: WBC 31.2 k/uL (3.8-10.6)
--- NOTE | 2017-07-15 23:00 | P.PN ---
Subjective Progress Note Date: 07/15/17 Principal diagnosis: Respiratory failure 56-year-old male with history of COPD and alcoholism is had 2 recent visits to hospital. It is noted from the records that he did not have significant delirium tremens but was having difficulties with his COPD. The patient apparently had a rapid deterioration after his recent hospitalization reviewed became very confused and likely had hypoxic hypercapnic respiratory failure and required transport to hospital. He was given some breathing treatments and had some slight improvement but then had a marked worsening and required intubation with sedation and mechanical ventilation. The patient remains in intensive care unit in the infectious diseases consultation is requested given his Possible culture for MRSA and likely same pathogen in his sputum. The patient is intubated sedated and mechanically ventilated and all information comes from the chart and nursing staff. The patient is comfortable. A low dose of vasopressor only. Urine output is marginal but has improved. He had significant hyperglycemia at admission of 813 which is now improved with the insulin drip. Has done well with fluid resuscitation. With current sedation the patient is comfortable. Nursing relates no concerns to delirium tremens at this time. On 07/13/2017 the patient has little change of his status. He remains intubated sedated and mechanically ventilated and remains on vasopressor therapy fortunately low dose with adequate response. The patient is sedated. He's had significant amounts of copious secretions from his endotracheal tube required multiple bouts of suctioning has had difficulty with some mucous plugging also. He is currently very comfortable with current level of sedation 07/14/2017 patient underwent bronchoscopy today with suctioning of large amounts of mucus material and has had some improvement since. He however had a bout of hypothermia and concerns to worsening sepsis possibly in the basis of abdominal sepsis CT scan was performed and is having a disimpaction. His white blood cell count is improved but is having some thrombocytopenia. Patient remains intubated sedated and appears comfortable. 07/15/2017 the patient is more stable today. He is no longer hypothermic and is on a decreased dose of vasopressor. He seems to be comfortable. Remains intubated sedated and mechanically ventilated. Cultures from the bronchoscopy from yesterday are pending gram-positive cocci are again seen. No evidence of gram-negative infection at this time. The patient is have his ongoing significant sepsis from his MRSA pneumonia and bacteremia. Seriousness of his infection is related to his family member who was present. Objective - Vital Signs Vital signs: Vital Signs Temp 97.6 F 07/15/17 16:00 Pulse 76 07/15/17 20:30 Resp 33 H 07/15/17 19:00 BP 114/57 07/14/17 20:30 Pulse Ox 92 L 07/15/17 19:00 Intake & Output 07/15/17 07/15/17 07/16/17 06:59 18:59 06:59 Intake Total 2436.692 2085.543 117.625 Output Total 445 515 40 Balance 9608.924 0897.543 77.625 Weight 111.8 kg Intake: IV 1470 1080 70 Dextrose 5% in Water 1, 550 150 000 ml @ 50 mls/hr IV . Q23H LANDY with Sodium Bicarb (1 Meq/ml) 150 ml Rx#:[id number] Sodium Chloride 0.45% 1, 630 70 000 ml @ 70 mls/hr IV . [id number] LANDY with Sodium Bicarb (1 Meq/ml) 100 ml Rx#:[id number] Sodium Chloride 0.9% 1, 920 300 000 ml @ 10 mls/hr IV . Q24H LANDY Rx#:[id number] Intake, IV Titration 590.692 352.543 21.625 Amount Dextrose 5% in Water 1, 50 000 ml @ 50 mls/hr IV . Q23H LANDY with Sodium Bicarb (1 Meq/ml) 150 ml Rx#:[id number] Insulin Regular 100 unit 90.692 56.417 21.625 In Sodium Chloride 0.9% 100 ml @ Per Protocol IV .Q0M LANDY Rx#:[id number] Norepinephrin 16 mg-0.9% 32.001 Ns Pmx 16 mg In 250 ml @ Titrate IV .Q0M LANDY Rx#: [id number] Norepinephrin 4 mg-0.9% 250 64.125 Ns Pmx 4 mg In 250 ml @ Titrate IV .Q0M LANDY Rx#: [id number] Propofol 1,000 mg In 100 200 Empty Bag 1 bag @ Titrate IV .Q0M LANDY Rx#: [id number] Sodium Chloride 0.9% 1, 100 000 ml @ 100 mls/hr IV . Q10H LANDY Rx#:[id number] Oral 95 Tube Feeding 286 468 26 Other 90 90 Output: Urine 445 515 40 Other: Voiding Method Indwelling Catheter Indwelling Catheter ABP, PAP, CO, CI - Last Documented Arterial Blood Pressure 137/68 - Exam Intubated sedated and mechanically ventilated HEENT: Anicteric conjunctiva with some thin exudate, no bleeding around the nasogastric tube oroendotracheal tube no thrush was noted Neck: The neck is supple without significant lymphadenopathy or thyromegaly. Lungs: Symmetrical air entry with coarse crackles to the bases bronchial sounds to the right base is noted Heart: Regular rate and rhythm with an audible S1-S2, no S3 positive S4 There is no significant murmur click or rub, PMI was nondisplaced. Abdomen: Positive bowel sounds soft nondistended without palpable masses or organomegaly. There was no rigidity Extremities: Upper and lower extremities have some generalized edema. More edema in the lower extremities. Peripheral pulses are palpable extremities are cool but not cold. No open ulcers are seen. Neuro: Patient is heavily sedated intubated and mechanically ventilated. - Labs CBC & Chem 7: 07/15/17 21:50 07/15/17 04:10 Labs: Abnormal Lab Results - Last 24 Hours (Table) 07/15/17 07/15/17 07/15/17 Range/Units 00:01 00:52 02:08 WBC (3.8-10.6) k/uL RBC (4.30-5.90) m/uL Hgb (13.0-17.5) gm/dL Hct (39.0-53.0) % MCV (80.0-100.0) fL Plt Count (150-450) k/uL Neutrophils # (Manual) (1.3-7.7) k/uL Monocytes # (Manual) (0-1.0) k/uL Metamyelocytes # (Man) (0) k/uL Myelocytes # (Manual) (0) k/uL ABG pH (7.35-7.45) ABG pCO2 (35-45) mmHg ABG pO2 (83-108) mmHg ABG HCO3 (21-25) mmol/L ABG Lactic Acid (0.5-1.6) mmol/L Carbon Dioxide (22-30) mmol/L BUN (9-20) mg/dL Creatinine (0.66-1.25) mg/dL Glucose (74-99) mg/dL POC Glucose (mg/dL) 178 H 184 H 182 H (75-99) mg/dL Calcium (8.4-10.2) mg/dL Phosphorus (2.5-4.5) mg/dL 07/15/17 07/15/17 07/15/17 Range/Units 03:14 04:10 04:10 WBC 41.8 H* (3.8-10.6) k/uL RBC 3.84 L (4.30-5.90) m/uL Hgb 12.4 L (13.0-17.5) gm/dL Hct (39.0-53.0) % MCV 102.5 H (80.0-100.0) fL Plt Count 74 L (150-450) k/uL Neutrophils # (Manual) 37.60 H (1.3-7.7) k/uL Monocytes # (Manual) 1.67 H (0-1.0) k/uL Metamyelocytes # (Man) 1.25 H (0) k/uL Myelocytes # (Manual) 0.42 H (0) k/uL ABG pH (7.35-7.45) ABG pCO2 (35-45) mmHg ABG pO2 (83-108) mmHg ABG HCO3 (21-25) mmol/L ABG Lactic Acid (0.5-1.6) mmol/L Carbon Dioxide 18 L (22-30) mmol/L BUN 81 H* (9-20) mg/dL Creatinine 2.50 H (0.66-1.25) mg/dL Glucose 174 H (74-99) mg/dL POC Glucose (mg/dL) 160 H (75-99) mg/dL Calcium 7.1 L (8.4-10.2) mg/dL Phosphorus 6.8 H (2.5-4.5) mg/dL 07/15/17 07/15/17 07/15/17 Range/Units 04:10 04:19 05:08 WBC (3.8-10.6) k/uL RBC (4.30-5.90) m/uL Hgb (13.0-17.5) gm/dL Hct (39.0-53.0) % MCV (80.0-100.0) fL Plt Count (150-450) k/uL Neutrophils # (Manual) (1.3-7.7) k/uL Monocytes # (Manual) (0-1.0) k/uL Metamyelocytes # (Man) (0) k/uL Myelocytes # (Manual) (0) k/uL ABG pH (7.35-7.45) ABG pCO2 (35-45) mmHg ABG pO2 (83-108) mmHg ABG HCO3 (21-25) mmol/L ABG Lactic Acid 2.5 H* (0.5-1.6) mmol/L Carbon Dioxide (22-30) mmol/L BUN (9-20) mg/dL Creatinine (0.66-1.25) mg/dL Glucose (74-99) mg/dL POC Glucose (mg/dL) 148 H 182 H (75-99) mg/dL Calcium (8.4-10.2) mg/dL Phosphorus (2.5-4.5) mg/dL 07/15/17 07/15/17 07/15/17 Range/Units 05:27 06:56 08:43 WBC (3.8-10.6) k/uL RBC (4.30-5.90) m/uL Hgb (13.0-17.5) gm/dL Hct (39.0-53.0) % MCV (80.0-100.0) fL Plt Count (150-450) k/uL Neutrophils # (Manual) (1.3-7.7) k/uL Monocytes # (Manual) (0-1.0) k/uL Metamyelocytes # (Man) (0) k/uL Myelocytes # (Manual) (0) k/uL ABG pH 7.19 L* (7.35-7.45) ABG pCO2 52 H (35-45) mmHg ABG pO2 81 L (83-108) mmHg ABG HCO3 20 L (21-25) mmol/L ABG Lactic Acid (0.5-1.6) mmol/L Carbon Dioxide (22-30) mmol/L BUN (9-20) mg/dL Creatinine (0.66-1.25) mg/dL Glucose (74-99) mg/dL POC Glucose (mg/dL) 142 H 142 H (75-99) mg/dL Calcium (8.4-10.2) mg/dL Phosphorus (2.5-4.5) mg/dL 03/09/18 03/09/18 03/09/18 Range/Units 10:49 12:53 13:52 WBC (3.8-10.6) k/uL RBC (4.30-5.90) m/uL Hgb (13.0-17.5) gm/dL Hct (39.0-53.0) % MCV (80.0-100.0) fL Plt Count (150-450) k/uL Neutrophils # (Manual) (1.3-7.7) k/uL Monocytes # (Manual) (0-1.0) k/uL Metamyelocytes # (Man) (0) k/uL Myelocytes # (Manual) (0) k/uL ABG pH (7.35-7.45) ABG pCO2 (35-45) mmHg ABG pO2 (83-108) mmHg ABG HCO3 (21-25) mmol/L ABG Lactic Acid (0.5-1.6) mmol/L Carbon Dioxide (22-30) mmol/L BUN (9-20) mg/dL Creatinine (0.66-1.25) mg/dL Glucose (74-99) mg/dL POC Glucose (mg/dL) 161 H 130 H 142 H (75-99) mg/dL Calcium (8.4-10.2) mg/dL Phosphorus (2.5-4.5) mg/dL 07/15/17 07/15/17 07/15/17 Range/Units 14:32 15:21 16:16 WBC (3.8-10.6) k/uL RBC (4.30-5.90) m/uL Hgb (13.0-17.5) gm/dL Hct (39.0-53.0) % MCV (80.0-100.0) fL Plt Count (150-450) k/uL Neutrophils # (Manual) (1.3-7.7) k/uL Monocytes # (Manual) (0-1.0) k/uL Metamyelocytes # (Man) (0) k/uL Myelocytes # (Manual) (0) k/uL ABG pH (7.35-7.45) ABG pCO2 (35-45) mmHg ABG pO2 (83-108) mmHg ABG HCO3 (21-25) mmol/L ABG Lactic Acid (0.5-1.6) mmol/L Carbon Dioxide (22-30) mmol/L BUN (9-20) mg/dL Creatinine (0.66-1.25) mg/dL Glucose (74-99) mg/dL POC Glucose (mg/dL) 143 H 151 H 133 H (75-99) mg/dL Calcium (8.4-10.2) mg/dL Phosphorus (2.5-4.5) mg/dL 07/15/17 07/15/17 07/15/17 Range/Units 17:06 17:30 18:17 WBC (3.8-10.6) k/uL RBC (4.30-5.90) m/uL Hgb (13.0-17.5) gm/dL Hct (39.0-53.0) % MCV (80.0-100.0) fL Plt Count (150-450) k/uL Neutrophils # (Manual) (1.3-7.7) k/uL Monocytes # (Manual) (0-1.0) k/uL Metamyelocytes # (Man) (0) k/uL Myelocytes # (Manual) (0) k/uL ABG pH (7.35-7.45) ABG pCO2 (35-45) mmHg ABG pO2 (83-108) mmHg ABG HCO3 (21-25) mmol/L ABG Lactic Acid (0.5-1.6) mmol/L Carbon Dioxide (22-30) mmol/L BUN (9-20) mg/dL Creatinine (0.66-1.25) mg/dL Glucose (74-99) mg/dL POC Glucose (mg/dL) 173 H 160 H 191 H (75-99) mg/dL Calcium (8.4-10.2) mg/dL Phosphorus (2.5-4.5) mg/dL 07/15/17 07/15/17 07/15/17 Range/Units 19:26 21:50 22:06 WBC 31.2 H* (3.8-10.6) k/uL RBC 3.56 L (4.30-5.90) m/uL Hgb 11.9 L (13.0-17.5) gm/dL Hct 35.8 L (39.0-53.0) % MCV 100.8 H (80.0-100.0) fL Plt Count 52 L (150-450) k/uL Neutrophils # (Manual) (1.3-7.7) k/uL Monocytes # (Manual) (0-1.0) k/uL Metamyelocytes # (Man) (0) k/uL Myelocytes # (Manual) (0) k/uL ABG pH (7.35-7.45) ABG pCO2 (35-45) mmHg ABG pO2 (83-108) mmHg ABG HCO3 (21-25) mmol/L ABG Lactic Acid (0.5-1.6) mmol/L Carbon Dioxide (22-30) mmol/L BUN (9-20) mg/dL Creatinine (0.66-1.25) mg/dL Glucose (74-99) mg/dL POC Glucose (mg/dL) 163 H 154 H (75-99) mg/dL Calcium (8.4-10.2) mg/dL Phosphorus (2.5-4.5) mg/dL Microbiology - Last 24 Hours (Table) 07/13/17 05:30 Blood Culture Gram Stain - Final Blood Blood Culture - Final Methicillin resist S. aureus 07/14/17 10:30 Gram Stain - Preliminary Bronchoalviolar Lavage - Right Bronchial Washings Culture - Preliminary Presumptive Staph aureus 07/13/17 05:20 Blood Culture - Preliminary Blood No Growth after 48 hours 07/14/17 10:30 Acid Fast Bacilli Smear - Final Bronchoalviolar Lavage - Right Acid Fast Bacilli Culture - Preliminary Laboratory Results WBC 31.2 k/uL (3.8-10.6) H* 07/15/17 21:50 RBC 3.56 m/uL (4.30-5.90) L 07/15/17 21:50 Hgb 11.9 gm/dL (13.0-17.5) L 07/15/17 21:50 Hct 35.8 % (39.0-53.0) L 07/15/17 21:50 MCV 100.8 fL (80.0-100.0) H 07/15/17 21:50 MCH 33.5 pg (25.0-35.0) 07/15/17 21:50 MCHC 33.2 g/dL (31.0-37.0) 07/15/17 21:50 RDW 15.4 % (11.5-15.5) 07/15/17 21:50 Plt Count 52 k/uL (150-450) L 07/15/17 21:50 Neutrophils % 93 % 07/14/17 03:28 Neutrophils % (Manual) 76 % 07/15/17 04:10 Band Neutrophils % 14 % 07/15/17 04:10 Lymphocytes % 3 % 07/14/17 03:28 Lymphocytes % (Manual) 4 % 07/15/17 04:10 Monocytes % 3 % 07/14/17 03:28 Monocytes % (Manual) 4 % 07/15/17 04:10 Eosinophils % 0 % 07/14/17 03:28 Basophils % 0 % 07/14/17 03:28 Metamyelocytes % 3 % 07/15/17 04:10 Myelocytes % 1 % 07/15/17 04:10 Neutrophils # 26.5 k/uL (1.3-7.7) H 07/14/17 03:28 Neutrophils # (Manual) 37.60 k/uL (1.3-7.7) H 07/15/17 04:10 Lymphocytes # 1.0 k/uL (1.0-4.8) 07/14/17 03:28 Lymphocytes # (Manual) 1.67 k/uL (1.0-4.8) 07/15/17 04:10 Monocytes # 0.7 k/uL (0-1.0) 07/14/17 03:28 Monocytes # (Manual) 1.67 k/uL (0-1.0) H 07/15/17 04:10 Eosinophils # 0.0 k/uL (0-0.7) 07/14/17 03:28 Basophils # 0.1 k/uL (0-0.2) 07/14/17 03:28 Metamyelocytes # (Man) 1.25 k/uL (0) H 07/15/17 04:10 Myelocytes # (Manual) 0.42 k/uL (0) H 07/15/17 04:10 Nucleated RBCs 0 /100 WBC (0-0) 07/15/17 04:10 Manual Slide Review Performed 07/14/17 03:28 Toxic Granulation Present 07/14/17 03:28 Toxic Vacuolation Present 07/11/17 09:10 Polychromasia Present 07/15/17 04:10 Hypochromasia Slight 07/15/17 04:10 Poikilocytosis (manual Present 07/15/17 04:10 Anisocytosis (manual) Present 07/15/17 04:10 Macrocytosis Slight 07/15/17 21:50 PT 12.6 sec (9.0-12.0) H 07/11/17 09:10 INR 1.3 (<1.2) H 07/11/17 09:10 APTT 26.3 sec (22.0-30.0) 07/11/17 01:53 Sample Site YONNY 07/15/17 05:27 ABG pH 7.19 (7.35-7.45) L* 07/15/17 05:27 ABG pCO2 52 mmHg (35-45) H 07/15/17 05:27 ABG pO2 81 mmHg (83-108) L 07/15/17 05:27 ABG HCO3 20 mmol/L (21-25) L 07/15/17 05:27 ABG Total CO2 21 mmol/L (19-24) 07/15/17 05:27 ABG O2 Saturation 94.6 % (94-97) 07/15/17 05:27 ABG Base Excess -8.6 mmol/L 07/15/17 05:27 Deuce Test Yes 07/15/17 05:27 ABG Lactic Acid 2.5 mmol/L (0.5-1.6) H* 07/15/17 04:10 FiO2 60 % 07/15/17 05:27 Sodium 138 mmol/L (137-145) 07/15/17 04:10 Potassium 5.0 mmol/L (3.5-5.1) 07/15/17 04:10 Chloride 106 mmol/L (98-107) 07/15/17 04:10 Carbon Dioxide 18 mmol/L (22-30) L 07/15/17 04:10 Anion Gap 14 mmol/L 07/15/17 04:10 BUN 81 mg/dL (9-20) H* 07/15/17 04:10 Creatinine 2.50 mg/dL (0.66-1.25) H 07/15/17 04:10 Est GFR (MDRD) Af Amer 46 (>60 ml/min/1.73 sqM) 07/12/17 05:18 Est GFR (MDRD) Non-Af 38 (>60 ml/min/1.73 sqM) 07/12/17 05:18 Est GFR (CKD-EPI)AfAm 32 (>60 ml/min/1.73 sqM) 07/15/17 04:10 Est GFR (CKD-EPI)NonAf 28 (>60 ml/min/1.73 sqM) 07/15/17 04:10 Glucose 174 mg/dL (74-99) H 07/15/17 04:10 POC Glucose (mg/dL) 154 mg/dL (75-99) H 07/15/17 22:06 POC Glu Body Finisher ID Dee Gavin 07/15/17 22:[address] Glu mg/dL 229 07/13/17 05:20 Hemoglobin A1c 9.6 % (4.0-6.0) H 07/13/17 05:20 Lactic Ac Sepsis Rflx Y 07/11/17 16:24 Plasma Lactic Acid [place] 1.9 mmol/L (0.7-2.0) 07/13/17 05:20 Calcium 7.1 mg/dL (8.4-10.2) L 07/15/17 04:10 Phosphorus 6.8 mg/dL (2.5-4.5) H 07/15/17 04:10 Magnesium 2.1 mg/dL (1.6-2.3) 07/15/17 04:10 Total Bilirubin 2.1 mg/dL (0.2-1.3) H 07/14/17 03:28 AST 50 U/L (17-59) 07/14/17 03:28 ALT 36 U/L (21-72) 07/14/17 03:28 Alkaline Phosphatase 157 U/L (38-126) H 07/14/17 03:28 Total Creatine Kinase 71 U/L (55-170) 07/11/17 01:53 CK-MB (CK-2) 1.6 ng/mL (0.0-2.4) 07/11/17 01:53 CK-MB (CK-2) Rel Index 2.3 07/11/17 01:53 Troponin I <0.012 ng/mL (0.000-0.034) 07/11/17 01:53 Total Protein 5.5 g/dL (6.3-8.2) L 07/14/17 03:28 Albumin 2.0 g/dL (3.5-5.0) L 07/14/17 03:28 Urine Color Dark Yellow 07/11/17 13:39 Urine Appearance Cloudy (Clear) 07/11/17 13:39 Urine pH 5.0 (5.0-8.0) 07/11/17 13:39 Ur Specific [place] 1.018 (1.001-1.035) 07/11/17 13:39 Urine Protein 1+ (Negative) H 07/11/17 13:39 Urine Glucose (UA) Trace (Negative) H 07/11/17 13:39 Urine Ketones Trace (Negative) H 07/11/17 13:39 Urine Blood Negative (Negative) 07/11/17 13:39 Urine Nitrite Negative (Negative) 07/11/17 13:39 Urine Bilirubin 1+ (Negative) H 07/11/17 13:39 Urine Urobilinogen 8.0 mg/dL (<2.0) 07/11/17 13:39 Ur Leukocyte Esterase Negative (Negative) 07/11/17 13:39 Urine RBC 5 /hpf (0-5) 07/11/17 13:39 Urine WBC 5 /hpf (0-5) 07/11/17 13:39 Ur Squamous Epith Cells 1 /hpf (0-4) 07/11/17 13:39 Amorphous Sediment Few /hpf (None) H 07/11/17 13:39 Urine Bacteria Occasional /hpf (None) H 07/11/17 13:39 Hyaline Casts 2 /lpf (0-2) 07/11/17 13:39 Granular Casts 45 /lpf (0) 07/11/17 13:39 Urine Mucus Occasional /hpf (None) H 07/11/17 13:39 Gastric Occult Blood Positive (Negative) 07/15/17 21:35 Vancomycin Trough 23.0 ug/mL 07/14/17 03:28 Influenza Type A RNA Not Detected (Not Detectd) 07/13/17 13:30 Influenza Type B (PCR) Not Detected (Not Detectd) 07/13/17 13:30 Virus Source See Below 07/14/17 10:30 Viral Test See Below 07/14/17 10:30 Virus Analysis Interp See Below 07/14/17 10:30 Microbiology 07/13/17 05:30 Blood Blood Culture Gram Stain - Final 07/13/17 05:30 Blood Blood Culture - Final Methicillin resist S. aureus 07/14/17 10:30 Bronchoalviolar Lavage - Right Gram Stain - Preliminary 07/14/17 10:30 Bronchoalviolar Lavage - Right Bronchial Washings Culture - Preliminary Presumptive Staph aureus 07/13/17 05:20 Blood Blood Culture - Preliminary No Growth after 48 hours 07/14/17 10:30 Bronchoalviolar Lavage - Right Acid Fast Bacilli Smear - Final 07/14/17 10:30 Bronchoalviolar Lavage - Right Acid Fast Bacilli Culture - Preliminary 07/14/17 10:30 Bronchoalviolar Lavage - Right Fungal Culture - Preliminary 07/13/17 05:30 Blood Blood Culture - Final 07/12/17 18:20 Urine,Catheterized Urine Culture - Final 07/11/17 07:56 Sputum Gram Stain - Final 07/11/17 07:56 Sputum Sputum Culture - Final Methicillin resist S. aureus 07/11/17 01:00 Blood Blood Culture Gram Stain - Final 07/11/17 01:00 Blood Blood Culture - Final Methicillin resist S. aureus 07/11/17 01:00 Blood Blood Culture - Final Assessment and Plan (1) Acute and chronic respiratory failure with hypercapnia Current Visit: Yes Status: Acute Code(s): J96.22 - ACUTE AND CHRONIC RESPIRATORY FAILURE WITH HYPERCAPNIA SNOMED Code(s): 9500622725812 (2) MRSA pneumonia Narrative/Plan: 56-year-old male presents to the emergency center after 2 recent hospital stays with marked worsening of his status. He became more short of breath and confused. In the emergency center he developed respiratory failure and required intubation and sedation and mechanical ventilation. He was moved to intensive care unit. With evidence of bacteremia the infectious diseases consultation was requested. Patient appears to have evidence of MRSA bacteremia and pneumonia. Vancomycin will be continued at this point in time. Zosyn will be dose adjusted for his acute renal failure and will de-escalate antibiotic therapy pending further culture results. Patient is being closely monitored for delirium tremens however did not have evidence of that during his recent hospital stay. The patient has profound leukocytosis which appears to be in the basis of his current pneumonia and sepsis and recent steroid use. Patient also has evidence of acute renal failure and consequently vancomycin is being dosed by pharmacy and Zosyn was dose adjusted for his current creatinine clearance. Follow blood cultures requested to evaluate for clearance. If persistent blood cultures are noted would also benefit from echocardiogram. 07/13/2017 patient remains intubated sedated and mechanically ventilated but is showing at least some stability was status. There has been no worsening. If no other positive cultures tomorrow we'll then be able to de-escalate vancomycin monotherapy for his MRSA pneumonia and bacteremia the profound leukocytosis is now showing some improvement. They're related to urinary output is adequate. Acute renal failure is improving patient's prognosis remains guarded. July 14, 2017 patient remains intubated sedated and mechanically ventilated. He underwent bronchoscopy today with suctioning of large amounts material. The patient is medically stable. He's having ongoing leukocytosis with evidence of this extensive pneumonia. Only MRSA has been isolated from his sputum in his blood. Follow blood cultures are now negative at this point in time. He is developed thrombocytopenia thus the piperacillin tazobactam is discontinued and we'll monitor his response of his platelets. No other gram negatives infections found at this point in time. 07/15/2017 the patient remains intubated sedated and mechanically ventilated and has had some improvement of his pulmonary status after the bronchoscopy of yesterday. Continues evidence of MRSA pneumonia and MRSA bacteremia. Follow- up cultures requested in the morning to verify the clearance of the bacteremia with current antibiotic therapy. Prognosis remains poor Current Visit: Yes Status: Acute Code(s): J15.212 - PNEUMONIA DUE TO METHICILLIN RESISTANT STAPHYLOCOCCUS AUREUS SNOMED Code(s): 561390686377309 (3) MRSA bacteremia Current Visit: Yes Status: Acute Code(s): R78.81 - BACTEREMIA SNOMED Code( s): 29246111462227482 (4) Leukocytosis Current Visit: Yes Status: Acute Code(s): D72.829 - ELEVATED WHITE BLOOD CELL COUNT, UNSPECIFIED SNOMED Code(s): 910729066
[2017-07-16 00:11] LABS: Glucose,Whole Blood 138 mg/dL (75-99)
[2017-07-16 01:03] LABS: Glucose,Whole Blood 146 mg/dL (75-99)
[2017-07-16] MEDS: methylPREDNISolone SOD SUCCI 125 MG/2 ML VIAL IV SCH ×4 (01:22→18:01)
[2017-07-16] MEDS: METOCLOPRAMIDE 5 MG/ML 2 ML VIAL IVP SCH ×4 (01:23→18:01)
[2017-07-16 02:06] LABS: Glucose,Whole Blood 145 mg/dL (75-99)
[2017-07-16 03:14] LABS: Glucose,Whole Blood 150 mg/dL (75-99)
[2017-07-16] MEDS: SODIUM CHLORIDE 0.45% 1,000 ML with SODIUM BICARB (1 MEQ/ML) 100 ML IV SCH ×2 (03:17)
[2017-07-16] MEDS: PROPOFOL 1,000 MG in EMPTY BAG 1 BAG IV SCH ×4 (03:17→21:02)
[2017-07-16 04:19] LABS: Glucose,Whole Blood 141 mg/dL (75-99)
[2017-07-16 04:35] LABS: Basophils # (A) 0.1 k/uL (0-0.2); Basophils % (A) 0 %; Eosinophils % (A) 0 %; HCT 36.2 % (39.0-53.0); HGB 11.7 gm/dL (13.0-17.5); Lymphocytes # (A) 1.1 k/uL (1.0-4.8); Lymphocytes % (A) 4 %; MCH 32.2 pg (25.0-35.0); MCHC 32.2 g/dL (31.0-37.0); Macrocytosis Slight; Mean Platelet Volume 8.2; Monocytes # (A) 1.1 k/uL (0-1.0); Monocytes % (A) 4 %; Neutrophils # (A) 24.7 k/uL (1.3-7.7); Neutrophils % (A) 91 %; RBC 3.62 m/uL (4.30-5.90); RDW 15.7 % (11.5-15.5)
[2017-07-16 04:37] LABS: WBC 27.3 k/uL (3.8-10.6)
[2017-07-16 04:54] LABS: Calcium 7.4 mg/dL (8.4-10.2); Magnesium 2.2 mg/dL (1.6-2.3); Phosphorus 7.6 mg/dL (2.5-4.5); Potassium 5.4 mmol/L (3.5-5.1)
[2017-07-16 05:05] LABS: ABG Base Excess -6.7 mmol/L; ABG HCO3 20 mmol/L (21-25); ABG Oxygen Saturation 95.4 % (94-97); ABG PCO2 41 mmHg (35-45); ABG PH 7.29 (7.35-7.45); ABG PO2 84 mmHg (83-108); ABG TCO2 21 mmol/L (19-24)
[2017-07-16 05:20] LABS: Glucose,Whole Blood 123 mg/dL (75-99)
[2017-07-16 06:04] LABS: Glucose,Whole Blood 137 mg/dL (75-99)
[2017-07-16] MEDS: LEVOFLOXACIN 750MG-D5W PMX 750 MG in DEXTROSE/WATER 1 150ML.BAG IVPB SCH (06:52)
[2017-07-16 07:20] LABS: Glucose,Whole Blood 116 mg/dL (75-99)
--- NOTE | 2017-07-16 07:22 | XR ---
EXAMINATION TYPE: XR chest 1V portable DATE OF EXAM: 07/16/2017 CLINICAL HISTORY: Difficulty breathing progress study. TECHNIQUE: Single AP portable semiupright view of the chest is obtained. COMPARISON: Chest x-ray from one day earlier and older studies. CT chest abdomen and pelvis July 14, 2017. FINDINGS: An endotracheal tube, orogastric tube, and left internal jugular central venous catheter a re all stable in appearance. There is persistent patchy left basilar atelectasis and/or infiltrate. There is persistent small to m oderate-sized right pleural effusion and diffuse right lung infiltrate and/or atelectasis. Cardiac si lhouette size is stable and within normal limits. Osseous structures are intact. IMPRESSION: Overall stable findings, patchy left basilar atelectasis and/or infiltrate. Persistent small to moderate-sized right pleural effusion and diffuse right lung infiltrates and/or atelectasis all redemonstrated.
[2017-07-16] MEDS: IPRATROPIUM-ALBUTEROL 3 ML NEB INHALATION SCH ×4 (07:32→20:16)
[2017-07-16] MEDS: BUDESONIDE 1 MG/2 ML NEBU INHALATION SCH (07:32)
[2017-07-16] MEDS ORDERED: FUROSEMIDE 10 MG/ML 10 ML VIAL IV STA (08:11)
[2017-07-16 08:19] LABS: Glucose,Whole Blood 145 mg/dL (75-99)
--- NOTE | 2017-07-16 08:42 | P.PN ---
Subjective Progress Note Date: 07/16/17 Principal diagnosis: MRSA pneumonia Seen and examined for the follow-up of acute kidney injury. Still on a ventilator with 60% FiO2. He is on 2 mics of Levophed. He is also on bicarb drip at 75 ML's an hour. Objective - Vital Signs Vital signs: Vital Signs Temp 98.9 F 07/16/17 04:00 Pulse 72 07/16/17 07:42 Resp 15 07/16/17 07:00 BP 114/57 07/14/17 20:30 Pulse Ox 93 L 07/16/17 07:00 Intake & Output 07/15/17 07/16/17 07/16/17 18:59 06:59 18:59 Intake Total 2085.543 1012.723 220 Output Total 515 485 635 Balance 1570.543 527.723 -415 Weight 117 kg Intake: IV 1080 840 220 Dextrose 5% in Water 1, 150 000 ml @ 50 mls/hr IV . Q23H [facility] with Sodium Bicarb (1 Meq/ml) 150 ml Rx#:[id number] Levofloxacin 750Mg-D5w 150 Pmx 750 mg In Dextrose/ Water 1 150ml.bag @ 100 mls/hr IVPB Q48H [facility] Rx#: [id number] Sodium Chloride 0.45% 1, 630 840 70 000 ml @ 70 mls/hr IV . [id number] [facility] with Sodium Bicarb (1 Meq/ml) 100 ml Rx#:[id number] Sodium Chloride 0.9% 1, 300 000 ml @ 10 mls/hr IV . Q24H [facility] Rx#:[id number] Intake, IV Titration 352.543 146.723 Amount Insulin Regular 100 unit 56.417 46.723 In Sodium Chloride 0.9% 100 ml @ Per Protocol IV .Q0M [facility] Rx#:[id number] Norepinephrin 16 mg-0.9% 32.001 Ns Pmx 16 mg In 250 ml @ Titrate IV .Q0M [facility] Rx#: [id number] Norepinephrin 4 mg-0.9% 64.125 Ns Pmx 4 mg In 250 ml @ Titrate IV .Q0M [facility] Rx#: [id number] Propofol 1,000 mg In 200 100 Empty Bag 1 bag @ Titrate IV .Q0M [facility] Rx#: [id number] Oral 95 Tube Feeding 468 26 Other 90 Output: Gastric Drainage 600 Urine 515 485 35 Other: Voiding Method Indwelling Catheter Indwelling Catheter ABP, PAP, CO, CI - Last Documented Arterial Blood Pressure 101/49 - Exam Lying in bed no acute distress HEENT oral intubation Smith catheter Gross edema Abdomen distended bowel sounds present Cardiovascular S1-S2 heard - Labs CBC & Chem 7: 07/16/17 04:25 07/16/17 04:25 Labs: Abnormal Lab Results - Last 24 Hours (Table) 07/15/17 07/15/17 07/15/17 Range/Units 08:43 10:49 12:53 WBC (3.8-10.6) k/uL RBC (4.30-5.90) m/uL Hgb (13.0-17.5) gm/dL Hct (39.0-53.0) % MCV (80.0-100.0) fL RDW (11.5-15.5) % Plt Count (150-450) k/uL Neutrophils # (1.3-7.7) k/uL Monocytes # (0-1.0) k/uL ABG pH (7.35-7.45) ABG HCO3 (21-25) mmol/L Sodium (137-145) mmol/L Potassium (3.5-5.1) mmol/L Carbon Dioxide (22-30) mmol/L BUN (9-20) mg/dL Creatinine (0.66-1.25) mg/dL Glucose (74-99) mg/dL POC Glucose (mg/dL) 142 H 161 H 130 H (75-99) mg/dL Calcium (8.4-10.2) mg/dL Phosphorus (2.5-4.5) mg/dL 07/15/17 07/15/17 07/15/17 Range/Units 13:52 14:32 15:21 WBC (3.8-10.6) k/uL RBC (4.30-5.90) m/uL Hgb (13.0-17.5) gm/dL Hct (39.0-53.0) % MCV (80.0-100.0) fL RDW (11.5-15.5) % Plt Count (150-450) k/uL Neutrophils # (1.3-7.7) k/uL Monocytes # (0-1.0) k/uL ABG pH (7.35-7.45) ABG HCO3 (21-25) mmol/L Sodium (137-145) mmol/L Potassium (3.5-5.1) mmol/L Carbon Dioxide (22-30) mmol/L BUN (9-20) mg/dL Creatinine (0.66-1.25) mg/dL Glucose (74-99) mg/dL POC Glucose (mg/dL) 142 H 143 H 151 H (75-99) mg/dL Calcium (8.4-10.2) mg/dL Phosphorus (2.5-4.5) mg/dL 07/15/17 07/15/17 07/15/17 Range/Units 16:16 17:06 17:30 WBC (3.8-10.6) k/uL RBC (4.30-5.90) m/uL Hgb (13.0-17.5) gm/dL Hct (39.0-53.0) % MCV (80.0-100.0) fL RDW (11.5-15.5) % Plt Count (150-450) k/uL Neutrophils # (1.3-7.7) k/uL Monocytes # (0-1.0) k/uL ABG pH (7.35-7.45) ABG HCO3 (21-25) mmol/L Sodium (137-145) mmol/L Potassium (3.5-5.1) mmol/L Carbon Dioxide (22-30) mmol/L BUN (9-20) mg/dL Creatinine (0.66-1.25) mg/dL Glucose (74-99) mg/dL POC Glucose (mg/dL) 133 H 173 H 160 H (75-99) mg/dL Calcium (8.4-10.2) mg/dL Phosphorus (2.5-4.5) mg/dL 07/15/17 07/15/17 07/15/17 Range/Units 18:17 19:26 21:50 WBC 31.2 H* (3.8-10.6) k/uL RBC 3.56 L (4.30-5.90) m/uL Hgb 11.9 L (13.0-17.5) gm/dL Hct 35.8 L (39.0-53.0) % MCV 100.8 H (80.0-100.0) fL RDW (11.5-15.5) % Plt Count 52 L (150-450) k/uL Neutrophils # (1.3-7.7) k/uL Monocytes # (0-1.0) k/uL ABG pH (7.35-7.45) ABG HCO3 (21-25) mmol/L Sodium (137-145) mmol/L Potassium (3.5-5.1) mmol/L Carbon Dioxide (22-30) mmol/L BUN (9-20) mg/dL Creatinine (0.66-1.25) mg/dL Glucose (74-99) mg/dL POC Glucose (mg/dL) 191 H 163 H (75-99) mg/dL Calcium (8.4-10.2) mg/dL Phosphorus (2.5-4.5) mg/dL 07/15/17 07/16/17 07/16/17 Range/Units 22:06 00:09 01:02 WBC (3.8-10.6) k/uL RBC (4.30-5.90) m/uL Hgb (13.0-17.5) gm/dL Hct (39.0-53.0) % MCV (80.0-100.0) fL RDW (11.5-15.5) % Plt Count (150-450) k/uL Neutrophils # (1.3-7.7) k/uL Monocytes # (0-1.0) k/uL ABG pH (7.35-7.45) ABG HCO3 (21-25) mmol/L Sodium (137-145) mmol/L Potassium (3.5-5.1) mmol/L Carbon Dioxide (22-30) mmol/L BUN (9-20) mg/dL Creatinine (0.66-1.25) mg/dL Glucose (74-99) mg/dL POC Glucose (mg/dL) 154 H 138 H 146 H (75-99) mg/dL Calcium (8.4-10.2) mg/dL Phosphorus (2.5-4.5) mg/dL 07/16/17 07/16/17 07/16/17 Range/Units 02:02 03:13 04:18 WBC (3.8-10.6) k/uL RBC (4.30-5.90) m/uL Hgb (13.0-17.5) gm/dL Hct (39.0-53.0) % MCV (80.0-100.0) fL RDW (11.5-15.5) % Plt Count (150-450) k/uL Neutrophils # (1.3-7.7) k/uL Monocytes # (0-1.0) k/uL ABG pH (7.35-7.45) ABG HCO3 (21-25) mmol/L Sodium (137-145) mmol/L Potassium (3.5-5.1) mmol/L Carbon Dioxide (22-30) mmol/L BUN (9-20) mg/dL Creatinine (0.66-1.25) mg/dL Glucose (74-99) mg/dL POC Glucose (mg/dL) 145 H 150 H 141 H (75-99) mg/dL Calcium (8.4-10.2) mg/dL Phosphorus (2.5-4.5) mg/dL 07/16/17 07/16/17 07/16/17 Range/Units 04:25 04:25 05:03 WBC 27.3 H* (3.8-10.6) k/uL RBC 3.62 L (4.30-5.90) m/uL Hgb 11.7 L (13.0-17.5) gm/dL Hct 36.2 L (39.0-53.0) % MCV (80.0-100.0) fL RDW 15.7 H (11.5-15.5) % Plt Count 46 L* (150-450) k/uL Neutrophils # 24.7 H (1.3-7.7) k/uL Monocytes # 1.1 H (0-1.0) k/uL ABG pH 7.29 L (7.35-7.45) ABG HCO3 20 L (21-25) mmol/L Sodium 136 L (137-145) mmol/L Potassium 5.4 H (3.5-5.1) mmol/L Carbon Dioxide 20 L (22-30) mmol/L BUN 105 H* (9-20) mg/dL Creatinine 3.20 H (0.66-1.25) mg/dL Glucose 148 H (74-99) mg/dL POC Glucose (mg/dL) (75-99) mg/dL Calcium 7.4 L (8.4-10.2) mg/dL Phosphorus 7.6 H (2.5-4.5) mg/dL 07/16/17 07/16/17 07/16/17 Range/Units 05:18 06:03 07:19 WBC (3.8-10.6) k/uL RBC (4.30-5.90) m/uL Hgb (13.0-17.5) gm/dL Hct (39.0-53.0) % MCV (80.0-100.0) fL RDW (11.5-15.5) % Plt Count (150-450) k/uL Neutrophils # (1.3-7.7) k/uL Monocytes # (0-1.0) k/uL ABG pH (7.35-7.45) ABG HCO3 (21-25) mmol/L Sodium (137-145) mmol/L Potassium (3.5-5.1) mmol/L Carbon Dioxide (22-30) mmol/L BUN (9-20) mg/dL Creatinine (0.66-1.25) mg/dL Glucose (74-99) mg/dL POC Glucose (mg/dL) 123 H 137 H 116 H (75-99) mg/dL Calcium (8.4-10.2) mg/dL Phosphorus (2.5-4.5) mg/dL 07/16/17 Range/Units 08:18 WBC (3.8-10.6) k/uL RBC (4.30-5.90) m/uL Hgb (13.0-17.5) gm/dL Hct (39.0-53.0) % MCV (80.0-100.0) fL RDW (11.5-15.5) % Plt Count (150-450) k/uL Neutrophils # (1.3-7.7) k/uL Monocytes # (0-1.0) k/uL ABG pH (7.35-7.45) ABG HCO3 (21-25) mmol/L Sodium (137-145) mmol/L Potassium (3.5-5.1) mmol/L Carbon Dioxide (22-30) mmol/L BUN (9-20) mg/dL Creatinine (0.66-1.25) mg/dL Glucose (74-99) mg/dL POC Glucose (mg/dL) 145 H (75-99) mg/dL Calcium (8.4-10.2) mg/dL Phosphorus (2.5-4.5) mg/dL Microbiology - Last 24 Hours (Table) 07/13/17 05:20 Blood Culture - Preliminary Blood No Growth after 72 hours 07/13/17 05:30 Blood Culture Gram Stain - Final Blood Blood Culture - Final Methicillin resist S. aureus 07/14/17 10:30 Gram Stain - Preliminary Bronchoalviolar Lavage - Right Bronchial Washings Culture - Preliminary Presumptive Staph aureus Assessment and Plan Assessment: Impression: #1 nonoliguric acute kidney injury secondary to ischemic ATN. #2 vent-dependent respiratory failure secondary to pneumonia. #3 volume overload #4 metabolic acidosis #5 septic shock on pressors. #6 mild hyperkalemia Recommendations: #1 serum creatinine worsening possibilities include vancomycin toxicity and complement of volume overload. #2 Stop Bicarb drip. #3 give 60 mg IV Lasix push followed by Lasix drip 10 mg an hour. #4 monitor renal function and strict ins and outs. Awaiting vancomycin trough level. Maintain trough level less than 20.
[2017-07-16] MEDS: FUROSEMIDE 250 MG in SODIUM CHLORIDE 0.9% 225 ML IVP SCH (08:45)
[2017-07-16] MEDS: DOCUSATE ORAL SOLN 100 MG/10 ML CUP PO SCH ×2 (08:46→20:15)
[2017-07-16] MEDS: LACTULOSE 20 GM/30 ML CUP PO SCH (08:46)
[2017-07-16] MEDS: PANTOPRAZOLE 40 MG/10 ML VIAL IVP SCH ×2 (08:46→20:15)
[2017-07-16] MEDS: CHLORHEXIDINE GLUCONATE 15 ML CUP MUCOUS MEM SCH ×2 (08:46→20:15)
[2017-07-16 09:58] LABS: Glucose,Whole Blood 198 mg/dL (75-99)
[2017-07-16] MEDS ORDERED: VANCOMYCIN TROUGH DUE 1 EACH MISC MISCELLANE ONE (10:00)
[2017-07-16] MEDS: ENOXAPARIN 40 MG/0.4 ML SYRINGE SQ SCH (10:58)
[2017-07-16 11:00] LABS: Glucose,Whole Blood 182 mg/dL (75-99)
[2017-07-16 12:01] LABS: Glucose,Whole Blood 161 mg/dL (75-99)
[2017-07-16 13:36] LABS: Glucose,Whole Blood 158 mg/dL (75-99)
[2017-07-16] MEDS ORDERED: VANCOMYCIN IV PER PHARMACY 1 EACH MISC MISCELLANE PRN (14:39)
[2017-07-16 14:58] LABS: Glucose,Whole Blood 163 mg/dL (75-99)
[2017-07-16 16:21] LABS: Glucose,Whole Blood 149 mg/dL (75-99)
[2017-07-16 17:02] LABS: Glucose,Whole Blood 140 mg/dL (75-99)
--- NOTE | 2017-07-16 17:10 | PN ---
PROGRESS NOTE He was seen again on 07/16/2017. He is hemodynamically more stable. He remains on a vent with his FiO2 at 60%. He is receiving a breathing treatment. He is deeply sedated. PHYSICAL EXAMINATION: ET tube is in place. Blood pressure is 117/54, respiratory rate of 19, pulse rate 71. HEENT reveals ET tube in place. Chest reveals expiratory wheeze, but fair air entry, which is improved compared to the previous day. Cardiovascular system reveals an S1, S2. Abdomen is soft. There is trace pedal edema. LABS: Reveal a white count of 27.3, hemoglobin of 11.7, platelet count of 46,000. Sodium 136, potassium 5.4, chloride 106, bicarb 20, BUN 105, creatinine of 3.2. Vancomycin of 44.3. IMPRESSION: At this time is: 1. Methicillin-resistant Staphylococcus aureus with methicillin-resistant Staphylococcus aureus pneumonia. 2. Asthma with acute exacerbation. 3. Chronic obstructive pulmonary disease. 4. Possible aspiration-type pneumonia. Would continue at this time inhaled steroids bronchodilators, IV steroids, vancomycin and Levaquin per ID. Change the Lovenox to subcu heparin and watch for bleed, as his platelet count is going down. Would watch his renal status closely, attempt to wean off his Levophed. Continue him on bicarb per Nephrology at this time. His prognosis at this time is extremely guarded. MMODL / IJN: [id number] /
[2017-07-16 18:08] LABS: Glucose,Whole Blood 136 mg/dL (75-99)
[2017-07-16 19:09] LABS: Glucose,Whole Blood 137 mg/dL (75-99)
[2017-07-16] MEDS: HEPARIN SODIUM,PORCINE 5,000 UNIT/ML 1 ML VIAL SQ SCH (20:03)
[2017-07-16] MEDS: BUDESONIDE 0.5 MG/2 ML NEBU INHALATION SCH (20:16)
[2017-07-16 21:07] LABS: Glucose,Whole Blood 124 mg/dL (75-99)
[2017-07-16 22:22] LABS: Glucose,Whole Blood 138 mg/dL (75-99)
--- NOTE | 2017-07-16 22:23 | P.PN ---
Subjective Progress Note Date: 07/16/17 Principal diagnosis: Respiratory failure 56-year-old male with history of COPD and alcoholism is had 2 recent visits to hospital. It is noted from the records that he did not have significant delirium tremens but was having difficulties with his COPD. The patient apparently had a rapid deterioration after his recent hospitalization reviewed became very confused and likely had hypoxic hypercapnic respiratory failure and required transport to hospital. He was given some breathing treatments and had some slight improvement but then had a marked worsening and required intubation with sedation and mechanical ventilation. The patient remains in intensive care unit in the infectious diseases consultation is requested given his Possible culture for MRSA and likely same pathogen in his sputum. The patient is intubated sedated and mechanically ventilated and all information comes from the chart and nursing staff. The patient is comfortable. A low dose of vasopressor only. Urine output is marginal but has improved. He had significant hyperglycemia at admission of 813 which is now improved with the insulin drip. Has done well with fluid resuscitation. With current sedation the patient is comfortable. Nursing relates no concerns to delirium tremens at this time. On 07/13/2017 the patient has little change of his status. He remains intubated sedated and mechanically ventilated and remains on vasopressor therapy fortunately low dose with adequate response. The patient is sedated. He's had significant amounts of copious secretions from his endotracheal tube required multiple bouts of suctioning has had difficulty with some mucous plugging also. He is currently very comfortable with current level of sedation 07/14/2017 patient underwent bronchoscopy today with suctioning of large amounts of mucus material and has had some improvement since. He however had a bout of hypothermia and concerns to worsening sepsis possibly in the basis of abdominal sepsis CT scan was performed and is having a disimpaction. His white blood cell count is improved but is having some thrombocytopenia. Patient remains intubated sedated and appears comfortable. 07/15/2017 the patient is more stable today. He is no longer hypothermic and is on a decreased dose of vasopressor. He seems to be comfortable. Remains intubated sedated and mechanically ventilated. Cultures from the bronchoscopy from yesterday are pending gram-positive cocci are again seen. No evidence of gram-negative infection at this time. The patient is have his ongoing significant sepsis from his MRSA pneumonia and bacteremia. Seriousness of his infection is related to his family member who was present. 07/16/2017 the patient remains with vasopressor needs, remains intubated sedated and mechanically ventilated with no change of his vent settings. There is been no improvement. He has ongoing copious secretions. Has been seen by nephrology with worsening of his renal function. Consequently vancomycin is discontinued and levels will be followed. Level becomes subtherapeutic will then substitute linezolide with careful follow up. Patient's prognosis is poor. Objective - Vital Signs Vital signs: Vital Signs Temp 97.5 F L 07/16/17 20:00 Pulse 94 07/16/17 21:00 Resp 26 H 07/16/17 21:00 BP 114/57 07/14/17 20:30 Pulse Ox 94 L 07/16/17 21:00 Intake & Output 07/16/17 07/16/17 07/17/17 06:59 18:59 07:59 Intake Total 1012.723 753.258 125.993 Output Total 485 1235 110 Balance 527.723 -481.742 15.993 Weight 117 kg 117 kg Intake: IV 840 310 30 0.9 NS 90 30 Levofloxacin 750Mg-D5w 150 Pmx 750 mg In Dextrose/ Water 1 150ml.bag @ 100 mls/hr IVPB Q48H [facility] Rx#: [id number] Sodium Chloride 0.45% 1, 840 70 000 ml @ 70 mls/hr IV . [id number] [facility] with Sodium Bicarb (1 Meq/ml) 100 ml Rx#:[id number] Intake, IV Titration 146.723 383.258 95.993 Amount Furosemide 250 mg In 71 Sodium Chloride 0.9% 225 ml @ 15 MG/HR 15 mls/hr IVP .[id number] [facility] Rx#: [id number] Insulin Regular 100 unit 46.723 41.765 In Sodium Chloride 0.9% 100 ml @ Per Protocol IV .Q0M [facility] Rx#:[id number] Norepinephrin 16 mg-0.9% 50.493 Ns Pmx 16 mg In 250 ml @ Titrate IV .Q0M [facility] Rx#: [id number] Propofol 1,000 mg In 100 200 95.993 Empty Bag 1 bag @ Titrate IV .Q0M [facility] Rx#: [id number] Sodium Chloride 0.9% 1, 20 000 ml @ 100 mls/hr IV . Q10H [facility] Rx#:[id number] Tube Feeding 26 0 Other 60 Output: Gastric Drainage 800 Urine 485 435 110 Other: Voiding Method Indwelling Catheter Indwelling Catheter ABP, PAP, CO, CI - Last Documented Arterial Blood Pressure 108/54 - Labs CBC & Chem 7: 07/16/17 04:25 07/16/17 04:25 Labs: Abnormal Lab Results - Last 24 Hours (Table) 07/15/17 07/16/17 07/16/17 Range/Units 21:50 00:09 01:02 WBC 31.2 H* (3.8-10.6) k/uL RBC 3.56 L (4.30-5.90) m/uL Hgb 11.9 L (13.0-17.5) gm/dL Hct 35.8 L (39.0-53.0) % MCV 100.8 H (80.0-100.0) fL RDW (11.5-15.5) % Plt Count 52 L (150-450) k/uL Neutrophils # (1.3-7.7) k/uL Monocytes # (0-1.0) k/uL ABG pH (7.35-7.45) ABG HCO3 (21-25) mmol/L Sodium (137-145) mmol/L Potassium (3.5-5.1) mmol/L Carbon Dioxide (22-30) mmol/L BUN (9-20) mg/dL Creatinine (0.66-1.25) mg/dL Glucose (74-99) mg/dL POC Glucose (mg/dL) 138 H 146 H (75-99) mg/dL Calcium (8.4-10.2) mg/dL Phosphorus (2.5-4.5) mg/dL Vancomycin Trough ug/mL 07/16/17 07/16/17 07/16/17 Range/Units 02:02 03:13 04:18 WBC (3.8-10.6) k/uL RBC (4.30-5.90) m/uL Hgb (13.0-17.5) gm/dL Hct (39.0-53.0) % MCV (80.0-100.0) fL RDW (11.5-15.5) % Plt Count (150-450) k/uL Neutrophils # (1.3-7.7) k/uL Monocytes # (0-1.0) k/uL ABG pH (7.35-7.45) ABG HCO3 (21-25) mmol/L Sodium (137-145) mmol/L Potassium (3.5-5.1) mmol/L Carbon Dioxide (22-30) mmol/L BUN (9-20) mg/dL Creatinine (0.66-1.25) mg/dL Glucose (74-99) mg/dL POC Glucose (mg/dL) 145 H 150 H 141 H (75-99) mg/dL Calcium (8.4-10.2) mg/dL Phosphorus (2.5-4.5) mg/dL Vancomycin Trough ug/mL 07/16/17 07/16/17 07/16/17 Range/Units 04:25 04:25 05:03 WBC 27.3 H* (3.8-10.6) k/uL RBC 3.62 L (4.30-5.90) m/uL Hgb 11.7 L (13.0-17.5) gm/dL Hct 36.2 L (39.0-53.0) % MCV (80.0-100.0) fL RDW 15.7 H (11.5-15.5) % Plt Count 46 L* (150-450) k/uL Neutrophils # 24.7 H (1.3-7.7) k/uL Monocytes # 1.1 H (0-1.0) k/uL ABG pH 7.29 L (7.35-7.45) ABG HCO3 20 L (21-25) mmol/L Sodium 136 L (137-145) mmol/L Potassium 5.4 H (3.5-5.1) mmol/L Carbon Dioxide 20 L (22-30) mmol/L BUN 105 H* (9-20) mg/dL Creatinine 3.20 H (0.66-1.25) mg/dL Glucose 148 H (74-99) mg/dL POC Glucose (mg/dL) (75-99) mg/dL Calcium 7.4 L (8.4-10.2) mg/dL Phosphorus 7.6 H (2.5-4.5) mg/dL Vancomycin Trough ug/mL 07/16/17 07/16/1707/16/18 Range/Units 05:18 06:03 07:19 WBC (3.8-10.6) k/uL RBC (4.30-5.90) m/uL Hgb (13.0-17.5) gm/dL Hct (39.0-53.0) % MCV (80.0-100.0) fL RDW (11.5-15.5) % Plt Count (150-450) k/uL Neutrophils # (1.3-7.7) k/uL Monocytes # (0-1.0) k/uL ABG pH (7.35-7.45) ABG HCO3 (21-25) mmol/L Sodium (137-145) mmol/L Potassium (3.5-5.1) mmol/L Carbon Dioxide (22-30) mmol/L BUN (9-20) mg/dL Creatinine (0.66-1.25) mg/dL Glucose (74-99) mg/dL POC Glucose (mg/dL) 123 H 137 H 116 H (75-99) mg/dL Calcium (8.4-10.2) mg/dL Phosphorus (2.5-4.5) mg/dL Vancomycin Trough ug/mL 07/16/17 07/16/17 07/16/17 Range/Units 08:18 09:57 10:57 WBC (3.8-10.6) k/uL RBC (4.30-5.90) m/uL Hgb (13.0-17.5) gm/dL Hct (39.0-53.0) % MCV (80.0-100.0) fL RDW (11.5-15.5) % Plt Count (150-450) k/uL Neutrophils # (1.3-7.7) k/uL Monocytes # (0-1.0) k/uL ABG pH (7.35-7.45) ABG HCO3 (21-25) mmol/L Sodium (137-145) mmol/L Potassium (3.5-5.1) mmol/L Carbon Dioxide (22-30) mmol/L BUN (9-20) mg/dL Creatinine (0.66-1.25) mg/dL Glucose (74-99) mg/dL POC Glucose (mg/dL) 145 H 198 H 182 H (75-99) mg/dL Calcium (8.4-10.2) mg/dL Phosphorus (2.5-4.5) mg/dL Vancomycin Trough ug/mL 07/16/17 07/16/17 07/16/17 Range/Units 12:00 13:30 13:33 WBC (3.8-10.6) k/uL RBC (4.30-5.90) m/uL Hgb (13.0-17.5) gm/dL Hct (39.0-53.0) % MCV (80.0-100.0) fL RDW (11.5-15.5) % Plt Count (150-450) k/uL Neutrophils # (1.3-7.7) k/uL Monocytes # (0-1.0) k/uL ABG pH (7.35-7.45) ABG HCO3 (21-25) mmol/L Sodium (137-145) mmol/L Potassium (3.5-5.1) mmol/L Carbon Dioxide (22-30) mmol/L BUN (9-20) mg/dL Creatinine (0.66-1.25) mg/dL Glucose (74-99) mg/dL POC Glucose (mg/dL) 161 H 158 H (75-99) mg/dL Calcium (8.4-10.2) mg/dL Phosphorus (2.5-4.5) mg/dL Vancomycin Trough 44.3 H* ug/mL 07/16/17 07/16/17 07/16/17 Range/Units 14:55 16:14 17:00 WBC (3.8-10.6) k/uL RBC (4.30-5.90) m/uL Hgb (13.0-17.5) gm/dL Hct (39.0-53.0) % MCV (80.0-100.0) fL RDW (11.5-15.5) % Plt Count (150-450) k/uL Neutrophils # (1.3-7.7) k/uL Monocytes # (0-1.0) k/uL ABG pH (7.35-7.45) ABG HCO3 (21-25) mmol/L Sodium (137-145) mmol/L Potassium (3.5-5.1) mmol/L Carbon Dioxide (22-30) mmol/L BUN (9-20) mg/dL Creatinine (0.66-1.25) mg/dL Glucose (74-99) mg/dL POC Glucose (mg/dL) 163 H 149 H 140 H (75-99) mg/dL Calcium (8.4-10.2) mg/dL Phosphorus (2.5-4.5) mg/dL Vancomycin Trough ug/mL 07/16/17 07/16/17 07/16/17 Range/Units 18:06 19:07 21:06 WBC (3.8-10.6) k/uL RBC (4.30-5.90) m/uL Hgb (13.0-17.5) gm/dL Hct (39.0-53.0) % MCV (80.0-100.0) fL RDW (11.5-15.5) % Plt Count (150-450) k/uL Neutrophils # (1.3-7.7) k/uL Monocytes # (0-1.0) k/uL ABG pH (7.35-7.45) ABG HCO3 (21-25) mmol/L Sodium (137-145) mmol/L Potassium (3.5-5.1) mmol/L Carbon Dioxide (22-30) mmol/L BUN (9-20) mg/dL Creatinine (0.66-1.25) mg/dL Glucose (74-99) mg/dL POC Glucose (mg/dL) 136 H 137 H 124 H (75-99) mg/dL Calcium (8.4-10.2) mg/dL Phosphorus (2.5-4.5) mg/dL Vancomycin Trough ug/mL Microbiology - Last 24 Hours (Table) 07/14/17 10:30 Gram Stain - Final Bronchoalviolar Lavage - Right Bronchial Washings Culture - Final Methicillin resist S. aureus 07/13/17 05:20 Blood Culture - Preliminary Blood No Growth after 72 hours 07/13/17 05:30 Blood Culture Gram Stain - Final Blood Blood Culture - Final Methicillin resist S. aureus Assessment and Plan (1) Acute and chronic respiratory failure with hypercapnia Current Visit: Yes Status: Acute Code(s): J96.22 - ACUTE AND CHRONIC RESPIRATORY FAILURE WITH HYPERCAPNIA SNOMED Code(s): 9861405654689 (2) MRSA pneumonia Current Visit: Yes Status: Acute Code(s): J15.212 - PNEUMONIA DUE TO METHICILLIN RESISTANT STAPHYLOCOCCUS AUREUS SNOMED Code(s): 836522112890385 (3) MRSA bacteremia Current Visit: Yes Status: Acute Code(s): R78.81 - BACTEREMIA SNOMED Code( s): 98707404707885822 (4) Leukocytosis Current Visit: Yes Status: Acute Code(s): D72.829 - ELEVATED WHITE BLOOD CELL COUNT, UNSPECIFIED SNOMED Code(s): 810724530
[2017-07-16 23:09] LABS: Glucose,Whole Blood 140 mg/dL (75-99)
--- NOTE | 2017-07-16 23:46 | P.PN ---
Subjective Progress Note Date: 07/15/17 Principal diagnosis: Acute hypoxic respiratory failure due to COPD and pneumonia This is a continue present 56-year-old white male essentially admitted for exacerbation of COPD but ended up having significant bilateral pneumonia with sepsis element. He has an underlying history of previous alcoholism. 07/16/2017 Patient remained on mechanical ventilator. Patient had bronchoscopy done by Dr. Suarez yesterday. Follow-up fluid culture report. Patient is being continued on broad-spectrum antibiotics. Continues to be on pressor support. Chest x-ray showed stable exam. Moderate right pleural effusion and multifocal right-sided pneumonia. Patient is still having significant leukocytosis. Pulmonary is following. Active Medications Albuterol/Ipratropium (Duoneb 0.5 Mg-3 Mg/3 Ml Soln) 3 ml INHALATION RT-QID [facility] Last Admin: 07/16/17 20:16 Dose: 3 ml Albuterol/Ipratropium (Duoneb 0.5 Mg-3 Mg/3 Ml Soln) 3 ml INHALATION RT-Q2H PRN PRN Reason: Shortness Of Breath Or Wheezing Budesonide (Pulmicort) 0.5 mg INHALATION RT-BID [facility] Last Admin: 07/16/17 20:16 Dose: 0.5 mg Chlorhexidine Gluconate (Peridex) 15 ml MUCOUS MEM BID [facility] Last Admin: 07/16/17 20:15 Dose: 15 ml Docusate Sodium (Colace Oral Soln) 100 mg PO BID [facility] Last Admin: 07/16/17 20:15 Dose: 100 mg Heparin Sodium (Porcine) (Heparin) 5,000 unit SQ Q12HR [facility] Last Admin: 07/16/17 20:03 Dose: Not Given Propofol 1,000 mg/ IV Solution 100 mls @ 0 mls/hr IV .Q0M [facility]; Titrate PRN Reason: Protocol Last Admin: 07/16/17 21:02 Dose: 26.63 mcg/kg/min, 18.7 mls/hr Insulin Human Regular 100 unit (/ Sodium Chloride) 101 mls @ 0 mls/hr IV .Q0M [facility]; Per Protocol PRN Reason: Protocol Last Titration: 07/16/17 18:06 Dose: 0 units/hr, 0 mls/hr Levofloxacin 750 mg/ IV (Solution) 150 mls @ 100 mls/hr IVPB Q48H [facility] Last Admin: 07/16/17 06:52 Dose: 100 mls/hr Norepinephrine Bitartrate (Levophed-0.9% Nacl 16 Mg/250ml Pmx) 16 mg in 250 mls @ 0 mls/hr IV .Q0M [facility]; Titrate PRN Reason: Protocol Last Titration: 07/16/17 11:57 Dose: 4 mcg/min, 3.75 mls/hr Furosemide 250 mg/ Sodium (Chloride) 250 mls @ 15 mls/hr IVP .[id number] [facility] PRN Reason: 15 MG/HR Last Infusion: 07/16/17 15:51 Dose: 15 mg/hr, 15 mls/hr Lactulose (Cephulac) 30 gm PO DAILY [facility] Last Admin: 07/16/17 08:46 Dose: 30 gm Methylprednisolone Sodium Succinate (Solu-Medrol) 60 mg IV Q6HR [facility] Last Admin: 07/16/17 18:01 Dose: 60 mg Metoclopramide HCl (Reglan) 10 mg IVP Q6HR [facility] Last Admin: 07/16/17 18:01 Dose: 10 mg Pantoprazole Sodium (Protonix) 40 mg IVP BID [facility] Last Admin: 07/16/17 20:15 Dose: 40 mg review of systems could not be apparent from the patient Objective - Vital Signs Vital signs: Vital Signs Temp 97.6 F 07/15/17 16:00 Pulse 76 07/15/17 20:30 Resp 33 H 07/15/17 19:00 BP 114/57 07/14/17 20:30 Pulse Ox 92 L 07/15/17 19:00 Intake & Output 07/15/17 07/15/17 07/16/17 06:59 18:59 06:59 Intake Total 2436.692 2085.543 111.733 Output Total 445 515 40 Balance 2857.665 0900.543 71.733 Weight 111.8 kg Intake: IV 1470 1080 70 Dextrose 5% in Water 1, 550 150 000 ml @ 50 mls/hr IV . Q23H [facility] with Sodium Bicarb (1 Meq/ml) 150 ml Rx#:[id number] Sodium Chloride 0.45% 1, 630 70 000 ml @ 70 mls/hr IV . [id number] [facility] with Sodium Bicarb (1 Meq/ml) 100 ml Rx#:[id number] Sodium Chloride 0.9% 1, 920 300 000 ml @ 10 mls/hr IV . Q24H [facility] Rx#:[id number] Intake, IV Titration 590.692 352.543 15.733 Amount Dextrose 5% in Water 1, 50 000 ml @ 50 mls/hr IV . Q23H [facility] with Sodium Bicarb (1 Meq/ml) 150 ml Rx#:[id number] Insulin Regular 100 unit 90.692 56.417 15.733 In Sodium Chloride 0.9% 100 ml @ Per Protocol IV .Q0M [facility] Rx#:[id number] Norepinephrin 16 mg-0.9% 32.001 Ns Pmx 16 mg In 250 ml @ Titrate IV .Q0M [facility] Rx#: [id number] Norepinephrin 4 mg-0.9% 250 64.125 Ns Pmx 4 mg In 250 ml @ Titrate IV .Q0M [facility] Rx#: [id number] Propofol 1,000 mg In 100 200 Empty Bag 1 bag @ Titrate IV .Q0M [facility] Rx#: [id number] Sodium Chloride 0.9% 1, 100 000 ml @ 100 mls/hr IV . Q10H [facility] Rx#:[id number] Oral 95 Tube Feeding 286 468 26 Other 90 90 Output: Urine 445 515 40 Other: Voiding Method Indwelling Catheter Indwelling Catheter ABP, PAP, CO, CI - Last Documented Arterial Blood Pressure 137/68 - Exam Intubated sedated and mechanically ventilated HEENT: Anicteric conjunctiva with some thin exudate, no bleeding around the nasogastric tube oroendotracheal tube no thrush was noted Neck: The neck is supple without significant lymphadenopathy or thyromegaly. Lungs: Symmetrical air entry with coarse crackles to the bases bronchial sounds to the right base is noted Heart: Regular rate and rhythm with an audible S1-S2, no S3 positive S4 There is no significant murmur click or rub, PMI was nondisplaced. Abdomen: Soft. Slightly distended. Bowel sounds present. No guarding no rigidity. Extremities: Upper and lower extremities have some generalized edema. More edema in the lower extremities. Peripheral pulses are palpable extremities are cool but not cold. No open ulcers are seen. Neuro: Patient is heavily sedated intubated and mechanically ventilated. - Labs CBC & Chem 7: 03/10/18 04:25 07/16/17 04:25 Labs: Abnormal Lab Results - Last 24 Hours (Table) 07/14/17 07/14/17 07/15/17 Range/Units 21:18 22:51 00:01 WBC (3.8-10.6) k/uL RBC (4.30-5.90) m/uL Hgb (13.0-17.5) gm/dL MCV (80.0-100.0) fL Plt Count (150-450) k/uL Neutrophils # (Manual) (1.3-7.7) k/uL Monocytes # (Manual) (0-1.0) k/uL Metamyelocytes # (Man) (0) k/uL Myelocytes # (Manual) (0) k/uL ABG pH (7.35-7.45) ABG pCO2 (35-45) mmHg ABG pO2 (83-108) mmHg ABG HCO3 (21-25) mmol/L ABG Lactic Acid (0.5-1.6) mmol/L Carbon Dioxide (22-30) mmol/L BUN (9-20) mg/dL Creatinine (0.66-1.25) mg/dL Glucose (74-99) mg/dL POC Glucose (mg/dL) 179 H 179 H 178 H (75-99) mg/dL Calcium (8.4-10.2) mg/dL Phosphorus (2.5-4.5) mg/dL 07/15/17 07/15/17 07/15/17 Range/Units 00:52 02:08 03:14 WBC (3.8-10.6) k/uL RBC (4.30-5.90) m/uL Hgb (13.0-17.5) gm/dL MCV (80.0-100.0) fL Plt Count (150-450) k/uL Neutrophils # (Manual) (1.3-7.7) k/uL Monocytes # (Manual) (0-1.0) k/uL Metamyelocytes # (Man) (0) k/uL Myelocytes # (Manual) (0) k/uL ABG pH (7.35-7.45) ABG pCO2 (35-45) mmHg ABG pO2 (83-108) mmHg ABG HCO3 (21-25) mmol/L ABG Lactic Acid (0.5-1.6) mmol/L Carbon Dioxide (22-30) mmol/L BUN (9-20) mg/dL Creatinine (0.66-1.25) mg/dL Glucose (74-99) mg/dL POC Glucose (mg/dL) 184 H 182 H 160 H (75-99) mg/dL Calcium (8.4-10.2) mg/dL Phosphorus (2.5-4.5) mg/dL 07/15/17 07/15/17 07/15/17 Range/Units 04:10 04:10 04:10 WBC 41.8 H* (3.8-10.6) k/uL RBC 3.84 L (4.30-5.90) m/uL Hgb 12.4 L (13.0-17.5) gm/dL MCV 102.5 H (80.0-100.0) fL Plt Count 74 L (150-450) k/uL Neutrophils # (Manual) 37.60 H (1.3-7.7) k/uL Monocytes # (Manual) 1.67 H (0-1.0) k/uL Metamyelocytes # (Man) 1.25 H (0) k/uL Myelocytes # (Manual) 0.42 H (0) k/uL ABG pH (7.35-7.45) ABG pCO2 (35-45) mmHg ABG pO2 (83-108) mmHg ABG HCO3 (21-25) mmol/L ABG Lactic Acid 2.5 H* (0.5-1.6) mmol/L Carbon Dioxide 18 L (22-30) mmol/L BUN 81 H* (9-20) mg/dL Creatinine 2.50 H (0.66-1.25) mg/dL Glucose 174 H (74-99) mg/dL POC Glucose (mg/dL) (75-99) mg/dL Calcium 7.1 L (8.4-10.2) mg/dL Phosphorus 6.8 H (2.5-4.5) mg/dL 07/15/17 07/15/17 07/15/17 Range/Units 04:19 05:08 05:27 WBC (3.8-10.6) k/uL RBC (4.30-5.90) m/uL Hgb (13.0-17.5) gm/dL MCV (80.0-100.0) fL Plt Count (150-450) k/uL Neutrophils # (Manual) (1.3-7.7) k/uL Monocytes # (Manual) (0-1.0) k/uL Metamyelocytes # (Man) (0) k/uL Myelocytes # (Manual) (0) k/uL ABG pH 7.19 L* (7.35-7.45) ABG pCO2 52 H (35-45) mmHg ABG pO2 81 L (83-108) mmHg ABG HCO3 20 L (21-25) mmol/L ABG Lactic Acid (0.5-1.6) mmol/L Carbon Dioxide (22-30) mmol/L BUN (9-20) mg/dL Creatinine (0.66-1.25) mg/dL Glucose (74-99) mg/dL POC Glucose (mg/dL) 148 H 182 H (75-99) mg/dL Calcium (8.4-10.2) mg/dL Phosphorus (2.5-4.5) mg/dL 07/15/17 07/15/17 07/15/17 Range/Units 06:56 08:43 10:49 WBC (3.8-10.6) k/uL RBC (4.30-5.90) m/uL Hgb (13.0-17.5) gm/dL MCV (80.0-100.0) fL Plt Count (150-450) k/uL Neutrophils # (Manual) (1.3-7.7) k/uL Monocytes # (Manual) (0-1.0) k/uL Metamyelocytes # (Man) (0) k/uL Myelocytes # (Manual) (0) k/uL ABG pH (7.35-7.45) ABG pCO2 (35-45) mmHg ABG pO2 (83-108) mmHg ABG HCO3 (21-25) mmol/L ABG Lactic Acid (0.5-1.6) mmol/L Carbon Dioxide (22-30) mmol/L BUN (9-20) mg/dL Creatinine (0.66-1.25) mg/dL Glucose (74-99) mg/dL POC Glucose (mg/dL) 142 H 142 H 161 H (75-99) mg/dL Calcium (8.4-10.2) mg/dL Phosphorus (2.5-4.5) mg/dL 07/15/17 07/15/17 07/15/17 Range/Units 12:53 13:52 14:32 WBC (3.8-10.6) k/uL RBC (4.30-5.90) m/uL Hgb (13.0-17.5) gm/dL MCV (80.0-100.0) fL Plt Count (150-450) k/uL Neutrophils # (Manual) (1.3-7.7) k/uL Monocytes # (Manual) (0-1.0) k/uL Metamyelocytes # (Man) (0) k/uL Myelocytes # (Manual) (0) k/uL ABG pH (7.35-7.45) ABG pCO2 (35-45) mmHg ABG pO2 (83-108) mmHg ABG HCO3 (21-25) mmol/L ABG Lactic Acid (0.5-1.6) mmol/L Carbon Dioxide (22-30) mmol/L BUN (9-20) mg/dL Creatinine (0.66-1.25) mg/dL Glucose (74-99) mg/dL POC Glucose (mg/dL) 130 H 142 H 143 H (75-99) mg/dL Calcium (8.4-10.2) mg/dL Phosphorus (2.5-4.5) mg/dL 07/15/17 07/15/17 07/15/17 Range/Units 15:21 16:16 17:06 WBC (3.8-10.6) k/uL RBC (4.30-5.90) m/uL Hgb (13.0-17.5) gm/dL MCV (80.0-100.0) fL Plt Count (150-450) k/uL Neutrophils # (Manual) (1.3-7.7) k/uL Monocytes # (Manual) (0-1.0) k/uL Metamyelocytes # (Man) (0) k/uL Myelocytes # (Manual) (0) k/uL ABG pH (7.35-7.45) ABG pCO2 (35-45) mmHg ABG pO2 (83-108) mmHg ABG HCO3 (21-25) mmol/L ABG Lactic Acid (0.5-1.6) mmol/L Carbon Dioxide (22-30) mmol/L BUN (9-20) mg/dL Creatinine (0.66-1.25) mg/dL Glucose (74-99) mg/dL POC Glucose (mg/dL) 151 H 133 H 173 H (75-99) mg/dL Calcium (8.4-10.2) mg/dL Phosphorus (2.5-4.5) mg/dL 07/15/17 07/15/17 07/15/17 Range/Units 17:30 18:17 19:26 WBC (3.8-10.6) k/uL RBC (4.30-5.90) m/uL Hgb (13.0-17.5) gm/dL MCV (80.0-100.0) fL Plt Count (150-450) k/uL Neutrophils # (Manual) (1.3-7.7) k/uL Monocytes # (Manual) (0-1.0) k/uL Metamyelocytes # (Man) (0) k/uL Myelocytes # (Manual) (0) k/uL ABG pH (7.35-7.45) ABG pCO2 (35-45) mmHg ABG pO2 (83-108) mmHg ABG HCO3 (21-25) mmol/L ABG Lactic Acid (0.5-1.6) mmol/L Carbon Dioxide (22-30) mmol/L BUN (9-20) mg/dL Creatinine (0.66-1.25) mg/dL Glucose (74-99) mg/dL POC Glucose (mg/dL) 160 H 191 H 163 H (75-99) mg/dL Calcium (8.4-10.2) mg/dL Phosphorus (2.5-4.5) mg/dL Microbiology - Last 24 Hours (Table) 07/14/17 10:30 Gram Stain - Preliminary Bronchoalviolar Lavage - Right Bronchial Washings Culture - Preliminary Presumptive Staph aureus 07/13/17 05:20 Blood Culture - Preliminary Blood No Growth after 48 hours 07/13/17 05:30 Blood Culture Gram Stain - Preliminary Blood Blood Culture - Preliminary Presumptive MRSA 07/14/17 10:30 Acid Fast Bacilli Smear - Final Bronchoalviolar Lavage - Right Acid Fast Bacilli Culture - Preliminary Assessment and Plan Assessment: Sepsis secondary to MRSA pneumonia MRSA septicemia Acute hypoxic and hypercapnic respiratory failure. Currently on mechanical ventilator Severe sepsis and septic shock Right middle lobe and right lower lobe pneumonia likely mixed bacterial and/or or gram-negative may very well be aspiration related Uncontrolled diabetes type 2 Chronic persistent asthma with severe COPD and recent exacerbation of COPD Nonoliguric Acute on chronic kidney disease stage III. Secondary to ATN Metabolic acidosis History of the binge drinking Plan Patient is currently sedated and intubated. Pulmonary is following. Continue to be an antibiotics in the form of vancomycin Follow-up BAL fluid culture. Patient is being followed by pulmonary, nephrology and ID. Prognosis is guarded with multiple medical problems and comorbid conditions. Time with Patient: Greater than 30
--- NOTE | 2017-07-16 23:51 | P.PN ---
Subjective Progress Note Date: 07/16/17 Principal diagnosis: Acute hypoxic respiratory failure due to COPD and pneumonia This is a continue present 56-year-old white male essentially admitted for exacerbation of COPD but ended up having significant bilateral pneumonia with sepsis element. He has an underlying history of previous alcoholism. 07/15/2017 Patient remained on mechanical ventilator. Patient had bronchoscopy done by Dr. Suarez yesterday. Follow-up fluid culture report. Patient is being continued on broad-spectrum antibiotics. Continues to be on pressor support. Chest x-ray showed stable exam. Moderate right pleural effusion and multifocal right-sided pneumonia. Patient is still having significant leukocytosis. Pulmonary is following. 07/16/2017 Patient is still on mechanical ventilator. Nephrology has seen the patient for worsening renal function. Bicarb drip has been discontinued and patient was started on given IV Lasix today. Patient was also on pressor support still. BAL fluid culture showed MRSA. Vancomycin was discontinued due to worsening renal function and ID is considering linezolid. Patient's condition remains same. Slight improvement in leukocytosis otherwise still having leg swelling and abdominal distention. Patient did have a small bowel movement with suppository. Complete review of systems could not be obtained from the patient. Objective - Vital Signs Vital signs: Vital Signs Temp 97.5 F L 07/16/17 20:00 Pulse 94 07/16/17 21:00 Resp 26 H 07/16/17 21:00 BP 114/57 07/14/17 20:30 Pulse Ox 94 L 07/16/17 21:00 Intake & Output 07/16/17 07/16/17 07/17/17 06:59 18:59 07:59 Intake Total 1012.723 753.258 125.993 Output Total 485 1235 110 Balance 527.723 -481.742 15.993 Weight 117 kg 117 kg Intake: IV 840 310 30 0.9 NS 90 30 Levofloxacin 750Mg-D5w 150 Pmx 750 mg In Dextrose/ Water 1 150ml.bag @ 100 mls/hr IVPB Q48H [facility] Rx#: [id number] Sodium Chloride 0.45% 1, 840 70 000 ml @ 70 mls/hr IV . [id number] [facility] with Sodium Bicarb (1 Meq/ml) 100 ml Rx#:[id number] Intake, IV Titration 146.723 383.258 95.993 Amount Furosemide 250 mg In 71 Sodium Chloride 0.9% 225 ml @ 15 MG/HR 15 mls/hr IVP .[id number] [facility] Rx#: [id number] Insulin Regular 100 unit 46.723 41.765 In Sodium Chloride 0.9% 100 ml @ Per Protocol IV .Q0M [facility] Rx#:[id number] Norepinephrin 16 mg-0.9% 50.493 Ns Pmx 16 mg In 250 ml @ Titrate IV .Q0M [facility] Rx#: [id number] Propofol 1,000 mg In 100 200 95.993 Empty Bag 1 bag @ Titrate IV .Q0M [facility] Rx#: [id number] Sodium Chloride 0.9% 1, 20 000 ml @ 100 mls/hr IV . Q10H [facility] Rx#:[id number] Tube Feeding 26 0 Other 60 Output: Gastric Drainage 800 Urine 485 435 110 Other: Voiding Method Indwelling Catheter Indwelling Catheter ABP, PAP, CO, CI - Last Documented Arterial Blood Pressure 108/54 - Exam Intubated sedated and mechanically ventilated HEENT: Anicteric conjunctiva with some thin exudate, no bleeding around the nasogastric tube oroendotracheal tube no thrush was noted Neck: The neck is supple without significant lymphadenopathy or thyromegaly. Lungs: Symmetrical air entry with coarse crackles to the bases bronchial sounds to the right base is noted Heart: Regular rate and rhythm with an audible S1-S2, no S3 positive S4 There is no significant murmur click or rub, PMI was nondisplaced. Abdomen: Soft. Slightly distended. Bowel sounds present. No guarding no rigidity. Extremities: Upper and lower extremities have some generalized edema. More edema in the lower extremities. Peripheral pulses are palpable extremities are cool but not cold. No open ulcers are seen. Neuro: Patient is heavily sedated intubated and mechanically ventilated. - Labs CBC & Chem 7: 07/16/17 04:25 07/16/17 04:25 Labs: Abnormal Lab Results - Last 24 Hours (Table) 07/15/17 07/15/17 07/16/17 Range/Units 21:50 22:06 00:09 WBC 31.2 H* (3.8-10.6) k/uL RBC 3.56 L (4.30-5.90) m/uL Hgb 11.9 L (13.0-17.5) gm/dL Hct 35.8 L (39.0-53.0) % MCV 100.8 H (80.0-100.0) fL RDW (11.5-15.5) % Plt Count 52 L (150-450) k/uL Neutrophils # (1.3-7.7) k/uL Monocytes # (0-1.0) k/uL ABG pH (7.35-7.45) ABG HCO3 (21-25) mmol/L Sodium (137-145) mmol/L Potassium (3.5-5.1) mmol/L Carbon Dioxide (22-30) mmol/L BUN (9-20) mg/dL Creatinine (0.66-1.25) mg/dL Glucose (74-99) mg/dL POC Glucose (mg/dL) 154 H 138 H (75-99) mg/dL Calcium (8.4-10.2) mg/dL Phosphorus (2.5-4.5) mg/dL Vancomycin Trough ug/mL 07/16/17 07/16/17 07/16/17 Range/Units 01:02 02:02 03:13 WBC (3.8-10.6) k/uL RBC (4.30-5.90) m/uL Hgb (13.0-17.5) gm/dL Hct (39.0-53.0) % MCV (80.0-100.0) fL RDW (11.5-15.5) % Plt Count (150-450) k/uL Neutrophils # (1.3-7.7) k/uL Monocytes # (0-1.0) k/uL ABG pH (7.35-7.45) ABG HCO3 (21-25) mmol/L Sodium (137-145) mmol/L Potassium (3.5-5.1) mmol/L Carbon Dioxide (22-30) mmol/L BUN (9-20) mg/dL Creatinine (0.66-1.25) mg/dL Glucose (74-99) mg/dL POC Glucose (mg/dL) 146 H 145 H 150 H (75-99) mg/dL Calcium (8.4-10.2) mg/dL Phosphorus (2.5-4.5) mg/dL Vancomycin Trough ug/mL 07/16/17 07/16/17 07/16/17 Range/Units 04:18 04:25 04:25 WBC 27.3 H* (3.8-10.6) k/uL RBC 3.62 L (4.30-5.90) m/uL Hgb 11.7 L (13.0-17.5) gm/dL Hct 36.2 L (39.0-53.0) % MCV (80.0-100.0) fL RDW 15.7 H (11.5-15.5) % Plt Count 46 L* (150-450) k/uL Neutrophils # 24.7 H (1.3-7.7) k/uL Monocytes # 1.1 H (0-1.0) k/uL ABG pH (7.35-7.45) ABG HCO3 (21-25) mmol/L Sodium 136 L (137-145) mmol/L Potassium 5.4 H (3.5-5.1) mmol/L Carbon Dioxide 20 L (22-30) mmol/L BUN 105 H* (9-20) mg/dL Creatinine 3.20 H (0.66-1.25) mg/dL Glucose 148 H (74-99) mg/dL POC Glucose (mg/dL) 141 H (75-99) mg/dL Calcium 7.4 L (8.4-10.2) mg/dL Phosphorus 7.6 H (2.5-4.5) mg/dL Vancomycin Trough ug/mL 07/16/17 07/16/17 07/16/17 Range/Units 05:03 05:18 06:03 WBC (3.8-10.6) k/uL RBC (4.30-5.90) m/uL Hgb (13.0-17.5) gm/dL Hct (39.0-53.0) % MCV (80.0-100.0) fL RDW (11.5-15.5) % Plt Count (150-450) k/uL Neutrophils # (1.3-7.7) k/uL Monocytes # (0-1.0) k/uL ABG pH 7.29 L (7.35-7.45) ABG HCO3 20 L (21-25) mmol/L Sodium (137-145) mmol/L Potassium (3.5-5.1) mmol/L Carbon Dioxide (22-30) mmol/L BUN (9-20) mg/dL Creatinine (0.66-1.25) mg/dL Glucose (74-99) mg/dL POC Glucose (mg/dL) 123 H 137 H (75-99) mg/dL Calcium (8.4-10.2) mg/dL Phosphorus (2.5-4.5) mg/dL Vancomycin Trough ug/mL 07/16/17 07/16/17 07/16/17 Range/Units 07:19 08:18 09:57 WBC (3.8-10.6) k/uL RBC (4.30-5.90) m/uL Hgb (13.0-17.5) gm/dL Hct (39.0-53.0) % MCV (80.0-100.0) fL RDW (11.5-15.5) % Plt Count (150-450) k/uL Neutrophils # (1.3-7.7) k/uL Monocytes # (0-1.0) k/uL ABG pH (7.35-7.45) ABG HCO3 (21-25) mmol/L Sodium (137-145) mmol/L Potassium (3.5-5.1) mmol/L Carbon Dioxide (22-30) mmol/L BUN (9-20) mg/dL Creatinine (0.66-1.25) mg/dL Glucose (74-99) mg/dL POC Glucose (mg/dL) 116 H 145 H 198 H (75-99) mg/dL Calcium (8.4-10.2) mg/dL Phosphorus (2.5-4.5) mg/dL Vancomycin Trough ug/mL 07/16/17 07/16/17 07/16/17 Range/Units 10:57 12:00 13:30 WBC (3.8-10.6) k/uL RBC (4.30-5.90) m/uL Hgb (13.0-17.5) gm/dL Hct (39.0-53.0) % MCV (80.0-100.0) fL RDW (11.5-15.5) % Plt Count (150-450) k/uL Neutrophils # (1.3-7.7) k/uL Monocytes # (0-1.0) k/uL ABG pH (7.35-7.45) ABG HCO3 (21-25) mmol/L Sodium (137-145) mmol/L Potassium (3.5-5.1) mmol/L Carbon Dioxide (22-30) mmol/L BUN (9-20) mg/dL Creatinine (0.66-1.25) mg/dL Glucose (74-99) mg/dL POC Glucose (mg/dL) 182 H 161 H (75-99) mg/dL Calcium (8.4-10.2) mg/dL Phosphorus (2.5-4.5) mg/dL Vancomycin Trough 44.3 H* ug/mL 07/16/17 07/16/17 07/16/17 Range/Units 13:33 14:55 16:14 WBC (3.8-10.6) k/uL RBC (4.30-5.90) m/uL Hgb (13.0-17.5) gm/dL Hct (39.0-53.0) % MCV (80.0-100.0) fL RDW (11.5-15.5) % Plt Count (150-450) k/uL Neutrophils # (1.3-7.7) k/uL Monocytes # (0-1.0) k/uL ABG pH (7.35-7.45) ABG HCO3 (21-25) mmol/L Sodium (137-145) mmol/L Potassium (3.5-5.1) mmol/L Carbon Dioxide (22-30) mmol/L BUN (9-20) mg/dL Creatinine (0.66-1.25) mg/dL Glucose (74-99) mg/dL POC Glucose (mg/dL) 158 H 163 H 149 H (75-99) mg/dL Calcium (8.4-10.2) mg/dL Phosphorus (2.5-4.5) mg/dL Vancomycin Trough ug/mL 07/16/17 07/16/17 07/16/17 Range/Units 17:00 18:06 19:07 WBC (3.8-10.6) k/uL RBC (4.30-5.90) m/uL Hgb (13.0-17.5) gm/dL Hct (39.0-53.0) % MCV (80.0-100.0) fL RDW (11.5-15.5) % Plt Count (150-450) k/uL Neutrophils # (1.3-7.7) k/uL Monocytes # (0-1.0) k/uL ABG pH (7.35-7.45) ABG HCO3 (21-25) mmol/L Sodium (137-145) mmol/L Potassium (3.5-5.1) mmol/L Carbon Dioxide (22-30) mmol/L BUN (9-20) mg/dL Creatinine (0.66-1.25) mg/dL Glucose (74-99) mg/dL POC Glucose (mg/dL) 140 H 136 H 137 H (75-99) mg/dL Calcium (8.4-10.2) mg/dL Phosphorus (2.5-4.5) mg/dL Vancomycin Trough ug/mL 07/16/17 Range/Units 21:06 WBC (3.8-10.6) k/uL RBC (4.30-5.90) m/uL Hgb (13.0-17.5) gm/dL Hct (39.0-53.0) % MCV (80.0-100.0) fL RDW (11.5-15.5) % Plt Count (150-450) k/uL Neutrophils # (1.3-7.7) k/uL Monocytes # (0-1.0) k/uL ABG pH (7.35-7.45) ABG HCO3 (21-25) mmol/L Sodium (137-145) mmol/L Potassium (3.5-5.1) mmol/L Carbon Dioxide (22-30) mmol/L BUN (9-20) mg/dL Creatinine (0.66-1.25) mg/dL Glucose (74-99) mg/dL POC Glucose (mg/dL) 124 H (75-99) mg/dL Calcium (8.4-10.2) mg/dL Phosphorus (2.5-4.5) mg/dL Vancomycin Trough ug/mL Microbiology - Last 24 Hours (Table) 07/14/17 10:30 Gram Stain - Final Bronchoalviolar Lavage - Right Bronchial Washings Culture - Final Methicillin resist S. aureus 07/13/17 05:20 Blood Culture - Preliminary Blood No Growth after 72 hours 07/13/17 05:30 Blood Culture Gram Stain - Final Blood Blood Culture - Final Methicillin resist S. aureus Assessment and Plan Assessment: Sepsis secondary to MRSA pneumonia. MRSA septicemia Acute hypoxic and hypercapnic respiratory failure. Currently on mechanical ventilator Severe sepsis and septic shock Right middle lobe and right lower lobe pneumonia likely mixed bacterial and/or or gram-negative may very well be aspiration related Uncontrolled diabetes type 2 Chronic persistent asthma with severe COPD and recent exacerbation of COPD Nonoliguric Acute on chronic kidney disease stage III. Secondary to ATN Metabolic acidosis History of the binge drinking Plan Patient is currently sedated and intubated. Pulmonary is following. Continue to be an antibiotics in the form of vancomycin, being changed to linezolid due to worsening renal function. Follow-up BAL fluid culture showed MRSA. Patient is being followed by pulmonary , nephrology and ID. Prognosis is guarded with multiple medical problems and comorbid conditions. Time with Patient: Greater than 30
[2017-07-16 23:53] LABS: Glucose,Whole Blood 161 mg/dL (75-99)
[2017-07-17] MEDS: METOCLOPRAMIDE 5 MG/ML 2 ML VIAL IVP SCH ×4 (00:38→17:24)
[2017-07-17] MEDS: methylPREDNISolone SOD SUCCI 125 MG/2 ML VIAL IV SCH ×4 (00:38→17:24)
[2017-07-17] MEDS: FUROSEMIDE 250 MG in SODIUM CHLORIDE 0.9% 225 ML IVP SCH ×2 (00:40→18:19)
[2017-07-17 00:46] LABS: Glucose,Whole Blood 149 mg/dL (75-99)
[2017-07-17 03:11] LABS: Glucose,Whole Blood 145 mg/dL (75-99)
[2017-07-17 04:16] LABS: Glucose,Whole Blood 130 mg/dL (75-99)
[2017-07-17 04:46] LABS: HCT 38.2 % (39.0-53.0); HGB 12.2 gm/dL (13.0-17.5); MCH 31.7 pg (25.0-35.0); MCV 99.1 fL (80.0-100.0); Macrocytosis Slight; Mean Platelet Volume 8.5; RBC 3.86 m/uL (4.30-5.90); RDW 15.8 % (11.5-15.5)
[2017-07-17 04:49] LABS: WBC 33.8 k/uL (3.8-10.6)
[2017-07-17 04:50] LABS: Platelet Count 66 k/uL (150-450)
[2017-07-17 05:06] LABS: ABG HCO3 15 mmol/L (21-25); ABG Oxygen Saturation 97.6 % (94-97); ABG PCO2 35 mmHg (35-45); ABG PH 7.25 (7.35-7.45); ABG PO2 119 mmHg (83-108)
[2017-07-17 05:29] LABS: Magnesium 2.5 mg/dL (1.6-2.3); Potassium 5.8 mmol/L (3.5-5.1)
[2017-07-17 05:51] LABS: Vancomycin,Random 39.9 ug/mL
[2017-07-17] MEDS: PROPOFOL 1,000 MG in EMPTY BAG 1 BAG IV SCH ×3 (06:13→18:18)
[2017-07-17 06:17] LABS: Glucose,Whole Blood 154 mg/dL (75-99)
[2017-07-17 07:16] LABS: Glucose,Whole Blood 164 mg/dL (75-99)
[2017-07-17] MEDS: BUDESONIDE 0.5 MG/2 ML NEBU INHALATION SCH ×2 (07:19→19:35)
[2017-07-17] MEDS: IPRATROPIUM-ALBUTEROL 3 ML NEB INHALATION SCH ×4 (07:19→19:35)
[2017-07-17 07:26] LABS: Metamyelocytes # (M) 0.34 k/uL (0); Metamyelocytes % 1 %; Nucleated Red Blood Cells 0 /100 WBC (0-0)
[2017-07-17 07:28] LABS: Anisocytosis (M) Present; Band Neutrophils % 15 %; Lymphocytes # (M) 1.01 k/uL (1.0-4.8); Monocytes # (M) 1.01 k/uL (0-1.0); Neutrophils % (M) 79 %; Total Cells Counted 200
[2017-07-17 07:29] LABS: Poikilocytosis (M) Present; Polychromasia Present
--- NOTE | 2017-07-17 07:40 | XR ---
EXAMINATION TYPE: XR chest 1V portable DATE OF EXAM: 07/17/2017 CLINICAL HISTORY: Difficulty breathing progress study. TECHNIQUE: Single AP portable semiupright view of the chest is obtained. COMPARISON: Chest x-ray from one day earlier and older studies FINDINGS: An endotracheal tube, orogastric tube, and left internal jugular central venous catheter a re all stable in appearance. Low lung volumes are redemonstrated. There is persistent patchy left basilar atelectasis and/or infil trate. There is persistent small to moderate-sized right pleural effusion extending laterally and dif fuse right lung opacity. Cardiac silhouette size is stable and within normal limits. Osseous structur es are intact. IMPRESSION: Overall stable findings, patchy left basilar atelectasis and/ or infiltrate. Persistent small to moderate-sized right pleural effusion and diffuse right lung infiltrates and/or edema all re demonstrated.
[2017-07-17 08:02] LABS: Glucose,Whole Blood 155 mg/dL (75-99)
[2017-07-17] MEDS: HEPARIN SODIUM,PORCINE 5,000 UNIT/ML 1 ML VIAL SQ SCH ×2 (08:02→20:15)
[2017-07-17] MEDS: CHLORHEXIDINE GLUCONATE 15 ML CUP MUCOUS MEM SCH ×2 (08:02→20:16)
[2017-07-17] MEDS: LACTULOSE 20 GM/30 ML CUP PO SCH (08:02)
[2017-07-17] MEDS: DOCUSATE ORAL SOLN 100 MG/10 ML CUP PO SCH ×2 (08:02→20:16)
[2017-07-17] MEDS: PANTOPRAZOLE 40 MG/10 ML VIAL IVP SCH ×2 (08:03→20:16)
[2017-07-17] MEDS: INSULIN REGULAR 100 UNIT in SODIUM CHLORIDE 0.9% 100 ML IV SCH (08:04)
[2017-07-17 08:59] LABS: Glucose,Whole Blood 138 mg/dL (75-99)
--- NOTE | 2017-07-17 09:29 | P.PN ---
Subjective Progress Note Date: 07/17/17 Principal diagnosis: MRSA pneumonia Seen and examined for the follow-up of acute kidney injury. Still on a ventilator with 60% FiO2. Also on Levophed and Lasix drip. Objective - Vital Signs Vital signs: Vital Signs Temp 97.8 F 07/17/17 04:00 Pulse 89 07/17/17 07:49 Resp 18 07/17/17 07:00 BP 114/57 07/14/17 20:30 Pulse Ox 95 07/17/17 07:00 Intake & Output 07/16/17 07/17/17 07/17/17 17:59 06:59 18:59 Intake Total 143.838 Output Total 50 Balance 93.838 Weight Intake: IV 10 0.9 NS 10 Levofloxacin 750Mg-D5w Pmx 750 mg In Dextrose/ Water 1 150ml.bag @ 100 mls/hr IVPB Q48H [facility] Rx#: [id number] Sodium Chloride 0.45% 1, 000 ml @ 70 mls/hr IV . [id number] [facility] with Sodium Bicarb (1 Meq/ml) 100 ml Rx#:[id number] Intake, IV Titration 133.838 Amount Furosemide 250 mg In 95.75 Sodium Chloride 0.9% 225 ml @ 15 MG/HR 15 mls/hr IVP .[id number] [facility] Rx#: [id number] Insulin Regular 100 unit 3.805 In Sodium Chloride 0.9% 100 ml @ Per Protocol IV .Q0M [facility] Rx#:[id number] Norepinephrin 16 mg-0.9% Ns Pmx 16 mg In 250 ml @ Titrate IV .Q0M [facility] Rx#: [id number] Propofol 1,000 mg In 34.283 Empty Bag 1 bag @ Titrate IV .Q0M [facility] Rx#: [id number] Sodium Chloride 0.9% 1, 000 ml @ 100 mls/hr IV . Q10H [facility] Rx#:[id number] Tube Feeding Other Output: Gastric Drainage Urine 50 Other: Voiding Method ABP, PAP, CO, CI - Last Documented Arterial Blood Pressure 109/52 - Exam Lying in bed no acute distress HEENT oral intubation Smith catheter Gross edema Abdomen distended bowel sounds present Cardiovascular S1-S2 heard - Labs CBC & Chem 7: 07/17/17 04:15 07/17/17 04:15 Labs: Abnormal Lab Results - Last 24 Hours (Table) 07/16/17 07/16/17 07/16/17 Range/Units 09:57 10:57 12:00 WBC (3.8-10.6) k/uL RBC (4.30-5.90) m/uL Hgb (13.0-17.5) gm/dL Hct (39.0-53.0) % RDW (11.5-15.5) % Plt Count (150-450) k/uL Neutrophils # (Manual) (1.3-7.7) k/uL Monocytes # (Manual) (0-1.0) k/uL Metamyelocytes # (Man) (0) k/uL ABG pH (7.35-7.45) ABG pO2 (83-108) mmHg ABG HCO3 (21-25) mmol/L ABG O2 Saturation (94-97) % Potassium (3.5-5.1) mmol/L Carbon Dioxide (22-30) mmol/L BUN (9-20) mg/dL Creatinine (0.66-1.25) mg/dL Glucose (74-99) mg/dL POC Glucose (mg/dL) 198 H 182 H 161 H (75-99) mg/dL Calcium (8.4-10.2) mg/dL Phosphorus (2.5-4.5) mg/dL Magnesium (1.6-2.3) mg/dL Vancomycin Trough ug/mL 07/16/17 07/16/17 07/16/17 Range/Units 13:30 13:33 14:55 WBC (3.8-10.6) k/uL RBC (4.30-5.90) m/uL Hgb (13.0-17.5) gm/dL Hct (39.0-53.0) % RDW (11.5-15.5) % Plt Count (150-450) k/uL Neutrophils # (Manual) (1.3-7.7) k/uL Monocytes # (Manual) (0-1.0) k/uL Metamyelocytes # (Man) (0) k/uL ABG pH (7.35-7.45) ABG pO2 (83-108) mmHg ABG HCO3 (21-25) mmol/L ABG O2 Saturation (94-97) % Potassium (3.5-5.1) mmol/L Carbon Dioxide (22-30) mmol/L BUN (9-20) mg/dL Creatinine (0.66-1.25) mg/dL Glucose (74-99) mg/dL POC Glucose (mg/dL) 158 H 163 H (75-99) mg/dL Calcium (8.4-10.2) mg/dL Phosphorus (2.5-4.5) mg/dL Magnesium (1.6-2.3) mg/dL Vancomycin Trough 44.3 H* ug/mL 07/16/17 07/16/17 07/16/17 Range/Units 16:14 17:00 18:06 WBC (3.8-10.6) k/uL RBC (4.30-5.90) m/uL Hgb (13.0-17.5) gm/dL Hct (39.0-53.0) % RDW (11.5-15.5) % Plt Count (150-450) k/uL Neutrophils # (Manual) (1.3-7.7) k/uL Monocytes # (Manual) (0-1.0) k/uL Metamyelocytes # (Man) (0) k/uL ABG pH (7.35-7.45) ABG pO2 (83-108) mmHg ABG HCO3 (21-25) mmol/L ABG O2 Saturation (94-97) % Potassium (3.5-5.1) mmol/L Carbon Dioxide (22-30) mmol/L BUN (9-20) mg/dL Creatinine (0.66-1.25) mg/dL Glucose (74-99) mg/dL POC Glucose (mg/dL) 149 H 140 H 136 H (75-99) mg/dL Calcium (8.4-10.2) mg/dL Phosphorus (2.5-4.5) mg/dL Magnesium (1.6-2.3) mg/dL Vancomycin Trough ug/mL 07/16/17 07/16/17 07/16/17 Range/Units 19:07 21:06 22:20 WBC (3.8-10.6) k/uL RBC (4.30-5.90) m/uL Hgb (13.0-17.5) gm/dL Hct (39.0-53.0) % RDW (11.5-15.5) % Plt Count (150-450) k/uL Neutrophils # (Manual) (1.3-7.7) k/uL Monocytes # (Manual) (0-1.0) k/uL Metamyelocytes # (Man) (0) k/uL ABG pH (7.35-7.45) ABG pO2 (83-108) mmHg ABG HCO3 (21-25) mmol/L ABG O2 Saturation (94-97) % Potassium (3.5-5.1) mmol/L Carbon Dioxide (22-30) mmol/L BUN (9-20) mg/dL Creatinine (0.66-1.25) mg/dL Glucose (74-99) mg/dL POC Glucose (mg/dL) 137 H 124 H 138 H (75-99) mg/dL Calcium (8.4-10.2) mg/dL Phosphorus (2.5-4.5) mg/dL Magnesium (1.6-2.3) mg/dL Vancomycin Trough ug/mL 07/16/17 07/16/17 07/17/17 Range/Units 23:08 23:51 00:44 WBC (3.8-10.6) k/uL RBC (4.30-5.90) m/uL Hgb (13.0-17.5) gm/dL Hct (39.0-53.0) % RDW (11.5-15.5) % Plt Count (150-450) k/uL Neutrophils # (Manual) (1.3-7.7) k/uL Monocytes # (Manual) (0-1.0) k/uL Metamyelocytes # (Man) (0) k/uL ABG pH (7.35-7.45) ABG pO2 (83-108) mmHg ABG HCO3 (21-25) mmol/L ABG O2 Saturation (94-97) % Potassium (3.5-5.1) mmol/L Carbon Dioxide (22-30) mmol/L BUN (9-20) mg/dL Creatinine (0.66-1.25) mg/dL Glucose (74-99) mg/dL POC Glucose (mg/dL) 140 H 161 H 149 H (75-99) mg/dL Calcium (8.4-10.2) mg/dL Phosphorus (2.5-4.5) mg/dL Magnesium (1.6-2.3) mg/dL Vancomycin Trough ug/mL 07/17/17 07/17/17 07/17/17 Range/Units 03:09 04:04 04:15 WBC 33.8 H* (3.8-10.6) k/uL RBC 3.86 L (4.30-5.90) m/uL Hgb 12.2 L (13.0-17.5) gm/dL Hct 38.2 L (39.0-53.0) % RDW 15.8 H (11.5-15.5) % Plt Count 66 L (150-450) k/uL Neutrophils # (Manual) 31.70 H (1.3-7.7) k/uL Monocytes # (Manual) 1.01 H (0-1.0) k/uL Metamyelocytes # (Man) 0.34 H (0) k/uL ABG pH (7.35-7.45) ABG pO2 (83-108) mmHg ABG HCO3 (21-25) mmol/L ABG O2 Saturation (94-97) % Potassium (3.5-5.1) mmol/L Carbon Dioxide (22-30) mmol/L BUN (9-20) mg/dL Creatinine (0.66-1.25) mg/dL Glucose (74-99) mg/dL POC Glucose (mg/dL) 145 H 130 H (75-99) mg/dL Calcium (8.4-10.2) mg/dL Phosphorus (2.5-4.5) mg/dL Magnesium (1.6-2.3) mg/dL Vancomycin Trough ug/mL 07/17/17 07/17/17 07/17/17 Range/Units 04:15 04:40 06:15 WBC (3.8-10.6) k/uL RBC (4.30-5.90) m/uL Hgb (13.0-17.5) gm/dL Hct (39.0-53.0) % RDW (11.5-15.5) % Plt Count (150-450) k/uL Neutrophils # (Manual) (1.3-7.7) k/uL Monocytes # (Manual) (0-1.0) k/uL Metamyelocytes # (Man) (0) k/uL ABG pH 7.25 L (7.35-7.45) ABG pO2 119 H (83-108) mmHg ABG HCO3 15 L (21-25) mmol/L ABG O2 Saturation 97.6 H (94-97) % Potassium 5.8 H (3.5-5.1) mmol/L Carbon Dioxide 15 L (22-30) mmol/L BUN 133 H* (9-20) mg/dL Creatinine 4.20 H (0.66-1.25) mg/dL Glucose 154 H (74-99) mg/dL POC Glucose (mg/dL) 154 H (75-99) mg/dL Calcium 8.0 L (8.4-10.2) mg/dL Phosphorus 10.0 H* (2.5-4.5) mg/dL Magnesium 2.5 H (1.6-2.3) mg/dL Vancomycin Trough ug/mL 07/17/17 07/17/17 07/17/17 Range/Units 07:14 08:01 08:57 WBC (3.8-10.6) k/uL RBC (4.30-5.90) m/uL Hgb (13.0-17.5) gm/dL Hct (39.0-53.0) % RDW (11.5-15.5) % Plt Count (150-450) k/uL Neutrophils # (Manual) (1.3-7.7) k/uL Monocytes # (Manual) (0-1.0) k/uL Metamyelocytes # (Man) (0) k/uL ABG pH (7.35-7.45) ABG pO2 (83-108) mmHg ABG HCO3 (21-25) mmol/L ABG O2 Saturation (94-97) % Potassium (3.5-5.1) mmol/L Carbon Dioxide (22-30) mmol/L BUN (9-20) mg/dL Creatinine (0.66-1.25) mg/dL Glucose (74-99) mg/dL POC Glucose (mg/dL) 164 H 155 H 138 H (75-99) mg/dL Calcium (8.4-10.2) mg/dL Phosphorus (2.5-4.5) mg/dL Magnesium (1.6-2.3) mg/dL Vancomycin Trough ug/mL Microbiology - Last 24 Hours (Table) 07/13/17 05:20 Blood Culture - Preliminary Blood No Growth after 96 hours 07/16/17 04:55 Blood Culture - Preliminary Blood No Growth after 24 hours 07/16/17 04:40 Blood Culture - Preliminary Blood No Growth after 24 hours 07/14/17 10:30 Gram Stain - Final Bronchoalviolar Lavage - Right Bronchial Washings Culture - Final Methicillin resist S. aureus Assessment and Plan Assessment: Impression: #1 oliguric acute kidney injury secondary to ischemic and toxic ATN from hypotension and vancomycin. #2 vent-dependent respiratory failure secondary to pneumonia. #3 volume overload #4 metabolic acidosis #5 septic shock on pressors. #6 hyperkalemia Recommendations: #1 serum creatinine worsening and not responding to Lasix drip. #2 He needs dialysis. Please consult vascular surgery for Bryce placement and will plan hemodialysis first in the morning tomorrow. #3 continue with Lasix drip for now. #4 repeat vancomycin trough level is 44 yesterday. #5 Till then treat hyperkalemia medically.
[2017-07-17 10:05] LABS: Glucose,Whole Blood 167 mg/dL (75-99)
[2017-07-17 11:00] LABS: Glucose,Whole Blood 140 mg/dL (75-99)
[2017-07-17 12:04] LABS: Glucose,Whole Blood 150 mg/dL (75-99)
[2017-07-17 12:50] LABS: Glucose,Whole Blood 132 mg/dL (75-99)
[2017-07-17 14:29] LABS: Glucose,Whole Blood 142 mg/dL (75-99)
[2017-07-17 16:44] LABS: Glucose,Whole Blood 111 mg/dL (75-99)
[2017-07-17 18:23] LABS: Glucose,Whole Blood 100 mg/dL (75-99)
[2017-07-17 19:08] LABS: Glucose,Whole Blood 104 mg/dL (75-99)
--- NOTE | 2017-07-17 19:17 | PN ---
PROGRESS NOTE DATE OF SERVICE: 07/17/17 He was seen on July2017. He has been hemodynamically requiring only a small amount off vasopressors. He is on a Lasix drip. He continues to remain on the vent. He is sedated. PHYSICAL EXAMINATION: His ET tube is in place. Blood pressure is 106/53, respiratory rate of 22, pulse rate 99, O2 saturation on 60% FiO2 on the vent is 93%. HEENT reveals ET tube in place. Chest reveals expiratory wheeze. Cardiovascular system is S1, S2. No S3, no S4. No murmurs. ABDOMEN: Soft. There is 1+ to 2+ pedal edema. LABS: Reveal white count of 33.8, hemoglobin of 12.2, platelet count of 66,000, BUN 133, creatinine of 4.2, sodium 138, potassium 5.8, chloride 104, bicarb 14, calcium of 8, phosphorus of 10, magnesium of 2.5. Chest x-ray shows ET tube which is somewhat high pop about 4 cm away from the marcelo. There is right-sided infiltrate with some hyperinflation. IMPRESSION: 1. Methicillin-resistant Staphylococcus aureus pneumonia with Methicillin-resistant Staphylococcus aureus sepsis. 2. Systemic inflammatory response with multi-system organ failure. 3. Acute respiratory failure. 4. Acute renal failure. 5. Thrombocytopenia. 6. Leukocytosis due to his ongoing sepsis. At this point in time, would continue him on IV antibiotics per ID. Keep him on the vent, bicarb drip, Lasix drip and consideration has been given by Nephrology for dialyzing him possibly tomorrow. His prognosis at this time is extremely guarded. Would continue supportive care including nutrition at this time. Depending on how he does, we shall make further changes to his care. In regard to his hyperkalemia, this will be followed and corrected per Nephrology. MMODL / IJN: [id number] /
[2017-07-17 20:11] LABS: Glucose,Whole Blood 107 mg/dL (75-99)
[2017-07-17 21:03] LABS: Glucose,Whole Blood 111 mg/dL (75-99)
[2017-07-17 22:56] LABS: Glucose,Whole Blood 124 mg/dL (75-99)
[2017-07-18] MEDS: METOCLOPRAMIDE 5 MG/ML 2 ML VIAL IVP SCH ×5 (00:29→23:15)
[2017-07-18] MEDS: methylPREDNISolone SOD SUCCI 125 MG/2 ML VIAL IV SCH ×3 (00:29→11:42)
[2017-07-18 00:50] LABS: Glucose,Whole Blood 114 mg/dL (75-99)
[2017-07-18 03:01] LABS: Glucose,Whole Blood 134 mg/dL (75-99)
[2017-07-18] MEDS: PROPOFOL 1,000 MG in EMPTY BAG 1 BAG IV SCH ×3 (03:03→17:01)
[2017-07-18 03:07] LABS: Glucose,Whole Blood 139 mg/dL (75-99)
[2017-07-18 04:22] LABS: Anisocytosis Slight; HCT 36.1 % (39.0-53.0); HGB 11.9 gm/dL (13.0-17.5); MCH 32.9 pg (25.0-35.0); MCV 99.6 fL (80.0-100.0); Macrocytosis Slight; Mean Platelet Volume 8.3; RBC 3.63 m/uL (4.30-5.90); RDW 16.1 % (11.5-15.5)
[2017-07-18 04:23] LABS: Platelet Count 57 k/uL (150-450); WBC 30.4 k/uL (3.8-10.6)
[2017-07-18 04:31] LABS: Albumin 2.1 g/dL (3.5-5.0); Magnesium 2.6 mg/dL (1.6-2.3); Total Bilirubin 1.7 mg/dL (0.2-1.3); Total Protein 6.1 g/dL (6.3-8.2)
[2017-07-18 04:34] LABS: ABG HCO3 16 mmol/L (21-25); ABG Oxygen Saturation 93.4 % (94-97); ABG PCO2 42 mmHg (35-45); ABG PO2 83 mmHg (83-108); ABG TCO2 18 mmol/L (19-24)
[2017-07-18 04:46] LABS: Vancomycin,Random 36.4 ug/mL
[2017-07-18 04:55] LABS: Phosphorus 12.6 mg/dL (2.5-4.5)
[2017-07-18 05:18] LABS: Glucose,Whole Blood 170 mg/dL (75-99)
[2017-07-18 05:27] LABS: ABG PH 7.19 (7.35-7.45)
[2017-07-18] MEDS ORDERED: DEXTROSE 50%-WATER 50 ML SYRINGE IVP STA ×2 (06:09→11:32)
[2017-07-18] MEDS ORDERED: INSULIN REGULAR 100 UNIT/ML VIAL IV ONE ×2 (06:09→11:32)
[2017-07-18] MEDS: LEVOFLOXACIN 750MG-D5W PMX 750 MG in DEXTROSE/WATER 1 150ML.BAG IVPB SCH (06:25)
[2017-07-18 07:06] LABS: Glucose,Whole Blood 222 mg/dL (75-99)
--- NOTE | 2017-07-18 07:19 | XR ---
EXAMINATION TYPE: XR chest 1V portable DATE OF EXAM: 07/18/2017 COMPARISON: 07/17/2017 HISTORY: Ventilatory dependent respiratory failure TECHNIQUE: Single frontal view of the chest is obtained. FINDINGS: There is slight improved aeration of the right midlung and upper lung in comparison the pr ior with persistent multifocal right-sided areas of consolidation and other patchy opacities. There i s stable placement of the left-sided internal jugular central venous catheter, enteric tube and endot sujey tube. Small left pleural effusion blunts the costophrenic angle. There is mild pulmonary vasc ular congestion and interstitial edema. Layering small right pleural effusion is again demonstrated. There is multilevel mild degenerative changes of the thoracic spine and mild acromioclavicular arthro ada. Cardiac silhouette is upper limits normal in size. IMPRESSION: Slight improved aeration of the right midlung with multifocal right-sided opacities, per sistent at least small right pleural effusion, and new trace left pleural effusion in combination wit h mild pulmonary vascular congestion and interstitial edema.
--- NOTE | 2017-07-18 07:56 | P.PN ---
Subjective Principal diagnosis: Continuing care. This is a 56-year-old white male essentially admitted for sepsis with exacerbation of COPD. The patient has been doing quite poorly and having to need multiple pressors, dialysis and feeding. He is had poor GI output. Hyperkalemia is also noted. The patient is on ventilatory support still. Objective - Vital Signs Vital signs: Vital Signs Temp 98.9 F 07/18/17 04:00 Pulse 113 H 07/18/17 07:00 Resp 24 07/18/17 07:00 BP 103/49 07/18/17 04:00 Pulse Ox 92 L 07/18/17 07:00 Intake & Output 07/17/17 07/18/17 07/18/17 18:59 06:59 18:59 Intake Total 713.974 210 10 Output Total 965 763 25 Balance -251.026 -553 -15 Weight 118.4 kg 113.8 kg Intake: IV 120 110 10 0.9 NS 120 110 10 Intake, IV Titration 473.974 100 Amount Furosemide 250 mg In 249.75 Sodium Chloride 0.9% 225 ml @ 15 MG/HR 15 mls/hr IVP .[id number] [facility] Rx#: [id number] Insulin Regular 100 unit 45.350 0 In Sodium Chloride 0.9% 100 ml @ Per Protocol IV .Q0M [facility] Rx#:[id number] Norepinephrin 16 mg-0.9% 46.517 Ns Pmx 16 mg In 250 ml @ Titrate IV .Q0M [facility] Rx#: [id number] Propofol 1,000 mg In 132.357 100 Empty Bag 1 bag @ Titrate IV .Q0M [facility] Rx#: [id number] Oral 120 Output: Gastric Drainage 500 400 Urine 465 363 25 Other: Voiding Method Indwelling Catheter Indwelling Catheter ABP, PAP, CO, CI - Last Documented Arterial Blood Pressure 115/50 - Constitutional General appearance: Present: obese - EENT Eyes: Absent: abnormal pupil - Respiratory Respiratory: bilateral: rhonchi - Cardiovascular Heart rate: 120 Rhythm: regular Abnormal Heart Sounds: Absent: S3 Gallop - Gastrointestinal General gastrointestinal: Present: soft. Absent: tenderness - Psychiatric Psychiatric: Absent: appropriate affect - Labs CBC & Chem 7: 07/18/17 04:02 07/18/17 04:02 Labs: Abnormal Lab Results - Last 24 Hours (Table) 07/17/17 07/17/17 07/17/17 Range/Units 08:01 08:57 10:03 WBC (3.8-10.6) k/uL RBC (4.30-5.90) m/uL Hgb (13.0-17.5) gm/dL Hct (39.0-53.0) % RDW (11.5-15.5) % Plt Count (150-450) k/uL ABG pH (7.35-7.45) ABG HCO3 (21-25) mmol/L ABG Total CO2 (19-24) mmol/L ABG O2 Saturation (94-97) % Sodium (137-145) mmol/L Potassium (3.5-5.1) mmol/L Carbon Dioxide (22-30) mmol/L BUN (9-20) mg/dL Creatinine (0.66-1.25) mg/dL Glucose (74-99) mg/dL POC Glucose (mg/dL) 155 H 138 H 167 H (75-99) mg/dL Calcium (8.4-10.2) mg/dL Phosphorus (2.5-4.5) mg/dL Magnesium (1.6-2.3) mg/dL Total Bilirubin (0.2-1.3) mg/dL Alkaline Phosphatase (38-126) U/L Ammonia (<30) umol/L Total Protein (6.3-8.2) g/dL Albumin (3.5-5.0) g/dL 07/17/17 07/17/17 07/17/17 Range/Units 10:59 12:02 12:48 WBC (3.8-10.6) k/uL RBC (4.30-5.90) m/uL Hgb (13.0-17.5) gm/dL Hct (39.0-53.0) % RDW (11.5-15.5) % Plt Count (150-450) k/uL ABG pH (7.35-7.45) ABG HCO3 (21-25) mmol/L ABG Total CO2 (19-24) mmol/L ABG O2 Saturation (94-97) % Sodium (137-145) mmol/L Potassium (3.5-5.1) mmol/L Carbon Dioxide (22-30) mmol/L BUN (9-20) mg/dL Creatinine (0.66-1.25) mg/dL Glucose (74-99) mg/dL POC Glucose (mg/dL) 140 H 150 H 132 H (75-99) mg/dL Calcium (8.4-10.2) mg/dL Phosphorus (2.5-4.5) mg/dL Magnesium (1.6-2.3) mg/dL Total Bilirubin (0.2-1.3) mg/dL Alkaline Phosphatase (38-126) U/L Ammonia (<30) umol/L Total Protein (6.3-8.2) g/dL Albumin (3.5-5.0) g/dL 07/17/17 07/17/17 07/17/17 Range/Units 14:27 16:42 18:21 WBC (3.8-10.6) k/uL RBC (4.30-5.90) m/uL Hgb (13.0-17.5) gm/dL Hct (39.0-53.0) % RDW (11.5-15.5) % Plt Count (150-450) k/uL ABG pH (7.35-7.45) ABG HCO3 (21-25) mmol/L ABG Total CO2 (19-24) mmol/L ABG O2 Saturation (94-97) % Sodium (137-145) mmol/L Potassium (3.5-5.1) mmol/L Carbon Dioxide (22-30) mmol/L BUN (9-20) mg/dL Creatinine (0.66-1.25) mg/dL Glucose (74-99) mg/dL POC Glucose (mg/dL) 142 H 111 H 100 H (75-99) mg/dL Calcium (8.4-10.2) mg/dL Phosphorus (2.5-4.5) mg/dL Magnesium (1.6-2.3) mg/dL Total Bilirubin (0.2-1.3) mg/dL Alkaline Phosphatase (38-126) U/L Ammonia (<30) umol/L Total Protein (6.3-8.2) g/dL Albumin (3.5-5.0) g/dL 07/17/17 07/17/17 07/17/17 Range/Units 19:07 20:08 21:02 WBC (3.8-10.6) k/uL RBC (4.30-5.90) m/uL Hgb (13.0-17.5) gm/dL Hct (39.0-53.0) % RDW (11.5-15.5) % Plt Count (150-450) k/uL ABG pH (7.35-7.45) ABG HCO3 (21-25) mmol/L ABG Total CO2 (19-24) mmol/L ABG O2 Saturation (94-97) % Sodium (137-145) mmol/L Potassium (3.5-5.1) mmol/L Carbon Dioxide (22-30) mmol/L BUN (9-20) mg/dL Creatinine (0.66-1.25) mg/dL Glucose (74-99) mg/dL POC Glucose (mg/dL) 104 H 107 H 111 H (75-99) mg/dL Calcium (8.4-10.2) mg/dL Phosphorus (2.5-4.5) mg/dL Magnesium (1.6-2.3) mg/dL Total Bilirubin (0.2-1.3) mg/dL Alkaline Phosphatase (38-126) U/L Ammonia (<30) umol/L Total Protein (6.3-8.2) g/dL Albumin (3.5-5.0) g/dL 07/17/17 07/18/17 07/18/17 Range/Units 22:54 00:48 02:59 WBC (3.8-10.6) k/uL RBC (4.30-5.90) m/uL Hgb (13.0-17.5) gm/dL Hct (39.0-53.0) % RDW (11.5-15.5) % Plt Count (150-450) k/uL ABG pH (7.35-7.45) ABG HCO3 (21-25) mmol/L ABG Total CO2 (19-24) mmol/L ABG O2 Saturation (94-97) % Sodium (137-145) mmol/L Potassium (3.5-5.1) mmol/L Carbon Dioxide (22-30) mmol/L BUN (9-20) mg/dL Creatinine (0.66-1.25) mg/dL Glucose (74-99) mg/dL POC Glucose (mg/dL) 124 H 114 H 134 H (75-99) mg/dL Calcium (8.4-10.2) mg/dL Phosphorus (2.5-4.5) mg/dL Magnesium (1.6-2.3) mg/dL Total Bilirubin (0.2-1.3) mg/dL Alkaline Phosphatase (38-126) U/L Ammonia (<30) umol/L Total Protein (6.3-8.2) g/dL Albumin (3.5-5.0) g/dL 07/18/17 07/18/17 07/18/17 Range/Units 03:05 04:02 04:02 WBC 30.4 H* (3.8-10.6) k/uL RBC 3.63 L (4.30-5.90) m/uL Hgb 11.9 L (13.0-17.5) gm/dL Hct 36.1 L (39.0-53.0) % RDW 16.1 H (11.5-15.5) % Plt Count 57 L (150-450) k/uL ABG pH (7.35-7.45) ABG HCO3 (21-25) mmol/L ABG Total CO2 (19-24) mmol/L ABG O2 Saturation (94-97) % Sodium 136 L (137-145) mmol/L Potassium 7.0 H* (3.5-5.1) mmol/L Carbon Dioxide 16 L (22-30) mmol/L BUN 168 H* (9-20) mg/dL Creatinine 5.70 H* (0.66-1.25) mg/dL Glucose 162 H (74-99) mg/dL POC Glucose (mg/dL) 139 H (75-99) mg/dL Calcium 8.0 L (8.4-10.2) mg/dL Phosphorus 12.6 H* (2.5-4.5) mg/dL Magnesium 2.6 H (1.6-2.3) mg/dL Total Bilirubin 1.7 H (0.2-1.3) mg/dL Alkaline Phosphatase 130 H (38-126) U/L Ammonia (<30) umol/L Total Protein 6.1 L (6.3-8.2) g/dL Albumin 2.1 L (3.5-5.0) g/dL 07/18/17 07/18/17 07/18/17 Range/Units 04:02 04:24 05:16 WBC (3.8-10.6) k/uL RBC (4.30-5.90) m/uL Hgb (13.0-17.5) gm/dL Hct (39.0-53.0) % RDW (11.5-15.5) % Plt Count (150-450) k/uL ABG pH 7.19 L* (7.35-7.45) ABG HCO3 16 L (21-25) mmol/L ABG Total CO2 18 L (19-24) mmol/L ABG O2 Saturation 93.4 L (94-97) % Sodium (137-145) mmol/L Potassium (3.5-5.1) mmol/L Carbon Dioxide (22-30) mmol/L BUN (9-20) mg/dL Creatinine (0.66-1.25) mg/dL Glucose (74-99) mg/dL POC Glucose (mg/dL) 170 H (75-99) mg/dL Calcium (8.4-10.2) mg/dL Phosphorus (2.5-4.5) mg/dL Magnesium (1.6-2.3) mg/dL Total Bilirubin (0.2-1.3) mg/dL Alkaline Phosphatase (38-126) U/L Ammonia 147 H (<30) umol/L Total Protein (6.3-8.2) g/dL Albumin (3.5-5.0) g/dL 07/18/17 Range/Units 07:03 WBC (3.8-10.6) k/uL RBC (4.30-5.90) m/uL Hgb (13.0-17.5) gm/dL Hct (39.0-53.0) % RDW (11.5-15.5) % Plt Count (150-450) k/uL ABG pH (7.35-7.45) ABG HCO3 (21-25) mmol/L ABG Total CO2 (19-24) mmol/L ABG O2 Saturation (94-97) % Sodium (137-145) mmol/L Potassium (3.5-5.1) mmol/L Carbon Dioxide (22-30) mmol/L BUN (9-20) mg/dL Creatinine (0.66-1.25) mg/dL Glucose (74-99) mg/dL POC Glucose (mg/dL) 222 H (75-99) mg/dL Calcium (8.4-10.2) mg/dL Phosphorus (2.5-4.5) mg/dL Magnesium (1.6-2.3) mg/dL Total Bilirubin (0.2-1.3) mg/dL Alkaline Phosphatase (38-126) U/L Ammonia (<30) umol/L Total Protein (6.3-8.2) g/dL Albumin (3.5-5.0) g/dL Microbiology - Last 24 Hours (Table) 07/13/17 05:20 Blood Culture - Preliminary Blood No Growth after 120 hours 07/16/17 04:55 Blood Culture - Preliminary Blood No Growth after 48 hours 07/16/17 04:40 Blood Culture - Preliminary Blood No Growth after 48 hours Assessment and Plan (1) Hyperglycemia Current Visit: Yes Status: Acute Code(s): R73.9 - HYPERGLYCEMIA, UNSPECIFIED SNOMED Code(s): 30622419 (2) Pneumonia Current Visit: Yes Status: Acute Code(s): J18.9 - PNEUMONIA, UNSPECIFIED ORGANISM SNOMED Code(s): 353872555 (3) Respiratory distress Current Visit: Yes Status: Acute Code(s): R06.03 - ACUTE RESPIRATORY DISTRESS SNOMED Code(s): 468770456 (4) Sepsis Current Visit: Yes Status: Acute Code(s): A41.9 - SEPSIS, UNSPECIFIED ORGANISM SNOMED Code(s): 78244745 (5) Alcoholism /alcohol abuse Current Visit: No Status: Acute Code(s): F10.20 - ALCOHOL DEPENDENCE, UNCOMPLICATED SNOMED Code(s): 0413171 (6) Diabetes Current Visit: No Status: Acute Code(s): E11.9 - TYPE 2 DIABETES MELLITUS WITHOUT COMPLICATIONS SNOMED Code(s): 71760450 (7) Smoking Current Visit: No Status: Acute Code(s): F17.200 - NICOTINE DEPENDENCE, UNSPECIFIED, UNCOMPLICATED SNOMED Code(s): 82549500 Plan: Multisystem failure is starting to occur given his overall restaurant status, alcoholism and renal failure. Sepsis element continues. Prognosis is guarded to poor. We'll continue to follow. We will have to have a discussion with his father, who is taking care of his power of patent prosecution attorney element if this continues. Question need for tracheostomy. See orders otherwise. Time with Patient: Less than 30
[2017-07-18] MEDS: BUDESONIDE 0.5 MG/2 ML NEBU INHALATION SCH ×2 (08:00→19:08)
[2017-07-18] MEDS: IPRATROPIUM-ALBUTEROL 3 ML NEB INHALATION SCH ×4 (08:00→19:08)
[2017-07-18] MEDS: DEXTROSE 5% IN WATER 1,000 ML with SODIUM BICARB (1 MEQ/ML) 150 ML IV SCH ×2 (08:24→17:03)
[2017-07-18] MEDS: LACTULOSE 20 GM/30 ML CUP PO SCH (08:39)
[2017-07-18] MEDS: CHLORHEXIDINE GLUCONATE 15 ML CUP MUCOUS MEM SCH ×2 (08:39→20:51)
[2017-07-18] MEDS: HEPARIN SODIUM,PORCINE 5,000 UNIT/ML 1 ML VIAL SQ SCH ×2 (08:39→20:51)
[2017-07-18] MEDS: PANTOPRAZOLE 40 MG/10 ML VIAL IVP SCH ×2 (08:40→20:50)
[2017-07-18] MEDS: DOCUSATE ORAL SOLN 100 MG/10 ML CUP PO SCH ×2 (08:40→20:51)
[2017-07-18 08:50] LABS: Glucose,Whole Blood 168 mg/dL (75-99)
[2017-07-18 09:00] LABS: Platelet Count 46 k/uL (150-450)
[2017-07-18] MEDS: FUROSEMIDE 250 MG in SODIUM CHLORIDE 0.9% 225 ML IVP SCH (09:35)
[2017-07-18 10:33] LABS: Glucose,Whole Blood 176 mg/dL (75-99)
[2017-07-18] MEDS ORDERED: DEXTROSE 50%-WATER 50 ML SYRINGE IVP ONE (11:35)
[2017-07-18] MEDS ORDERED: CALCIUM GLUCONATE 1,000 MG in SODIUM CHLORIDE 0.9% 100 ML IVPB ONE (11:37)
[2017-07-18 13:40] LABS: Glucose,Whole Blood 134 mg/dL (75-99)
[2017-07-18 14:55] LABS: Glucose,Whole Blood 118 mg/dL (75-99)
[2017-07-18] MEDS ORDERED: LACTULOSE 200 GM/300 ML (FROM 1/2 GAL JUG) RECTAL ONE (15:32)
[2017-07-18] MEDS ORDERED: DEXTROSE 5% IN WATER 1,000 ML with SODIUM BICARB (1 MEQ/ML) 150 ML IV SCH (15:45)
[2017-07-18] MEDS ORDERED: HEPARIN SODIUM,PORCINE 5,000 UNIT/ML 1 ML VIAL ONE (15:45)
--- NOTE | 2017-07-18 15:47 | P.PN ---
Subjective Progress Note Date: 07/18/17 Principal diagnosis: Septic shock Patient seen and examined in the ICU with nursing staff at bedside. The patient is undergoing hemodialysis and is now on 10 g of Levophed. The patient is on 60% FiO2. He is on PEEP of 5. He has not been tolerating tube feeds and has not had a bowel movement since admission. He is also on a Lasix drip, insulin drip, propofol, D5 with bicarbonate. He is currently undergoing hemodialysis. Objective - Vital Signs Vital signs: Vital Signs Temp 98 F 07/18/17 12:00 Pulse 97 07/18/17 15:16 Resp 20 07/18/17 14:30 BP 103/49 07/18/17 04:00 Pulse Ox 94 L 07/18/17 14:30 Intake & Output 07/17/17 07/18/17 07/18/17 18:59 06:59 18:59 Intake Total 713.348 433 0067.216 Output Total 965 763 110 Balance -251.026 -553 934.216 Weight 118.4 kg 113.8 kg 113.8 kg Intake: IV 120 110 680 0.9 NS 120 110 30 Dextrose 5% in Water 1, 650 000 ml @ 100 mls/hr IV . [id number] LANDY with Sodium Bicarb (1 Meq/ml) 150 ml Rx#:[id number] Intake, IV Titration 473.974 100 364.216 Amount Furosemide 250 mg In 249.75 229 Sodium Chloride 0.9% 225 ml @ 15 MG/HR 15 mls/hr IVP .[id number] LANDY Rx#: [id number] Insulin Regular 100 unit 45.350 0 42.924 In Sodium Chloride 0.9% 100 ml @ Per Protocol IV .Q0M LANDY Rx#:[id number] Norepinephrin 16 mg-0.9% 46.517 0 Ns Pmx 16 mg In 250 ml @ Titrate IV .Q0M LANDY Rx#: [id number] Propofol 1,000 mg In 132.357 100 92.292 Empty Bag 1 bag @ Titrate IV .Q0M LANDY Rx#: [id number] Oral 120 Output: Gastric Drainage 500 400 Urine 465 363 110 Other: Voiding Method Indwelling Catheter Indwelling Catheter Indwelling Catheter ABP, PAP, CO, CI - Last Documented Arterial Blood Pressure 96/53 - Exam Gen.: Patient is sedated on ventilator, critically ill Cardiovascular: Tachycardic, regular rate and rhythm, S1/S2 Lungs: Coarse breath sounds bilaterally Abdomen: Soft nontender nondistended positive bowel sounds Extremities: 1+ edema - Labs CBC & Chem 7: 07/18/17 04:02 07/18/17 10:35 Labs: Abnormal Lab Results - Last 24 Hours (Table) 07/16/17 07/17/17 07/17/17 Range/Units 04:25 16:42 18:21 WBC (3.8-10.6) k/uL RBC (4.30-5.90) m/uL Hgb (13.0-17.5) gm/dL Hct (39.0-53.0) % RDW (11.5-15.5) % Plt Count 46 L* (150-450) k/uL ABG pH (7.35-7.45) ABG HCO3 (21-25) mmol/L ABG Total CO2 (19-24) mmol/L ABG O2 Saturation (94-97) % Sodium (137-145) mmol/L Potassium (3.5-5.1) mmol/L Carbon Dioxide (22-30) mmol/L BUN (9-20) mg/dL Creatinine (0.66-1.25) mg/dL Glucose (74-99) mg/dL POC Glucose (mg/dL) 111 H 100 H (75-99) mg/dL Calcium (8.4-10.2) mg/dL Phosphorus (2.5-4.5) mg/dL Magnesium (1.6-2.3) mg/dL Total Bilirubin (0.2-1.3) mg/dL Alkaline Phosphatase (38-126) U/L Ammonia (<30) umol/L Total Protein (6.3-8.2) g/dL Albumin (3.5-5.0) g/dL 07/17/17 07/17/17 07/17/17 Range/Units 19:07 20:08 21:02 WBC (3.8-10.6) k/uL RBC (4.30-5.90) m/uL Hgb (13.0-17.5) gm/dL Hct (39.0-53.0) % RDW (11.5-15.5) % Plt Count (150-450) k/uL ABG pH (7.35-7.45) ABG HCO3 (21-25) mmol/L ABG Total CO2 (19-24) mmol/L ABG O2 Saturation (94-97) % Sodium (137-145) mmol/L Potassium (3.5-5.1) mmol/L Carbon Dioxide (22-30) mmol/L BUN (9-20) mg/dL Creatinine (0.66-1.25) mg/dL Glucose (74-99) mg/dL POC Glucose (mg/dL) 104 H 107 H 111 H (75-99) mg/dL Calcium (8.4-10.2) mg/dL Phosphorus (2.5-4.5) mg/dL Magnesium (1.6-2.3) mg/dL Total Bilirubin (0.2-1.3) mg/dL Alkaline Phosphatase (38-126) U/L Ammonia (<30) umol/L Total Protein (6.3-8.2) g/dL Albumin (3.5-5.0) g/dL 07/17/17 07/18/17 07/18/17 Range/Units 22:54 00:48 02:59 WBC (3.8-10.6) k/uL RBC (4.30-5.90) m/uL Hgb (13.0-17.5) gm/dL Hct (39.0-53.0) % RDW (11.5-15.5) % Plt Count (150-450) k/uL ABG pH (7.35-7.45) ABG HCO3 (21-25) mmol/L ABG Total CO2 (19-24) mmol/L ABG O2 Saturation (94-97) % Sodium (137-145) mmol/L Potassium (3.5-5.1) mmol/L Carbon Dioxide (22-30) mmol/L BUN (9-20) mg/dL Creatinine (0.66-1.25) mg/dL Glucose (74-99) mg/dL POC Glucose (mg/dL) 124 H 114 H 134 H (75-99) mg/dL Calcium (8.4-10.2) mg/dL Phosphorus (2.5-4.5) mg/dL Magnesium (1.6-2.3) mg/dL Total Bilirubin (0.2-1.3) mg/dL Alkaline Phosphatase (38-126) U/L Ammonia (<30) umol/L Total Protein (6.3-8.2) g/dL Albumin (3.5-5.0) g/dL 07/18/17 07/18/17 07/18/17 Range/Units 03:05 04:02 04:02 WBC 30.4 H* (3.8-10.6) k/uL RBC 3.63 L (4.30-5.90) m/uL Hgb 11.9 L (13.0-17.5) gm/dL Hct 36.1 L (39.0-53.0) % RDW 16.1 H (11.5-15.5) % Plt Count 57 L (150-450) k/uL ABG pH (7.35-7.45) ABG HCO3 (21-25) mmol/L ABG Total CO2 (19-24) mmol/L ABG O2 Saturation (94-97) % Sodium 136 L (137-145) mmol/L Potassium 7.0 H* (3.5-5.1) mmol/L Carbon Dioxide 16 L (22-30) mmol/L BUN 168 H* (9-20) mg/dL Creatinine 5.70 H* (0.66-1.25) mg/dL Glucose 162 H (74-99) mg/dL POC Glucose (mg/dL) 139 H (75-99) mg/dL Calcium 8.0 L (8.4-10.2) mg/dL Phosphorus 12.6 H* (2.5-4.5) mg/dL Magnesium 2.6 H (1.6-2.3) mg/dL Total Bilirubin 1.7 H (0.2-1.3) mg/dL Alkaline Phosphatase 130 H (38-126) U/L Ammonia (<30) umol/L Total Protein 6.1 L (6.3-8.2) g/dL Albumin 2.1 L (3.5-5.0) g/dL 07/18/17 07/18/17 07/18/17 Range/Units 04:02 04:24 05:16 WBC (3.8-10.6) k/uL RBC (4.30-5.90) m/uL Hgb (13.0-17.5) gm/dL Hct (39.0-53.0) % RDW (11.5-15.5) % Plt Count (150-450) k/uL ABG pH 7.19 L* (7.35-7.45) ABG HCO3 16 L (21-25) mmol/L ABG Total CO2 18 L (19-24) mmol/L ABG O2 Saturation 93.4 L (94-97) % Sodium (137-145) mmol/L Potassium (3.5-5.1) mmol/L Carbon Dioxide (22-30) mmol/L BUN (9-20) mg/dL Creatinine (0.66-1.25) mg/dL Glucose (74-99) mg/dL POC Glucose (mg/dL) 170 H (75-99) mg/dL Calcium (8.4-10.2) mg/dL Phosphorus (2.5-4.5) mg/dL Magnesium (1.6-2.3) mg/dL Total Bilirubin (0.2-1.3) mg/dL Alkaline Phosphatase (38-126) U/L Ammonia 147 H (<30) umol/L Total Protein (6.3-8.2) g/dL Albumin (3.5-5.0) g/dL 07/18/17 07/18/17 07/18/17 Range/Units 07:03 08:48 10:31 WBC (3.8-10.6) k/uL RBC (4.30-5.90) m/uL Hgb (13.0-17.5) gm/dL Hct (39.0-53.0) % RDW (11.5-15.5) % Plt Count (150-450) k/uL ABG pH (7.35-7.45) ABG HCO3 (21-25) mmol/L ABG Total CO2 (19-24) mmol/L ABG O2 Saturation (94-97) % Sodium (137-145) mmol/L Potassium (3.5-5.1) mmol/L Carbon Dioxide (22-30) mmol/L BUN (9-20) mg/dL Creatinine (0.66-1.25) mg/dL Glucose (74-99) mg/dL POC Glucose (mg/dL) 222 H 168 H 176 H (75-99) mg/dL Calcium (8.4-10.2) mg/dL Phosphorus (2.5-4.5) mg/dL Magnesium (1.6-2.3) mg/dL Total Bilirubin (0.2-1.3) mg/dL Alkaline Phosphatase (38-126) U/L Ammonia (<30) umol/L Total Protein (6.3-8.2) g/dL Albumin (3.5-5.0) g/dL 07/18/17 07/18/17 07/18/17 Range/Units 10:35 13:38 14:52 WBC (3.8-10.6) k/uL RBC (4.30-5.90) m/uL Hgb (13.0-17.5) gm/dL Hct (39.0-53.0) % RDW (11.5-15.5) % Plt Count (150-450) k/uL ABG pH (7.35-7.45) ABG HCO3 (21-25) mmol/L ABG Total CO2 (19-24) mmol/L ABG O2 Saturation (94-97) % Sodium (137-145) mmol/L Potassium 7.1 H* (3.5-5.1) mmol/L Carbon Dioxide (22-30) mmol/L BUN (9-20) mg/dL Creatinine (0.66-1.25) mg/dL Glucose (74-99) mg/dL POC Glucose (mg/dL) 134 H 118 H (75-99) mg/dL Calcium (8.4-10.2) mg/dL Phosphorus (2.5-4.5) mg/dL Magnesium (1.6-2.3) mg/dL Total Bilirubin (0.2-1.3) mg/dL Alkaline Phosphatase (38-126) U/L Ammonia (<30) umol/L Total Protein (6.3-8.2) g/dL Albumin (3.5-5.0) g/dL Microbiology - Last 24 Hours (Table) 07/13/17 05:20 Blood Culture - Preliminary Blood No Growth after 120 hours 07/16/17 04:55 Blood Culture - Preliminary Blood No Growth after 48 hours 07/16/17 04:40 Blood Culture - Preliminary Blood No Growth after 48 hours Assessment and Plan Assessment: Acute respiratory failure requiring mechanical ventilation MRSA pneumonia MRSA bacteremia Septic shock Multisystem organ failure Acute renal failure, requiring HD Severe hyperkalemia Thrombocytopenia Alcohol abuse Tobacco abuse Obesity Continue full vent support, increase PEEP to 10 Continue levophed, add vasopressin HD per nephrology, hope for ultrafiltration due to issues with oxygenation and fluid overload ABX per ID: Levaquin and Vanco Bicarb drip Will discuss Lasix drip with nephrology Repeat K after HD GI and DVT prophylaxis Bowel regimen Plan to start TPN today Thiamine, Vit C, Cortef per protocol Continue bronchodilators Insulin drip Check abdominal xray Lactulose rectal Case discussed with nephrology. Plan to DC Lasix and bicarb drip this evening, monitor lytes Possible plan for ultrafiltration tomorrow CCT 34 min Time with Patient: Greater than 30
[2017-07-18 17:02] LABS: Glucose,Whole Blood 159 mg/dL (75-99)
[2017-07-18] MEDS: SODIUM CHLORIDE 0.9% 99 ML with VASOPRESSIN 20 UNIT IV SCH ×2 (17:02)
[2017-07-18] MEDS: THIAMINE 200 MG in SODIUM CHLORIDE 0.9% 100 ML IVPB SCH (17:11)
[2017-07-18] MEDS: methylPREDNISolone SOD SUCCI 40 MG/ML 1 ML VIAL IV SCH (17:13)
[2017-07-18] MEDS: HYDROCORTISONE SUCCINATE 100 MG/2 ML VIAL IV SCH ×2 (17:40→23:15)
[2017-07-18] MEDS ORDERED: ASCORBIC ACID 500 MG/ML IV SCH (18:00)
[2017-07-18 18:48] LABS: Glucose,Whole Blood 159 mg/dL (75-99)
[2017-07-18] MEDS: ASCORBIC ACID INJ 1,500 MG in SODIUM CHLORIDE 0.9% 100 ML IV SCH ×2 (19:14→23:21)
[2017-07-18] MEDS: NOREPINEPHRIN 16 MG-0.9%NS PMX 16 MG/250 ML ML IV SCH (19:23)
[2017-07-18 19:55] LABS: Hepatitis B Surface AB- Quant 3.5 mIU/mL
[2017-07-18] MEDS: INSULIN REGULAR 100 UNIT in SODIUM CHLORIDE 0.9% 100 ML IV SCH (20:03)
[2017-07-18 21:05] LABS: Glucose,Whole Blood 156 mg/dL (75-99)
--- NOTE | 2017-07-18 23:00 | PN ---
PROGRESS NOTE Patient is seen for followup for acute kidney injury. He was seen this morning. The patient continues to have significant hyperkalemia and he is scheduled for hemodialysis today. Urine output has been low at about 10 mL/hour. Patient was restarted on Levophed this morning about 2 mcg. He remains on the vent. On examination, blood pressure was 106/49 this morning, heart rate about 85 per minute. Patient is afebrile. EXAMINATION OF THE HEART: S1, S2. EXAMINATION OF LUNGS: Bilateral breath sounds are heard. ABDOMEN: Soft, non-tender. Examination of lower extremities shows 1+ edema bilaterally. [employer]ATE[employer] exam is grossly intact. Labs show repeat potassium of 7.1 this morning. Serum creatinine was 5.7, BUN 168, hemoglobin 11.9 g/dL, white cell count 30,400. Phosphorus 12.6. ASSESSMENT: 1. Acute kidney injury, acute tubular necrosis, currently oliguric with severe hyperkalemia, scheduled for hemodialysis today. We will arrange for hemodialysis again in a.m. I will discontinue the Lasix drip for now and decrease IV fluids. 2. Severe hyperkalemia associated with acute kidney injury and hypercatabolic state. 3. Hyperphosphatemia secondary to renal failure. Will maintain patient on PhosLo through the feeding tube. 4. Severe metabolic acidosis, maintained on IV bicarb. Expect improvement with dialysis. Decrease bicarb drip to about 50 mL/hour. PLAN: Hemodialysis today as well as in a.m. Control blood sugars. Decrease IV fluids. Discontinue Lasix drip. Continue to avoid nephrotoxic agents. Start phosphate binders. MMODL / IJN: [id number] /
[2017-07-18 23:05] LABS: Glucose,Whole Blood 150 mg/dL (75-99)
--- NOTE | 2017-07-18 23:36 | P.PN ---
Subjective Progress Note Date: 07/18/17 Principal diagnosis: Respiratory failure 56-year-old male with history of COPD and alcoholism is had 2 recent visits to hospital. It is noted from the records that he did not have significant delirium tremens but was having difficulties with his COPD. The patient apparently had a rapid deterioration after his recent hospitalization reviewed became very confused and likely had hypoxic hypercapnic respiratory failure and required transport to hospital. He was given some breathing treatments and had some slight improvement but then had a marked worsening and required intubation with sedation and mechanical ventilation. The patient remains in intensive care unit in the infectious diseases consultation is requested given his Possible culture for MRSA and likely same pathogen in his sputum. The patient is intubated sedated and mechanically ventilated and all information comes from the chart and nursing staff. The patient is comfortable. A low dose of vasopressor only. Urine output is marginal but has improved. He had significant hyperglycemia at admission of 813 which is now improved with the insulin drip. Has done well with fluid resuscitation. With current sedation the patient is comfortable. Nursing relates no concerns to delirium tremens at this time. On 07/13/2017 the patient has little change of his status. He remains intubated sedated and mechanically ventilated and remains on vasopressor therapy fortunately low dose with adequate response. The patient is sedated. He's had significant amounts of copious secretions from his endotracheal tube required multiple bouts of suctioning has had difficulty with some mucous plugging also. He is currently very comfortable with current level of sedation 07/14/2017 patient underwent bronchoscopy today with suctioning of large amounts of mucus material and has had some improvement since. He however had a bout of hypothermia and concerns to worsening sepsis possibly in the basis of abdominal sepsis CT scan was performed and is having a disimpaction. His white blood cell count is improved but is having some thrombocytopenia. Patient remains intubated sedated and appears comfortable. 07/15/2017 the patient is more stable today. He is no longer hypothermic and is on a decreased dose of vasopressor. He seems to be comfortable. Remains intubated sedated and mechanically ventilated. Cultures from the bronchoscopy from yesterday are pending gram-positive cocci are again seen. No evidence of gram-negative infection at this time. The patient is have his ongoing significant sepsis from his MRSA pneumonia and bacteremia. Seriousness of his infection is related to his family member who was present. 07/16/2017 the patient remains with vasopressor needs, remains intubated sedated and mechanically ventilated with no change of his vent settings. There is been no improvement. He has ongoing copious secretions. Has been seen by nephrology with worsening of his renal function. Consequently vancomycin is discontinued and levels will be followed. Level becomes subtherapeutic will then substitute linezolide with careful follow up. Patient's prognosis is poor. 07/18/2017 patient remains hematologically unstable, intubated sedated having vasopressin added to his norepinephrine. Continues to have large amount of copious pulmonary secretions related to his MRSA pneumonia. Objective - Vital Signs Vital signs: Vital Signs Temp 98.2 F 07/18/17 20:00 Pulse 73 07/18/17 23:00 Resp 20 07/18/17 23:00 BP 134/60 07/18/17 20:30 Pulse Ox 96 07/18/17 23:00 Intake & Output 07/18/17 07/18/17 07/19/17 06:59 18:59 06:59 Intake Total 210 1512.283 323.642 Output Total 763 155 70 Balance -553 1357.283 253.642 Weight 113.8 kg 113.8 kg Intake: IV 110 1030 290 0.9 NS 110 30 40 Dextrose 5% in Water 1, 1000 250 000 ml @ 50 mls/hr IV . Q23H LANDY with Sodium Bicarb (1 Meq/ml) 150 ml Rx#:[id number] Intake, IV Titration 100 482.283 33.642 Amount Furosemide 250 mg In 229 Sodium Chloride 0.9% 225 ml @ 15 MG/HR 15 mls/hr IVP .[id number] LANDY Rx#: [id number] Insulin Regular 100 unit 0 42.924 9.141 In Sodium Chloride 0.9% 100 ml @ Per Protocol IV .Q0M LANDY Rx#:[id number] Norepinephrin 16 mg-0.9% 27.875 24.501 Ns Pmx 16 mg In 250 ml @ Titrate IV .Q0M LANDY Rx#: [id number] Propofol 1,000 mg In 100 182.484 Empty Bag 1 bag @ Titrate IV .Q0M LANDY Rx#: [id number] Output: Gastric Drainage 400 Urine 363 155 70 Other: Voiding Method Indwelling Catheter Indwelling Catheter Indwelling Catheter ABP, PAP, CO, CI - Last Documented Arterial Blood Pressure 111/52 - Exam Intubated sedated and mechanically ventilated HEENT: Anicteric conjunctiva with some thin exudate, no bleeding around the nasogastric tube oroendotracheal tube no thrush was noted Neck: The neck is supple without significant lymphadenopathy or thyromegaly. Lungs: Symmetrical air entry with coarse crackles to the bases bronchial sounds to the right base is noted Heart: Regular rate and rhythm with an audible S1-S2, no S3 positive S4 There is no significant murmur click or rub, PMI was nondisplaced. Abdomen: Positive bowel sounds soft nondistended without palpable masses or organomegaly. There was no rigidity Extremities: Upper and lower extremities have some generalized edema. More edema in the lower extremities. Peripheral pulses are palpable extremities are cool but not cold. No open ulcers are seen. Neuro: Patient is heavily sedated intubated and mechanically ventilated. - Labs CBC & Chem 7: 07/18/17 04:02 07/18/17 18:45 Labs: Abnormal Lab Results - Last 24 Hours (Table) 07/16/17 07/18/17 07/18/17 Range/Units 04:25 00:48 02:59 WBC (3.8-10.6) k/uL RBC (4.30-5.90) m/uL Hgb (13.0-17.5) gm/dL Hct (39.0-53.0) % RDW (11.5-15.5) % Plt Count 46 L* (150-450) k/uL ABG pH (7.35-7.45) ABG HCO3 (21-25) mmol/L ABG Total CO2 (19-24) mmol/L ABG O2 Saturation (94-97) % Sodium (137-145) mmol/L Potassium (3.5-5.1) mmol/L Carbon Dioxide (22-30) mmol/L BUN (9-20) mg/dL Creatinine (0.66-1.25) mg/dL Glucose (74-99) mg/dL POC Glucose (mg/dL) 114 H 134 H (75-99) mg/dL Calcium (8.4-10.2) mg/dL Phosphorus (2.5-4.5) mg/dL Magnesium (1.6-2.3) mg/dL Total Bilirubin (0.2-1.3) mg/dL Alkaline Phosphatase (38-126) U/L Ammonia (<30) umol/L Total Protein (6.3-8.2) g/dL Albumin (3.5-5.0) g/dL 07/18/17 07/18/17 07/18/17 Range/Units 03:05 04:02 04:02 WBC 30.4 H* (3.8-10.6) k/uL RBC 3.63 L (4.30-5.90) m/uL Hgb 11.9 L (13.0-17.5) gm/dL Hct 36.1 L (39.0-53.0) % RDW 16.1 H (11.5-15.5) % Plt Count 57 L (150-450) k/uL ABG pH (7.35-7.45) ABG HCO3 (21-25) mmol/L ABG Total CO2 (19-24) mmol/L ABG O2 Saturation (94-97) % Sodium 136 L (137-145) mmol/L Potassium 7.0 H* (3.5-5.1) mmol/L Carbon Dioxide 16 L (22-30) mmol/L BUN 168 H* (9-20) mg/dL Creatinine 5.70 H* (0.66-1.25) mg/dL Glucose 162 H (74-99) mg/dL POC Glucose (mg/dL) 139 H (75-99) mg/dL Calcium 8.0 L (8.4-10.2) mg/dL Phosphorus 12.6 H* (2.5-4.5) mg/dL Magnesium 2.6 H (1.6-2.3) mg/dL Total Bilirubin 1.7 H (0.2-1.3) mg/dL Alkaline Phosphatase 130 H (38-126) U/L Ammonia (<30) umol/L Total Protein 6.1 L (6.3-8.2) g/dL Albumin 2.1 L (3.5-5.0) g/dL 07/18/17 07/18/17 07/18/17 Range/Units 04:02 04:24 05:16 WBC (3.8-10.6) k/uL RBC (4.30-5.90) m/uL Hgb (13.0-17.5) gm/dL Hct (39.0-53.0) % RDW (11.5-15.5) % Plt Count (150-450) k/uL ABG pH 7.19 L* (7.35-7.45) ABG HCO3 16 L (21-25) mmol/L ABG Total CO2 18 L (19-24) mmol/L ABG O2 Saturation 93.4 L (94-97) % Sodium (137-145) mmol/L Potassium (3.5-5.1) mmol/L Carbon Dioxide (22-30) mmol/L BUN (9-20) mg/dL Creatinine (0.66-1.25) mg/dL Glucose (74-99) mg/dL POC Glucose (mg/dL) 170 H (75-99) mg/dL Calcium (8.4-10.2) mg/dL Phosphorus (2.5-4.5) mg/dL Magnesium (1.6-2.3) mg/dL Total Bilirubin (0.2-1.3) mg/dL Alkaline Phosphatase (38-126) U/L Ammonia 147 H (<30) umol/L Total Protein (6.3-8.2) g/dL Albumin (3.5-5.0) g/dL 07/18/17 07/18/17 07/18/17 Range/Units 07:03 08:48 10:31 WBC (3.8-10.6) k/uL RBC (4.30-5.90) m/uL Hgb (13.0-17.5) gm/dL Hct (39.0-53.0) % RDW (11.5-15.5) % Plt Count (150-450) k/uL ABG pH (7.35-7.45) ABG HCO3 (21-25) mmol/L ABG Total CO2 (19-24) mmol/L ABG O2 Saturation (94-97) % Sodium (137-145) mmol/L Potassium (3.5-5.1) mmol/L Carbon Dioxide (22-30) mmol/L BUN (9-20) mg/dL Creatinine (0.66-1.25) mg/dL Glucose (74-99) mg/dL POC Glucose (mg/dL) 222 H 168 H 176 H (75-99) mg/dL Calcium (8.4-10.2) mg/dL Phosphorus (2.5-4.5) mg/dL Magnesium (1.6-2.3) mg/dL Total Bilirubin (0.2-1.3) mg/dL Alkaline Phosphatase (38-126) U/L Ammonia (<30) umol/L Total Protein (6.3-8.2) g/dL Albumin (3.5-5.0) g/dL 07/18/17 07/18/17 07/18/17 Range/Units 10:35 13:38 14:52 WBC (3.8-10.6) k/uL RBC (4.30-5.90) m/uL Hgb (13.0-17.5) gm/dL Hct (39.0-53.0) % RDW (11.5-15.5) % Plt Count (150-450) k/uL ABG pH (7.35-7.45) ABG HCO3 (21-25) mmol/L ABG Total CO2 (19-24) mmol/L ABG O2 Saturation (94-97) % Sodium (137-145) mmol/L Potassium 7.1 H* (3.5-5.1) mmol/L Carbon Dioxide (22-30) mmol/L BUN (9-20) mg/dL Creatinine (0.66-1.25) mg/dL Glucose (74-99) mg/dL POC Glucose (mg/dL) 134 H 118 H (75-99) mg/dL Calcium (8.4-10.2) mg/dL Phosphorus (2.5-4.5) mg/dL Magnesium (1.6-2.3) mg/dL Total Bilirubin (0.2-1.3) mg/dL Alkaline Phosphatase (38-126) U/L Ammonia (<30) umol/L Total Protein (6.3-8.2) g/dL Albumin (3.5-5.0) g/dL 07/18/17 07/18/17 07/18/17 Range/Units 17:00 18:45 18:46 WBC (3.8-10.6) k/uL RBC (4.30-5.90) m/uL Hgb (13.0-17.5) gm/dL Hct (39.0-53.0) % RDW (11.5-15.5) % Plt Count (150-450) k/uL ABG pH (7.35-7.45) ABG HCO3 (21-25) mmol/L ABG Total CO2 (19-24) mmol/L ABG O2 Saturation (94-97) % Sodium (137-145) mmol/L Potassium 5.7 H (3.5-5.1) mmol/L Carbon Dioxide (22-30) mmol/L BUN (9-20) mg/dL Creatinine (0.66-1.25) mg/dL Glucose (74-99) mg/dL POC Glucose (mg/dL) 159 H 159 H (75-99) mg/dL Calcium (8.4-10.2) mg/dL Phosphorus (2.5-4.5) mg/dL Magnesium (1.6-2.3) mg/dL Total Bilirubin (0.2-1.3) mg/dL Alkaline Phosphatase (38-126) U/L Ammonia (<30) umol/L Total Protein (6.3-8.2) g/dL Albumin (3.5-5.0) g/dL 07/18/17 07/18/17 Range/Units 20:57 23:03 WBC (3.8-10.6) k/uL RBC (4.30-5.90) m/uL Hgb (13.0-17.5) gm/dL Hct (39.0-53.0) % RDW (11.5-15.5) % Plt Count (150-450) k/uL ABG pH (7.35-7.45) ABG HCO3 (21-25) mmol/L ABG Total CO2 (19-24) mmol/L ABG O2 Saturation (94-97) % Sodium (137-145) mmol/L Potassium (3.5-5.1) mmol/L Carbon Dioxide (22-30) mmol/L BUN (9-20) mg/dL Creatinine (0.66-1.25) mg/dL Glucose (74-99) mg/dL POC Glucose (mg/dL) 156 H 150 H (75-99) mg/dL Calcium (8.4-10.2) mg/dL Phosphorus (2.5-4.5) mg/dL Magnesium (1.6-2.3) mg/dL Total Bilirubin (0.2-1.3) mg/dL Alkaline Phosphatase (38-126) U/L Ammonia (<30) umol/L Total Protein (6.3-8.2) g/dL Albumin (3.5-5.0) g/dL Microbiology - Last 24 Hours (Table) 07/13/17 05:20 Blood Culture - Preliminary Blood No Growth after 120 hours 07/16/17 04:55 Blood Culture - Preliminary Blood No Growth after 48 hours 07/16/17 04:40 Blood Culture - Preliminary Blood No Growth after 48 hours Laboratory Results WBC 30.4 k/uL (3.8-10.6) H* 07/18/17 04:02 RBC 3.63 m/uL (4.30-5.90) L 07/18/17 04:02 Hgb 11.9 gm/dL (13.0-17.5) L 07/18/17 04:02 Hct 36.1 % (39.0-53.0) L 07/18/17 04:02 MCV 99.6 fL (80.0-100.0) 07/18/17 04:02 MCH 32.9 pg (25.0-35.0) 07/18/17 04:02 MCHC 33.0 g/dL (31.0-37.0) 07/18/17 04:02 RDW 16.1 % (11.5-15.5) H 07/18/17 04:02 Plt Count 57 k/uL (150-450) L 07/18/17 04:02 Neutrophils % 91 % 07/16/17 04:25 Neutrophils % (Manual) 79 % 07/17/17 04:15 Band Neutrophils % 15 % 07/17/17 04:15 Lymphocytes % 4 % 07/16/17 04:25 Lymphocytes % (Manual) 3 % 07/17/17 04:15 Monocytes % 4 % 07/16/17 04:25 Monocytes % (Manual) 3 % 07/17/17 04:15 Eosinophils % 0 % 07/16/17 04:25 Basophils % 0 % 07/16/17 04:25 Metamyelocytes % 1 % 07/17/17 04:15 Myelocytes % 1 % 07/15/17 04:10 Neutrophils # 24.7 k/uL (1.3-7.7) H 07/16/17 04:25 Neutrophils # (Manual) 31.70 k/uL (1.3-7.7) H 07/17/17 04:15 Lymphocytes # 1.1 k/uL (1.0-4.8) 07/16/17 04:25 Lymphocytes # (Manual) 1.01 k/uL (1.0-4.8) 07/17/17 04:15 Monocytes # 1.1 k/uL (0-1.0) H 07/16/17 04:25 Monocytes # (Manual) 1.01 k/uL (0-1.0) H 07/17/17 04:15 Eosinophils # 0.0 k/uL (0-0.7) 07/16/17 04:25 Basophils # 0.1 k/uL (0-0.2) 07/16/17 04:25 Metamyelocytes # (Man) 0.34 k/uL (0) H 07/17/17 04:15 Myelocytes # (Manual) 0.42 k/uL (0) H 07/15/17 04:10 Nucleated RBCs 0 /100 WBC (0-0) 07/17/17 04:15 Manual Slide Review Performed 07/14/17 03:28 Toxic Granulation Present 07/14/17 03:28 Toxic Vacuolation Present 07/11/17 09:10 Polychromasia Present 07/17/17 04:15 Hypochromasia Slight 07/15/17 04:10 Poikilocytosis (manual Present 07/17/17 04:15 Anisocytosis Slight 07/18/17 04:02 Anisocytosis (manual) Present 07/17/17 04:15 Macrocytosis Slight 07/18/17 04:02 PT 12.6 sec (9.0-12.0) H 07/11/17 09:10 INR 1.3 (<1.2) H 07/11/17 09:10 APTT 26.3 sec (22.0-30.0) 07/11/17 01:53 Sample Site henry 07/18/17 04:24 ABG pH 7.19 (7.35-7.45) L* 07/18/17 04:24 ABG pCO2 42 mmHg (35-45) 07/18/17 04:24 ABG pO2 83 mmHg (83-108) 07/18/17 04:24 ABG HCO3 16 mmol/L (21-25) L 07/18/17 04:24 ABG Total CO2 18 mmol/L (19-24) L 07/18/17 04:24 ABG O2 Saturation 93.4 % (94-97) L 07/18/17 04:24 ABG Base Excess -12.0 mmol/L 07/18/17 04:24 Deuce Test no 07/18/17 04:24 ABG Lactic Acid 2.5 mmol/L (0.5-1.6) H* 07/15/17 04:10 FiO2 60 % 07/18/17 04:24 Sodium 136 mmol/L (137-145) L 07/18/17 04:02 Potassium 5.7 mmol/L (3.5-5.1) H 07/18/17 18:45 Chloride 105 mmol/L (98-107) 07/18/17 04:02 Carbon Dioxide 16 mmol/L (22-30) L 07/18/17 04:02 Anion Gap 15 mmol/L 07/18/17 04:02 BUN 168 mg/dL (9-20) H* 07/18/17 04:02 Creatinine 5.70 mg/dL (0.66-1.25) H* 07/18/17 04:02 Est GFR (MDRD) Af Amer 46 (>60 ml/min/1.73 sqM) 07/12/17 05:18 Est GFR (MDRD) Non-Af 38 (>60 ml/min/1.73 sqM) 07/12/17 05:18 Est GFR (CKD-EPI)AfAm 12 (>60 ml/min/1.73 sqM) 07/18/17 04:02 Est GFR (CKD-EPI)NonAf 10 (>60 ml/min/1.73 sqM) 07/18/17 04:02 Glucose 162 mg/dL (74-99) H 07/18/17 04:02 POC Glucose (mg/dL) 150 mg/dL (75-99) H 07/18/17 23:03 POC Glu [employer] Melani Feng 07/18/17 23:[address] Glu mg/dL 229 07/13/17 05:20 Hemoglobin A1c 9.6 % (4.0-6.0) H 07/13/17 05:20 Lactic Ac Sepsis Rflx Y 07/11/17 16:24 Plasma Lactic Acid [place] 1.9 mmol/L (0.7-2.0) 07/13/17 05:20 Calcium 8.0 mg/dL (8.4-10.2) L 07/18/17 04:02 Phosphorus 12.6 mg/dL (2.5-4.5) H* 07/18/17 04:02 Magnesium 2.6 mg/dL (1.6-2.3) H 07/18/17 04:02 Total Bilirubin 1.7 mg/dL (0.2-1.3) H 07/18/17 04:02 AST 27 U/L (17-59) 07/18/17 04:02 ALT 34 U/L (21-72) 07/18/17 04:02 Alkaline Phosphatase 130 U/L (38-126) H 07/18/17 04:02 Ammonia 147 umol/L (<30) H 07/18/17 04:02 Total Creatine Kinase 71 U/L (55-170) 07/11/17 01:53 CK-MB (CK-2) 1.6 ng/mL (0.0-2.4) 07/11/17 01:53 CK-MB (CK-2) Rel Index 2.3 07/11/17 01:53 Troponin I <0.012 ng/mL (0.000-0.034) 07/11/17 01:53 Total Protein 6.1 g/dL (6.3-8.2) L 07/18/17 04:02 Albumin 2.1 g/dL (3.5-5.0) L 07/18/17 04:02 Urine Color Dark Yellow 07/11/17 13:39 Urine Appearance Cloudy (Clear) 07/11/17 13:39 Urine pH 5.0 (5.0-8.0) 07/11/17 13:39 Ur Specific [place] 1.018 (1.001-1.035) 07/11/17 13:39 Urine Protein 1+ (Negative) H 07/11/17 13:39 Urine Glucose (UA) Trace (Negative) H 07/11/17 13:39 Urine Ketones Trace (Negative) H 07/11/17 13:39 Urine Blood Negative (Negative) 07/11/17 13:39 Urine Nitrite Negative (Negative) 07/11/17 13:39 Urine Bilirubin 1+ (Negative) H 07/11/17 13:39 Urine Urobilinogen 8.0 mg/dL (<2.0) 07/11/17 13:39 Ur Leukocyte Esterase Negative (Negative) 07/11/17 13:39 Urine RBC 5 /hpf (0-5) 07/11/17 13:39 Urine WBC 5 /hpf (0-5) 07/11/17 13:39 Ur Squamous Epith Cells 1 /hpf (0-4) 07/11/17 13:39 Amorphous Sediment Few /hpf (None) H 07/11/17 13:39 Urine Bacteria Occasional /hpf (None) H 07/11/17 13:39 Hyaline Casts 2 /lpf (0-2) 07/11/17 13:39 Granular Casts 45 /lpf (0) 07/11/17 13:39 Urine Mucus Occasional /hpf (None) H 07/11/17 13:39 Gastric Occult Blood Positive (Negative) 07/15/17 21:35 Vancomycin Trough 44.3 ug/mL H* 07/16/17 13:30 Random Vancomycin 36.4 ug/mL 07/18/17 04:02 Hep Bs Antigen Non-Reactive (Non-Reactive) 07/18/17 15:00 Hep Bs Antibody Non-Reactive (Non-Reactive) 07/18/17 15:00 Hep Bs Antibody, Quant 3.5 mIU/mL 07/18/17 15:00 Influenza Type A RNA Not Detected (Not Detectd) 07/13/17 13:30 Influenza Type B (PCR) Not Detected (Not Detectd) 07/13/17 13:30 Virus Source See Below 07/14/17 10:30 Viral Test See Below 07/14/17 10:30 Virus Analysis Interp See Below 07/14/17 10:30 Miscellaneous Test Legionella PCR 07/14/17 10:30 Misc Test Result See comment 07/14/17 10:30 Microbiology 07/13/17 05:20 Blood Blood Culture - Preliminary No Growth after 120 hours 07/16/17 04:55 Blood Blood Culture - Preliminary No Growth after 48 hours 07/16/17 04:40 Blood Blood Culture - Preliminary No Growth after 48 hours 07/14/17 10:30 Bronchoalviolar Lavage - Right Gram Stain - Final 07/14/17 10:30 Bronchoalviolar Lavage - Right Bronchial Washings Culture - Final Methicillin resist S. aureus 07/13/17 05:30 Blood Blood Culture Gram Stain - Final 07/13/17 05:30 Blood Blood Culture - Final Methicillin resist S. aureus 07/14/17 10:30 Bronchoalviolar Lavage - Right Acid Fast Bacilli Smear - Final 07/14/17 10:30 Bronchoalviolar Lavage - Right Acid Fast Bacilli Culture - Preliminary 07/14/17 10:30 Bronchoalviolar Lavage - Right Fungal Culture - Preliminary 07/13/17 05:30 Blood Blood Culture - Final 07/12/17 18:20 Urine,Catheterized Urine Culture - Final 07/11/17 07:56 Sputum Gram Stain - Final 07/11/17 07:56 Sputum Sputum Culture - Final Methicillin resist S. aureus 07/11/17 01:00 Blood Blood Culture Gram Stain - Final 07/11/17 01:00 Blood Blood Culture - Final Methicillin resist S. aureus 07/11/17 01:00 Blood Blood Culture - Final Assessment and Plan (1) Acute and chronic respiratory failure with hypercapnia Current Visit: Yes Status: Acute Code(s): J96.22 - ACUTE AND CHRONIC RESPIRATORY FAILURE WITH HYPERCAPNIA SNOMED Code(s): 2326430372627 (2) MRSA pneumonia Narrative/Plan: 56-year-old male presents to the emergency center after 2 recent hospital stays with marked worsening of his status. He became more short of breath and confused. In the emergency center he developed respiratory failure and required intubation and sedation and mechanical ventilation. He was moved to intensive care unit. With evidence of bacteremia the infectious diseases consultation was requested. Patient appears to have evidence of MRSA bacteremia and pneumonia. Vancomycin will be continued at this point in time. Zosyn will be dose adjusted for his acute renal failure and will de-escalate antibiotic therapy pending further culture results. Patient is being closely monitored for delirium tremens however did not have evidence of that during his recent hospital stay. The patient has profound leukocytosis which appears to be in the basis of his current pneumonia and sepsis and recent steroid use. Patient also has evidence of acute renal failure and consequently vancomycin is being dosed by pharmacy and Zosyn was dose adjusted for his current creatinine clearance. Follow blood cultures requested to evaluate for clearance. If persistent blood cultures are noted would also benefit from echocardiogram. 07/13/2017 patient remains intubated sedated and mechanically ventilated but is showing at least some stability was status. There has been no worsening. If no other positive cultures tomorrow we'll then be able to de-escalate vancomycin monotherapy for his MRSA pneumonia and bacteremia the profound leukocytosis is now showing some improvement. They're related to urinary output is adequate. Acute renal failure is improving patient's prognosis remains guarded. July 14, 2017 patient remains intubated sedated and mechanically ventilated. He underwent bronchoscopy today with suctioning of large amounts material. The patient is medically stable. He's having ongoing leukocytosis with evidence of this extensive pneumonia. Only MRSA has been isolated from his sputum in his blood. Follow blood cultures are now negative at this point in time. He is developed thrombocytopenia thus the piperacillin tazobactam is discontinued and we'll monitor his response of his platelets. No other gram negatives infections found at this point in time. 07/15/2017 the patient remains intubated sedated and mechanically ventilated and has had some improvement of his pulmonary status after the bronchoscopy of yesterday. Continues evidence of MRSA pneumonia and MRSA bacteremia. Follow- up cultures requested in the morning to verify the clearance of the bacteremia with current antibiotic therapy. Prognosis remains poor 07/18/2017 patient continues to have significant ongoing sepsis related to his MRSA infection with pneumonia. It does appear the Bactrim he has now cleared. However he still has hemodynamic instability and pulmonary critical care is adding vasopressin. He may benefit from further pulmonary toileting if he continues to have difficulties with his ventilatory status. Vancomycin therapy has been placed on hold the levels be monitored daily. When it becomes subtherapeutic will be able to then initiate alternative anti-MRSA therapy with Zyvox. Prognosis remains poor Current Visit: Yes Status: Acute Code(s): J15.212 - PNEUMONIA DUE TO METHICILLIN RESISTANT STAPHYLOCOCCUS AUREUS SNOMED Code(s): 417113641718760 (3) MRSA bacteremia Current Visit: Yes Status: Acute Code(s): R78.81 - BACTEREMIA SNOMED Code( s): 17328304377368603 (4) Leukocytosis Current Visit: Yes Status: Acute Code(s): D72.829 - ELEVATED WHITE BLOOD CELL COUNT, UNSPECIFIED SNOMED Code(s): 291305179
[2017-07-19] MEDS: PROPOFOL 1,000 MG in EMPTY BAG 1 BAG IV SCH ×3 (00:51→23:22)
[2017-07-19] MEDS: DEXTROSE 5% IN WATER 1,000 ML with SODIUM BICARB (1 MEQ/ML) 150 ML IV SCH (00:52)
[2017-07-19 01:00] LABS: Glucose,Whole Blood 153 mg/dL (75-99)
[2017-07-19] MEDS: SODIUM CHLORIDE 0.9% 99 ML with VASOPRESSIN 20 UNIT IV SCH ×6 (01:17→22:31)
[2017-07-19 03:19] LABS: Glucose,Whole Blood 158 mg/dL (75-99)
[2017-07-19 04:39] LABS: Anisocytosis Slight; HCT 34.1 % (39.0-53.0); HGB 11.3 gm/dL (13.0-17.5); MCH 32.5 pg (25.0-35.0); MCHC 33.2 g/dL (31.0-37.0); MCV 97.9 fL (80.0-100.0); Macrocytosis Slight; Mean Platelet Volume 8.5; RBC 3.48 m/uL (4.30-5.90); RDW 16.1 % (11.5-15.5)
[2017-07-19 05:01] LABS: Glucose,Whole Blood 159 mg/dL (75-99)
[2017-07-19 05:09] LABS: Calcium 7.1 mg/dL (8.4-10.2); Magnesium 2.6 mg/dL (1.6-2.3); Platelet Count 59 k/uL (150-450); Potassium 5.9 mmol/L (3.5-5.1); WBC 28.3 k/uL (3.8-10.6)
[2017-07-19 05:14] LABS: Vancomycin,Random 29.6 ug/mL
[2017-07-19 05:26] LABS: Phosphorus 12.8 mg/dL (2.5-4.5)
[2017-07-19 05:33] LABS: ABG Base Excess -5.2 mmol/L; ABG HCO3 21 mmol/L (21-25); ABG Oxygen Saturation 93.9 % (94-97); ABG PCO2 44 mmHg (35-45); ABG PH 7.29 (7.35-7.45); ABG PO2 77 mmHg (83-108); ABG TCO2 23 mmol/L (19-24)
[2017-07-19] MEDS: THIAMINE 200 MG in SODIUM CHLORIDE 0.9% 100 ML IVPB SCH ×2 (06:08→18:00)
[2017-07-19] MEDS: ASCORBIC ACID INJ 1,500 MG in SODIUM CHLORIDE 0.9% 100 ML IV SCH ×3 (06:08→18:36)
[2017-07-19] MEDS: HYDROCORTISONE SUCCINATE 100 MG/2 ML VIAL IV SCH ×3 (06:27→18:18)
[2017-07-19] MEDS: METOCLOPRAMIDE 5 MG/ML 2 ML VIAL IVP SCH ×3 (06:27→18:19)
[2017-07-19 06:50] LABS: Glucose,Whole Blood 165 mg/dL (75-99)
--- NOTE | 2017-07-19 07:18 | P.PN ---
Subjective Principal diagnosis: Sepsis with pneumonia/COPD. This is a continue present 56-year-old white male who is admitted for sepsis with pneumonia and renal failure at this point. Significant pressor therapy is necessary and pneumonia with renal failure is another finding. Appreciate critical care and infectious disease input. Vital signs see me more stable today. Question tracheostomy element. Objective - Vital Signs Vital signs: Vital Signs Temp 98.3 F 07/19/17 04:00 Pulse 64 07/19/17 06:00 Resp 20 07/19/17 06:00 BP 109/55 07/19/17 00:00 Pulse Ox 99 07/19/17 06:00 Intake & Output 07/18/17 07/19/17 07/19/17 18:59 06:59 18:59 Intake Total 1512.283 876.265 Output Total 155 373 Balance 1357.283 503.265 Weight 113.8 kg 119.5 kg Intake: IV 1030 710 0.9 NS 30 110 Dextrose 5% in Water 1, 1000 600 000 ml @ 50 mls/hr IV . Q23H LANDY with Sodium Bicarb (1 Meq/ml) 150 ml Rx#:[id number] Intake, IV Titration 482.283 166.265 Amount Furosemide 250 mg In 229 Sodium Chloride 0.9% 225 ml @ 15 MG/HR 15 mls/hr IVP .[id number] LANDY Rx#: [id number] Insulin Regular 100 unit 42.924 41.764 In Sodium Chloride 0.9% 100 ml @ Per Protocol IV .Q0M LANDY Rx#:[id number] Norepinephrin 16 mg-0.9% 27.875 24.501 Ns Pmx 16 mg In 250 ml @ Titrate IV .Q0M LANDY Rx#: [id number] Propofol 1,000 mg In 182.484 100 Empty Bag 1 bag @ Titrate IV .Q0M LANDY Rx#: [id number] Output: Gastric Drainage 240 Urine 155 133 Other: Voiding Method Indwelling Catheter Indwelling Catheter ABP, PAP, CO, CI - Last Documented Arterial Blood Pressure 128/55 - Constitutional General appearance: Present: obese - EENT Eyes: Absent: abnormal pupil - Respiratory Respiratory: bilateral: rhonchi - Cardiovascular Rhythm: regular Heart sounds: normal: S1, S2 Abnormal Heart Sounds: Absent: S3 Gallop - Gastrointestinal General gastrointestinal: Present: soft. Absent: tenderness, umbilical hernia - Neurologic Neurologic: Present: CNII-XII intact - Psychiatric Psychiatric: Absent: A&O x's 3, intact judgment & insight - Labs CBC & Chem 7: 07/19/17 04:20 07/19/17 04:20 Labs: Abnormal Lab Results - Last 24 Hours (Table) 07/16/17 07/18/17 07/18/17 Range/Units 04:25 08:48 10:31 WBC (3.8-10.6) k/uL RBC (4.30-5.90) m/uL Hgb (13.0-17.5) gm/dL Hct (39.0-53.0) % RDW (11.5-15.5) % Plt Count 46 L* (150-450) k/uL ABG pH (7.35-7.45) ABG pO2 (83-108) mmHg ABG O2 Saturation (94-97) % Sodium (137-145) mmol/L Potassium (3.5-5.1) mmol/L Carbon Dioxide (22-30) mmol/L BUN (9-20) mg/dL Creatinine (0.66-1.25) mg/dL Glucose (74-99) mg/dL POC Glucose (mg/dL) 168 H 176 H (75-99) mg/dL Calcium (8.4-10.2) mg/dL Ionized Calcium Dominik (4.5-5.3) mg/dL Phosphorus (2.5-4.5) mg/dL Magnesium (1.6-2.3) mg/dL 07/18/17 07/18/17 07/18/17 Range/Units 10:35 13:38 14:52 WBC (3.8-10.6) k/uL RBC (4.30-5.90) m/uL Hgb (13.0-17.5) gm/dL Hct (39.0-53.0) % RDW (11.5-15.5) % Plt Count (150-450) k/uL ABG pH (7.35-7.45) ABG pO2 (83-108) mmHg ABG O2 Saturation (94-97) % Sodium (137-145) mmol/L Potassium 7.1 H* (3.5-5.1) mmol/L Carbon Dioxide (22-30) mmol/L BUN (9-20) mg/dL Creatinine (0.66-1.25) mg/dL Glucose (74-99) mg/dL POC Glucose (mg/dL) 134 H 118 H (75-99) mg/dL Calcium (8.4-10.2) mg/dL Ionized Calcium Dominik (4.5-5.3) mg/dL Phosphorus (2.5-4.5) mg/dL Magnesium (1.6-2.3) mg/dL 07/18/17 07/18/17 07/18/17 Range/Units 17:00 18:45 18:46 WBC (3.8-10.6) k/uL RBC (4.30-5.90) m/uL Hgb (13.0-17.5) gm/dL Hct (39.0-53.0) % RDW (11.5-15.5) % Plt Count (150-450) k/uL ABG pH (7.35-7.45) ABG pO2 (83-108) mmHg ABG O2 Saturation (94-97) % Sodium (137-145) mmol/L Potassium 5.7 H (3.5-5.1) mmol/L Carbon Dioxide (22-30) mmol/L BUN (9-20) mg/dL Creatinine (0.66-1.25) mg/dL Glucose (74-99) mg/dL POC Glucose (mg/dL) 159 H 159 H (75-99) mg/dL Calcium (8.4-10.2) mg/dL Ionized Calcium Dominik (4.5-5.3) mg/dL Phosphorus (2.5-4.5) mg/dL Magnesium (1.6-2.3) mg/dL 07/18/17 07/18/17 07/19/17 Range/Units 20:57 23:03 00:58 WBC (3.8-10.6) k/uL RBC (4.30-5.90) m/uL Hgb (13.0-17.5) gm/dL Hct (39.0-53.0) % RDW (11.5-15.5) % Plt Count (150-450) k/uL ABG pH (7.35-7.45) ABG pO2 (83-108) mmHg ABG O2 Saturation (94-97) % Sodium (137-145) mmol/L Potassium (3.5-5.1) mmol/L Carbon Dioxide (22-30) mmol/L BUN (9-20) mg/dL Creatinine (0.66-1.25) mg/dL Glucose (74-99) mg/dL POC Glucose (mg/dL) 156 H 150 H 153 H (75-99) mg/dL Calcium (8.4-10.2) mg/dL Ionized Calcium Dominik (4.5-5.3) mg/dL Phosphorus (2.5-4.5) mg/dL Magnesium (1.6-2.3) mg/dL 07/19/17 07/19/17 07/19/17 Range/Units 01:00 03:17 04:20 WBC (3.8-10.6) k/uL RBC (4.30-5.90) m/uL Hgb (13.0-17.5) gm/dL Hct (39.0-53.0) % RDW (11.5-15.5) % Plt Count (150-450) k/uL ABG pH (7.35-7.45) ABG pO2 (83-108) mmHg ABG O2 Saturation (94-97) % Sodium 134 L (137-145) mmol/L Potassium 6.0 H 5.9 H (3.5-5.1) mmol/L Carbon Dioxide 21 L (22-30) mmol/L BUN 145 H* (9-20) mg/dL Creatinine 5.40 H* (0.66-1.25) mg/dL Glucose 157 H (74-99) mg/dL POC Glucose (mg/dL) 158 H (75-99) mg/dL Calcium 7.1 L (8.4-10.2) mg/dL Ionized Calcium Dominik 4.0 L (4.5-5.3) mg/dL Phosphorus 12.8 H* (2.5-4.5) mg/dL Magnesium 2.6 H (1.6-2.3) mg/dL 07/19/17 07/19/17 07/19/17 Range/Units 04:20 04:57 05:29 WBC 28.3 H* (3.8-10.6) k/uL RBC 3.48 L (4.30-5.90) m/uL Hgb 11.3 L (13.0-17.5) gm/dL Hct 34.1 L (39.0-53.0) % RDW 16.1 H (11.5-15.5) % Plt Count 59 L (150-450) k/uL ABG pH 7.29 L (7.35-7.45) ABG pO2 77 L (83-108) mmHg ABG O2 Saturation 93.9 L (94-97) % Sodium (137-145) mmol/L Potassium (3.5-5.1) mmol/L Carbon Dioxide (22-30) mmol/L BUN (9-20) mg/dL Creatinine (0.66-1.25) mg/dL Glucose (74-99) mg/dL POC Glucose (mg/dL) 159 H (75-99) mg/dL Calcium (8.4-10.2) mg/dL Ionized Calcium Dominik (4.5-5.3) mg/dL Phosphorus (2.5-4.5) mg/dL Magnesium (1.6-2.3) mg/dL 07/19/17 Range/Units 06:48 WBC (3.8-10.6) k/uL RBC (4.30-5.90) m/uL Hgb (13.0-17.5) gm/dL Hct (39.0-53.0) % RDW (11.5-15.5) % Plt Count (150-450) k/uL ABG pH (7.35-7.45) ABG pO2 (83-108) mmHg ABG O2 Saturation (94-97) % Sodium (137-145) mmol/L Potassium (3.5-5.1) mmol/L Carbon Dioxide (22-30) mmol/L BUN (9-20) mg/dL Creatinine (0.66-1.25) mg/dL Glucose (74-99) mg/dL POC Glucose (mg/dL) 165 H (75-99) mg/dL Calcium (8.4-10.2) mg/dL Ionized Calcium Dominik (4.5-5.3) mg/dL Phosphorus (2.5-4.5) mg/dL Magnesium (1.6-2.3) mg/dL Microbiology - Last 24 Hours (Table) 07/16/17 04:55 Blood Culture - Preliminary Blood No Growth after 72 hours 07/16/17 04:40 Blood Culture - Preliminary Blood No Growth after 72 hours 07/13/17 05:20 Blood Culture - Preliminary Blood No Growth after 120 hours Assessment and Plan (1) Hyperglycemia Current Visit: Yes Status: Acute Code(s): R73.9 - HYPERGLYCEMIA, UNSPECIFIED SNOMED Code(s): 45245295 (2) Pneumonia Current Visit: Yes Status: Acute Code(s): J18.9 - PNEUMONIA, UNSPECIFIED ORGANISM SNOMED Code(s): 587623193 (3) Respiratory distress Current Visit: Yes Status: Acute Code(s): R06.03 - ACUTE RESPIRATORY DISTRESS SNOMED Code(s): 477623703 (4) Sepsis Current Visit: Yes Status: Acute Code(s): A41.9 - SEPSIS, UNSPECIFIED ORGANISM SNOMED Code(s): 98880296 (5) Alcoholism /alcohol abuse Current Visit: No Status: Acute Code(s): F10.20 - ALCOHOL DEPENDENCE, UNCOMPLICATED SNOMED Code(s): 4294533 (6) Diabetes Current Visit: No Status: Acute Code(s): E11.9 - TYPE 2 DIABETES MELLITUS WITHOUT COMPLICATIONS SNOMED Code(s): 86374840 (7) Smoking Current Visit: No Status: Acute Code(s): F17.200 - NICOTINE DEPENDENCE, UNSPECIFIED, UNCOMPLICATED SNOMED Code(s): 48672332 Plan: Continue current regimen of supportive care. Antibiotics per infectious disease. Check CBC, CMP with chest x-ray in a.m. per Prognosis is guarded secondary to his multiple comorbidities including diabetes , alcoholism and COPD. We'll continue to follow.
[2017-07-19] MEDS: IPRATROPIUM-ALBUTEROL 3 ML NEB INHALATION SCH ×4 (07:34→19:45)
[2017-07-19] MEDS: BUDESONIDE 0.5 MG/2 ML NEBU INHALATION SCH ×2 (07:34→19:45)
[2017-07-19] MEDS: CALCIUM ACETATE 667 MG CAP PO SCH ×3 (09:01→18:18)
[2017-07-19] MEDS: HEPARIN SODIUM,PORCINE 5,000 UNIT/ML 1 ML VIAL SQ SCH ×2 (09:01→20:07)
[2017-07-19] MEDS: methylPREDNISolone SOD SUCCI 40 MG/ML 1 ML VIAL IV SCH ×2 (09:02→20:07)
[2017-07-19] MEDS: PANTOPRAZOLE 40 MG/10 ML VIAL IVP SCH ×2 (09:02→20:07)
[2017-07-19] MEDS: DOCUSATE ORAL SOLN 100 MG/10 ML CUP PO SCH ×2 (09:02→20:07)
[2017-07-19] MEDS: LACTULOSE 20 GM/30 ML CUP PO SCH (09:02)
[2017-07-19] MEDS: CHLORHEXIDINE GLUCONATE 15 ML CUP MUCOUS MEM SCH ×2 (09:02→20:07)
[2017-07-19 09:45] LABS: Glucose,Whole Blood 128 mg/dL (75-99)
--- NOTE | 2017-07-19 09:58 | CONS ---
DATE OF CONSULTATION: 07/19/2017 This 56-year-old gentleman who is seen on consult for placement of urgent dialysis catheter. Patient has COPD. The patient has been placed on vent. He also has a history of diabetes, pneumonia. PAST HISTORY: Patient has history of hernia repair. PHYSICAL EXAMINATION: On examination, patient was seen in the intensive care unit. Neck is supple. Chest has rhonchi bilateral. First and second sounds present. Abdomen is soft. Femoral pulses present. The patient has a swelling of both lower extremities. The patient's potassium is 7. PLAN: Placement of urgent dialysis catheter. MMODL / IJN: [id number] / MTDD
[2017-07-19] MEDS ORDERED: [UNRECOGNIZED DRUG - REMARK] IV SCH ×5 (10:00)
--- NOTE | 2017-07-19 10:00 | PCN ---
PROCEDURE NOTE PREOPERATIVE DIAGNOSIS: Acute renal failure with high potassium of 7. PROCEDURE: Placement of a dialysis catheter right femoral approach. The patient was seen in the intensive care unit. Right groin was prepped and draped in usual sterile manner and 1% lidocaine was infiltrated. Micropuncture was introduced in right common femoral vein. Micropuncture guide was passed and 4 Lao dilator advanced on top of the guidewire. After that, we passed a regular guidewire without any difficulty and dilator was advanced on the top of the guidewire then we placed a triple-lumen dialysis catheter and secured with 3-0 nylon, flushed with heparin saline and hep-locked. Dressing applied. Patient tolerated the procedure well. MMODL / IJN: [id number] /
--- NOTE | 2017-07-19 10:02 | XR ---
EXAMINATION TYPE: XR KUB portable DATE OF EXAM: 07/18/2017 COMPARISON: NONE INDICATION: Constipation TECHNIQUE: Single view abdomen AP position FINDINGS: Small amount of descending colonic bowel gas is present. Psoas margins are poorly visualized on these images. No organomegaly is present. Nasogastric tube tip is within the right upper quadrant of the abdomen. No mass effect is evident. A right groin catheter is present with the tip over the sacral ala. IMPRESSION: 1. Nonspecific abdomen. 2. Nasogastric tube tip right upper quadrant abdomen. 3. Vascular Catheter tip on the right sacrum.
--- NOTE | 2017-07-19 10:31 | PN ---
PROGRESS NOTE He was seen again on 07/19/2017. He has been hemodynamically requiring a small amount of Levophed. He is being dialyzed at this time and they have had to go up on his Levophed. He is sedated at this time. He Is on a vent with FiO2 of 60%, AC and a PEEP of 10. PHYSICAL EXAMINATION: On physical examination, blood pressure is 108/76, respiratory rate of 20, pulse rate of 66, O2 saturation on 60% FiO2, PEEP of 10, on the vent is 99%. HEENT reveals ET tube in place. Chest reveals occasional rhonchi. Fair air entry. Cardiovascular system reveals an S1, S2. No S3, no S4. No murmurs. Abdomen is distended. There is sluggish bowel sounds. There is pedal edema. LABS: Labs reveal a white count of 28.3, hemoglobin of 11.3, platelet count of 59,000. Sodium is 134, potassium 5.9, chloride 98, bicarb 21, BUN 145, creatinine of 5.4. Glucose 157. Phosphorus 12.8, magnesium 2.6. ABG showed a pH of 7.29, pCO2 of 44, pO2 of 77, bicarb of 21, O2 sat of 93.9% Medications and drips were reviewed. IMPRESSION AT THIS TIME: 1. Methicillin-resistant Staphylococcus aureus with methicillin-resistant Staphylococcus aureus pneumonia. 2. Systemic inflammatory response with multi-system organ failure. 3. Acute renal failure requiring dialysis at this time. 4. Acute respiratory failure, on mechanical ventilation. 5. Asthma with chronic obstructive pulmonary disease with acute exacerbation. 6. Thrombocytopenia secondary to sepsis. At this point in time from a pulmonary standpoint, would decrease the PEEP to 8 once dialysis is done. Continue supportive care with vasopressors as needed. Try to wean off the Levophed once dialysis is done. Maintain nutrition with TPN which is being ordered. Continue antibiotics per ID. Prognosis at this time continues to remain extremely guarded. MMODL / IJN: [id number] /
[2017-07-19 11:25] LABS: Glucose,Whole Blood 122 mg/dL (75-99)
[2017-07-19] MEDS ORDERED: THIAMINE 100 MG/ML 2 ML VIAL IVP SCH (12:00)
[2017-07-19 13:08] LABS: Glucose,Whole Blood 158 mg/dL (75-99)
[2017-07-19 15:12] LABS: Glucose,Whole Blood 197 mg/dL (75-99)
[2017-07-19] MEDS ORDERED: FUROSEMIDE 10 MG/ML 10 ML VIAL IV STA (17:12)
[2017-07-19 17:37] LABS: Glucose,Whole Blood 195 mg/dL (75-99)
[2017-07-19] MEDS ORDERED: INSULIN REGULAR 100 UNIT/ML VIAL IV ONE (18:08)
[2017-07-19 19:04] LABS: Glucose,Whole Blood 181 mg/dL (75-99)
[2017-07-19 20:01] LABS: Glucose,Whole Blood 178 mg/dL (75-99)
--- NOTE | 2017-07-19 20:52 | PN ---
PROGRESS NOTE The patient is seen for followup for acute kidney injury. He was dialyzed yesterday for about 2-1/2 hours. The patient was dialyzed again this morning. He has just finished his treatment. His potassium has remained elevated at 5.9 mEq/L. There is no active GI bleed noted. The patient is off of Levophed. He is maintained on bicarb drip at 50 mL an hour. The patient has not had much urine output. He tolerated about 2 L of ultrafiltration today. EXAMINATION: Blood pressure this morning was 110/51, heart rate about 80 per minute. Patient is afebrile. HEART: S1, S2. LUNGS: Bilateral breath sounds are heard. Abdomen is soft, nontender. Lower extremities show edema 1+ bilaterally. LEADER WRITER: Cannot be performed. LABS: Show sodium 134, potassium 5.9, chloride 98, BUN 145, serum creatinine 5.4. Hemoglobin 11.3, white cell count 28.3. ASSESSMENT: 1. Acute kidney injury, acute tubular necrosis, currently oliguric secondary to hypotension and sepsis, currently hemodialysis dependent. We will dialyze the patient again tomorrow. 2. Hyperkalemia. Patient remains quite hyperkalemic, even after dialysis. His sugars were again a bit on the higher side. He is maintained on an insulin drip. We will try to keep the blood sugars below 150. A repeat creatinine did come down to 4.7 after dialysis from 5.4, suggesting low likelihood for recirculation and inadequate dialysis. 3. Metabolic acidosis maintained on sodium bicarb drip. Acidosis is improved. I will continue the bicarb drip secondary to hyperkalemia and discontinue tomorrow after dialysis. 4. Severe methicillin-resistant Staphylococcus aureus pneumonia currently maintained on vancomycin; however, currently vancomycin is on hold. He did have a high level on 07/16/2017 of 44.3. 5. Severe hyperphosphatemia. Cannot start phosphate binders unless patient is started on tube feeds. Expect some degree of improvement with continued dialysis. 6. Disproportionately elevated BUN secondary to steroids, hypercatabolic state and possible underlying gastrointestinal bleed as well. Gastric occult blood was positive on 07/15/2017. PLAN: Repeat hemodialysis in a.m. Continue the bicarb drip for now. Try to keep blood sugars below 150 mg/dL. Continue off of vancomycin, given the advanced acute kidney injury. MMODL / IJN: [id number] /
[2017-07-19 21:01] LABS: Glucose,Whole Blood 186 mg/dL (75-99)
[2017-07-19 21:47] LABS: Glucose,Whole Blood 204 mg/dL (75-99)
[2017-07-19 22:08] LABS: Calcium 6.9 mg/dL (8.4-10.2)
[2017-07-19 23:23] LABS: Glucose,Whole Blood 182 mg/dL (75-99)
[2017-07-19] MEDS: INSULIN REGULAR 100 UNIT in SODIUM CHLORIDE 0.9% 100 ML IV SCH (23:23)
[2017-07-20 00:08] LABS: Glucose,Whole Blood 154 mg/dL (75-99)
[2017-07-20] MEDS: HYDROCORTISONE SUCCINATE 100 MG/2 ML VIAL IV SCH ×4 (00:11→17:34)
[2017-07-20] MEDS: ASCORBIC ACID INJ 1,500 MG in SODIUM CHLORIDE 0.9% 100 ML IV SCH ×4 (00:11→17:34)
[2017-07-20] MEDS: METOCLOPRAMIDE 5 MG/ML 2 ML VIAL IVP SCH ×4 (00:11→17:37)
[2017-07-20 01:50] LABS: Glucose,Whole Blood 150 mg/dL (75-99)
[2017-07-20 03:21] LABS: Glucose,Whole Blood 188 mg/dL (75-99)
[2017-07-20 04:09] LABS: Glucose,Whole Blood 129 mg/dL (75-99)
[2017-07-20 04:33] LABS: Anisocytosis Slight; HCT 33.2 % (39.0-53.0); HGB 10.8 gm/dL (13.0-17.5); MCHC 32.5 g/dL (31.0-37.0); MCV 98.3 fL (80.0-100.0); Macrocytosis Slight; RBC 3.37 m/uL (4.30-5.90); RDW 16.3 % (11.5-15.5)
[2017-07-20 04:48] LABS: Albumin 2.1 g/dL (3.5-5.0); Magnesium 2.4 mg/dL (1.6-2.3); Total Protein 5.8 g/dL (6.3-8.2)
[2017-07-20 04:59] LABS: Platelet Count 71 k/uL (150-450); WBC 33.4 k/uL (3.8-10.6)
[2017-07-20 05:09] LABS: Glucose,Whole Blood 170 mg/dL (75-99)
[2017-07-20 05:22] LABS: Potassium 6.2 mmol/L (3.5-5.1)
[2017-07-20 05:23] LABS: Phosphorus 12.5 mg/dL (2.5-4.5)
[2017-07-20 05:25] LABS: Vancomycin,Random 46.8 ug/mL
[2017-07-20] MEDS: THIAMINE 200 MG in SODIUM CHLORIDE 0.9% 100 ML IVPB SCH ×2 (05:47→17:33)
[2017-07-20 05:52] LABS: ABG Base Excess -4.1 mmol/L; ABG HCO3 23 mmol/L (21-25); ABG Oxygen Saturation 97.2 % (94-97); ABG PCO2 47 mmHg (35-45); ABG PH 7.29 (7.35-7.45); ABG PO2 107 mmHg (83-108); ABG TCO2 24 mmol/L (19-24)
[2017-07-20] MEDS ORDERED: LEVOFLOXACIN 500MG-D5W PMX 500 MG in DEXTROSE/WATER 1 100ML.BAG IVPB SCH (06:00)
[2017-07-20 06:28] LABS: Glucose,Whole Blood 142 mg/dL (75-99)
[2017-07-20 07:07] LABS: Glucose,Whole Blood 182 mg/dL (75-99)
--- NOTE | 2017-07-20 07:11 | XR ---
EXAMINATION TYPE: XR chest 1V portable DATE OF EXAM: 07/20/2017 Comparison: 07/18/2017 Clinical History: 56-year-old male ICU, Ventilator Findings: ET and NG tubes are satisfactory. Left IJ CVC tip at the caval atrial junction. Multiple EKG lines ov erlie the chest. Heart upper limits of normal in size. Multifocal interstitial and airspace opacities persist, right greater than left. Aeration is slightly improved at the right base and slightly worse imtiaz at the left base with suggestion of a small left effusion. Impression: Continued airspace disease, right greater than left with some shifting opacities. Correlate for possi ble pulmonary edema. Small left effusion suspected.
[2017-07-20 08:02] LABS: Glucose,Whole Blood 174 mg/dL (75-99)
[2017-07-20] MEDS: PANTOPRAZOLE 40 MG/10 ML VIAL IVP SCH ×2 (08:14→20:22)
[2017-07-20] MEDS: DOCUSATE ORAL SOLN 100 MG/10 ML CUP PO SCH ×2 (08:14→20:22)
[2017-07-20] MEDS: LACTULOSE 20 GM/30 ML CUP PO SCH ×2 (08:15→20:23)
[2017-07-20] MEDS: HEPARIN SODIUM,PORCINE 5,000 UNIT/ML 1 ML VIAL SQ SCH ×2 (08:15→20:22)
[2017-07-20] MEDS: CHLORHEXIDINE GLUCONATE 15 ML CUP MUCOUS MEM SCH ×2 (08:15→20:22)
--- NOTE | 2017-07-20 08:15 | P.PN ---
Subjective Principal diagnosis: Continuing care of respiratory failure and renal failure. This is a 56-year-old white male essentially been for pneumonia sepsis and COPD. He is on full respiratory and ventilatory support at this time. They were having difficulty with urinary output and he's been having emergent dialysis at this time. No significant response is noted from the patient. Objective - Vital Signs Vital signs: Vital Signs Temp 98.4 F 07/20/17 04:00 Pulse 84 07/20/17 07:00 Resp 21 07/20/17 07:00 BP 109/55 07/19/17 00:00 Pulse Ox 100 07/20/17 07:00 Intake & Output 07/19/17 07/20/17 07/20/17 18:59 06:59 18:59 Intake Total 4579.529 0213.890 132.162 Output Total 498 210 5 Balance 511.323 6588.890 127.162 Weight 118.3 kg Intake: IV 1060 1410 110 0.9 NS 10 110 10 Ascorbic Acid Inj 1,500 250 mg In Sodium Chloride 0.9 % 100 ml @ 103 mls/hr IV Q6HR [facility] Rx#:[id number] Dextrose 5% in Water 1, 650 525 50 000 ml @ 50 mls/hr IV . Q23H [facility] with Sodium Bicarb (1 Meq/ml) 150 ml Rx#:[id number] Sodium Chloride 2.5MEQ/ml 400 525 50 Vial 25 meq Calcium Chloride 300 mg Mvi, Adult No.4 with Vit K 10 ml Trace (Conc-1Ml/Dose) 1 ml In Amino Acid 4.25%- D10w 1,000 ml @ 50 mls/hr IV .[id number] [facility] Rx#: [id number] Intake, IV Titration 213.589 76.890 22.162 Amount Insulin Regular 100 unit 24.023 58.990 2.412 In Sodium Chloride 0.9% 100 ml @ Per Protocol IV .Q0M [facility] Rx#:[id number] Norepinephrin 16 mg-0.9% 59.053 Ns Pmx 16 mg In 250 ml @ Titrate IV .Q0M [facility] Rx#: [id number] Propofol 1,000 mg In 130.513 Empty Bag 1 bag @ Titrate IV .Q0M [facility] Rx#: [id number] Sodium Chloride 0.9% 99 17.9 19.75 ml @ 0.03 UNITS/MIN 9 mls /hr IV .Q11H7M [facility] with Vasopressin 20 unit Rx#: [id number] Output: Gastric Drainage 260 Urine 88 60 5 Oral Regurgitation 150 150 Other: Voiding Method Indwelling Catheter Indwelling Catheter ABP, PAP, CO, CI - Last Documented Arterial Blood Pressure 143/49 - Constitutional General appearance: Absent: average body habitus - EENT Eyes: Absent: abnormal pupil - Respiratory Respiratory: bilateral: rhonchi - Cardiovascular Rhythm: regular Heart sounds: normal: S1, S2 Abnormal Heart Sounds: Absent: S3 Gallop - Gastrointestinal General gastrointestinal: Present: soft. Absent: tenderness - Musculoskeletal Musculoskeletal: Present: generalized weakness - Psychiatric Psychiatric: Absent: A&O x's 3 - Labs CBC & Chem 7: 07/20/17 04:20 07/20/17 04:20 Labs: Abnormal Lab Results - Last 24 Hours (Table) 07/19/17 07/19/17 07/19/17 Range/Units 09:43 11:23 13:06 WBC (3.8-10.6) k/uL RBC (4.30-5.90) m/uL Hgb (13.0-17.5) gm/dL Hct (39.0-53.0) % RDW (11.5-15.5) % Plt Count (150-450) k/uL ABG pH (7.35-7.45) ABG pCO2 (35-45) mmHg ABG O2 Saturation (94-97) % Sodium (137-145) mmol/L Potassium (3.5-5.1) mmol/L Chloride (98-107) mmol/L Carbon Dioxide (22-30) mmol/L BUN (9-20) mg/dL Creatinine (0.66-1.25) mg/dL Glucose (74-99) mg/dL POC Glucose (mg/dL) 128 H 122 H 158 H (75-99) mg/dL Calcium (8.4-10.2) mg/dL Phosphorus (2.5-4.5) mg/dL Magnesium (1.6-2.3) mg/dL Total Bilirubin (0.2-1.3) mg/dL AST (17-59) U/L Total Protein (6.3-8.2) g/dL Albumin (3.5-5.0) g/dL Random Vancomycin ug/mL 07/19/17 07/19/17 07/19/17 Range/Units 15:11 16:25 16:25 WBC (3.8-10.6) k/uL RBC (4.30-5.90) m/uL Hgb (13.0-17.5) gm/dL Hct (39.0-53.0) % RDW (11.5-15.5) % Plt Count (150-450) k/uL ABG pH (7.35-7.45) ABG pCO2 (35-45) mmHg ABG O2 Saturation (94-97) % Sodium (137-145) mmol/L Potassium 5.9 H (3.5-5.1) mmol/L Chloride (98-107) mmol/L Carbon Dioxide (22-30) mmol/L BUN (9-20) mg/dL Creatinine 4.70 H (0.66-1.25) mg/dL Glucose (74-99) mg/dL POC Glucose (mg/dL) 197 H (75-99) mg/dL Calcium (8.4-10.2) mg/dL Phosphorus (2.5-4.5) mg/dL Magnesium (1.6-2.3) mg/dL Total Bilirubin (0.2-1.3) mg/dL AST (17-59) U/L Total Protein (6.3-8.2) g/dL Albumin (3.5-5.0) g/dL Random Vancomycin ug/mL 07/19/17 07/19/17 07/19/17 Range/Units 17:35 19:02 19:59 WBC (3.8-10.6) k/uL RBC (4.30-5.90) m/uL Hgb (13.0-17.5) gm/dL Hct (39.0-53.0) % RDW (11.5-15.5) % Plt Count (150-450) k/uL ABG pH (7.35-7.45) ABG pCO2 (35-45) mmHg ABG O2 Saturation (94-97) % Sodium (137-145) mmol/L Potassium (3.5-5.1) mmol/L Chloride (98-107) mmol/L Carbon Dioxide (22-30) mmol/L BUN (9-20) mg/dL Creatinine (0.66-1.25) mg/dL Glucose (74-99) mg/dL POC Glucose (mg/dL) 195 H 181 H 178 H (75-99) mg/dL Calcium (8.4-10.2) mg/dL Phosphorus (2.5-4.5) mg/dL Magnesium (1.6-2.3) mg/dL Total Bilirubin (0.2-1.3) mg/dL AST (17-59) U/L Total Protein (6.3-8.2) g/dL Albumin (3.5-5.0) g/dL Random Vancomycin ug/mL 07/19/17 07/19/17 07/19/17 Range/Units 20:59 21:40 21:45 WBC (3.8-10.6) k/uL RBC (4.30-5.90) m/uL Hgb (13.0-17.5) gm/dL Hct (39.0-53.0) % RDW (11.5-15.5) % Plt Count (150-450) k/uL ABG pH (7.35-7.45) ABG pCO2 (35-45) mmHg ABG O2 Saturation (94-97) % Sodium 132 L (137-145) mmol/L Potassium 6.0 H (3.5-5.1) mmol/L Chloride 95 L (98-107) mmol/L Carbon Dioxide 21 L (22-30) mmol/L BUN 119 H* (9-20) mg/dL Creatinine 5.23 H* (0.66-1.25) mg/dL Glucose 182 H (74-99) mg/dL POC Glucose (mg/dL) 186 H 204 H (75-99) mg/dL Calcium 6.9 L (8.4-10.2) mg/dL Phosphorus (2.5-4.5) mg/dL Magnesium (1.6-2.3) mg/dL Total Bilirubin (0.2-1.3) mg/dL AST (17-59) U/L Total Protein (6.3-8.2) g/dL Albumin (3.5-5.0) g/dL Random Vancomycin ug/mL 07/19/17 07/20/17 07/20/17 Range/Units 23:21 00:07 01:48 WBC (3.8-10.6) k/uL RBC (4.30-5.90) m/uL Hgb (13.0-17.5) gm/dL Hct (39.0-53.0) % RDW (11.5-15.5) % Plt Count (150-450) k/uL ABG pH (7.35-7.45) ABG pCO2 (35-45) mmHg ABG O2 Saturation (94-97) % Sodium (137-145) mmol/L Potassium (3.5-5.1) mmol/L Chloride (98-107) mmol/L Carbon Dioxide (22-30) mmol/L BUN (9-20) mg/dL Creatinine (0.66-1.25) mg/dL Glucose (74-99) mg/dL POC Glucose (mg/dL) 182 H 154 H 150 H (75-99) mg/dL Calcium (8.4-10.2) mg/dL Phosphorus (2.5-4.5) mg/dL Magnesium (1.6-2.3) mg/dL Total Bilirubin (0.2-1.3) mg/dL AST (17-59) U/L Total Protein (6.3-8.2) g/dL Albumin (3.5-5.0) g/dL Random Vancomycin ug/mL 07/20/17 07/20/17 07/20/17 Range/Units 03:19 04:05 04:20 WBC 33.4 H* (3.8-10.6) k/uL RBC 3.37 L (4.30-5.90) m/uL Hgb 10.8 L (13.0-17.5) gm/dL Hct 33.2 L (39.0-53.0) % RDW 16.3 H (11.5-15.5) % Plt Count 71 L (150-450) k/uL ABG pH (7.35-7.45) ABG pCO2 (35-45) mmHg ABG O2 Saturation (94-97) % Sodium (137-145) mmol/L Potassium (3.5-5.1) mmol/L Chloride (98-107) mmol/L Carbon Dioxide (22-30) mmol/L BUN (9-20) mg/dL Creatinine (0.66-1.25) mg/dL Glucose (74-99) mg/dL POC Glucose (mg/dL) 188 H 129 H (75-99) mg/dL Calcium (8.4-10.2) mg/dL Phosphorus (2.5-4.5) mg/dL Magnesium (1.6-2.3) mg/dL Total Bilirubin (0.2-1.3) mg/dL AST (17-59) U/L Total Protein (6.3-8.2) g/dL Albumin (3.5-5.0) g/dL Random Vancomycin ug/mL 07/20/17 07/20/17 07/20/17 Range/Units 04:20 05:07 05:48 WBC (3.8-10.6) k/uL RBC (4.30-5.90) m/uL Hgb (13.0-17.5) gm/dL Hct (39.0-53.0) % RDW (11.5-15.5) % Plt Count (150-450) k/uL ABG pH 7.29 L (7.35-7.45) ABG pCO2 47 H (35-45) mmHg ABG O2 Saturation 97.2 H (94-97) % Sodium 131 L (137-145) mmol/L Potassium 6.2 H* (3.5-5.1) mmol/L Chloride 95 L (98-107) mmol/L Carbon Dioxide (22-30) mmol/L BUN 128 H* (9-20) mg/dL Creatinine 5.10 H* (0.66-1.25) mg/dL Glucose 140 H (74-99) mg/dL POC Glucose (mg/dL) 170 H (75-99) mg/dL Calcium 7.0 L (8.4-10.2) mg/dL Phosphorus 12.5 H* (2.5-4.5) mg/dL Magnesium 2.4 H (1.6-2.3) mg/dL Total Bilirubin 2.0 H (0.2-1.3) mg/dL AST 68 H (17-59) U/L Total Protein 5.8 L (6.3-8.2) g/dL Albumin 2.1 L (3.5-5.0) g/dL Random Vancomycin 46.8 H* ug/mL 07/20/17 07/20/17 07/20/17 Range/Units 06:25 07:06 07:59 WBC (3.8-10.6) k/uL RBC (4.30-5.90) m/uL Hgb (13.0-17.5) gm/dL Hct (39.0-53.0) % RDW (11.5-15.5) % Plt Count (150-450) k/uL ABG pH (7.35-7.45) ABG pCO2 (35-45) mmHg ABG O2 Saturation (94-97) % Sodium (137-145) mmol/L Potassium (3.5-5.1) mmol/L Chloride (98-107) mmol/L Carbon Dioxide (22-30) mmol/L BUN (9-20) mg/dL Creatinine (0.66-1.25) mg/dL Glucose (74-99) mg/dL POC Glucose (mg/dL) 142 H 182 H 174 H (75-99) mg/dL Calcium (8.4-10.2) mg/dL Phosphorus (2.5-4.5) mg/dL Magnesium (1.6-2.3) mg/dL Total Bilirubin (0.2-1.3) mg/dL AST (17-59) U/L Total Protein (6.3-8.2) g/dL Albumin (3.5-5.0) g/dL Random Vancomycin ug/mL Microbiology - Last 24 Hours (Table) 07/16/17 04:55 Blood Culture - Preliminary Blood No Growth after 96 hours 07/16/17 04:40 Blood Culture - Preliminary Blood No Growth after 96 hours 07/13/17 05:20 Blood Culture - Final Blood No Growth after 144 hours Assessment and Plan (1) Hyperglycemia Current Visit: Yes Status: Acute Code(s): R73.9 - HYPERGLYCEMIA, UNSPECIFIED SNOMED Code(s): 99397284 (2) Pneumonia Current Visit: Yes Status: Acute Code(s): J18.9 - PNEUMONIA, UNSPECIFIED ORGANISM SNOMED Code(s): 754465134 (3) Respiratory distress Current Visit: Yes Status: Acute Code(s): R06.03 - ACUTE RESPIRATORY DISTRESS SNOMED Code(s): 833975301 (4) Sepsis Current Visit: Yes Status: Acute Code(s): A41.9 - SEPSIS, UNSPECIFIED ORGANISM SNOMED Code(s): 59113926 (5) Alcoholism /alcohol abuse Current Visit: No Status: Acute Code(s): F10.20 - ALCOHOL DEPENDENCE, UNCOMPLICATED SNOMED Code(s): 5843442 (6) Diabetes Current Visit: No Status: Acute Code(s): E11.9 - TYPE 2 DIABETES MELLITUS WITHOUT COMPLICATIONS SNOMED Code(s): 65341540 (7) Smoking Current Visit: No Status: Acute Code(s): F17.200 - NICOTINE DEPENDENCE, UNSPECIFIED, UNCOMPLICATED SNOMED Code(s): 72074615 Plan: Prognostic indicators are trending poorly. Check CBC and CMP in a.m. I will have a discussion with his power of commercial real estate attorney/other later today to discuss possible comfort care measures per See orders otherwise.
[2017-07-20] MEDS: CALCIUM ACETATE 667 MG CAP PO SCH ×3 (08:16→16:55)
[2017-07-20] MEDS: methylPREDNISolone SOD SUCCI 40 MG/ML 1 ML VIAL IV SCH ×2 (08:16→20:47)
[2017-07-20] MEDS: IPRATROPIUM-ALBUTEROL 3 ML NEB INHALATION SCH ×4 (08:51→19:19)
[2017-07-20] MEDS: BUDESONIDE 0.5 MG/2 ML NEBU INHALATION SCH ×2 (08:51→19:19)
[2017-07-20 09:26] LABS: Glucose,Whole Blood 179 mg/dL (75-99)
[2017-07-20 10:03] LABS: Glucose,Whole Blood 187 mg/dL (75-99)
[2017-07-20 11:13] LABS: Glucose,Whole Blood 168 mg/dL (75-99)
--- NOTE | 2017-07-20 12:08 | PN ---
PROGRESS NOTE The patient is seen for followup for acute kidney injury. He remains severely oliguric with no significant urine output. He is scheduled for hemodialysis again today. Overnight, it appears that patient received another dose of vancomycin which was an error. He maintained on TPN. Potassium remains elevated and this morning, it was at 6.2 mEq/L. PHYSICAL EXAMINATION: On examination, patient is sedated. Blood pressure is 144/56, heart rate 90 per minute. He is afebrile. EXAMINATION OF THE HEART: S1, S2. EXAMINATION OF THE LUNGS: Bilateral breath sounds are heard. Abdomen is soft, nontender, distended. Examination of the lower extremities shows edema 2+ bilaterally upper and lower extremities. SYSTEMS TECHNOLOGIST exam is not performed. LABS: Labs show sodium 131, potassium 6.2, BUN 128, serum creatinine 5.1, phosphorus 12.5, hemoglobin 10.8 g/dL. Random Vanco level was 46.8. ASSESSMENT: 1. Acute kidney injury, acute tubular necrosis, secondary to sepsis, hypotension, hypoperfusion as well as vancomycin toxicity, currently dialysis dependent with minimal urine output. We will maintain patient on daily dialysis for now. 2. Hyperkalemia associated with acute kidney injury with poor response with dialysis. There was a question of possible recirculation. However, the creatinine did come down yesterday after dialysis; therefore, patient most likely has underlying catabolic state and we will maintain him on daily dialysis also try to keep the blood sugars below 150. 3. Hyperphosphatemia, to start phosphate binders once we are using . 4. Methicillin-resistant Staphylococcus aureus pneumonia. 5. Severe sepsis and septic shock. 6. Metabolic acidosis, currently improved. PLAN: DC bicarb drip. Hemodialysis today for 4 hours and maintain patient off of all nephrotoxic medications including vancomycin. MMODL / IJN: [id number] /
[2017-07-20 12:24] LABS: Glucose,Whole Blood 147 mg/dL (75-99)
[2017-07-20] MEDS: PROPOFOL 1,000 MG in EMPTY BAG 1 BAG IV SCH ×2 (12:26→19:06)
[2017-07-20 13:58] LABS: Glucose,Whole Blood 125 mg/dL (75-99)
[2017-07-20 14:11] VITALS: BMI 36.3
--- NOTE | 2017-07-20 14:54 | P.PN ---
Subjective Progress Note Date: 07/20/17 Principal diagnosis: Septic shock Patient seen and examined in the ICU with nursing staff at bedside. Patient is currently undergoing hemodialysis. He is off of pressors and remaining hemodynamically stable. They are attempting 3 L ultrafiltration. The patient still has not had a bowel movement. Tube feeds have been on hold. PEEP has been decreased to 8 without a physician order. This will be corrected. Patient will also be started on trickle feeds. Objective - Vital Signs Vital signs: Vital Signs Temp 99.0 F 07/20/17 12:00 Pulse 110 H 07/20/17 14:00 Resp 20 07/20/17 14:00 BP 109/55 07/19/17 00:00 Pulse Ox 97 07/20/17 14:00 Intake & Output 07/19/17 07/20/17 07/20/17 18:59 06:59 18:59 Intake Total 9379.271 3842.890 1355.928 Output Total 498 210 35 Balance 625.975 4732.890 1320.928 Weight 118.3 kg 118.3 kg Intake: IV 1060 1410 880 0.9 NS 10 110 80 Ascorbic Acid Inj 1,500 250 100 mg In Sodium Chloride 0.9 % 100 ml @ 103 mls/hr IV Q6HR [facility] Rx#:[id number] Dextrose 5% in Water 1, 650 525 150 000 ml @ 50 mls/hr IV . Q23H [facility] with Sodium Bicarb (1 Meq/ml) 150 ml Rx#:[id number] Sodium Chloride 2.5MEQ/ml 400 525 550 Vial 25 meq Calcium Chloride 300 mg Mvi, Adult No.4 with Vit K 10 ml Trace (Conc-1Ml/Dose) 1 ml In Amino Acid 4.25%- D10w 1,000 ml @ 50 mls/hr IV .[id number] [facility] Rx#: [id number] Intake, IV Titration 213.589 176.890 355.928 Amount Insulin Regular 100 unit 24.023 58.990 36.045 In Sodium Chloride 0.9% 100 ml @ Per Protocol IV .Q0M [facility] Rx#:[id number] Norepinephrin 16 mg-0.9% 59.053 Ns Pmx 16 mg In 250 ml @ Titrate IV .Q0M [facility] Rx#: [id number] Propofol 1,000 mg In 130.513 100 Empty Bag 1 bag @ Titrate IV .Q0M [facility] Rx#: [id number] Sodium Chloride 0.9% 99 100 ml @ 0.03 UNITS/MIN 9 mls /hr IV .Q11H7M [facility] with Vasopressin 20 unit Rx#: [id number] Sodium Chloride 0.9% 99 17.9 19.883 ml @ 0.03 UNITS/MIN 9 mls /hr IV .Q11H7M [facility] with Vasopressin 20 unit Rx#: [id number] Sodium Chloride 2.5MEQ/ml 200 Vial 25 meq Calcium Chloride 300 mg Mvi, Adult No.4 with Vit K 10 ml Trace (Conc-1Ml/Dose) 1 ml In Amino Acid 4.25%- D10w 1,000 ml @ 50 mls/hr IV .[id number] [facility] Rx#: [id number] Other 120 Output: Gastric Drainage 260 Urine 88 60 35 Oral Regurgitation 150 150 Other: Voiding Method Indwelling Catheter Indwelling Catheter Indwelling Catheter ABP, PAP, CO, CI - Last Documented Arterial Blood Pressure 92/55 - Exam Gen.: Patient is sedated on ventilator, critically ill Cardiovascular: Tachycardic, regular rate and rhythm, S1/S2 Lungs: Coarse breath sounds bilaterally Abdomen: Soft nontender nondistended positive bowel sounds Extremities: 1+ edema - Labs CBC & Chem 7: 07/20/17 04:20 07/20/17 04:20 Labs: Abnormal Lab Results - Last 24 Hours (Table) 07/19/17 07/19/17 07/19/17 Range/Units 15:11 16:25 16:25 WBC (3.8-10.6) k/uL RBC (4.30-5.90) m/uL Hgb (13.0-17.5) gm/dL Hct (39.0-53.0) % RDW (11.5-15.5) % Plt Count (150-450) k/uL ABG pH (7.35-7.45) ABG pCO2 (35-45) mmHg ABG O2 Saturation (94-97) % Sodium (137-145) mmol/L Potassium 5.9 H (3.5-5.1) mmol/L Chloride (98-107) mmol/L Carbon Dioxide (22-30) mmol/L BUN (9-20) mg/dL Creatinine 4.70 H (0.66-1.25) mg/dL Glucose (74-99) mg/dL POC Glucose (mg/dL) 197 H (75-99) mg/dL Calcium (8.4-10.2) mg/dL Phosphorus (2.5-4.5) mg/dL Magnesium (1.6-2.3) mg/dL Total Bilirubin (0.2-1.3) mg/dL AST (17-59) U/L Ammonia (<30) umol/L Total Protein (6.3-8.2) g/dL Albumin (3.5-5.0) g/dL Random Vancomycin ug/mL 07/19/17 07/19/17 07/19/17 Range/Units 17:35 19:02 19:59 WBC (3.8-10.6) k/uL RBC (4.30-5.90) m/uL Hgb (13.0-17.5) gm/dL Hct (39.0-53.0) % RDW (11.5-15.5) % Plt Count (150-450) k/uL ABG pH (7.35-7.45) ABG pCO2 (35-45) mmHg ABG O2 Saturation (94-97) % Sodium (137-145) mmol/L Potassium (3.5-5.1) mmol/L Chloride (98-107) mmol/L Carbon Dioxide (22-30) mmol/L BUN (9-20) mg/dL Creatinine (0.66-1.25) mg/dL Glucose (74-99) mg/dL POC Glucose (mg/dL) 195 H 181 H 178 H (75-99) mg/dL Calcium (8.4-10.2) mg/dL Phosphorus (2.5-4.5) mg/dL Magnesium (1.6-2.3) mg/dL Total Bilirubin (0.2-1.3) mg/dL AST (17-59) U/L Ammonia (<30) umol/L Total Protein (6.3-8.2) g/dL Albumin (3.5-5.0) g/dL Random Vancomycin ug/mL 07/19/17 07/19/17 07/19/17 Range/Units 20:59 21:40 21:45 WBC (3.8-10.6) k/uL RBC (4.30-5.90) m/uL Hgb (13.0-17.5) gm/dL Hct (39.0-53.0) % RDW (11.5-15.5) % Plt Count (150-450) k/uL ABG pH (7.35-7.45) ABG pCO2 (35-45) mmHg ABG O2 Saturation (94-97) % Sodium 132 L (137-145) mmol/L Potassium 6.0 H (3.5-5.1) mmol/L Chloride 95 L (98-107) mmol/L Carbon Dioxide 21 L (22-30) mmol/L BUN 119 H* (9-20) mg/dL Creatinine 5.23 H* (0.66-1.25) mg/dL Glucose 182 H (74-99) mg/dL POC Glucose (mg/dL) 186 H 204 H (75-99) mg/dL Calcium 6.9 L (8.4-10.2) mg/dL Phosphorus (2.5-4.5) mg/dL Magnesium (1.6-2.3) mg/dL Total Bilirubin (0.2-1.3) mg/dL AST (17-59) U/L Ammonia (<30) umol/L Total Protein (6.3-8.2) g/dL Albumin (3.5-5.0) g/dL Random Vancomycin ug/mL 07/19/17 07/20/17 07/20/17 Range/Units 23:21 00:07 01:48 WBC (3.8-10.6) k/uL RBC (4.30-5.90) m/uL Hgb (13.0-17.5) gm/dL Hct (39.0-53.0) % RDW (11.5-15.5) % Plt Count (150-450) k/uL ABG pH (7.35-7.45) ABG pCO2 (35-45) mmHg ABG O2 Saturation (94-97) % Sodium (137-145) mmol/L Potassium (3.5-5.1) mmol/L Chloride (98-107) mmol/L Carbon Dioxide (22-30) mmol/L BUN (9-20) mg/dL Creatinine (0.66-1.25) mg/dL Glucose (74-99) mg/dL POC Glucose (mg/dL) 182 H 154 H 150 H (75-99) mg/dL Calcium (8.4-10.2) mg/dL Phosphorus (2.5-4.5) mg/dL Magnesium (1.6-2.3) mg/dL Total Bilirubin (0.2-1.3) mg/dL AST (17-59) U/L Ammonia (<30) umol/L Total Protein (6.3-8.2) g/dL Albumin (3.5-5.0) g/dL Random Vancomycin ug/mL 07/20/17 07/20/17 07/20/17 Range/Units 03:19 04:05 04:20 WBC 33.4 H* (3.8-10.6) k/uL RBC 3.37 L (4.30-5.90) m/uL Hgb 10.8 L (13.0-17.5) gm/dL Hct 33.2 L (39.0-53.0) % RDW 16.3 H (11.5-15.5) % Plt Count 71 L (150-450) k/uL ABG pH (7.35-7.45) ABG pCO2 (35-45) mmHg ABG O2 Saturation (94-97) % Sodium (137-145) mmol/L Potassium (3.5-5.1) mmol/L Chloride (98-107) mmol/L Carbon Dioxide (22-30) mmol/L BUN (9-20) mg/dL Creatinine (0.66-1.25) mg/dL Glucose (74-99) mg/dL POC Glucose (mg/dL) 188 H 129 H (75-99) mg/dL Calcium (8.4-10.2) mg/dL Phosphorus (2.5-4.5) mg/dL Magnesium (1.6-2.3) mg/dL Total Bilirubin (0.2-1.3) mg/dL AST (17-59) U/L Ammonia (<30) umol/L Total Protein (6.3-8.2) g/dL Albumin (3.5-5.0) g/dL Random Vancomycin ug/mL 07/20/17 07/20/17 07/20/17 Range/Units 04:20 05:07 05:48 WBC (3.8-10.6) k/uL RBC (4.30-5.90) m/uL Hgb (13.0-17.5) gm/dL Hct (39.0-53.0) % RDW (11.5-15.5) % Plt Count (150-450) k/uL ABG pH 7.29 L (7.35-7.45) ABG pCO2 47 H (35-45) mmHg ABG O2 Saturation 97.2 H (94-97) % Sodium 131 L (137-145) mmol/L Potassium 6.2 H* (3.5-5.1) mmol/L Chloride 95 L (98-107) mmol/L Carbon Dioxide (22-30) mmol/L BUN 128 H* (9-20) mg/dL Creatinine 5.10 H* (0.66-1.25) mg/dL Glucose 140 H (74-99) mg/dL POC Glucose (mg/dL) 170 H (75-99) mg/dL Calcium 7.0 L (8.4-10.2) mg/dL Phosphorus 12.5 H* (2.5-4.5) mg/dL Magnesium 2.4 H (1.6-2.3) mg/dL Total Bilirubin 2.0 H (0.2-1.3) mg/dL AST 68 H (17-59) U/L Ammonia (<30) umol/L Total Protein 5.8 L (6.3-8.2) g/dL Albumin 2.1 L (3.5-5.0) g/dL Random Vancomycin 46.8 H* ug/mL 07/20/17 07/20/17 07/20/17 Range/Units 06:25 07:06 07:59 WBC (3.8-10.6) k/uL RBC (4.30-5.90) m/uL Hgb (13.0-17.5) gm/dL Hct (39.0-53.0) % RDW (11.5-15.5) % Plt Count (150-450) k/uL ABG pH (7.35-7.45) ABG pCO2 (35-45) mmHg ABG O2 Saturation (94-97) % Sodium (137-145) mmol/L Potassium (3.5-5.1) mmol/L Chloride (98-107) mmol/L Carbon Dioxide (22-30) mmol/L BUN (9-20) mg/dL Creatinine (0.66-1.25) mg/dL Glucose (74-99) mg/dL POC Glucose (mg/dL) 142 H 182 H 174 H (75-99) mg/dL Calcium (8.4-10.2) mg/dL Phosphorus (2.5-4.5) mg/dL Magnesium (1.6-2.3) mg/dL Total Bilirubin (0.2-1.3) mg/dL AST (17-59) U/L Ammonia (<30) umol/L Total Protein (6.3-8.2) g/dL Albumin (3.5-5.0) g/dL Random Vancomycin ug/mL 07/20/17 07/20/17 07/20/17 Range/Units 09:21 09:23 10:01 WBC (3.8-10.6) k/uL RBC (4.30-5.90) m/uL Hgb (13.0-17.5) gm/dL Hct (39.0-53.0) % RDW (11.5-15.5) % Plt Count (150-450) k/uL ABG pH (7.35-7.45) ABG pCO2 (35-45) mmHg ABG O2 Saturation (94-97) % Sodium (137-145) mmol/L Potassium (3.5-5.1) mmol/L Chloride (98-107) mmol/L Carbon Dioxide (22-30) mmol/L BUN (9-20) mg/dL Creatinine (0.66-1.25) mg/dL Glucose (74-99) mg/dL POC Glucose (mg/dL) 179 H 187 H (75-99) mg/dL Calcium (8.4-10.2) mg/dL Phosphorus (2.5-4.5) mg/dL Magnesium (1.6-2.3) mg/dL Total Bilirubin (0.2-1.3) mg/dL AST (17-59) U/L Ammonia 110 H (<30) umol/L Total Protein (6.3-8.2) g/dL Albumin (3.5-5.0) g/dL Random Vancomycin ug/mL 07/20/17 07/20/17 07/20/17 Range/Units 11:11 12:23 13:57 WBC (3.8-10.6) k/uL RBC (4.30-5.90) m/uL Hgb (13.0-17.5) gm/dL Hct (39.0-53.0) % RDW (11.5-15.5) % Plt Count (150-450) k/uL ABG pH (7.35-7.45) ABG pCO2 (35-45) mmHg ABG O2 Saturation (94-97) % Sodium (137-145) mmol/L Potassium (3.5-5.1) mmol/L Chloride (98-107) mmol/L Carbon Dioxide (22-30) mmol/L BUN (9-20) mg/dL Creatinine (0.66-1.25) mg/dL Glucose (74-99) mg/dL POC Glucose (mg/dL) 168 H 147 H 125 H (75-99) mg/dL Calcium (8.4-10.2) mg/dL Phosphorus (2.5-4.5) mg/dL Magnesium (1.6-2.3) mg/dL Total Bilirubin (0.2-1.3) mg/dL AST (17-59) U/L Ammonia (<30) umol/L Total Protein (6.3-8.2) g/dL Albumin (3.5-5.0) g/dL Random Vancomycin ug/mL Microbiology - Last 24 Hours (Table) 07/16/17 04:55 Blood Culture - Preliminary Blood No Growth after 96 hours 07/16/17 04:40 Blood Culture - Preliminary Blood No Growth after 96 hours Assessment and Plan Assessment: Acute respiratory failure requiring mechanical ventilation MRSA pneumonia MRSA bacteremia Septic shock Multisystem organ failure Acute renal failure, requiring HD Severe hyperkalemia Thrombocytopenia Alcohol abuse Tobacco abuse Obesity Hyperammonemia Continue full vent support, continue PEEP 10, titrate Fio2 to 40% Levophed and vasopressin on standby HD per nephrology ABX per ID: Levaquin and Vanco Lasix and bicarb drips have been discontinued Monitor K GI and DVT prophylaxis Bowel regimen Continue TPN Thiamine, Vit C, Cortef per protocol Continue bronchodilators Insulin drip Molasses enema, Dulcolax Plan for 3L ultrafiltration today Will plan for sedation holiday tomorrow Monitor ammonia level Trickle feeds Continue ICU care Prognosis is poor
[2017-07-20 16:43] LABS: Glucose,Whole Blood 155 mg/dL (75-99)
[2017-07-20] MEDS: SODIUM CHLORIDE 0.9% 99 ML with VASOPRESSIN 20 UNIT IV SCH ×2 (16:43)
[2017-07-20] MEDS: BISACODYL 10 MG SUPP RECTAL SCH (16:54)
[2017-07-20 19:06] LABS: Glucose,Whole Blood 172 mg/dL (75-99)
[2017-07-20] MEDS: INSULIN REGULAR 100 UNIT in SODIUM CHLORIDE 0.9% 100 ML IV SCH (20:09)
[2017-07-20 20:48] LABS: Glucose,Whole Blood 192 mg/dL (75-99)
[2017-07-20 22:07] LABS: Glucose,Whole Blood 196 mg/dL (75-99)
[2017-07-20 23:15] LABS: Glucose,Whole Blood 178 mg/dL (75-99)
--- NOTE | 2017-07-20 23:44 | P.PN ---
Subjective Progress Note Date: 07/20/17 Principal diagnosis: Respiratory failure 56-year-old male with history of COPD and alcoholism is had 2 recent visits to hospital. It is noted from the records that he did not have significant delirium tremens but was having difficulties with his COPD. The patient apparently had a rapid deterioration after his recent hospitalization reviewed became very confused and likely had hypoxic hypercapnic respiratory failure and required transport to hospital. He was given some breathing treatments and had some slight improvement but then had a marked worsening and required intubation with sedation and mechanical ventilation. The patient remains in intensive care unit in the infectious diseases consultation is requested given his Possible culture for MRSA and likely same pathogen in his sputum. The patient is intubated sedated and mechanically ventilated and all information comes from the chart and nursing staff. The patient is comfortable. A low dose of vasopressor only. Urine output is marginal but has improved. He had significant hyperglycemia at admission of 813 which is now improved with the insulin drip. Has done well with fluid resuscitation. With current sedation the patient is comfortable. Nursing relates no concerns to delirium tremens at this time. On 07/13/2017 the patient has little change of his status. He remains intubated sedated and mechanically ventilated and remains on vasopressor therapy fortunately low dose with adequate response. The patient is sedated. He's had significant amounts of copious secretions from his endotracheal tube required multiple bouts of suctioning has had difficulty with some mucous plugging also. He is currently very comfortable with current level of sedation 07/14/2017 patient underwent bronchoscopy today with suctioning of large amounts of mucus material and has had some improvement since. He however had a bout of hypothermia and concerns to worsening sepsis possibly in the basis of abdominal sepsis CT scan was performed and is having a disimpaction. His white blood cell count is improved but is having some thrombocytopenia. Patient remains intubated sedated and appears comfortable. 07/15/2017 the patient is more stable today. He is no longer hypothermic and is on a decreased dose of vasopressor. He seems to be comfortable. Remains intubated sedated and mechanically ventilated. Cultures from the bronchoscopy from yesterday are pending gram-positive cocci are again seen. No evidence of gram-negative infection at this time. The patient is have his ongoing significant sepsis from his MRSA pneumonia and bacteremia. Seriousness of his infection is related to his family member who was present. 07/16/2017 the patient remains with vasopressor needs, remains intubated sedated and mechanically ventilated with no change of his vent settings. There is been no improvement. He has ongoing copious secretions. Has been seen by nephrology with worsening of his renal function. Consequently vancomycin is discontinued and levels will be followed. Level becomes subtherapeutic will then substitute linezolide with careful follow up. Patient's prognosis is poor. 07/18/2017 patient remains hematologically unstable, intubated sedated having vasopressin added to his norepinephrine. Continues to have large amount of copious pulmonary secretions related to his MRSA pneumonia. 07/20/2017 the patient remains critically ill, intubated sedated and mechanically ventilated. Having some intermittent needs of vasopressor therapy. Continues to have copious amounts of secretion related to his MRSA pneumonia. He's had no improvement in his status some worsening is noted and is having ongoing significant leukocytosis. Objective - Vital Signs Vital signs: Vital Signs Temp 98 F 07/20/17 20:00 Pulse 88 07/20/17 23:00 Resp 25 H 07/20/17 23:00 BP 109/55 07/19/17 00:00 Pulse Ox 96 07/20/17 23:00 Intake & Output 07/20/17 07/20/17 07/21/17 06:59 18:59 06:59 Intake Total 8545.338 7131.928 364.192 Output Total 210 38 5 Balance 1534.724 7873.928 359.192 Weight 118.3 kg 118.3 kg Intake: IV 1410 1410 140 0.9 NS 110 110 40 Ascorbic Acid Inj 1,500 250 200 mg In Sodium Chloride 0.9 % 100 ml @ 103 mls/hr IV Q6HR [facility] Rx#:[id number] Dextrose 5% in Water 1, 525 150 000 ml @ 50 mls/hr IV . Q23H [facility] with Sodium Bicarb (1 Meq/ml) 150 ml Rx#:[id number] Sodium Chloride 2.5MEQ/ml 525 950 100 Vial 25 meq Calcium Chloride 300 mg Mvi, Adult No.4 with Vit K 10 ml Trace (Conc-1Ml/Dose) 1 ml In Amino Acid 4.25%- D10w 1,000 ml @ 50 mls/hr IV .[id number] [facility] Rx#: [id number] Intake, IV Titration 176.890 555.928 174.192 Amount Ascorbic Acid Inj 1,500 100 mg In Sodium Chloride 0.9 % 100 ml @ 103 mls/hr IV Q6HR [facility] Rx#:[id number] Insulin Regular 100 unit 58.990 36.045 38.432 In Sodium Chloride 0.9% 100 ml @ Per Protocol IV .Q0M [facility] Rx#:[id number] Propofol 1,000 mg In 100 135.760 Empty Bag 1 bag @ Titrate IV .Q0M [facility] Rx#: [id number] Sodium Chloride 0.9% 99 100 ml @ 0.03 UNITS/MIN 9 mls /hr IV .Q11H7M [facility] with Vasopressin 20 unit Rx#: [id number] Sodium Chloride 0.9% 99 17.9 19.883 ml @ 0.03 UNITS/MIN 9 mls /hr IV .Q11H7M [facility] with Vasopressin 20 unit Rx#: [id number] Sodium Chloride 2.5MEQ/ml 200 Vial 25 meq Calcium Chloride 300 mg Mvi, Adult No.4 with Vit K 10 ml Trace (Conc-1Ml/Dose) 1 ml In Amino Acid 4.25%- D10w 1,000 ml @ 50 mls/hr IV .[id number] [facility] Rx#: [id number] Thiamine 200 mg In Sodium 100 Chloride 0.9% 100 ml @ 204 mls/hr IVPB Q12H [facility] Rx#:[id number] Tube Feeding 10 50 Other 120 Output: Urine 60 35 5 Stool 3 Oral Regurgitation 150 Other: Voiding Method Indwelling Catheter Indwelling Catheter Indwelling Catheter ABP, PAP, CO, CI - Last Documented Arterial Blood Pressure 147/58 - Exam Intubated sedated and mechanically ventilated HEENT: Anicteric conjunctiva with some thin exudate, no bleeding around the nasogastric tube oroendotracheal tube no thrush was noted Neck: The neck is supple without significant lymphadenopathy or thyromegaly. Lungs: Symmetrical air entry with coarse crackles to the bases bronchial sounds to the right base is noted Heart: Regular rate and rhythm with an audible S1-S2, no S3 positive S4 There is no significant murmur click or rub, PMI was nondisplaced. Abdomen: Positive bowel sounds soft nondistended without palpable masses or organomegaly. There was no rigidity Extremities: Upper and lower extremities have some generalized edema with a few blisters on the upper extremities with some scant fluid drainage. More edema in the lower extremities. Peripheral pulses are palpable extremities are cool but not cold. No open ulcers are seen. Neuro: Patient is heavily sedated intubated and mechanically ventilated. - Labs CBC & Chem 7: 07/20/17 04:20 07/20/17 04:20 Labs: Abnormal Lab Results - Last 24 Hours (Table) 07/20/17 07/20/17 07/20/17 Range/Units 00:07 01:48 03:19 WBC (3.8-10.6) k/uL RBC (4.30-5.90) m/uL Hgb (13.0-17.5) gm/dL Hct (39.0-53.0) % RDW (11.5-15.5) % Plt Count (150-450) k/uL ABG pH (7.35-7.45) ABG pCO2 (35-45) mmHg ABG O2 Saturation (94-97) % Sodium (137-145) mmol/L Potassium (3.5-5.1) mmol/L Chloride (98-107) mmol/L BUN (9-20) mg/dL Creatinine (0.66-1.25) mg/dL Glucose (74-99) mg/dL POC Glucose (mg/dL) 154 H 150 H 188 H (75-99) mg/dL Calcium (8.4-10.2) mg/dL Phosphorus (2.5-4.5) mg/dL Magnesium (1.6-2.3) mg/dL Total Bilirubin (0.2-1.3) mg/dL AST (17-59) U/L Ammonia (<30) umol/L Total Protein (6.3-8.2) g/dL Albumin (3.5-5.0) g/dL Random Vancomycin ug/mL 07/20/17 07/20/17 07/20/17 Range/Units 04:05 04:20 04:20 WBC 33.4 H* (3.8-10.6) k/uL RBC 3.37 L (4.30-5.90) m/uL Hgb 10.8 L (13.0-17.5) gm/dL Hct 33.2 L (39.0-53.0) % RDW 16.3 H (11.5-15.5) % Plt Count 71 L (150-450) k/uL ABG pH (7.35-7.45) ABG pCO2 (35-45) mmHg ABG O2 Saturation (94-97) % Sodium 131 L (137-145) mmol/L Potassium 6.2 H* (3.5-5.1) mmol/L Chloride 95 L (98-107) mmol/L BUN 128 H* (9-20) mg/dL Creatinine 5.10 H* (0.66-1.25) mg/dL Glucose 140 H (74-99) mg/dL POC Glucose (mg/dL) 129 H (75-99) mg/dL Calcium 7.0 L (8.4-10.2) mg/dL Phosphorus 12.5 H* (2.5-4.5) mg/dL Magnesium 2.4 H (1.6-2.3) mg/dL Total Bilirubin 2.0 H (0.2-1.3) mg/dL AST 68 H (17-59) U/L Ammonia (<30) umol/L Total Protein 5.8 L (6.3-8.2) g/dL Albumin 2.1 L (3.5-5.0) g/dL Random Vancomycin 46.8 H* ug/mL 07/20/17 07/20/17 07/20/17 Range/Units 05:07 05:48 06:25 WBC (3.8-10.6) k/uL RBC (4.30-5.90) m/uL Hgb (13.0-17.5) gm/dL Hct (39.0-53.0) % RDW (11.5-15.5) % Plt Count (150-450) k/uL ABG pH 7.29 L (7.35-7.45) ABG pCO2 47 H (35-45) mmHg ABG O2 Saturation 97.2 H (94-97) % Sodium (137-145) mmol/L Potassium (3.5-5.1) mmol/L Chloride (98-107) mmol/L BUN (9-20) mg/dL Creatinine (0.66-1.25) mg/dL Glucose (74-99) mg/dL POC Glucose (mg/dL) 170 H 142 H (75-99) mg/dL Calcium (8.4-10.2) mg/dL Phosphorus (2.5-4.5) mg/dL Magnesium (1.6-2.3) mg/dL Total Bilirubin (0.2-1.3) mg/dL AST (17-59) U/L Ammonia (<30) umol/L Total Protein (6.3-8.2) g/dL Albumin (3.5-5.0) g/dL Random Vancomycin ug/mL 07/20/17 07/20/17 07/20/17 Range/Units 07:06 07:59 09:21 WBC (3.8-10.6) k/uL RBC (4.30-5.90) m/uL Hgb (13.0-17.5) gm/dL Hct (39.0-53.0) % RDW (11.5-15.5) % Plt Count (150-450) k/uL ABG pH (7.35-7.45) ABG pCO2 (35-45) mmHg ABG O2 Saturation (94-97) % Sodium (137-145) mmol/L Potassium (3.5-5.1) mmol/L Chloride (98-107) mmol/L BUN (9-20) mg/dL Creatinine (0.66-1.25) mg/dL Glucose (74-99) mg/dL POC Glucose (mg/dL) 182 H 174 H (75-99) mg/dL Calcium (8.4-10.2) mg/dL Phosphorus (2.5-4.5) mg/dL Magnesium (1.6-2.3) mg/dL Total Bilirubin (0.2-1.3) mg/dL AST (17-59) U/L Ammonia 110 H (<30) umol/L Total Protein (6.3-8.2) g/dL Albumin (3.5-5.0) g/dL Random Vancomycin ug/mL 07/20/17 07/20/17 07/20/17 Range/Units 09:23 10:01 11:11 WBC (3.8-10.6) k/uL RBC (4.30-5.90) m/uL Hgb (13.0-17.5) gm/dL Hct (39.0-53.0) % RDW (11.5-15.5) % Plt Count (150-450) k/uL ABG pH (7.35-7.45) ABG pCO2 (35-45) mmHg ABG O2 Saturation (94-97) % Sodium (137-145) mmol/L Potassium (3.5-5.1) mmol/L Chloride (98-107) mmol/L BUN (9-20) mg/dL Creatinine (0.66-1.25) mg/dL Glucose (74-99) mg/dL POC Glucose (mg/dL) 179 H 187 H 168 H (75-99) mg/dL Calcium (8.4-10.2) mg/dL Phosphorus (2.5-4.5) mg/dL Magnesium (1.6-2.3) mg/dL Total Bilirubin (0.2-1.3) mg/dL AST (17-59) U/L Ammonia (<30) umol/L Total Protein (6.3-8.2) g/dL Albumin (3.5-5.0) g/dL Random Vancomycin ug/mL 07/20/17 07/20/17 07/20/17 Range/Units 12:23 13:57 16:42 WBC (3.8-10.6) k/uL RBC (4.30-5.90) m/uL Hgb (13.0-17.5) gm/dL Hct (39.0-53.0) % RDW (11.5-15.5) % Plt Count (150-450) k/uL ABG pH (7.35-7.45) ABG pCO2 (35-45) mmHg ABG O2 Saturation (94-97) % Sodium (137-145) mmol/L Potassium (3.5-5.1) mmol/L Chloride (98-107) mmol/L BUN (9-20) mg/dL Creatinine (0.66-1.25) mg/dL Glucose (74-99) mg/dL POC Glucose (mg/dL) 147 H 125 H 155 H (75-99) mg/dL Calcium (8.4-10.2) mg/dL Phosphorus (2.5-4.5) mg/dL Magnesium (1.6-2.3) mg/dL Total Bilirubin (0.2-1.3) mg/dL AST (17-59) U/L Ammonia (<30) umol/L Total Protein (6.3-8.2) g/dL Albumin (3.5-5.0) g/dL Random Vancomycin ug/mL 07/20/17 07/20/17 07/20/17 Range/Units 19:05 20:46 22:05 WBC (3.8-10.6) k/uL RBC (4.30-5.90) m/uL Hgb (13.0-17.5) gm/dL Hct (39.0-53.0) % RDW (11.5-15.5) % Plt Count (150-450) k/uL ABG pH (7.35-7.45) ABG pCO2 (35-45) mmHg ABG O2 Saturation (94-97) % Sodium (137-145) mmol/L Potassium (3.5-5.1) mmol/L Chloride (98-107) mmol/L BUN (9-20) mg/dL Creatinine (0.66-1.25) mg/dL Glucose (74-99) mg/dL POC Glucose (mg/dL) 172 H 192 H 196 H (75-99) mg/dL Calcium (8.4-10.2) mg/dL Phosphorus (2.5-4.5) mg/dL Magnesium (1.6-2.3) mg/dL Total Bilirubin (0.2-1.3) mg/dL AST (17-59) U/L Ammonia (<30) umol/L Total Protein (6.3-8.2) g/dL Albumin (3.5-5.0) g/dL Random Vancomycin ug/mL 07/20/17 Range/Units 23:03 WBC (3.8-10.6) k/uL RBC (4.30-5.90) m/uL Hgb (13.0-17.5) gm/dL Hct (39.0-53.0) % RDW (11.5-15.5) % Plt Count (150-450) k/uL ABG pH (7.35-7.45) ABG pCO2 (35-45) mmHg ABG O2 Saturation (94-97) % Sodium (137-145) mmol/L Potassium (3.5-5.1) mmol/L Chloride (98-107) mmol/L BUN (9-20) mg/dL Creatinine (0.66-1.25) mg/dL Glucose (74-99) mg/dL POC Glucose (mg/dL) 178 H (75-99) mg/dL Calcium (8.4-10.2) mg/dL Phosphorus (2.5-4.5) mg/dL Magnesium (1.6-2.3) mg/dL Total Bilirubin (0.2-1.3) mg/dL AST (17-59) U/L Ammonia (<30) umol/L Total Protein (6.3-8.2) g/dL Albumin (3.5-5.0) g/dL Random Vancomycin ug/mL Microbiology - Last 24 Hours (Table) 07/16/17 04:55 Blood Culture - Preliminary Blood No Growth after 96 hours 07/16/17 04:40 Blood Culture - Preliminary Blood No Growth after 96 hours Laboratory Results WBC 33.4 k/uL (3.8-10.6) H* 07/20/17 04:20 RBC 3.37 m/uL (4.30-5.90) L 07/20/17 04:20 Hgb 10.8 gm/dL (13.0-17.5) L 07/20/17 04:20 Hct 33.2 % (39.0-53.0) L 07/20/17 04:20 MCV 98.3 fL (80.0-100.0) 07/20/17 04:20 MCH 32.0 pg (25.0-35.0) 07/20/17 04:20 MCHC 32.5 g/dL (31.0-37.0) 07/20/17 04:20 RDW 16.3 % (11.5-15.5) H 07/20/17 04:20 Plt Count 71 k/uL (150-450) L 07/20/17 04:20 Neutrophils % 91 % 07/16/17 04:25 Neutrophils % (Manual) 79 % 07/17/17 04:15 Band Neutrophils % 15 % 07/17/17 04:15 Lymphocytes % 4 % 07/16/17 04:25 Lymphocytes % (Manual) 3 % 07/17/17 04:15 Monocytes % 4 % 07/16/17 04:25 Monocytes % (Manual) 3 % 07/17/17 04:15 Eosinophils % 0 % 07/16/17 04:25 Basophils % 0 % 07/16/17 04:25 Metamyelocytes % 1 % 07/17/17 04:15 Myelocytes % 1 % 07/15/17 04:10 Neutrophils # 24.7 k/uL (1.3-7.7) H 07/16/17 04:25 Neutrophils # (Manual) 31.70 k/uL (1.3-7.7) H 07/17/17 04:15 Lymphocytes # 1.1 k/uL (1.0-4.8) 07/16/17 04:25 Lymphocytes # (Manual) 1.01 k/uL (1.0-4.8) 07/17/17 04:15 Monocytes # 1.1 k/uL (0-1.0) H 07/16/17 04:25 Monocytes # (Manual) 1.01 k/uL (0-1.0) H 07/17/17 04:15 Eosinophils # 0.0 k/uL (0-0.7) 07/16/17 04:25 Basophils # 0.1 k/uL (0-0.2) 07/16/17 04:25 Metamyelocytes # (Man) 0.34 k/uL (0) H 07/17/17 04:15 Myelocytes # (Manual) 0.42 k/uL (0) H 07/15/17 04:10 Nucleated RBCs 0 /100 WBC (0-0) 07/17/17 04:15 Manual Slide Review Performed 07/14/17 03:28 Toxic Granulation Present 07/14/17 03:28 Toxic Vacuolation Present 07/11/17 09:10 Polychromasia Present 07/17/17 04:15 Hypochromasia Slight 07/15/17 04:10 Poikilocytosis (manual Present 07/17/17 04:15 Anisocytosis Slight 07/20/17 04:20 Anisocytosis (manual) Present 07/17/17 04:15 Macrocytosis Slight 07/20/17 04:20 PT 12.6 sec (9.0-12.0) H 07/11/17 09:10 INR 1.3 (<1.2) H 07/11/17 09:10 APTT 26.3 sec (22.0-30.0) 07/11/17 01:53 Sample Site katerina 07/20/17 05:48 ABG pH 7.29 (7.35-7.45) L 07/20/17 05:48 ABG pCO2 47 mmHg (35-45) H 07/20/17 05:48 ABG pO2 107 mmHg (83-108) 07/20/17 05:48 ABG HCO3 23 mmol/L (21-25) 07/20/17 05:48 ABG Total CO2 24 mmol/L (19-24) 07/20/17 05:48 ABG O2 Saturation 97.2 % (94-97) H 07/20/17 05:48 ABG Base Excess -4.1 mmol/L 07/20/17 05:48 Deuce Test Yes 07/20/17 05:48 ABG Lactic Acid 2.5 mmol/L (0.5-1.6) H* 07/15/17 04:10 FiO2 60 % 07/20/17 05:48 Sodium 131 mmol/L (137-145) L 07/20/17 04:20 Potassium 6.2 mmol/L (3.5-5.1) H* 07/20/17 04:20 Chloride 95 mmol/L (98-107) L 07/20/17 04:20 Carbon Dioxide 22 mmol/L (22-30) 07/20/17 04:20 Anion Gap 14 mmol/L 07/20/17 04:20 BUN 128 mg/dL (9-20) H* 07/20/17 04:20 Creatinine 5.10 mg/dL (0.66-1.25) H* 07/20/17 04:20 Est GFR (MDRD) Af Amer 46 (>60 ml/min/1.73 sqM) 07/12/17 05:18 Est GFR (MDRD) Non-Af 38 (>60 ml/min/1.73 sqM) 07/12/17 05:18 Est GFR (CKD-EPI)AfAm 14 (>60 ml/min/1.73 sqM) 07/20/17 04:20 Est GFR (CKD-EPI)NonAf 12 (>60 ml/min/1.73 sqM) 07/20/17 04:20 Glucose 140 mg/dL (74-99) H 07/20/17 04:20 POC Glucose (mg/dL) 178 mg/dL (75-99) H 07/20/17 23:03 POC Glu [employer] Performer ID Dee Gavin 07/20/17 23:[address] Glu mg/dL 229 07/13/17 05:20 Hemoglobin A1c 9.6 % (4.0-6.0) H 07/13/17 05:20 Lactic Ac Sepsis Rflx Y 07/11/17 16:24 Plasma Lactic Acid [place] 1.9 mmol/L (0.7-2.0) 07/13/17 05:20 Calcium 7.0 mg/dL (8.4-10.2) L 07/20/17 04:20 Ionized Calcium Dominik 4.0 mg/dL (4.5-5.3) L 07/19/17 04:20 Phosphorus 12.5 mg/dL (2.5-4.5) H* 07/20/17 04:20 Magnesium 2.4 mg/dL (1.6-2.3) H 07/20/17 04:20 Total Bilirubin 2.0 mg/dL (0.2-1.3) H 07/20/17 04:20 AST 68 U/L (17-59) H 07/20/17 04:20 ALT 67 U/L (21-72) 07/20/17 04:20 Alkaline Phosphatase 119 U/L (38-126) 07/20/17 04:20 Ammonia 110 umol/L (<30) H 07/20/17 09:21 Total Creatine Kinase 71 U/L (55-170) 07/11/17 01:53 CK-MB (CK-2) 1.6 ng/mL (0.0-2.4) 07/11/17 01:53 CK-MB (CK-2) Rel Index 2.3 07/11/17 01:53 Troponin I <0.012 ng/mL (0.000-0.034) 07/11/17 01:53 Total Protein 5.8 g/dL (6.3-8.2) L 07/20/17 04:20 Albumin 2.1 g/dL (3.5-5.0) L 07/20/17 04:20 Urine Color Dark Yellow 07/11/17 13:39 Urine Appearance Cloudy (Clear) 07/11/17 13:39 Urine pH 5.0 (5.0-8.0) 07/11/17 13:39 Ur Specific [place] 1.018 (1.001-1.035) 07/11/17 13:39 Urine Protein 1+ (Negative) H 07/11/17 13:39 Urine Glucose (UA) Trace (Negative) H 07/11/17 13:39 Urine Ketones Trace (Negative) H 07/11/17 13:39 Urine Blood Negative (Negative) 07/11/17 13:39 Urine Nitrite Negative (Negative) 07/11/17 13:39 Urine Bilirubin 1+ (Negative) H 07/11/17 13:39 Urine Urobilinogen 8.0 mg/dL (<2.0) 07/11/17 13:39 Ur Leukocyte Esterase Negative (Negative) 07/11/17 13:39 Urine RBC 5 /hpf (0-5) 07/11/17 13:39 Urine WBC 5 /hpf (0-5) 07/11/17 13:39 Ur Squamous Epith Cells 1 /hpf (0-4) 07/11/17 13:39 Amorphous Sediment Few /hpf (None) H 07/11/17 13:39 Urine Bacteria Occasional /hpf (None) H 07/11/17 13:39 Hyaline Casts 2 /lpf (0-2) 07/11/17 13:39 Granular Casts 45 /lpf (0) 07/11/17 13:39 Urine Mucus Occasional /hpf (None) H 07/11/17 13:39 Gastric Occult Blood Positive (Negative) 07/15/17 21:35 Vancomycin Trough 44.3 ug/mL H* 07/16/17 13:30 Random Vancomycin 46.8 ug/mL H* 07/20/17 04:20 Hep Bs Antigen Non-Reactive (Non-Reactive) 07/20/17 04:20 Hep Bs Antibody Non-Reactive (Non-Reactive) 07/18/17 15:00 Hep Bs Antibody, Quant 3.5 mIU/mL 07/18/17 15:00 Influenza Type A RNA Not Detected (Not Detectd) 07/13/17 13:30 Influenza Type B (PCR) Not Detected (Not Detectd) 07/13/17 13:30 Virus Source See Below 07/14/17 10:30 Viral Test See Below 07/14/17 10:30 Virus Analysis Interp See Below 07/14/17 10:30 Miscellaneous Test Legionella PCR 07/14/17 10:30 Misc Test Result See comment 07/14/17 10:30 Microbiology 07/16/17 04:55 Blood Blood Culture - Preliminary No Growth after 96 hours 07/16/17 04:40 Blood Blood Culture - Preliminary No Growth after 96 hours 07/13/17 05:20 Blood Blood Culture - Final No Growth after 144 hours 07/14/17 10:30 Bronchoalviolar Lavage - Right Gram Stain - Final 07/14/17 10:30 Bronchoalviolar Lavage - Right Bronchial Washings Culture - Final Methicillin resist S. aureus 07/13/17 05:30 Blood Blood Culture Gram Stain - Final 07/13/17 05:30 Blood Blood Culture - Final Methicillin resist S. aureus 07/14/17 10:30 Bronchoalviolar Lavage - Right Acid Fast Bacilli Smear - Final 07/14/17 10:30 Bronchoalviolar Lavage - Right Acid Fast Bacilli Culture - Preliminary 07/14/17 10:30 Bronchoalviolar Lavage - Right Fungal Culture - Preliminary 07/13/17 05:30 Blood Blood Culture - Final 07/12/17 18:20 Urine,Catheterized Urine Culture - Final 07/11/17 07:56 Sputum Gram Stain - Final 07/11/17 07:56 Sputum Sputum Culture - Final Methicillin resist S. aureus 07/11/17 01:00 Blood Blood Culture Gram Stain - Final 07/11/17 01:00 Blood Blood Culture - Final Methicillin resist S. aureus 07/11/17 01:00 Blood Blood Culture - Final Assessment and Plan (1) Acute and chronic respiratory failure with hypercapnia Current Visit: Yes Status: Acute Code(s): J96.22 - ACUTE AND CHRONIC RESPIRATORY FAILURE WITH HYPERCAPNIA SNOMED Code(s): 9725612709877 (2) MRSA pneumonia Narrative/Plan: 56-year-old male presents to the emergency center after 2 recent hospital stays with marked worsening of his status. He became more short of breath and confused. In the emergency center he developed respiratory failure and required intubation and sedation and mechanical ventilation. He was moved to intensive care unit. With evidence of bacteremia the infectious diseases consultation was requested. Patient appears to have evidence of MRSA bacteremia and pneumonia. Vancomycin will be continued at this point in time. Zosyn will be dose adjusted for his acute renal failure and will de-escalate antibiotic therapy pending further culture results. Patient is being closely monitored for delirium tremens however did not have evidence of that during his recent hospital stay. The patient has profound leukocytosis which appears to be in the basis of his current pneumonia and sepsis and recent steroid use. Patient also has evidence of acute renal failure and consequently vancomycin is being dosed by pharmacy and Zosyn was dose adjusted for his current creatinine clearance. Follow blood cultures requested to evaluate for clearance. If persistent blood cultures are noted would also benefit from echocardiogram. 07/13/2017 patient remains intubated sedated and mechanically ventilated but is showing at least some stability was status. There has been no worsening. If no other positive cultures tomorrow we'll then be able to de-escalate vancomycin monotherapy for his MRSA pneumonia and bacteremia the profound leukocytosis is now showing some improvement. They're related to urinary output is adequate. Acute renal failure is improving patient's prognosis remains guarded. July 14, 2017 patient remains intubated sedated and mechanically ventilated. He underwent bronchoscopy today with suctioning of large amounts material. The patient is medically stable. He's having ongoing leukocytosis with evidence of this extensive pneumonia. Only MRSA has been isolated from his sputum in his blood. Follow blood cultures are now negative at this point in time. He is developed thrombocytopenia thus the piperacillin tazobactam is discontinued and we'll monitor his response of his platelets. No other gram negatives infections found at this point in time. 07/15/2017 the patient remains intubated sedated and mechanically ventilated and has had some improvement of his pulmonary status after the bronchoscopy of yesterday. Continues evidence of MRSA pneumonia and MRSA bacteremia. Follow- up cultures requested in the morning to verify the clearance of the bacteremia with current antibiotic therapy. Prognosis remains poor 07/18/2017 patient continues to have significant ongoing sepsis related to his MRSA infection with pneumonia. It does appear the Bactrim he has now cleared. However he still has hemodynamic instability and pulmonary critical care is adding vasopressin. He may benefit from further pulmonary toileting if he continues to have difficulties with his ventilatory status. Vancomycin therapy has been placed on hold the levels be monitored daily. When it becomes subtherapeutic will be able to then initiate alternative anti-MRSA therapy with Zyvox. Prognosis remains poor 07/20/2017 reveals the patient to remain critically ill with no improvement. Continues to have ongoing leukocytosis, hemodynamic instability at times, acute renal failure and failure to improve his pulmonary status. As noted he has MRSA pneumonia with bacteremia over the bacteremia has now cleared but continues to have ongoing evidence of pneumonia by his x-rays. Vancomycin level did increase it appears that he did receive a partial dose of vancomycin yesterday. Vancomycin remains on hold waiting for this to clear from his system and then would initiate Zyvox as noted above. Prognosis remains very poor. Current Visit: Yes Status: Acute Code(s): J15.212 - PNEUMONIA DUE TO METHICILLIN RESISTANT STAPHYLOCOCCUS AUREUS SNOMED Code(s): 720855743639374 (3) MRSA bacteremia Current Visit: Yes Status: Acute Code(s): R78.81 - BACTEREMIA SNOMED Code( s): 36675531119676070 (4) Leukocytosis Current Visit: Yes Status: Acute Code(s): D72.829 - ELEVATED WHITE BLOOD CELL COUNT, UNSPECIFIED SNOMED Code(s): 050714872
[2017-07-21 00:05] LABS: Glucose,Whole Blood 184 mg/dL (75-99)
[2017-07-21] MEDS: HYDROCORTISONE SUCCINATE 100 MG/2 ML VIAL IV SCH ×3 (00:13→13:31)
[2017-07-21] MEDS: METOCLOPRAMIDE 5 MG/ML 2 ML VIAL IVP SCH ×2 (00:13→05:20)
[2017-07-21] MEDS: ASCORBIC ACID INJ 1,500 MG in SODIUM CHLORIDE 0.9% 100 ML IV SCH ×3 (00:16→19:21)
[2017-07-21 01:20] LABS: Glucose,Whole Blood 200 mg/dL (75-99)
[2017-07-21 02:01] LABS: Glucose,Whole Blood 204 mg/dL (75-99)
[2017-07-21] MEDS: PROPOFOL 1,000 MG in EMPTY BAG 1 BAG IV SCH ×2 (02:24→08:27)
[2017-07-21 03:09] LABS: Glucose,Whole Blood 182 mg/dL (75-99)
[2017-07-21] MEDS: INSULIN REGULAR 100 UNIT in SODIUM CHLORIDE 0.9% 100 ML IV SCH (03:11)
[2017-07-21 04:11] LABS: Glucose,Whole Blood 159 mg/dL (75-99)
[2017-07-21 04:31] LABS: Anisocytosis Slight; HCT 35.5 % (39.0-53.0); HGB 11.6 gm/dL (13.0-17.5); MCH 32.2 pg (25.0-35.0); MCHC 32.8 g/dL (31.0-37.0); MCV 98.2 fL (80.0-100.0); Macrocytosis Slight; Mean Platelet Volume 8.2; RBC 3.61 m/uL (4.30-5.90); RDW 16.7 % (11.5-15.5)
[2017-07-21 04:45] LABS: Calcium 7.4 mg/dL (8.4-10.2); Magnesium 2.1 mg/dL (1.6-2.3); Potassium 5.4 mmol/L (3.5-5.1)
[2017-07-21 04:48] LABS: Platelet Count 69 k/uL (150-450); WBC 35.9 k/uL (3.8-10.6)
[2017-07-21 04:50] LABS: Vancomycin,Random 23.7 ug/mL
[2017-07-21] MEDS: THIAMINE 200 MG in SODIUM CHLORIDE 0.9% 100 ML IVPB SCH ×2 (05:08→19:22)
[2017-07-21 05:09] LABS: Phosphorus 11.7 mg/dL (2.5-4.5)
[2017-07-21 05:13] LABS: Band Neutrophils % 4 %; Large Platelets Present; Lymphocytes # (M) 0.36 k/uL (1.0-4.8); Monocytes # (M) 0.72 k/uL (0-1.0); Neutrophils % (M) 93 %; Nucleated Red Blood Cells 0 /100 WBC (0-0); Total Cells Counted 100
[2017-07-21 05:14] LABS: Polychromasia Present
[2017-07-21 05:14] LABS: Glucose,Whole Blood 160 mg/dL (75-99)
[2017-07-21 05:24] LABS: ABG Base Excess -6.4 mmol/L; ABG HCO3 21 mmol/L (21-25); ABG Oxygen Saturation 97.2 % (94-97); ABG PCO2 50 mmHg (35-45); ABG PH 7.24 (7.35-7.45); ABG PO2 109 mmHg (83-108); ABG TCO2 23 mmol/L (19-24)
[2017-07-21 06:51] LABS: Glucose,Whole Blood 150 mg/dL (75-99)
--- NOTE | 2017-07-21 07:29 | XR ---
EXAMINATION TYPE: XR chest 1V portable DATE OF EXAM: 07/21/2017 COMPARISON: 07/20/2017 INDICATION: Difficulty breathing, previous abnormal TECHNIQUE: Single frontal view of the chest is obtained. FINDINGS: The heart size is normal. The pulmonary vasculature is normal. There is a consolidation in the right perihilar region which is worsening. Right lower lobe infiltrat e is present. Mild infiltrate left base worsening. Endotracheal tube tip is above the marcelo. Nasogastric tube transverses the thorax. Left central veno us catheter tip is in the distal superior vena cava. IMPRESSION: 1. Increasing opacity in the right perihilar right lower and left lower lobe. Correlate for pneumonia . 2. Lines and catheters discussed above.
[2017-07-21] MEDS: CHLORHEXIDINE GLUCONATE 15 ML CUP MUCOUS MEM SCH (08:28)
[2017-07-21] MEDS: IPRATROPIUM-ALBUTEROL 3 ML NEB INHALATION SCH ×3 (08:28→15:13)
[2017-07-21] MEDS: BUDESONIDE 0.5 MG/2 ML NEBU INHALATION SCH (08:28)
[2017-07-21] MEDS: PANTOPRAZOLE 40 MG/10 ML VIAL IVP SCH (08:28)
[2017-07-21] MEDS: methylPREDNISolone SOD SUCCI 40 MG/ML 1 ML VIAL IV SCH (08:28)
[2017-07-21] MEDS: LACTULOSE 20 GM/30 ML CUP PO SCH (08:28)
[2017-07-21] MEDS: HEPARIN SODIUM,PORCINE 5,000 UNIT/ML 1 ML VIAL SQ SCH (08:29)
[2017-07-21] MEDS: DOCUSATE ORAL SOLN 100 MG/10 ML CUP PO SCH (08:29)
[2017-07-21] MEDS: BISACODYL 10 MG SUPP RECTAL SCH (08:31)
[2017-07-21] MEDS: CALCIUM ACETATE 667 MG CAP PO SCH (08:36)
[2017-07-21 08:51] LABS: Glucose,Whole Blood 161 mg/dL (75-99)
[2017-07-21 11:17] LABS: Glucose,Whole Blood 99 mg/dL (75-99)
[2017-07-21] MEDS ORDERED: LINEZOLID 600 MG in DEXTROSE/WATER 1 300ML.BAG IVPB SCH (12:00)
--- NOTE | 2017-07-21 12:26 | P.PN ---
<Cailin Jacobs E - Last Filed: 07/21/17 12:22> Subjective Progress Note Date: 07/21/17 [facility] is covering for Dr. Suarez Patient is being seen examined and evaluated today in the intensive care unit. Patient continues on mechanical ventilation with propofol for sedation. His current ventilator settings are before meals of 20, tidal volume 500, FiO2 60 and a PEEP of 5. He currently is undergoing dialysis with an ultrafiltration goal of 2 L. The patient did have altered of alteration of 2.5 L yesterday. His ammonia remains high at 106. Currently he is receiving lactulose. Chest x- ray has reviewed and does show increasing obesity of the right and left lower lobes. He has been afebrile. All labs and reports been reviewed. Nephrology and infectious disease on consult as well. The patient has had 2 bowel movements since yesterday 1 small in 1 moderate. Although he did have some increased secretions with his TPN feedings and his residual volumes to his NG were about 600 mL therefore the feeds were on hold at this time. He continues on TPN. Objective - Vital Signs Vital signs: Vital Signs Temp 97.6 F 07/21/17 04:00 Pulse 84 07/21/17 08:40 Resp 20 07/21/17 07:00 BP 109/55 07/19/17 00:00 Pulse Ox 99 07/21/17 07:00 Intake & Output 07/20/17 07/21/17 07/21/17 18:59 06:59 18:59 Intake Total 3119.928 1436.888 137.613 Output Total 38 6 10 Balance 3081.928 1430.888 127.613 Weight 118.3 kg 117.5 kg Intake: IV 1410 210 110 0.9 NS 110 110 10 Ascorbic Acid Inj 1,500 200 100 mg In Sodium Chloride 0.9 % 100 ml @ 103 mls/hr IV Q6HR [facility] Rx#:[id number] Dextrose 5% in Water 1, 150 000 ml @ 50 mls/hr IV . Q23H [facility] with Sodium Bicarb (1 Meq/ml) 150 ml Rx#:[id number] Sodium Chloride 2.5MEQ/ml 950 100 Vial 25 meq Calcium Chloride 300 mg Mvi, Adult No.4 with Vit K 10 ml Trace (Conc-1Ml/Dose) 1 ml In Amino Acid 4.25%- D10w 1,000 ml @ 50 mls/hr IV .[id number] [facility] Rx#: [id number] Intake, IV Titration 0793.008 0624.888 27.613 Amount Ascorbic Acid Inj 1,500 100 mg In Sodium Chloride 0.9 % 100 ml @ 103 mls/hr IV Q6HR [facility] Rx#:[id number] Insulin Regular 100 unit 36.045 83.168 In Sodium Chloride 0.9% 100 ml @ Per Protocol IV .Q0M [facility] Rx#:[id number] Propofol 1,000 mg In 263.720 27.613 Empty Bag 1 bag @ Titrate IV .Q0M [facility] Rx#: [id number] Sodium Chloride 0.9% 99 100 ml @ 0.03 UNITS/MIN 9 mls /hr IV .Q11H7M [facility] with Vasopressin 20 unit Rx#: [id number] Sodium Chloride 0.9% 99 19.883 ml @ 0.03 UNITS/MIN 9 mls /hr IV .Q11H7M [facility] with Vasopressin 20 unit Rx#: [id number] Sodium Chloride 2.5MEQ/ml 1024 800 Vial 25 meq Calcium Chloride 300 mg Mvi, Adult No.4 with Vit K 10 ml Trace (Conc-1Ml/Dose) 1 ml In Amino Acid 4.25%- D10w 1,000 ml @ 100 mls/ hr IV .BY DURATION [facility] Rx #:[id number] Sodium Chloride 2.5MEQ/ml 200 Vial 25 meq Calcium Chloride 300 mg Mvi, Adult No.4 with Vit K 10 ml Trace (Conc-1Ml/Dose) 1 ml In Amino Acid 4.25%- D10w 1,000 ml @ 50 mls/hr IV .[id number] [facility] Rx#: [id number] Thiamine 200 mg In Sodium 100 Chloride 0.9% 100 ml @ 204 mls/hr IVPB Q12H [facility] Rx#:[id number] Tube Feeding 10 80 Other 120 Output: Urine 35 5 10 Stool 3 1 Other: Voiding Method Indwelling Catheter Indwelling Catheter ABP, PAP, CO, CI - Last Documented Arterial Blood Pressure 108/55 - Exam Gen.: Patient is sedated on ventilator, critically ill Cardiovascular: Tachycardic, regular rate and rhythm, S1/S2 Lungs: Coarse breath sounds bilaterally Abdomen: Soft nontender nondistended positive bowel sounds Extremities: 1+ edema - Labs CBC & Chem 7: 07/21/17 04:15 07/21/17 04:15 Labs: Abnormal Lab Results - Last 24 Hours (Table) 07/20/17 07/20/17 07/20/17 Range/Units 12:23 13:57 16:42 WBC (3.8-10.6) k/uL RBC (4.30-5.90) m/uL Hgb (13.0-17.5) gm/dL Hct (39.0-53.0) % RDW (11.5-15.5) % Plt Count (150-450) k/uL Neutrophils # (Manual) (1.3-7.7) k/uL Lymphocytes # (Manual) (1.0-4.8) k/uL ABG pH (7.35-7.45) ABG pCO2 (35-45) mmHg ABG pO2 (83-108) mmHg ABG O2 Saturation (94-97) % Sodium (137-145) mmol/L Potassium (3.5-5.1) mmol/L Chloride (98-107) mmol/L Carbon Dioxide (22-30) mmol/L BUN (9-20) mg/dL Creatinine (0.66-1.25) mg/dL Glucose (74-99) mg/dL POC Glucose (mg/dL) 147 H 125 H 155 H (75-99) mg/dL Calcium (8.4-10.2) mg/dL Phosphorus (2.5-4.5) mg/dL Ammonia (<30) umol/L 07/20/17 07/20/17 07/20/17 Range/Units 19:05 20:46 22:05 WBC (3.8-10.6) k/uL RBC (4.30-5.90) m/uL Hgb (13.0-17.5) gm/dL Hct (39.0-53.0) % RDW (11.5-15.5) % Plt Count (150-450) k/uL Neutrophils # (Manual) (1.3-7.7) k/uL Lymphocytes # (Manual) (1.0-4.8) k/uL ABG pH (7.35-7.45) ABG pCO2 (35-45) mmHg ABG pO2 (83-108) mmHg ABG O2 Saturation (94-97) % Sodium (137-145) mmol/L Potassium (3.5-5.1) mmol/L Chloride (98-107) mmol/L Carbon Dioxide (22-30) mmol/L BUN (9-20) mg/dL Creatinine (0.66-1.25) mg/dL Glucose (74-99) mg/dL POC Glucose (mg/dL) 172 H 192 H 196 H (75-99) mg/dL Calcium (8.4-10.2) mg/dL Phosphorus (2.5-4.5) mg/dL Ammonia (<30) umol/L 07/20/17 07/21/17 07/21/17 Range/Units 23:03 00:03 01:19 WBC (3.8-10.6) k/uL RBC (4.30-5.90) m/uL Hgb (13.0-17.5) gm/dL Hct (39.0-53.0) % RDW (11.5-15.5) % Plt Count (150-450) k/uL Neutrophils # (Manual) (1.3-7.7) k/uL Lymphocytes # (Manual) (1.0-4.8) k/uL ABG pH (7.35-7.45) ABG pCO2 (35-45) mmHg ABG pO2 (83-108) mmHg ABG O2 Saturation (94-97) % Sodium (137-145) mmol/L Potassium (3.5-5.1) mmol/L Chloride (98-107) mmol/L Carbon Dioxide (22-30) mmol/L BUN (9-20) mg/dL Creatinine (0.66-1.25) mg/dL Glucose (74-99) mg/dL POC Glucose (mg/dL) 178 H 184 H 200 H (75-99) mg/dL Calcium (8.4-10.2) mg/dL Phosphorus (2.5-4.5) mg/dL Ammonia (<30) umol/L 07/21/17 07/21/17 07/21/17 Range/Units 01:59 03:07 04:10 WBC (3.8-10.6) k/uL RBC (4.30-5.90) m/uL Hgb (13.0-17.5) gm/dL Hct (39.0-53.0) % RDW (11.5-15.5) % Plt Count (150-450) k/uL Neutrophils # (Manual) (1.3-7.7) k/uL Lymphocytes # (Manual) (1.0-4.8) k/uL ABG pH (7.35-7.45) ABG pCO2 (35-45) mmHg ABG pO2 (83-108) mmHg ABG O2 Saturation (94-97) % Sodium (137-145) mmol/L Potassium (3.5-5.1) mmol/L Chloride (98-107) mmol/L Carbon Dioxide (22-30) mmol/L BUN (9-20) mg/dL Creatinine (0.66-1.25) mg/dL Glucose (74-99) mg/dL POC Glucose (mg/dL) 204 H 182 H 159 H (75-99) mg/dL Calcium (8.4-10.2) mg/dL Phosphorus (2.5-4.5) mg/dL Ammonia (<30) umol/L 07/21/17 07/21/17 07/21/17 Range/Units 04:15 04:15 05:10 WBC 35.9 H* (3.8-10.6) k/uL RBC 3.61 L (4.30-5.90) m/uL Hgb 11.6 L (13.0-17.5) gm/dL Hct 35.5 L (39.0-53.0) % RDW 16.7 H (11.5-15.5) % Plt Count 69 L (150-450) k/uL Neutrophils # (Manual) 34.80 H (1.3-7.7) k/uL Lymphocytes # (Manual) 0.36 L (1.0-4.8) k/uL ABG pH (7.35-7.45) ABG pCO2 (35-45) mmHg ABG pO2 (83-108) mmHg ABG O2 Saturation (94-97) % Sodium 129 L (137-145) mmol/L Potassium 5.4 H (3.5-5.1) mmol/L Chloride 93 L (98-107) mmol/L Carbon Dioxide 21 L (22-30) mmol/L BUN 95 H* (9-20) mg/dL Creatinine 4.54 H (0.66-1.25) mg/dL Glucose 164 H (74-99) mg/dL POC Glucose (mg/dL) 160 H (75-99) mg/dL Calcium 7.4 L (8.4-10.2) mg/dL Phosphorus 11.7 H* (2.5-4.5) mg/dL Ammonia (<30) umol/L 07/21/17 07/21/17 07/21/17 Range/Units 05:22 06:25 06:49 WBC (3.8-10.6) k/uL RBC (4.30-5.90) m/uL Hgb (13.0-17.5) gm/dL Hct (39.0-53.0) % RDW (11.5-15.5) % Plt Count (150-450) k/uL Neutrophils # (Manual) (1.3-7.7) k/uL Lymphocytes # (Manual) (1.0-4.8) k/uL ABG pH 7.24 L (7.35-7.45) ABG pCO2 50 H (35-45) mmHg ABG pO2 109 H (83-108) mmHg ABG O2 Saturation 97.2 H (94-97) % Sodium (137-145) mmol/L Potassium (3.5-5.1) mmol/L Chloride (98-107) mmol/L Carbon Dioxide (22-30) mmol/L BUN (9-20) mg/dL Creatinine (0.66-1.25) mg/dL Glucose (74-99) mg/dL POC Glucose (mg/dL) 150 H (75-99) mg/dL Calcium (8.4-10.2) mg/dL Phosphorus (2.5-4.5) mg/dL Ammonia 106 H (<30) umol/L 07/21/17 Range/Units 08:49 WBC (3.8-10.6) k/uL RBC (4.30-5.90) m/uL Hgb (13.0-17.5) gm/dL Hct (39.0-53.0) % RDW (11.5-15.5) % Plt Count (150-450) k/uL Neutrophils # (Manual) (1.3-7.7) k/uL Lymphocytes # (Manual) (1.0-4.8) k/uL ABG pH (7.35-7.45) ABG pCO2 (35-45) mmHg ABG pO2 (83-108) mmHg ABG O2 Saturation (94-97) % Sodium (137-145) mmol/L Potassium (3.5-5.1) mmol/L Chloride (98-107) mmol/L Carbon Dioxide (22-30) mmol/L BUN (9-20) mg/dL Creatinine (0.66-1.25) mg/dL Glucose (74-99) mg/dL POC Glucose (mg/dL) 161 H (75-99) mg/dL Calcium (8.4-10.2) mg/dL Phosphorus (2.5-4.5) mg/dL Ammonia (<30) umol/L Microbiology - Last 24 Hours (Table) 07/16/17 04:55 Blood Culture - Preliminary Blood No Growth after 120 hours 07/16/17 04:40 Blood Culture - Preliminary Blood No Growth after 120 hours Assessment and Plan Assessment: Assessment Acute respiratory failure requiring mechanical ventilation MRSA pneumonia MRSA bacteremia Septic shock Multisystem organ failure Acute renal failure, requiring HD Severe hyperkalemia Thrombocytopenia Alcohol abuse Tobacco abuse Obesity Hyperammonemia Continue full vent support, continue PEEP 10, titrate Fio2 to 40% Levophed and vasopressin on standby HD per nephrology ABX per ID: Levaquin and Vanco Lasix and bicarb drips have been discontinued Monitor K GI and DVT prophylaxis Bowel regimen Continue TPN Thiamine, Vit C, Cortef per protocol Continue bronchodilators Insulin drip Molasses enema, Dulcolax Plan for 3L ultrafiltration today Will plan for sedation holiday tomorrow Monitor ammonia level Trickle feeds Continue ICU care Prognosis is poor We are covering for Dr. Suarez I performed an examination of the patient and discussed their management with the nurse practitioner. I have reviewed the nurse practitioner's note and agree with the documented findings and plan of care. <Lynette Forbes - Last Filed: 07/21/17 15:01> Objective - Vital Signs Vital signs: Vital Signs Temp 98.8 F 07/21/17 12:00 Pulse 107 H 07/21/17 13:30 Resp 21 03/15/18 13:30 BP 106/60 07/21/17 13:30 Pulse Ox 95 07/21/17 13:30 Intake & Output 07/20/17 07/21/17 07/21/17 18:59 06:59 18:59 Intake Total 3119.928 1436.888 987.613 Output Total 38 6 1 Balance 3081.928 1430.888 -1033.387 Weight 118.3 kg 117.5 kg 117.5 kg Intake: IV 1410 210 260 0.9 NS 110 110 60 Ascorbic Acid Inj 1,500 200 200 mg In Sodium Chloride 0.9 % 100 ml @ 103 mls/hr IV Q6HR [facility] Rx#:[id number] Dextrose 5% in Water 1, 150 000 ml @ 50 mls/hr IV . Q23H [facility] with Sodium Bicarb (1 Meq/ml) 150 ml Rx#:[id number] Sodium Chloride 2.5MEQ/ml 950 100 Vial 25 meq Calcium Chloride 300 mg Mvi, Adult No.4 with Vit K 10 ml Trace (Conc-1Ml/Dose) 1 ml In Amino Acid 4.25%- D10w 1,000 ml @ 50 mls/hr IV .[id number] [facility] Rx#: [id number] Intake, IV Titration 1614.952 9958.888 727.613 Amount Ascorbic Acid Inj 1,500 100 mg In Sodium Chloride 0.9 % 100 ml @ 103 mls/hr IV Q6HR [facility] Rx#:[id number] Insulin Regular 100 unit 36.045 83.168 In Sodium Chloride 0.9% 100 ml @ Per Protocol IV .Q0M [facility] Rx#:[id number] Linezolid 600 mg In 300 Dextrose/Water 1 300ml. bag @ 150 mls/hr IVPB Q12H [facility] Rx#:[id number] Propofol 1,000 mg In 263.720 27.613 Empty Bag 1 bag @ Titrate IV .Q0M [facility] Rx#: [id number] Sodium Chloride 0.9% 99 100 ml @ 0.03 UNITS/MIN 9 mls /hr IV .Q11H7M [facility] with Vasopressin 20 unit Rx#: [id number] Sodium Chloride 0.9% 99 19.883 ml @ 0.03 UNITS/MIN 9 mls /hr IV .Q11H7M [facility] with Vasopressin 20 unit Rx#: [id number] Sodium Chloride 2.5MEQ/ml 400 Vial 25 meq Calcium Chloride 300 mg In Amino Acid 4.25%-D10w 1,000 ml @ 100 mls/hr IV .BY DURATION [facility] Rx#: [id number] Sodium Chloride 2.5MEQ/ml 1024 800 Vial 25 meq Calcium Chloride 300 mg Mvi, Adult No.4 with Vit K 10 ml Trace (Conc-1Ml/Dose) 1 ml In Amino Acid 4.25%- D10w 1,000 ml @ 100 mls/ hr IV .BY DURATION [facility] Rx #:[id number] Sodium Chloride 2.5MEQ/ml 200 Vial 25 meq Calcium Chloride 300 mg Mvi, Adult No.4 with Vit K 10 ml Trace (Conc-1Ml/Dose) 1 ml In Amino Acid 4.25%- D10w 1,000 ml @ 50 mls/hr IV .[id number] [facility] Rx#: [id number] Thiamine 200 mg In Sodium 100 Chloride 0.9% 100 ml @ 204 mls/hr IVPB Q12H [facility] Rx#:[id number] Tube Feeding 10 80 Other 120 Output: Gastric Drainage 2000 Urine 35 5 20 Stool 3 1 1 Other: Voiding Method Indwelling Catheter Indwelling Catheter Indwelling Catheter ABP, PAP, CO, CI - Last Documented Arterial Blood Pressure 97/49 - Labs CBC & Chem 7: 07/21/17 04:15 07/21/17 04:15 Labs: Abnormal Lab Results - Last 24 Hours (Table) 07/20/17 07/20/17 07/20/17 Range/Units 16:42 19:05 20:46 WBC (3.8-10.6) k/uL RBC (4.30-5.90) m/uL Hgb (13.0-17.5) gm/dL Hct (39.0-53.0) % RDW (11.5-15.5) % Plt Count (150-450) k/uL Neutrophils # (Manual) (1.3-7.7) k/uL Lymphocytes # (Manual) (1.0-4.8) k/uL ABG pH (7.35-7.45) ABG pCO2 (35-45) mmHg ABG pO2 (83-108) mmHg ABG O2 Saturation (94-97) % Sodium (137-145) mmol/L Potassium (3.5-5.1) mmol/L Chloride (98-107) mmol/L Carbon Dioxide (22-30) mmol/L BUN (9-20) mg/dL Creatinine (0.66-1.25) mg/dL Glucose (74-99) mg/dL POC Glucose (mg/dL) 155 H 172 H 192 H (75-99) mg/dL Calcium (8.4-10.2) mg/dL Phosphorus (2.5-4.5) mg/dL Ammonia (<30) umol/L 07/20/17 07/20/17 07/21/17 Range/Units 22:05 23:03 00:03 WBC (3.8-10.6) k/uL RBC (4.30-5.90) m/uL Hgb (13.0-17.5) gm/dL Hct (39.0-53.0) % RDW (11.5-15.5) % Plt Count (150-450) k/uL Neutrophils # (Manual) (1.3-7.7) k/uL Lymphocytes # (Manual) (1.0-4.8) k/uL ABG pH (7.35-7.45) ABG pCO2 (35-45) mmHg ABG pO2 (83-108) mmHg ABG O2 Saturation (94-97) % Sodium (137-145) mmol/L Potassium (3.5-5.1) mmol/L Chloride (98-107) mmol/L Carbon Dioxide (22-30) mmol/L BUN (9-20) mg/dL Creatinine (0.66-1.25) mg/dL Glucose (74-99) mg/dL POC Glucose (mg/dL) 196 H 178 H 184 H (75-99) mg/dL Calcium (8.4-10.2) mg/dL Phosphorus (2.5-4.5) mg/dL Ammonia (<30) umol/L 07/21/17 07/21/17 07/21/17 Range/Units 01:19 01:59 03:07 WBC (3.8-10.6) k/uL RBC (4.30-5.90) m/uL Hgb (13.0-17.5) gm/dL Hct (39.0-53.0) % RDW (11.5-15.5) % Plt Count (150-450) k/uL Neutrophils # (Manual) (1.3-7.7) k/uL Lymphocytes # (Manual) (1.0-4.8) k/uL ABG pH (7.35-7.45) ABG pCO2 (35-45) mmHg ABG pO2 (83-108) mmHg ABG O2 Saturation (94-97) % Sodium (137-145) mmol/L Potassium (3.5-5.1) mmol/L Chloride (98-107) mmol/L Carbon Dioxide (22-30) mmol/L BUN (9-20) mg/dL Creatinine (0.66-1.25) mg/dL Glucose (74-99) mg/dL POC Glucose (mg/dL) 200 H 204 H 182 H (75-99) mg/dL Calcium (8.4-10.2) mg/dL Phosphorus (2.5-4.5) mg/dL Ammonia (<30) umol/L 07/21/17 07/21/17 07/21/17 Range/Units 04:10 04:15 04:15 WBC 35.9 H* (3.8-10.6) k/uL RBC 3.61 L (4.30-5.90) m/uL Hgb 11.6 L (13.0-17.5) gm/dL Hct 35.5 L (39.0-53.0) % RDW 16.7 H (11.5-15.5) % Plt Count 69 L (150-450) k/uL Neutrophils # (Manual) 34.80 H (1.3-7.7) k/uL Lymphocytes # (Manual) 0.36 L (1.0-4.8) k/uL ABG pH (7.35-7.45) ABG pCO2 (35-45) mmHg ABG pO2 (83-108) mmHg ABG O2 Saturation (94-97) % Sodium 129 L (137-145) mmol/L Potassium 5.4 H (3.5-5.1) mmol/L Chloride 93 L (98-107) mmol/L Carbon Dioxide 21 L (22-30) mmol/L BUN 95 H* (9-20) mg/dL Creatinine 4.54 H (0.66-1.25) mg/dL Glucose 164 H (74-99) mg/dL POC Glucose (mg/dL) 159 H (75-99) mg/dL Calcium 7.4 L (8.4-10.2) mg/dL Phosphorus 11.7 H* (2.5-4.5) mg/dL Ammonia (<30) umol/L 07/21/17 07/21/17 07/21/17 Range/Units 05:10 05:22 06:25 WBC (3.8-10.6) k/uL RBC (4.30-5.90) m/uL Hgb (13.0-17.5) gm/dL Hct (39.0-53.0) % RDW (11.5-15.5) % Plt Count (150-450) k/uL Neutrophils # (Manual) (1.3-7.7) k/uL Lymphocytes # (Manual) (1.0-4.8) k/uL ABG pH 7.24 L (7.35-7.45) ABG pCO2 50 H (35-45) mmHg ABG pO2 109 H (83-108) mmHg ABG O2 Saturation 97.2 H (94-97) % Sodium (137-145) mmol/L Potassium (3.5-5.1) mmol/L Chloride (98-107) mmol/L Carbon Dioxide (22-30) mmol/L BUN (9-20) mg/dL Creatinine (0.66-1.25) mg/dL Glucose (74-99) mg/dL POC Glucose (mg/dL) 160 H (75-99) mg/dL Calcium (8.4-10.2) mg/dL Phosphorus (2.5-4.5) mg/dL Ammonia 106 H (<30) umol/L 07/21/17 07/21/17 Range/Units 06:49 08:49 WBC (3.8-10.6) k/uL RBC (4.30-5.90) m/uL Hgb (13.0-17.5) gm/dL Hct (39.0-53.0) % RDW (11.5-15.5) % Plt Count (150-450) k/uL Neutrophils # (Manual) (1.3-7.7) k/uL Lymphocytes # (Manual) (1.0-4.8) k/uL ABG pH (7.35-7.45) ABG pCO2 (35-45) mmHg ABG pO2 (83-108) mmHg ABG O2 Saturation (94-97) % Sodium (137-145) mmol/L Potassium (3.5-5.1) mmol/L Chloride (98-107) mmol/L Carbon Dioxide (22-30) mmol/L BUN (9-20) mg/dL Creatinine (0.66-1.25) mg/dL Glucose (74-99) mg/dL POC Glucose (mg/dL) 150 H 161 H (75-99) mg/dL Calcium (8.4-10.2) mg/dL Phosphorus (2.5-4.5) mg/dL Ammonia (<30) umol/L Microbiology - Last 24 Hours (Table) 07/16/17 04:55 Blood Culture - Preliminary Blood No Growth after 120 hours 07/16/17 04:40 Blood Culture - Preliminary Blood No Growth after 120 hours Assessment and Plan Assessment: Patient seen and examined in the ICU with nursing staff at bedside. Patient underwent hemodialysis today with ultrafiltration. The patient was able to tolerate dialysis without pressors. He is not tolerating even trickle feeds. He had 800 mL residual. He did have 2 bowel movements. Family has been updated on the patient's condition and they're planning to transition to comfort care this evening. Lynette Forbes DO
[2017-07-21 13:39] LABS: Glucose,Whole Blood 99 mg/dL (75-99)
[2017-07-21 13:41] VITALS: TEMP 98.8
--- NOTE | 2017-07-21 16:57 | PN ---
PROGRESS NOTE The patient is seen for followup for acute kidney injury. He remains anuric with no urine output. Patient is maintained on daily dialysis. He will be dialyzed again today, blood pressure through the Art line may not be accurate. PHYSICAL EXAMINATION: On examination, cuff blood pressure is 123/59, heart rate of 100 per minute. Patient is afebrile. Examination of the heart S1, S2. Examination of the lungs bilateral breath sounds are heard abdomen is soft, nontender. Examination lower extremity shows edema 2+ bilaterally upper and lower extremities. LABS: Revealed ammonia of 106, serum potassium was 5.4 today, sodium 129, BUN 95, serum creatinine 4.54, hemoglobin 11.6 g/dL, white cell count 35.9. ASSESSMENT: 1. Acute kidney injury, acute tubular necrosis secondary to sepsis as well as vancomycin toxicity and hypotension and hypoperfusion. Currently hemodialysis dependent with minimal urine output. Continue with daily dialysis for now and continue to avoid nephrotoxic agents. Hold off on vancomycin. 2. Hyponatremia. Adjust TPN. Increase sodium. 3. Hyperkalemia associated with acute kidney injury and catabolic state, slowly improving. Continue with aggressive dialysis daily. 4. Metabolic acidosis for associated with renal failure, status post IV bicarb. 5. Severe hyperphosphatemia, currently not on phosphate binders as we are not using the gut. 6. Ileus. Maintained on Reglan. However, the dose of Reglan is high given his renal failure. Decrease to q.8 hours on the Reglan. PLAN: Continue daily dialysis, decrease Reglan and adjust TPN to increase sodium in the TPN as sodium was low. MMODL / IJN: [id number] /
[2017-07-21] MEDS ORDERED: MORPHINE SULFATE 4 MG/ML SYRINGE IV PRN (18:36)
[2017-07-21] MEDS ORDERED: SCOPOLAMINE 1.5MG/72HR PATCH TRANSDERM PRN (18:36)
[2017-07-21] MEDS ORDERED: LORazepam 2 MG/ML INJ IV PRN (18:36)
[2017-07-21] MEDS ORDERED: MORPHINE SULFATE (100 MG/2 ML) 100 MG in SODIUM CHLORIDE 0.9% 100 ML IV SCH (19:15)
[2017-07-21 19:18] VITALS: BP 100/53; PULSE 112; RESP 19
[2017-07-21] MEDS: SODIUM CHLORIDE 0.9% 99 ML with VASOPRESSIN 20 UNIT IV SCH ×4 (19:23→19:24)
== END 2017-07-21 21:44 | disposition expired | DRG 853 ==
LOC: EC 00:50 → 6ICU 03:41
PROVIDERS: ADMIT Family Medicine; ATTEND Family Medicine
PROC: 0BH18EZ Insertion of Endotracheal Airway into Trachea, Via Natural or Artificial Opening Endoscopic (ICD-10-PCS; 2017-07-11)
PROC: 5A1955Z Respiratory Ventilation, Greater than 96 Consecutive Hours (ICD-10-PCS; 2017-07-11)
PROC: 0B9F8ZX Drainage of Right Lower Lung Lobe, Via Natural or Artificial Opening Endoscopic, Diagnostic (ICD-10-PCS; principal; 2017-07-14)
PROC: 05HM33Z Insertion of Infusion Device into Right Internal Jugular Vein, Percutaneous Approach (ICD-10-PCS; principal; 2017-07-14)
PROC: 0B9J8ZX Drainage of Left Lower Lung Lobe, Via Natural or Artificial Opening Endoscopic, Diagnostic (ICD-10-PCS; principal; 2017-07-14)
PROC: 03HB33Z Insertion of Infusion Device into Right Radial Artery, Percutaneous Approach (ICD-10-PCS; principal; 2017-07-14)
PROC: 5A1D70Z Performance of Urinary Filtration, Intermittent, Less than 6 Hours Per Day (ICD-10-PCS; 2017-07-18)
PROC: 04HK33Z Insertion of Infusion Device into Right Femoral Artery, Percutaneous Approach (ICD-10-PCS; 2017-07-19)
DX: A41.02 Sepsis due to Methicillin resistant Staphylococcus aureus (principal); J96.21 Acute and chronic respiratory failure with hypoxia; N17.0 Acute kidney failure with tubular necrosis; J69.0 Pneumonitis due to inhalation of food and vomit; J15.212 Pneumonia due to Methicillin resistant Staphylococcus aureus; R65.21 Severe sepsis with septic shock; E87.4 Mixed disorder of acid-base balance; E72.20 Disorder of urea cycle metabolism, unspecified; J90 Pleural effusion, not elsewhere classified; J96.22 Acute and chronic respiratory failure with hypercapnia; E87.1 Hypo-osmolality and hyponatremia; J44.0 Chronic obstructive pulmonary disease with (acute) lower respiratory infection; J44.1 Chronic obstructive pulmonary disease with (acute) exacerbation; J45.901 Unspecified asthma with (acute) exacerbation; K56.7 Ileus, unspecified; S22.39XA Fracture of one rib, unspecified side, initial encounter for closed fracture; D69.59 Other secondary thrombocytopenia; E11.22 Type 2 diabetes mellitus with diabetic chronic kidney disease; E11.65 Type 2 diabetes mellitus with hyperglycemia; E83.39 Other disorders of phosphorus metabolism; E66.9 Obesity, unspecified; E87.5 Hyperkalemia; E87.70 Fluid overload, unspecified; F10.20 Alcohol dependence, uncomplicated; F17.200 Nicotine dependence, unspecified, uncomplicated; M85.80 Other specified disorders of bone density and structure, unspecified site; N18.3 Chronic kidney disease, stage 3 (moderate); T17.990A Other foreign object in respiratory tract, part unspecified in causing asphyxiation, initial encounter; T36.8X5A Adverse effect of other systemic antibiotics, initial encounter; T38.0X5A Adverse effect of glucocorticoids and synthetic analogues, initial encounter; Z79.4 Long term (current) use of insulin; Z79.51 Long term (current) use of inhaled steroids; Z79.52 Long term (current) use of systemic steroids; Z79.899 Other long term (current) drug therapy; Z87.01 Personal history of pneumonia (recurrent); Z99.2 Dependence on renal dialysis
CPT/HCPCS: 31500; 31624; 36415; 36600; 51702; 70450; 71045; 71046; 71250; 74018; 74176; 80048; 80053; 80202; 81001; 82140; 82271; 82330; 82550; 82553; 82565; 82805; 83036; 83605; 83735; 84100; 84132; 84484; 85025; 85027; 85610; 85730; 86706; 87040; 87070; 87077; 87086; 87102; 87116; 87186; 87205; 87206; 87252; 87340; 87496; 87498; 87502; 87529; 87541; 87634; 87798; 88108; 88305; 90935; 93005; 94002; 94003; 94640; 94644; 94660; 96365; 96366; 96367; 96368; 96372; 96375; 96376; 99291